=== PATIENT | female | born 1990 | race Two or more races ===

== ENCOUNTER 2023-09-22 13:02 | Emergency (ER) | payer OTHER, SELFPAY ==
[2023-09-22 13:05] VITALS: BP 116/67; PULSE 79; RESP 20; TEMP 37.1; O2SAT 100; BMI 53.5
--- NOTE | 2023-09-22 13:51 | US_ITS ---
The [address] [address] Patient Name: ISAAC JOHNSTON MRN: [id number] date: 1990 Sex: F Assigned Patient Location: ER Current Patient Location: ER Accession/Order Number: [id number] Exam Date: 09/22/2023 14:15 Report Date: 09/22/2023 15:22 At the request of: ROSALINA HODGE Procedure: US OB transvaginal EXAMINATION: US OB transvaginal HISTORY: 10 week preg , cramping, vaginal bleeding COMPARISON: No relevant comparison available. FINDINGS: GESTATIONAL SAC: Present and normal appearing. YOLK SAC: Present and normal appearing. POLE: Present and normal appearing. CARDIAC: Present. UTERUS: Normal size and appearance. OVARIES: Right: Not seen. Left: Normal. CERVIX: 3.5 cm in length and closed. CUL-DE-SAC: Normal. OTHER: None. AGE BY LMP: 11 weeks 1 day RODERICK BY LMP: 04/11/2024 AGE BY US CRL: 6 weeks 5 days RODERICK BY US CRL: 05/12/2024 US/US OB transvaginal IMPRESSION: 1. Single live intrauterine . 2. No acute findings. Right ovary is not seen, but there are no suspicious adnexal findings. Electronically authenticated by: NATALY GEORGE Date: 09/22/2023 15:22
--- NOTE | 2023-09-22 13:53 | ED.GENADUL1 ---
HPI - General Adult General Chief complaint: Urogenital-Female Stated complaint: ISSUES Time Seen by Provider: 09/22/23 13:42 Source: patient Mode of arrival: walk-in Limitations: no limitations History of Present Illness HPI narrative: Patient is a 32-year-old female who is presenting to the Emergency Room with chief complaint of vaginal bleeding that started this morning. Patient has not soaked a total of one pad yet. Patient is a . Patient's had [address] Greene has been patient's OB previously in [place]. Patient's new OB is going to be Dr. Smiley, she has an appointment on October 03 for them. She is tapering a vitamins. 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 Patient's had no type of injury. No trauma. She's had no recent intercourse or traumatic intercourse last day or 2. No falls, no other types of trauma could be causing any type of vaginal bleeding. She'll lightheaded or dizzy. No abdominal pain, nausea or vomiting. She has no urinary frequency or urgency or burning. No diarrhea or constipation. Patient called Dr. Smiley office, and since she has not been seen in the office, they directed her to come to the Emergency Room for evaluation. Patient came to the Emergency Room, she drove her. Patient believes that she is O positive blood. Patient has no active or continued bleeding at this time. . All systems are negative except as noted/marked. All systems reviewed and otherwise negative. . Nurses note and vital signs reviewed and patient is not hypoxic. General: The patient appears well and in no apparent distress. Patient is resting comfortably on cart. Patient is not toxic, lethargic, or listless Skin: Warm, dry, no pallor noted. There is no rash noted. No petechiae, purpura. Head: Normocephalic, atraumatic Eye: Normal conjunctiva, no drainage, EOMI. PERRL Ears, Nose, Mouth, and Throat: oral mucosa is moist. Nares patent. Mouth without vesicles Cardiovascular: Regular Rate and Rhythm, no murmur, gallop, rub Respiratory: Patient is in no distress, no accessory muscle use, lungs are clear to auscultation, no wheezing, rales or rhonchi Back: non-tender, no CVA tenderness bilaterally to percussion. No CT LS midline pain GI: soft, obese, No suprapubic tenderness to palpation, no flank pain bilateral, Mild paralumbar tenderness to palpation, no rash, no tenderness to palpation, no masses appreciated. No rebound, guarding, or rigidity noted. No flank pain bilateral, No distention Musculoskeletal: Patient has full range of motion of all of the extremities, no motor, sensory, or focal neurological deficits Neurological: A&O x3, normal speech Psychiatric: Cooperative Related Data Home Medications Medication Instructions Recorded Confirmed No Known Home Medications 09/22/23 09/22/23 Allergies Allergy/AdvReac Type Severity Reaction Status Date / Time No Known Drug Allergies Allergy Verified 09/22/23 13:09 [facility] Social History Smoking status: Former smoker Exam Constitutional Vital Signs, click to edit/add: Last Vital Signs Temp 98.7 F 09/22/23 13:05 Pulse 79 09/22/23 13:05 Resp 20 09/22/23 13:05 BP 116/67 09/22/23 13:05 Pulse Ox 100 09/22/23 13:05 O2 Del Method Room Air 09/22/23 13:05 Course Vital Signs Vital signs: Vital Signs Temperature 98.7 F 09/22/23 13:05 Pulse Rate 79 09/22/23 13:05 Respiratory Rate 20 09/22/23 13:05 Blood Pressure 116/67 09/22/23 13:05 Pulse Oximetry 100 09/22/23 13:05 Oxygen Delivery Method Room Air 09/22/23 13:05 Temperature 98.7 F 09/22/23 13:05 Pulse Rate 79 09/22/23 13:05 Respiratory Rate 20 09/22/23 13:05 Blood Pressure 116/67 09/22/23 13:05 Pulse Oximetry 100 09/22/23 13:05 Oxygen Delivery Method Room Air 09/22/23 13:05 Medical Decision Making MDM Narrative Medical decision making narrative: Patient's ultrasound showed no acute findings. Patient will continue taking vitamins. Patient was aware of pelvic rest. Information was provided on her discharge papers as well. 1529 patient told staff that she is leaving, she has kids at home and easily right now. I did give her a copy of the results of her ultrasound. I did formally discharged her. Patient is O positive. Patient is aware that Dr. Baljit will see her in the office the next 2 or 3 days. She will use Tylenol needed for pain. No questions at discharge. Lab Data Lab results reviewed: Yes I reviewed the patient's lab results Labs: Lab Results 09/22/23 Range/Units 14:02 WBC 11.3 H (4.0-11.0) 10^3/uL RBC 4.07 L (4.20-5.40) 10^6/uL Hgb 12.3 (12.0-16.0) g/dL Hct 37.4 (36.0-48.0) % MCV 91.9 (81.0-99.0) fL MCH 30.2 (26.7-34.0) pg MCHC 32.9 (29.9-35.2) g/dL RDW 12.0 (11.0-15.0) % Plt Count 254 (150-450) 10^3/uL MPV 8.8 L (9.5-13.5) fL Neut % (Auto) 75.1 H (43.0-75.0) % Lymph % (Auto) 17.2 L (20.5-60.0) % [place] % (Auto) 6.7 (1.7-12.0) % Eos % (Auto) 0.4 L (0.9-7.0) % Baso % (Auto) 0.2 (0.2-2.0) % Neut # (Auto) 8.5 H (1.4-6.5) 10^3/uL Lymph # (Auto) 1.9 (1.2-3.8) 10^3/uL [place] # (Auto) 0.8 (0.3-0.8) 10^3/uL Eos # (Auto) 0.0 (0.0-0.7) 10^3/uL Baso # (Auto) 0.0 (0.0-0.1) 10^3/uL Abs Immat Gran (auto) 0.04 H (0.00-0.03) 10^3/uL Imm/Tot Granulo (auto) 0.4 (0.0-0.5) % HCG, Quant 01621 mIU/mL Blood Type O Positive Discharge Plan Discharge Chief Complaint: Urogenital-Female Clinical Impression: , threatened Patient Disposition: Home, Self-Care Time of Disposition Decision: 15:30 Condition: Fair Prescriptions / Home Meds: No Action No Known Home Medications Instructions: Threatened Miscarriage (ED) Additional Instructions: Called Dr. Smiley office, he will follow up with here in the office in the next 2 or 3 days for reevaluation. Continue taking vitamins. Pelvic rest until you follow-up with Dr. Smiley, no intercourse, no significant strenuous activity, no tampons, and no sexual toys to be inserted into the vaginal canal. Pelvic rest until following up with Dr. Smiley. Use Tylenol as needed for cramping pain. Increase fluids. Stand Alone Forms: Portal Instructions Referrals: Shlomo Smiley DO [Physician] - 1 week TOR TORRES [Primary Care Provider] - 1 week
[2023-09-22 14:11] LABS: Basophils Percent Auto 0.2 % (0.2-2.0); Eosinophils Percent Auto 0.4 % (0.9-7.0); Hematocrit 37.4 % (36.0-48.0); Hemoglobin 12.3 g/dL (12.0-16.0); Immature Granulocytes Abs Auto 0.04 10^3/uL (0.00-0.03); Immature Granulocytes Pct Auto 0.4 % (0.0-0.5); Lymphocytes Absolute Auto 1.9 10^3/uL (1.2-3.8); Lymphocytes Percent Auto 17.2 % (20.5-60.0); Mean Corpuscular HGB Conc 32.9 g/dL (29.9-35.2); Mean Corpuscular Hemoglobin 30.2 pg (26.7-34.0); Mean Corpuscular Volume 91.9 fL (81.0-99.0); Mean Platelet Volume 8.8 fL (9.5-13.5); Monocytes Absolute Auto 0.8 10^3/uL (0.3-0.8); Monocytes Percent Auto 6.7 % (1.7-12.0); Neutrophils Absolute Auto 8.5 10^3/uL (1.4-6.5); Neutrophils Percent Auto 75.1 % (43.0-75.0); Platelet Count 254 10^3/uL (150-450); Red Blood Count 4.07 10^6/uL (4.20-5.40); White Blood Count 11.3 10^3/uL (4.0-11.0)
== END 2023-09-22 15:44 | disposition home or self-care (01) ==
PROVIDERS: Emergency Provider Emergency Medicine; PCP Internal Medicine
DX: O20.0 Threatened abortion (principal); Z3A.10 10 weeks gestation of pregnancy
CPT/HCPCS: 36415; 76817; 84702; 85025; 86900; 86901; 99284

== ENCOUNTER 2023-10-03 10:15 | Outpatient (OUT) | payer OTHER, SELFPAY ==
--- NOTE | 2023-10-03 10:17 | US_ITS ---
[address] [address] Patient Name: ISAAC JOHNSTON MRN: [id number] date: 1990 Sex: F Assigned Patient Location: US Current Patient Location: Accession/Order Number: [id number] Exam Date: 10/03/2023 10:18 Report Date: 10/03/2023 20:29 At the request of: JESICA CROOKS Procedure: US OB transvaginal EXAMINATION: US OB transvaginal HISTORY: MISSED MENSES COMPARISON: No relevant comparison available. FINDINGS: GESTATIONAL SAC: Present and normal appearing. YOLK SAC: Present and normal appearing. POLE: Present and normal appearing. CARDIAC: Present. UTERUS: Normal size and appearance. OVARIES: Right: Not seen. Left: Corpus lutein cyst. CERVIX: 4.2 cm in length and closed. CUL-DE-SAC: Normal. OTHER: None. AGE BY LMP: 8 weeks 1 day RODERICK BY LMP: 05/13/2024 AGE BY US CRL: 7 weeks 6 days RODERICK BY US CRL: 05/15/2024 US/US OB transvaginal IMPRESSION: Electronically authenticated by: NATALY GEORGE Date: 10/03/2023 20:29
== END 2023-10-03 10:16 | disposition home or self-care (01) ==
LOC: US 10:15
PROVIDERS: PCP Internal Medicine; Visit Provider Obstetrics & Gynecology
DX: Z34.91 Encounter for supervision of normal pregnancy, unspecified, first trimester (principal); N92.6 Irregular menstruation, unspecified
CPT/HCPCS: 76817

== ENCOUNTER 2023-10-17 16:35 | Outpatient (OUT) | payer OTHER, SELFPAY ==
[2023-10-17 17:06] LABS: BOX Test Sent Out Y
[2023-10-17 17:07] LABS: Basophils Percent Auto 0.2 % (0.2-2.0); Eosinophils Absolute Auto 0.1 10^3/uL (0.0-0.7); Eosinophils Percent Auto 0.8 % (0.9-7.0); Hemoglobin 11.9 g/dL (12.0-16.0); Immature Granulocytes Abs Auto 0.02 10^3/uL (0.00-0.03); Immature Granulocytes Pct Auto 0.2 % (0.0-0.5); Lymphocytes Absolute Auto 2.4 10^3/uL (1.2-3.8); Lymphocytes Percent Auto 26.8 % (20.5-60.0); Mean Corpuscular HGB Conc 32.2 g/dL (29.9-35.2); Mean Corpuscular Hemoglobin 29.8 pg (26.7-34.0); Mean Corpuscular Volume 92.5 fL (81.0-99.0); Mean Platelet Volume 8.5 fL (9.5-13.5); Monocytes Absolute Auto 0.6 10^3/uL (0.3-0.8); Monocytes Percent Auto 6.1 % (1.7-12.0); Neutrophils Percent Auto 65.9 % (43.0-75.0); Platelet Count 290 10^3/uL (150-450); Red Cell Distribution Width 12.8 % (11.0-15.0); White Blood Count 9.1 10^3/uL (4.0-11.0)
[2023-10-17 17:28] LABS: Estimated Average Glucose 91 mg/dL; Glycohemoglobin A1C 4.8 % (4.5-6.2)
[2023-10-17 17:45] LABS: Thyroid Stimulating Hormone 1.933 uIU/mL (0.358-3.740)
[2023-10-19 10:07] LABS: HBsAg Screen Negative (Negative); HCV Ab Non Reactive (Non Reactive); HIV Ab/p24 Ag Screen Non Reactive (Non Reactive)
[2023-10-20 09:07] LABS: Rubella Antibodies, IgG 2.21 index (Immune >0.99)
[2023-10-21 13:08] LABS: Rapid Plasma Reagin, Quant Non Reactive titer (NonRea<1:1)
== END 2023-10-17 16:36 | disposition home or self-care (01) ==
PROVIDERS: PCP Internal Medicine; Visit Provider Obstetrics & Gynecology
DX: N92.6 Irregular menstruation, unspecified (principal); Z36.0 Encounter for antenatal screening for chromosomal anomalies
CPT/HCPCS: 36415; 83036; 84443; 85025; 86592; 86762; 86803; 86850; 86900; 86901; 87086; 87340; 87389

== ENCOUNTER 2023-12-01 22:00 | Outpatient (REF) | payer OTHER, SELFPAY ==
--- OUTSIDE RECORDS SUMMARY | 2023-12-01 22:03 | XMS_ITS | CCD ---
Author Name Unknown Address [address] [place] [address] Organization [facility] Care Team Providers Care Facilities Maintenance Technician Name Role Phone DR TOR TORRES Primary Care Unavail SILVIA Niño Attending Unavailable SILVIA MAGAÑA Consulting Unavailable SILVIA MAGAÑA Admitting Unavailable Brittany Hendricks Consulting Unavailable MELISSA, DR TOR Alexander Primary Care Unavail able SILVIA MAGAÑA Admitting Unavailable HUSSAIN DICK Consulting Unavailable SILVIA MAGAÑA Attending Unavailable MAX, DR GEREMIAS Sanchez Attending Unavailable DR GEREMIAS SANTANA Consulting Unavailable MELISSA, DR TOR Alexander Primary Care Unavail able DR GEREMIAS SANTANA Admitting Unavailable JESICA CROOKS Attending Unavailable Allergies Allergy Classification Reported Allergen(s) Allergy Type Date of Onset Reaction(s) Facility (1 source) Morphine Drug Allergy 05-18-2018 [facility] Repository Problems Active Problems Problem Classification Problem Date Documented Da te Episodic/Chronic Asthma (1 source) Unspecified asthma, uncomplicated; Translations: [UNSPECIFIED ASTHMA UNCOMPLICATED] Onset: 10-02-2021 Chronic Esophageal disorders (1 source) Gastro-esophageal reflux disease without esophagitis; Translations: [GERD WITHOUT ESOPHAGITIS] Onset: 12-12-2020 Chronic Other aftercare (1 source) Other assisted (current) drug therapy; Translations: [OTH 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 CURRENT DRUG THERAPY] Onset: 10-02-2021 Episodic Other connective tissue disease (3 sources) Pain in left forearm; Translations: [PAIN IN LEFT FOREARM] Onset: 09-28-2021 Episodic Screening and history of mental health and substance abuse codes (1 source) Personal history of nicotine dependence; Translations: [PERSONAL HISTORY OF NICOTINE DEPEND] Onset: 10-02-2021 Episodic Spondylosis; intervertebral disc disorders; other back problems (1 source) Radiculopathy, cervical region; Translations: [RADICULOPATHY CERVICAL REGION] Onset: 10-02-2021 Episodic Substance-related disorders (1 source) Nicotine dependence, cigarettes, uncomplicated; Translations: [NICOTINE DEPEND CIGARETTES UNCOMP] Onset: 12-19-2020 Chronic Unclassified (1 source) ELEV LVLS LIVER TRANSAMINASE LVLS; Translations: [ELEV LVLS LIVER TRANSAMINASE LVLS] Onset: 12-19-2020 Past or Other Problems Problem Classification Problem Date Documented Date Episodic/Chronic Abdominal pain (1 source) Unspecified abdominal pain; Translations: [UNSPECIFIED ABDOMINAL PAIN] Onset: 12-19-2020 Episodic Nonspecific chest pain (3 sources) Chest pain, unspecified; Translations: [CHEST PAIN UNSPECIFIED] Onset: 12-09-2020 Episodic Other liver diseases (3 sources) Unspecified jaundice; Translations: [UNSPECIFIED JAUNDICE] Onset: 12-15-2020 Episodic Pancreatic disorders (not diabetes) (1 source) Acute pancreatitis without necrosis or infection, unspecified; Translations: [ACUTE PANCREATITIS WO NECRS/INF UNS] Onset: 12-19-2020 Episodic Residual codes; unclassified (1 source) Acquired absence of other specified parts of digestive tract; Translations: [ACQ ABSENCE OTH PART DIGESTV TRACT] Onset: 12-19-2020 Episodic Residual codes; unclassified (1 source) Other specified postprocedural states; Translations: [OTH SPECIFIED POSTPROCEDURAL STATES] Onset: 12-19-2020 Episodic Results Test Name Value Interpretation Reference Range Facility [facility] 01-02-2021 CNOV Office Visit (JACKSON ) -------- ISAAC TOUSSAINT ([id number]) 1990 F Date Time Provider Department 01/02/21 10:30 AM BRO YUAN During your visit today, we recorded the following information about you: Temperature Pulse Blood pressure Weight 96.8 degrees 115/minute 130/68 140.6 kg Height 1.499 m Bhavani Han MA 01/02/2021 11:04 AM Signed What is the reason for your visit today? Post op Who is your referring physician? Dr. yuan Are you having poor oral intake? NO Have you had unintentional weight loss of 15 lbs/7 Kg in the last 3-6 months? NO Bowels: constipated or diarrhea Wound: clean AND dry Temperature: No Drains: No Annamaria Collins MD 01/02/2021 11:55 AM Signed General Surgery Postop Clinic Note Service Date: January 02, 2021 Interval History: Reports that she still feels easily fatigued but is otherwise doing well. Pain well controlled, tolerating a diet, and having regular bowel function (initially required Colace). Physical Exam: BP 130/68 Pulse 115 Temp (Src) 96.8 (Temporal) Ht 4' 11 (1.50m) Wt 310 lb (140.6kg) BMI 62.58 kg/(m2). General: no acute distress Respiratory: non-labored breathing Cardiovascular: warm and well perfused throughout Abdomen: soft, non-tender, non-distended, incisions starting to scab Assessment/Plan: Isaac Toussaint is a 30 year old female with symptomatic cholelithiasis requiring a laparoscopic cholecystectomy on 12/13 (path with chronic cholecystitis, liver biopsy with portal inflammation. Her postop course was complicated by persistent elevation of LFTs but all imaging was absent for choledocholithiasis and she improved with no further interventions. - Follow-up PRN Annamaria Collins MD General Surgery Resident Bro Yuan MD 01/02/2021 11:55 AM Signed Addendum: I have reviewed the history and physical examination obtained and documented by the resident/fellow/PA and I personally participated in the garcia components. I have discussed the case and management of the patient's care. The following comments revise or confirm relevant garcia components of the note. CC: Post op HPI: Recovering well from surgery. Underwent lap antonia 12/13/2019 for acute cholecystitis (pathology: Cholelithiasis and chronic cholecystitis). Was readmitted postoperatively for pancreatitis, likely from cholangiogram, resolved spontaneously. No abdominal pain currently. The symptoms she was having pre-operatively have resolved. Tolerating PO intake without difficulty. Inc c/d/i without hernias or signs of infection. Plan: - No lifting anything over 15 pounds for a total of 4 weeks from surgery. OK to return to work now with the lifting restrictions, will lift the restrictions 4 weeks after surgery. - Follow up PRN SIGNATURE: Jeffrey Yuan MD [facility] surgery Pager: [phone] Referring Provider: SELF [[id number]] Allergies As of Date: 01/02/2021 (No Known Allergies) Date Reviewed: 01/02/2021 Reviewed by: Bro Yuan - Fully Assessed Primary Visit Diagnosis:Calculus of gallbladder with acute cholecystitis without obstruction [K80.00] Other Visit Diagnoses:Obesity, Class III, BMI >= 40 [E66.01] Nicotine use disorder, F17.2 [F17.200] Prescriptions as of 01/02/2021 Sig: ALBUTEROL SULFATE HFA 90 MCG/* Inhale 2 Puffs as instructed * ATENOLOL 25 MG TABLET Take 12.5 mg by mouth once da* CETIRIZINE 10 MG TABLET Take 10 mg by mouth as needed. FAMOTIDINE 20 MG TABLET Take 20 mg by mouth twice zuleima* FLOVENT HFA 110 MCG/ACTUATION* 2 Puffs twice daily as needed. KETOROLAC 10 MG TABLET Take 10 mg by mouth every 6 h* MONTELUKAST 10 MG TABLET Take 10 mg by mouth at bedtim* PROMETHAZINE 25 MG TABLET TAKE 1 TABLET (25 MG TOTAL) B* Problem List As Of Date 01/02/2021 Noted Resolved Choledocholithiasis [K80.50] 12/12/2020 12/18/2020 More... Nicotine use disorder, F17.2 [F17.200] 12/13/2020 Obesity, Class III, BMI >= 40 [E66.01] 12/14/2020 More... DVT prophylaxis [Z29.9] 12/18/2020 12/18/2020 More... Visit Notes: >> Bhavani Manrique Jan 02, 2021 10:59 AM Status: Signed What is the reason for your visit today? Post op Who is your referring physician? Dr. yuan Are you having poor oral intake? NO Have you had unintentional weight loss of 15 lbs/7 Kg in the last 3-6 months? NO Bowels: constipated or diarrhea Wound: clean AND dry Temperature: No Drains: No Encounter Status:[facility]AN [facility]PODCCP[facility] -------- ISAAC TOUSSAINT ([id number]) 1990 F Date Time Provider Department 12/22/20 VAHE CR (STUDENT) PODCCP During your visit today, we recorded the following information about you: Vahe Cr Student 12/22/2020 10:01 AM Signed Record ID: [id number] [facility] [place]: [facility] [place] Attending: Bro Yuan Center: General Surgery INSTRUCTIONS SN to remind patient of appointment date, time, location All Clear All Clear SURVEY INFORMATION Medical/Nurse Ore Feeder: Landy Duran 1. Your discharge instructions are important in guiding you through the recovery process. Is there anything I could help you clarify on your discharge instructions? (Standard Question) No, All clear 2. Do you have a follow up appointment related to your hospital stay scheduled within the next 30 days? (Standard Question) Yes 3. Do you have any of the following new symptoms related to your wound?; Creamy white or foul smelling drainage Increasing redness or swelling, Increasing pain (Red Flag Question) No, no concerns at all 4. Are you tolerating your pain with your current medication? (Red Flag Question) Yes, I can tolerate my pain 5. Many patients have concerns about their medications once they are home. Do you have any questions about getting or taking your medications? (Standard Question) No 6. Do you have any new or different symptoms? (Standard Question) No Allergies As of Date: 12/22/2020 (No Known Allergies) Date Reviewed: 12/18/2020 Reviewed by: Lencho Chapman) ARGENIS Winter - Fully Assessed Reason for Visit: Follow Up Phone Call [[phone]] Prescriptions as of 12/22/2020 Sig: ONDANSETRON HCL 4 MG TABLET Take 1 tablet by mouth every * ALBUTEROL SULFATE HFA 90 MCG/* Inhale 2 Puffs as instructed * ATENOLOL 25 MG TABLET Take 12.5 mg by mouth once da* CETIRIZINE 10 MG TABLET Take 10 mg by mouth as needed. FAMOTIDINE 20 MG TABLET Take 20 mg by mouth twice zuleima* FLOVENT HFA 110 MCG/ACTUATION* 2 Puffs twice daily as needed. KETOROLAC 10 MG TABLET Take 10 mg by mouth every 6 h* MONTELUKAST 10 MG TABLET Take 10 mg by mouth at bedtim* PROMETHAZINE 25 MG TABLET TAKE 1 TABLET (25 MG TOTAL) B* Problem List As Of Date 12/22/2020 Noted Resolved Choledocholithiasis [K80.50] 12/12/2020 12/18/2020 More... Nicotine use disorder, F17.2 [F17.200] 12/13/2020 Obesity, Class III, BMI >= 40 [E66.01] 12/14/2020 More... DVT prophylaxis [Z29.9] 12/18/2020 12/18/2020 More... Encounter Status:Closed by VAHE WADE on 12/22/20 [facility] Core[facility] -------- ISAAC TOUSSAINT ([id number]) 1990 F Date Time Provider Department 12/21/20 BRO YUAN During your visit today, we recorded the following information about you: Macy Arshad [place] 12/21/2020 12:18 PM Signed Patient is calling regarding her biopsy results. Please call to discuss. Allergies As of Date: 12/21/2020 (No Known Allergies) Date Reviewed: 12/18/2020 Reviewed by: Lencho Chapman) ARGENIS Winter - Fully Assessed Reason for Visit: Returning Patient's Call [[phone]] Prescriptions as of 12/21/2020 Sig: ACETAMINOPHEN 325 MG TABLET Take 2 tablets by mouth every* ALBUTEROL SULFATE HFA 90 MCG/* Inhale 2 Puffs as instructed * ATENOLOL 25 MG TABLET Take 12.5 mg by mouth once da* CETIRIZINE 10 MG TABLET Take 10 mg by mouth as needed. FAMOTIDINE 20 MG TABLET Take 20 mg by mouth twice zuleima* FLOVENT HFA 110 MCG/ACTUATION* 2 Puffs twice daily as needed. KETOROLAC 10 MG TABLET Take 10 mg by mouth every 6 h* MONTELUKAST 10 MG TABLET Take 10 mg by mouth at bedtim* PROMETHAZINE 25 MG TABLET TAKE 1 TABLET (25 MG TOTAL) B* Problem List As Of Date 12/21/2020 Noted Resolved Choledocholithiasis [K80.50] 12/12/2020 12/18/2020 More... Nicotine use disorder, F17.2 [F17.200] 12/13/2020 Obesity, Class III, BMI >= 40 [E66.01] 12/14/2020 More... DVT prophylaxis [Z29.9] 12/18/2020 12/18/2020 More... Encounter Status:Closed by MACY SALEH on 01/22/21 [facility] OBSOLETEon 12-21-2020 OBSOLETE Refill (GENSMN) -------- ISAAC TOUSSAINT ([id number]) 1990 F Date Time Provider Department 12/21/20 ROXANA SCOTT During your visit today, we recorded the following information about you: Roxana Scott APRN.MANAGER ELECTRICAL 12/21/2020 2:00 PM Signed Patient called with concerns and requesting pathology results. Results reviewed and discussed with patient. She also is reporting some mild nausea and concerns for constipation. Has not had a BM since Friday. No abdominal distension, pain or vomiting. She has no pain, increasing activity daily. Zofran sent to patient preferred pharmacy. Patient encouraged to take stool softeners daily, may take MOM if constipation persists. Has a post op visit scheduled. Will call our office if symptoms persist. Roxana Scott APRN.MANAGER ELECTRICAL Allergies As of Date: 12/21/2020 (No Known Allergies) Date Reviewed: 12/18/2020 Reviewed by: Lencho (Rn) ARGENIS Winter - Fully Assessed Order(s):ondansetron (ZOFRAN) 4 mg tabletTake 1 tablet by mouth every 8 hours as needed (for nausea.) for up to 7 days.Disp: 21 tabletRfl: 0 Prescriptions as of 12/21/2020 Sig: ONDANSETRON HCL 4 MG TABLET Take 1 tablet by mouth every * ACETAMINOPHEN 325 MG TABLET Take 2 tablets by mouth every* ALBUTEROL SULFATE HFA 90 MCG/* Inhale 2 Puffs as instructed * ATENOLOL 25 MG TABLET Take 12.5 mg by mouth once da* CETIRIZINE 10 MG TABLET Take 10 mg by mouth as needed. FAMOTIDINE 20 MG TABLET Take 20 mg by mouth twice zuleima* FLOVENT HFA 110 MCG/ACTUATION* 2 Puffs twice daily as needed. KETOROLAC 10 MG TABLET Take 10 mg by mouth every 6 h* MONTELUKAST 10 MG TABLET Take 10 mg by mouth at bedtim* PROMETHAZINE 25 MG TABLET TAKE 1 TABLET (25 MG TOTAL) B* Problem List As Of Date 12/21/2020 Noted Resolved Choledocholithiasis [K80.50] 12/12/2020 12/18/2020 More... Nicotine use disorder, F17.2 [F17.200] 12/13/2020 Obesity, Class III, BMI >= 40 [E66.01] 12/14/2020 More... DVT prophylaxis [Z29.9] 12/18/2020 12/18/2020 More... Prescriptions ordered this encounter Disp Refills Start End ONDANSETRON HCL 4 MG TABLET 21 t* 0 12/21/2020 12/28/2020 Route: ORAL Sig: Take 1 tablet by mouth every 8 hours as needed (for nausea.) for up to 7 days. Encounter Status:Closed by TYLER DEJESUS.HARSHROXANA Andrey on 12/21/20 Normal [facility] AMMONIAon 12-15-2020 Ammonia (P) [Mass/Vol] ug/dL Critically low 10-30 [facility] Comment on above: Performed By: #### A MM #### [facility] [address] [place] [address] Marcin Alanna AMYLASEon 12-15-2020 Amylase [Catalytic activity/Vol] 217 U/L Critically high 31-110 [facility] Comment on above: Performed By: #### C JAVAD MOLINA AMY #### [facility] [address] [place] [address] Marcin Alanna CBC AUTO DIFFon 12-15-2020 BASO # 0.0 103/ul Normal 0.0-0.1 [facility] Comment on above: Performed By: #### C JAVAD MOLINA AMY #### [facility] [address] [place] [address] Marcin Alanna Basophils/100 WBC (Bld) 0.3 % Normal 0.2-2.0 [facility] Comment on above: Performed By: #### C JAVAD MOLINA AMY #### [facility] [address] [place] [address] Marcin Alanna EO # 0.0 103/ul Normal 0.0-0.7 [facility] Comment on above: Performed By: #### C JAVAD MOLINA AMY #### [facility] [address] [place] [address] Marcin Alanna Eosinophils/100 WBC (Bld) 0.3 % Critically low 0.9-7.0 [facility] Comment on above: Performed By: #### C JAVAD MOLINA AMY #### [facility] [address] [place] [address] Marcin Alanna Erythrocyte distribution width (RBC) [Ratio] 13.3 % Normal 11.0-15.0 [facility] Comment on above: Performed By: #### C JAVAD MOLINA AMY #### [facility] [address] [place] [address] Marcin Alanna Hematocrit (Bld) [Volume fraction] 42.9 % Normal 36.0-48.0 [facility] Comment on above: Performed By: #### C JAVAD MOLINA, RAYNE #### [facility] [address] [place] [address] Marcin Alanna Hemoglobin (Bld) [Mass/Vol] 13.8 g/dL Normal 12.0-16.0 [facility] Comment on above: Performed By: #### C JAVAD MOLINA, RAYNE #### [facility] [address] [place] [address] Marcin Alanna IG # 0.02 10e3/ul Normal 0.00-0.03 [facility] Comment on above: Performed By: #### C JAAVD MOLINA, RAYNE #### [facility] [address] [place] [address] Marcin Alanna IG % 0.3 % Normal 0.0-0.5 [facility] Comment on above: Performed By: #### C JAVAD MOLINA, RAYNE #### [facility] [address] [place] [address] Marcin Alanna LYMPH # 1.7 103/ul Normal 1.2-3.8 [facility] Comment on above: Performed By: #### C JAVAD MOLINA, RAYNE #### [facility] [address] [place] [address] Marcin Alanna Lymphocytes/100 WBC (Bld) 23.8 % Normal 20.5-60.0 [facility] Comment on above: Performed By: #### C JAVAD MOLINA, RAYNE #### [facility] [address] [place] [address] Marcin Alanna MANUAL DIFF REQ NO Normal [facility] Comment on above: Performed By: #### C JAVAD MOLINA, RAYNE #### [facility] [address] [place] [address] Marcin Alanna MCH (RBC) [Entitic mass] 29.8 pg Normal 26.7-34.0 [facility] Comment on above: Performed By: #### C EZRA MOLINAA, RAYNE #### [facility] [address] [place] [address] Marcinraffy Mondragon MCHC (RBC) [Mass/Vol] 32.2 g/dL Normal 29.9-35.2 [facility] Comment on above: Performed By: #### C TRACY LIPA, RAYNE #### [facility] [address] [place] [address] Marcin Alanna MCV (RBC) [Entitic vol] 92.7 fL Normal 81.0-99.0 [facility] Comment on above: Performed By: #### C TRACY LIPA, RAYNE #### [facility] [address] [place] [address] Marcin Alanna MONO # 0.6 103/ul Normal 0.3-0.8 [facility] Comment on above: Performed By: #### C TRACY LIPA, RAYNE #### [facility] [address] [place] [address] Marcin Alanna Monocytes/100 WBC (Bld) 8.5 % Normal 1.7-12.0 [facility] Comment on above: Performed By: #### C EZRA MOLINAA, RAYNE #### [facility] [address] [place] [address] Marcin Alanna NEUT # 4.8 103/ul Normal 1.4-6.5 [facility] Comment on above: Performed By: #### C TRACY LIPA, RAYNE #### [facility] [address] [place] [address] Marcin Alanna Neutrophils/100 WBC (Bld) 66.8 % Normal 43.0-75.0 [facility] Comment on above: Performed By: #### C TRACY LIPA, RAYNE #### [facility] [address] [place] [address] Marcin Alanna Platelet mean volume (Bld) [Entitic vol] 8.7 fL Critically low 9.5-13.5 [facility] Comment on above: Performed By: #### C TRACY LIPA, RAYNE #### [facility] [address] [place] [address] Marcin Alanna PLT 253 103/ul Normal 150-450 [facility] Comment on above: Performed By: #### C JVAAD MOLINA, RAYNE #### [facility] [address] [place] [address] Marcin Mondragon RBC 4.63 106/ul Normal 4.20-5.40 [facility] Comment on above: Performed By: #### C EZRA MOLINAA, RAYNE #### [facility] [address] [place] [address] Marcinraffy Mondragon WBC 7.1 103/ul Normal 4.0-11.0 [facility] Comment on above: Performed By: #### C JAVAD MOLINA, RAYNE #### [facility] [address] [place] [address] Marcin Mondragon LIPASEon 12-15-2020 Lipase [Catalytic activity/Vol] 1205.0 U/L Critically high 23.0-300.0 [facility] Comment on above: Result Comment: test repeated critical value verified Performed By: #### C JAVAD MOLINA, RAYNE #### [facility] [address] [place] [address] Marcin Mondragon PREG HCG QUALon 12-15-2020 , QUAL Negative Normal NEGATIVE [facility] Comment on above: Performed By: #### P REG #### [facility] [address] [place] [address] Marcin Mondragon PROF 14(COMP METB)on 021 Albumin [Mass/Vol] 3.3 g/dL Critically low 3.5-5.0 [facility] Comment on above: Performed By: #### C TRACY LIPA, RAYNE #### [facility] [address] [place] [address] Marcin Mondragon Albumin/Globulin [Mass ratio] 0.8 {ratio} Normal [facility] Comment on above: Performed By: #### C TRACY LIPA, RAYNE #### [facility] [address] [place] [address] Marcin Mondragon ALP [Catalytic activity/Vol] 167 U/L Critically high 38-126 [facility] Comment on above: Performed By: #### C TRACY LIPA, RAYNE #### [facility] [address] [place], [place] [address] Marcin Alanna ALT [Catalytic activity/Vol] 370 U/L Critically high 9-52 [facility] Comment on above: Performed By: #### C TRACY LIPA, RAYNE #### [facility] [address] [place] [address] Marcin Alanna Anion gap [Moles/Vol] 12.5 mmol/L Normal [facility] Comment on above: Performed By: #### C TRACY LIPA, RAYNE #### [facility] [address] [place] [address] Marcin Alanna AST [Catalytic activity/Vol] 165 U/L Critically high 14-36 [facility] Comment on above: Performed By: #### C TRACY LIPA, RAYNE #### [facility] [address] [place] [address] Marcin Alanna Bilirubin [Mass/Vol] 5.3 mg/dL Critically high 0.2-1.3 [facility] Comment on above: Performed By: #### C TRACY LIPA, RAYNE #### [facility] [address] [place] [address] Marcin Alanna Calcium [Mass/Vol] 9.2 mg/dL Normal 8.4-10.2 [facility] Comment on above: Performed By: #### C TRACY LIPA, RAYNE #### [facility] [address] [place] [address] Marcin Alanna Chloride [Moles/Vol] 102 mmol/L Normal 98-107 [facility] Comment on above: Performed By: #### C TRACY LIPA, RAYNE #### [facility] [address] [address] Marcin Alanna CO2 [Moles/Vol] 29.6 mmol/L Normal 22.0-30.0 [facility] [place] Comment on above: Performed By: #### C TRACY LIPA, RAYNE #### [facility] [address] [address] Marcin Alanna Creatinine [Mass/Vol] 0.88 mg/dL Normal 0.52-1.04 [facility] Comment on above: Performed By: #### C TRACY LIPA, RAYNE #### [facility] [address] [place], [place] [id number] Marcin Alanna EGFR-AF ALBANIAN >60 Normal >=60 [facility] [place] Comment on above: Performed By: #### C MP, LIPA, RAYNE #### [facility] [address] [address] Marcin Alanna EGFR-NON AF ALBANIAN >60 Normal >=60 [facility] Comment on above: Performed By: #### C TRACY, LIPA, RAYNE #### [facility] [address] [place] [address] Marcin Alanna Globulin (S) [Mass/Vol] 4.1 g/dL Normal [facility] Comment on above: Performed By: #### C TRACY LIPA, RAYNE #### [facility] [address] [place] [address] Marcin Alanna Glucose [Mass/Vol] 88 mg/dL Normal 74-106 [facility] Comment on above: Performed By: #### C TRACY LIPA, RAYNE #### [facility] [address] [place] [address] Marcin Alanna Potassium [Moles/Vol] 3.1 mmol/L Critically low 3.4-5.0 [facility] Comment on above: Performed By: #### C TRACY LIPA, RAYNE #### [facility] [address] [place] [address] Marcin Alanna Protein [Mass/Vol] 7.4 g/dL Normal 6.1-8.2 [facility] Comment on above: Performed By: #### C TRACY LIPA, RAYNE #### [facility] [address] [place] [address] Marcin Alanna Sodium [Moles/Vol] 141 mmol/L Normal 137-145 [facility] Comment on above: Performed By: #### C MP, LIPA, RAYNE #### [facility] [address] [place] [address] Marcin Alanna Urea nitrogen [Mass/Vol] 8.0 mg/dL Normal 7.0-17.0 [facility] [facility] Comment on above: Performed By: #### C JAVAD MOLINA, RAYNE #### [facility] [address] [place], [place] [address]raffy Mondragon Urea nitrogen/Creatini ne [Mass ratio] 9.1 mg/mg Normal [facility] Comment on above: Performed By: #### C JAVAD MOLINA, RAYNE #### [facility] [address] [place] [address] Marcin Alanna PROTIMEon 12-15-2020 INR Coag (PPP) [Relative time] 1.04 {INR} Normal [facility] Comment on above: Performed By: #### C JAVAD MOLINA RAYNE #### [facility] [address] [place] [address] Marcin Alanna INR GUIDELINES SEE BELOW Normal [facility] Comment on above: Result Comment: NAI RED INR: 2.0 - 3.0 CONDITIONS NOT LISTED BELOW 2.5 - 3.5 FOR PROSTHETIC HEART VALVE REPLACEMENT 2.5 - 3.5 RECURRENT THROMBOSIS Performed By: #### C TRACY, LIPA, RAYNE #### [facility] [address] [place] [address] Marcin Alanna PT Coag (PPP) [Time] 11.3 s Normal 9.0-11.6 [facility] Comment on above: Performed By: #### C MP LIPA, RAYNE #### [facility] [address] [place] [address] Marcinraffy Mondragon PTTon 12-15-2020 aPTT Coag (Bld) [Time] 27.8 s Normal 22.3-36.2 [facility] Comment on above: Performed By: #### C MP LIPA, RAYNE #### [facility] [address] [place] [address] Alanna AMYLASEon 12-09-2020 Amylase [Catalytic activity/Vol] 45 U/L Normal 31-110 [facility] Comment on above: Performed By: #### B MP RAYNE, LIVER, LIPA #### [facility] [address] [place] [address] Marcin Alanna CBC AUTO DIFFon 12-09-2020 BASO # 0.0 103/ul Normal 0.0-0.1 [facility] Comment on above: Performed By: #### C BC #### [facility] [address] [id number] Marcin Alanna Basophils/100 WBC (Bld) 0.2 % Normal 0.2-2.0 [facility] Comment on above: Performed By: #### C BC #### [facility] [address] [address] Marcin Alanna EO # 0.0 103/ul Normal 0.0-0.7 [facility] Comment on above: Performed By: #### C BC #### [facility] [address] [address] Marcin Alanna Eosinophils/100 WBC (Bld) 0.3 % Critically low 0.9-7.0 [facility] Comment on above: Performed By: #### C BC #### [facility] [address] [id number] Marcin Alanna Erythrocyte distribution width (RBC) [Ratio] 12.6 % Normal 11.0-15.0 [facility] Comment on above: Performed By: #### C BC #### [facility] [address] [place], [place] [id number] Marcin Alanna Hematocrit (Bld) [Volume fraction] 45.7 % Normal 36.0-48.0 [facility] Comment on above: Performed By: #### C BC #### [facility] [address] [id number] Marcin Alanna Hemoglobin (Bld) [Mass/Vol] 14.6 g/dL Normal 12.0-16.0 [facility] Comment on above: Performed By: #### C BC #### [facility] [address] [id number] Marcin Alanna IG # 0.04 10e3/ul Critically high 0.00-0.[address] [facility] Comment on above: Performed By: #### C BC #### [facility] [address] [place] [address] Marcin Alanna IG % 0.4 % Normal 0.0-0.5 [facility] Comment on above: Performed By: #### C BC #### [facility] [address] [place] [address] Marcin Alanna LYMPH # 1.4 103/ul Normal 1.2-3.8 [facility] Comment on above: Performed By: #### C BC #### [facility] [address] [place] [address] Marcin Alanna Lymphocytes/100 WBC (Bld) 12.8 % Critically low 20.5-60.0 [facility] Comment on above: Performed By: #### C BC #### [facility] [address] [place] [address] Marcin Mondragon MANUAL DIFF REQ NO Normal [facility] Comment on above: Performed By: #### C BC #### [facility] [address] [place] [address] Marcinraffy Pritcharden MCH (RBC) [Entitic mass] 29.4 pg Normal 26.7-34.0 [facility] Comment on above: Performed By: #### C BC #### [facility] [address] [place] [address] Marcinraffy Mondragon MCHC (RBC) [Mass/Vol] 31.9 g/dL Normal 29.9-35.2 [facility] Comment on above: Performed By: #### C BC #### [facility] [address] [place] [address] Marcinraffy Pritcharden MCV (RBC) [Entitic vol] 92.1 fL Normal 81.0-99.0 [facility] Comment on above: Performed By: #### C BC #### [facility] [address] [place], [place] [id number] Marcin Alanna MONO # 0.6 103/ul Normal 0.3-0.8 [facility] Comment on above: Performed By: #### C BC #### [facility] [address] [place], [place] [id number] Marcin Alanna Monocytes/100 WBC (Bld) 5.6 % Normal 1.7-12.0 [facility] Comment on above: Performed By: #### C BC #### [facility] [address] [place], [place] [address] Marcin Mondragon NEUT # 9.0 103/ul Critically high 1.4-6.5 [facility] Comment on above: Performed By: #### C BC #### [facility] [address] [place], [place] [id number] Marcin Mondragon Neutrophils/100 WBC (Bld) 80.7 % Critically high 43.0-75.0 [facility] Comment on above: Performed By: #### C BC #### [facility] [address] [place], [place] [address] Marcin Mondragon Platelet mean volume (Bld) [Entitic vol] 8.6 fL Critically low 9.5-13.5 [facility] Comment on above: Performed By: #### C BC #### [facility] [address] [place], [place] [address] Marcin Pritcharden PLT 255 103/ul Normal 150-450 [facility] Comment on above: Performed By: #### C BC #### [facility] [address] [place], [place] [address] Marcin Mondragon RBC 4.96 106/ul Normal 4.20-5.40 [facility] Comment on above: Performed By: #### C BC #### [facility] [address] [place], [place] [address] Marcin Pritcharden WBC 11.1 103/ul Critically high 4.0-11.0 [facility] Comment on above: Performed By: #### C BC #### [facility] [address] [place], [place] [address] Marcin Mondragon LIPASEon 12-09-2020 Lipase [Catalytic activity/Vol] 129.0 U/L Normal 23.0-300.0 [facility] Comment on above: Performed By: #### B MP, RAYNE, LIVER, LIPA #### [facility] [address] [place], [place] [id number] Marcin Mondragon LIVER PROFILEon 12-09-2020 Albumin [Mass/Vol] 3.5 g/dL Normal 3.5-5.0 [facility] Comment on above: Performed By: #### B MP, RAYNE, LIVER, LIPA #### [facility] [address] [address] Marcin Alanna Albumin/Globulin [Mass ratio] 0.9 {ratio} Normal [facility] Comment on above: Performed By: #### B MP, RAYNE, LIVER, LIPA #### [facility] [address] [place] [address] Marcin Alanna ALP [Catalytic activity/Vol] 80 U/L Normal 38-126 [facility] Comment on above: Performed By: #### B MP, RAYNE, LIVER, LIPA #### [facility] [address] [place] [address] Marcin Alanna ALT [Catalytic activity/Vol] 31 U/L Normal 9-52 [facility] Comment on above: Performed By: #### B MP, RAYNE, LIVER, LIPA #### [facility] [address] [place] [address] Marcin Alanna AST [Catalytic activity/Vol] 39 U/L Critically high 14-36 [facility] Comment on above: Performed By: #### B MP, RAYNE, LIVER, LIPA #### [facility] [address] [place] [address] Marcin Alanna BILI, CONJUGATED 0.2 mg/dL Normal 0.0-0.3 [facility] Comment on above: Performed By: #### B MP, RAYNE, LIVER, LIPA #### [facility] [address] [place] [address] Marcin Alanna Bilirubin [Mass/Vol] 0.5 mg/dL Normal 0.2-1.3 [facility] Comment on above: Performed By: #### B MP, RAYNE, LIVER, LIPA #### [facility] [address] [place] [address] Marcin Alanna Globulin (S) [Mass/Vol] 3.8 g/dL Normal [facility] Comment on above: Performed By: #### B MP, RAYNE, LIVER, LIPA #### [facility] [address] [place] [address] Marcin Alanna Protein [Mass/Vol] 7.3 g/dL Normal 6.1-8.2 [facility] Comment on above: Performed By: #### B MP, RAYNE, LIVER, LIPA #### [facility] [address] [place] [address] Marcin Alanna PROF CHEM 8 (BAS METB)on Anion gap [Moles/Vol] 10.6 mmol/L Normal [facility] Comment on above: Performed By: #### C MP, LIPA, RAYNE #### [facility] [address] [place] [address] Marcin Alanna Calcium [Mass/Vol] 8.9 mg/dL Normal 8.4-10.2 [facility] Comment on above: Performed By: #### C MP, LIPA, RAYNE #### [facility] [address] [place] [address] Marcin Alanna Chloride [Moles/Vol] 105 mmol/L Normal 98-107 [facility] Comment on above: Performed By: #### C MP, LIPA, RAYNE #### [facility] [address] [place] [address] Marcin Alanna CO2 [Moles/Vol] 27.4 mmol/L Normal 22.0-30.0 [facility] Comment on above: Performed By: #### C MP, LIPA, RAYNE #### [facility] [address] [place] [address] Marcin Alanna Creatinine [Mass/Vol] 0.91 mg/dL Normal 0.52-1.04 [facility] Comment on above: Performed By: #### C MP, LIPA, RAYNE #### [facility] [address] [place] [address] Marcin Alanna EGFR-AF ALBANIAN >60 Normal >=60 [facility] Comment on above: Performed By: #### C MP, LIPA, RAYNE #### [facility] [address] [place] [address] Marcin Alanna EGFR-NON AF ALBANIAN >60 Normal >=60 [facility] Comment on above: Performed By: #### C JAVAD MOLINA AMY #### [facility] [address] [address] Marcin Alanna Glucose [Mass/Vol] 109 mg/dL Critically high 74-106 [facility] Comment on above: Performed By: #### C JAVAD MOLINA AMY #### [facility] [address] [address] Marcin Alanna Potassium [Moles/Vol] 4.0 mmol/L Normal 3.4-5.0 [facility] Comment on above: Performed By: #### C JAVAD MOLINA, RAYNE #### [facility] [address] [address] Marcin Alanna Sodium [Moles/Vol] 139 mmol/L Normal 137-145 [facility] Comment on above: Performed By: #### C JAVAD MOLINA, RAYNE #### [facility] [address] [address] Marcin Alanna Urea nitrogen [Mass/Vol] 13.0 mg/dL Normal 7.0-17.0 [facility] Comment on above: Performed By: #### C JAVAD MOLINA, RAYNE #### [facility] [address] [place] [address] Marcin Alanna Urea nitrogen/Creatini ne [Mass ratio] 14.3 mg/mg Normal [facility] Comment on above: Performed By: #### C JAVAD MOLINA RAYNE #### [facility] [address] [address] Marcin Alanna XR CHEST 1 Von 12-09-2020 XR CHEST 1 V EXAM: XR CHEST 1 V REASON FOR EXAM: CHEST PAIN, UNSPECIFIED. TECHNIQUE: Single portable view the chest. COMPARISON: [facility], most recent 08/09/2008. FINDINGS: Study limited by patient body habitus. Lungs are clear. Heart size is stable. No pleural effusion or pneumothorax. Osseous structures are without acute abnormality IMPRESSION: No active disease in the chest. Electronically authenticated by: BRITTANY HENDRICKS Date: 2020-12-09 17:05 Normal [facility] Encounters Encounter Date Encounter Type Care Provider Facility Start: 10-27-2023 End: 10-27-2023 ambulatory JESICA METCALFO Not Available Start: 10-03-2023 End: 10-04-2023 ambulatory JESICA DAKSHA Not Available Start: 09-28-2021 End: 09-28-[address] GEREMIAS SANTANA Facility:[facility] Start: 12-15-2020 End: 12-16-[address] TOR TORRES Facility:[facility] Start: 12-09-2020 End: 12-09-[address] TOR TORRES Facility:[facility] Payers Date Payer Category Payer Unknown [id number] 2.16.84 [id number] 1990 Unknown [id number] [id number] [id number] 1990 Unknown [id number] 2.16.84 [id number] 1990 Unknown [id number] 1990 Unknown [id number] 1959 Unknown [id number] Progress note 01-02-2021 Note Date & Type Note Facility 01-02-2021 Note HNO ID: [id number] Author: Bro Yuan Service: ? Author Type: Physician Type: Progress Notes Filed: 01/02/2021 11:55 AM Note Text: Addendum: I have reviewed the history and physical examination obtained and documented by the resident/fellow/PA and I personally participated in the garcia components. I have discussed the case and management of the patient's care. The following comments revise or confirm relevant garcia components of the note. CC: Post op HPI: Recovering well from surgery. Underwent lap antonia 12/13/2019 for acute cholecystitis (pathology: Cholelithiasis and chronic cholecystitis). Was readmitted postoperatively for pancreatitis, likely from cholangiogram, resolved spontaneously. No abdominal pain currently. The symptoms she was having pre-operatively have resolved. Tolerating PO intake without difficulty. Inc c/d/i without hernias or signs of infection. Plan: - No lifting anything over 15 pounds for a total of 4 weeks from surgery. OK to return to work now with the lifting restrictions, will lift the restrictions 4 weeks after surgery. - Follow up PRN SIGNATURE: Jeffrey Yuan MD [facility] surgery Pager: [phone] [facility] Progress note 01-02-2021 Note Date & Type Note Facility 01-02-2021 Note HNO ID: [id number] Author: Annamaria Collins Service: ? Author Type: Resident Type: Progress Notes Filed: 01/02/2021 11:55 AM Note Text: General Surgery Postop Clinic Note Service Date: January 02, 2021 Interval History: Reports that she still feels easily fatigued but is otherwise doing well. Pain well controlled, tolerating a diet, and having regular bowel function (initially required Colace). Physical Exam: BP 130/68 Pulse 115 Temp (Src) 96.8 (Temporal) Ht 4' 11 (1.50m) Wt 310 lb (140.6kg) BMI 62.58 kg/(m2). General: no acute distress Respiratory: non-labored breathing Cardiovascular: warm and well perfused throughout Abdomen: soft, non-tender, non-distended, incisions starting to scab Assessment/Plan: Isaac Toussaint is a 30 year old female with symptomatic cholelithiasis requiring a laparoscopic cholecystectomy on 12/13 (path with chronic cholecystitis, liver biopsy with portal inflammation. Her postop course was complicated by persistent elevation of LFTs but all imaging was absent for choledocholithiasis and she improved with no further interventions. - Follow-up PRN Annamaria Collins MD General Surgery Resident [facility] Summary Purpose Family History No Family History Records FoundNo Family History Records FoundNo Family History Records Found Advance Directives No Advanced Directives Records FoundNo Advanced Directives Records FoundNo Advanced Directives Records Found Additional Source Comments INFORMATION SOURCE (unrecogn ized section and content) DATE CREATED AUTHOR [facility]/02/2021 [facility] DATE CREATED AUTHOR AUTHOR'S ORGANIZ ATION 12/20/2021 [facility] DATE CREATED AUTHOR AUTHOR'S ORGANIZ ATION 10/28/2023 [facility] FOR RECORDS PERTAINING TO PATIENTS WHO ARE OR HAVE BEEN ENROLLED IN A CHEMICAL DEPENDENCY/SUBSTANCEABUSE PROGRAM, SOME INFORMATION MAY BE OMITTED. This clinical summary was aggregated from multiple sources. Caution should be exercised in using it in the provision of clinical care. This summary normalizes information from multiple sources, and as a consequence, information in this document may materially change the coding, format and clinical context of patient data. In addition, data may be omitted in some cases. CLINICAL DECISIONS SHOULD BE BASED ON THE PRIMARY CLINICAL RECORDS. [facility] [employer] [facility]. provides no warranty or guarantee of the accuracy or completeness of information in this document.
[2023-12-05 05:07] LABS: Age Gdln ACOG Testing Note (.); HPV Aptima Negative (Negative); IGP, Aptima HPV, rfx 16/18,45 Note (.)
== END 2023-12-01 22:01 | disposition home or self-care (01) ==
LOC: LAB 22:00
PROVIDERS: PCP Internal Medicine; Visit Provider Physician Assistant
DX: Z01.419 Encounter for gynecological examination (general) (routine) without abnormal findings (principal)
CPT/HCPCS: 87624; G0145

== ENCOUNTER 2023-12-27 20:32 | Observation (INO) | payer OTHER, SELFPAY ==
--- OUTSIDE RECORDS SUMMARY | 2023-12-27 20:36 | XMS_ITS | CCD ---
Author Name Unknown Address [address] [place] [address] Organization [facility] Care Team Providers Care Interlacer Name Role Phone DR TOR TORRES Primary Care Unavail SILVIA Niño Attending Unavailable SILVIA MAGAÑA Consulting Unavailable SILVIA MAGAÑA Admitting Unavailable Brittany Hendricks Consulting Unavailable MELISSA, DR TOR Alexander Primary Care Unavail SILVIA Niño Admitting Unavailable HUSSAIN DICK Consulting Unavailable SILVIA MAGAÑA Attending Unavailable MAX, DR GEREMIAS Sanchez Attending Unavailable DR GEREMIAS SANTANA Consulting Unavailable MELISSA, DR TOR Alexander Primary Care Unavail able DR GEREMIAS SANTANA Admitting Unavailable RAYNE JUNG Attending Unavailable JESICA CROOKS Attending Unavailable Allergies Allergy Classification Reported Allergen(s) Allergy Type Date of Onset Reaction(s) Facility (1 source) Morphine Drug Allergy 05-18-2018 [facility] Repository Problems Active Problems Problem Classification Problem Date Documented Da te Episodic/Chronic Asthma (1 source) Unspecified asthma, uncomplicated; Translations: [UNSPECIFIED ASTHMA UNCOMPLICATED] Onset: 10-02-2021 Chronic Esophageal disorders (1 source) Gastro-esophageal reflux disease without esophagitis; Translations: [GERD WITHOUT ESOPHAGITIS] Onset: 12-12-2020 Chronic Other aftercare (1 source) Other shelter (current) drug therapy; Translations: [OTH [facility] CURRENT DRUG THERAPY] Onset: 10-02-2021 Episodic Other [...] Test Name Value Interpretation Reference Range Facility [facility] 01-02-2021 CNOV Office Visit (JACKSON ) -------- ISAAC TOUSSAINT ([id number]) 1990 F Date Time Provider Department 01/02/21 [...] SIGNATURE: Jeffrey Yuan MD HPB surgery Pager: [phone] Referring Provider: SELF [[id number]] Allergies As of [...] Status:Closed by BRO YUAN MD on 01/02/21 [facility] Corey 12-22-2020 CNPN Telephone (PODCCP) -------- ISAAC TOUSSAINT ([id number]) 1990 F Date Time Provider Department 12/22/20 VAHE CR (STUDENT) PODCCP During your visit today, we recorded the following information about you: Jose Elias [place] 12/22/2020 10:01 AM Signed Record ID: [id number] [facility] Aladdin: Digestive Disease Aladdin Attending: Bro Yuan Center: General Surgery INSTRUCTIONS SN to remind patient of appointment date, time, location All Clear All Clear SURVEY INFORMATION Medical/Nurse Mule Spinner: Landy Duran 1. Your discharge instructions are [...] Reason for Visit: Follow Up Phone Call [[id number]] Prescriptions as of 12/22/2020 Sig: ONDANSETRON HCL [...] Encounter Status:Closed by VAHE WADE on 12/22/20 [facility] Corey 12-21-2020 [facility] Telephone (JACKSON) -------- ISAAC TOUSSAINT ([id number]) 1990 F Date Time Provider Department 12/21/20 BRO YUAN During your visit today, we recorded the following information about you: Macy Arshad [facility] 12/21/2020 12:18 PM Signed Patient is calling regarding her biopsy results. Please call to discuss. Allergies As of Date: 12/21/2020 (No Known Allergies) Date Reviewed: 12/18/2020 Reviewed by: Lencho (Rn) ARGENIS Winter - Fully Assessed Reason for [...] Encounter Status:Closed by MACY SALEH on 01/22/21 [facility] OBSOLETEon 12-21-2020 OBSOLETE Refill (GENSMN) -------- ISAAC TOUSSAINT ([id number]) 1990 F Date Time Provider Department 12/21/20 ROXANA SCOTT During your visit today, we recorded the following information about you: Roxana Scott APRN.[employer] 12/21/2020 2:00 PM Signed Patient called with [...] our office if symptoms persist. Roxana Scott APRN.[employer] Allergies As of Date: 12/21/2020 (No Known [...] to 7 days. Encounter Status:Closed by TYLER DEJESUS.ROXANA HOUSE on 12/21/20 Normal [facility] AMMONIAon 12-15-2020 Ammonia (P) [Mass/Vol] ug/dL Critically low 10-30 [facility] Comment on above: Performed By: #### A MM #### [facility] [address] [place] [address] Marcin Alanna AMYLASEon 12-15-2020 Amylase [Catalytic activity/Vol] 217 U/L Critically high 31-110 [facility] Comment on above: Performed By: #### C JAVAD MOLINA AMY #### [facility] [address] [place] [address] Marcin Alanna CBC AUTO DIFFon 12-15-2020 BASO # 0.0 103/ul Normal 0.0-0.1 [facility] Comment on above: Performed By: #### C JAVAD MOLINA AMY #### [facility] [address] [place] [address] Marcin Alanna Basophils/100 WBC (Bld) 0.3 % Normal 0.2-2.0 [facility] Comment on above: Performed By: #### C JAVAD MOLINA AMY #### [facility] [address] [place] [address] Marcin Alanna EO # 0.0 103/ul Normal 0.0-0.7 [facility] Comment on above: Performed By: #### C JAVAD MOLINA AMY #### [facility] [address] [place] [address] Marcin Alanna Eosinophils/100 WBC (Bld) 0.3 % Critically low 0.9-7.0 [facility] Comment on above: Performed By: #### C JAVAD MOLINA AMY #### [facility] [address] [place] [address] Marcin Alanna Erythrocyte distribution width (RBC) [Ratio] 13.3 % Normal 11.0-15.0 [facility] Comment on above: Performed By: #### C JAVAD MOLINA AMY #### [facility] [address] [place] [address] Marcin Alanna Hematocrit (Bld) [Volume fraction] 42.9 % Normal 36.0-48.0 [facility] Comment on above: Performed By: #### C JAVAD MOLINA, RAYNE #### [facility] [address] [place] [address] Marcin Alanna Hemoglobin (Bld) [Mass/Vol] 13.8 g/dL Normal 12.0-16.0 [facility] Comment on above: Performed By: #### C JAVAD MOLINA, RAYNE #### [facility] [address] [place] [address] Marcin Alanna IG # 0.02 10e3/ul Normal 0.00-0.03 [facility] Comment on above: Performed By: #### C JAVAD MOLINA, RAYNE #### [facility] [address] [place] [address] Marcin Alanna IG % 0.3 % Normal 0.0-0.5 [facility] Comment on above: Performed By: #### C JAVAD MOLINA, RAYNE #### [facility] [address] [place] [address] Marcin Alanna LYMPH # 1.7 103/ul Normal 1.2-3.8 [facility] Comment on above: Performed By: #### C JAVAD MOLINA, RAYNE #### [facility] [address] [place] [address] Marcin Alanna Lymphocytes/100 WBC (Bld) 23.8 % Normal 20.5-60.0 [facility] Comment on above: Performed By: #### C JAVAD MOLINA, RAYNE #### [facility] [address] [place] [address] Marcin Alanna MANUAL DIFF REQ NO Normal [facility] Comment on above: Performed By: #### C TRACY LIPA, RAYNE #### [facility] [address] [place] [address] Marcin Alanna MCH (RBC) [Entitic mass] 29.8 pg Normal 26.7-34.0 [facility] Comment on above: Performed By: #### C JAVAD MOLINA AMY #### [facility] [address] [place] [address] Marcinraffy Mondragon MCHC (RBC) [Mass/Vol] 32.2 g/dL Normal 29.9-35.2 [facility] Comment on above: Performed By: #### C JAVAD MOLINA, RAYNE #### [facility] [address] [place] [address] Marcin Alanna MCV (RBC) [Entitic vol] 92.7 fL Normal 81.0-99.0 [facility] Comment on above: Performed By: #### C JAVAD MOLINA, RAYNE #### [facility] [address] [place] [address] Marcin Alanna MONO # 0.6 103/ul Normal 0.3-0.8 [facility] Comment on above: Performed By: #### C JAVAD MOLINA AMY #### [facility] [address] [place] [address] Marcin Alanna Monocytes/100 WBC (Bld) 8.5 % Normal 1.7-12.0 [facility] Comment on above: Performed By: #### C JAVAD MOLINA AMY #### [facility] [address] [place] [address] Marcinraffy Pritcharden NEUT # 4.8 103/ul Normal 1.4-6.5 [facility] Comment on above: Performed By: #### C JAVAD MOLINA, RAYNE #### [facility] [address] [place] [address] Marcin Alanna Neutrophils/100 WBC (Bld) 66.8 % Normal 43.0-75.0 [facility] Comment on above: Performed By: #### C JAVAD MOLINA, RAYNE #### [facility] [address] [place] [address] Marcin Alanna Platelet mean volume (Bld) [Entitic vol] 8.7 fL Critically low 9.5-13.5 [facility] Comment on above: Performed By: #### C JAVAD MOLINA RAYNE #### [facility] [address] [place], [place] [id number] Marcinraffy Mondragon PLT 253 103/ul Normal 150-450 [facility] Comment on above: Performed By: #### C JAVAD MOLINA, RAYNE #### [facility] [address] [address] Marcinraffy Mondragon RBC 4.63 106/ul Normal 4.20-5.40 [facility] Comment on above: Performed By: #### C EZRA MOLINAA, RAYNE #### [facility] [address] [address] Marcinraffy Mondragon WBC 7.1 103/ul Normal 4.0-11.0 [facility] Comment on above: Performed By: #### C JAVAD MOLINA, RAYNE #### [facility] [address] [place] [address] Marcin Mondragon LIPASEon 12-15-2020 Lipase [Catalytic activity/Vol] 1205.0 U/L Critically high 23.0-300.0 [facility] Comment on above: Result Comment: test repeated critical value verified Performed By: #### C JAVAD MOLINA, RAYNE #### [facility] [address] [place] [address] Marcin Mondragon PREG HCG QUALon 12-15-2020 , QUAL Negative Normal NEGATIVE [facility] Comment on above: Performed By: #### P REG #### [facility] [address] [place] [address] Marcin Mondragon PROF 14(COMP METB)on 021 Albumin [Mass/Vol] 3.3 g/dL Critically low 3.5-5.0 [facility] Comment on above: Performed By: #### C TRACY LIPA, RAYNE #### [facility] [address] [place] [address] Marcin Mondragon Albumin/Globulin [Mass ratio] 0.8 {ratio} Normal [facility] Comment on above: Performed By: #### C TRACY LIPA, RAYNE #### [facility] [address] [place] [address] Marcin Mondragon ALP [Catalytic activity/Vol] 167 U/L Critically high 38-126 [facility] Comment on above: Performed By: #### C TRACY LIPA, RAYNE #### [facility] [address] [id number] Marcin Alanna ALT [Catalytic activity/Vol] 370 U/L Critically high 9-52 [facility] Comment on above: Performed By: #### C MP LIPA, RAYNE #### [facility] [address] [address] Marcin Alanna Anion gap [Moles/Vol] 12.5 mmol/L Normal [facility] Comment on above: Performed By: #### C MP LIPA, RAYNE #### [facility] [address] [place] [address] Marcin Alanna AST [Catalytic activity/Vol] 165 U/L Critically high 14-36 [facility] Comment on above: Performed By: #### C TRACY LIPA, RAYNE #### [facility] [address] [place] [address] Marcin Alanna Bilirubin [Mass/Vol] 5.3 mg/dL Critically high 0.2-1.3 [facility] Comment on above: Performed By: #### C TRACY LIPA, RAYNE #### [facility] [address] [place] [address] Marcin Alanna Calcium [Mass/Vol] 9.2 mg/dL Normal 8.4-10.2 [facility] Comment on above: Performed By: #### C TRACY LIPA, RAYNE #### [facility] [address] [place] [address] Marcin Alanna Chloride [Moles/Vol] 102 mmol/L Normal 98-107 [facility] Comment on above: Performed By: #### C MP LIPA, RAYNE #### [facility] [address] [place] [address] Marcin Alanna CO2 [Moles/Vol] 29.6 mmol/L Normal 22.0-30.0 [facility] Comment on above: Performed By: #### C MP LIPA, RAYNE #### [facility] [address] [place] [address] Marcin Alanna Creatinine [Mass/Vol] 0.88 mg/dL Normal 0.52-1.04 [facility] Comment on above: Performed By: #### C JAVAD MOLINA, RAYNE #### [facility] [address] [place], [place] [id number] Marcin Alanna EGFR-AF STATELESS >60 Normal >=[address] [facility] Comment on above: Performed By: #### C TRACY LIPA, RAYNE #### [facility] [address] [place] [address] Marcin Alanna EGFR-NON AF STATELESS >60 Normal >=60 [facility] Comment on above: Performed By: #### C TRACY LIPA, RAYNE #### [facility] [address] [place] [address] Marcin Alanna Globulin (S) [Mass/Vol] 4.1 g/dL Normal [facility] Comment on above: Performed By: #### C TRACY LIPA, RAYNE #### [facility] [address] [place] [address] Marcin Alanna Glucose [Mass/Vol] 88 mg/dL Normal 74-106 [facility] Comment on above: Performed By: #### C TRACY LIPA, RAYNE #### [facility] [address] [place] [address] Marcin Alanna Potassium [Moles/Vol] 3.1 mmol/L Critically low 3.4-5.0 [facility] Comment on above: Performed By: #### C TRACY LIPA, RAYNE #### [facility] [address] [place] [address] Marcin Alanna Protein [Mass/Vol] 7.4 g/dL Normal 6.1-8.2 [facility] Comment on above: Performed By: #### C EZRA MOLINAA, RAYNE #### [facility] [address] [place] [address] Marcin Alanna Sodium [Moles/Vol] 141 mmol/L Normal 137-145 [facility] Comment on above: Performed By: #### C TRACY LIPA, RAYNE #### [facility] [address] [place] [address] Marcin Alanna Urea nitrogen [Mass/Vol] 8.0 mg/dL Normal 7.0-17.0 [facility] Comment on above: Performed By: #### C JAVAD MOLINA AMY #### [facility] [address] [place] [address] Marcin Mondragon Urea nitrogen/Creatini ne [Mass ratio] 9.1 mg/mg Normal [facility] Comment on above: Performed By: #### C JAVAD MOLINA AMY #### [facility] [address] [place] [address] Marcin Alanna PROTIMEon 12-15-2020 INR Coag (PPP) [Relative time] 1.04 {INR} Normal [facility] Comment on above: Performed By: #### C JAVAD MOLINA AMY #### [facility] [address] [place] [address] Marcin Alanna INR GUIDELINES SEE BELOW Normal [facility] Comment on above: Result Comment: NAI RED INR: 2.0 - 3.0 CONDITIONS NOT LISTED BELOW 2.5 - 3.5 FOR PROSTHETIC HEART VALVE REPLACEMENT 2.5 - 3.5 RECURRENT THROMBOSIS Performed By: #### C JAVAD MOLINA, RAYNE #### [facility] [address] [place] [address] Marcinraffy Pritcharden PT Coag (PPP) [Time] 11.3 s Normal 9.0-11.6 [facility] Comment on above: Performed By: #### C JAVAD MOLINA, RAYNE #### [facility] [address] [place] [address] Marcin Mondragon PTTon 12-15-2020 aPTT Coag (Bld) [Time] 27.8 s Normal 22.3-36.2 [facility] Comment on above: Performed By: #### C JAVAD MOLINA RAYNE #### [facility] [address] [place] [address] Marcin Mondragon AMYLASEon 12-09-2020 Amylase [Catalytic activity/Vol] 45 U/L Normal 31-110 [facility] Comment on above: Performed By: #### B RAYNE MOLINA, LIVER, LIPA #### [facility] [address] [place], [place] [address] Marcin Alanna CBC AUTO DIFFon 12-09-2020 BASO # 0.0 103/ul Normal 0.0-0.1 [facility] Comment on above: Performed By: #### C BC #### [facility] [address] [place], [place] [address] Marcin Alanna Basophils/100 WBC (Bld) 0.2 % Normal 0.2-2.0 [facility] Comment on above: Performed By: #### C BC #### [facility] [address] [place], [place] [address] Marcin Alanna EO # 0.0 103/ul Normal 0.0-0.7 [facility] Comment on above: Performed By: #### C BC #### [facility] [address] [place], [place] [id number] Marcin Alanna Eosinophils/100 WBC (Bld) 0.3 % Critically low 0.9-7.0 [facility] Comment on above: Performed By: #### C BC #### [facility] [address] [place], [place] [id number] Marcin Alanna Erythrocyte distribution width (RBC) [Ratio] 12.6 % Normal 11.0-15.0 [facility] Comment on above: Performed By: #### C BC #### [facility] [address] [place], [place] [id number] Marcin Alanna Hematocrit (Bld) [Volume fraction] 45.7 % Normal 36.0-48.0 [facility] Comment on above: Performed By: #### C BC #### [facility] [address] [place], [place] [id number] Marcin Alanna Hemoglobin (Bld) [Mass/Vol] 14.6 g/dL Normal 12.0-16.0 [facility] Comment on above: Performed By: #### C BC #### [facility] [address] [place], [place] [address] Marcin Alanna IG # 0.04 10e3/ul Critically high 0.00-0.03 [facility] Comment on above: Performed By: #### C BC #### [facility] [address] [place], [place] [address] Marcin Alanna IG % 0.4 % Normal 0.0-0.5 [facility] Comment on above: Performed By: #### C BC #### [facility] [address] [place], [place] [address] Marcin Alanna LYMPH # 1.4 103/ul Normal 1.2-3.8 [facility] Comment on above: Performed By: #### C BC #### [facility] [address] [place], [place] [id number] Marcin Alanna Lymphocytes/100 WBC (Bld) 12.8 % Critically low 20.5-60.0 [facility] Comment on above: Performed By: #### C BC #### [facility] [address] [place], [place] [id number] Marcinraffy Mondragon MANUAL DIFF REQ NO Normal [facility] Comment on above: Performed By: #### C BC #### [facility] [address] [place], [place] [id number] Marcin Alanna MCH (RBC) [Entitic mass] 29.4 pg Normal 26.7-34.0 [facility] Comment on above: Performed By: #### C BC #### [facility] [address] [place], [place] [id number] Marcinraffy Mondragon MCHC (RBC) [Mass/Vol] 31.9 g/dL Normal 29.9-35.2 [facility] Comment on above: Performed By: #### C BC #### [facility] [address] [place] [address] Marcin Alanna MCV (RBC) [Entitic vol] 92.1 fL Normal 81.0-99.0 [facility] Comment on above: Performed By: #### C BC #### [facility] [address] [place], [place] [id number] Marcin Alanna MONO # 0.6 103/ul Normal 0.3-0.8 [facility] Comment on above: Performed By: #### C BC #### [facility] [address] [place], [place] [id number] Marcin Alanna Monocytes/100 WBC (Bld) 5.6 % Normal 1.7-12.0 [facility] Comment on above: Performed By: #### C BC #### [facility] [address] [place], [place] [id number] Marcin Mondragon NEUT # 9.0 103/ul Critically high 1.4-6.5 [facility] Comment on above: Performed By: #### C BC #### [facility] [address] [place], [place] [address] Marcin Mondragon Neutrophils/100 WBC (Bld) 80.7 % Critically high 43.0-75.0 [facility] Comment on above: Performed By: #### C BC #### [facility] [address] [place], [place] [id number] Marcin Mondragon Platelet mean volume (Bld) [Entitic vol] 8.6 fL Critically low 9.5-13.5 [facility] Comment on above: Performed By: #### C BC #### [facility] [address] [place], [place] [address] Marcin Pritcharden PLT 255 103/ul Normal 150-450 [facility] Comment on above: Performed By: #### C BC #### [facility] [address] [place], [place] [id number] Marcin Mondragon RBC 4.96 106/ul Normal 4.20-5.40 [facility] Comment on above: Performed By: #### C BC #### [facility] [facility] [address] [place], [place] [id number] Marcin Mondragon WBC 11.1 103/ul Critically high 4.0-11.[address] [facility] Comment on above: Performed By: #### C BC #### [facility] [address] [place], [place] [id number] Marcin Mondragon LIPASEon 12-09-2020 Lipase [Catalytic activity/Vol] 129.0 U/L Normal 23.0-300.0 [facility] Comment on above: Performed By: #### B MP, RAYNE, LIVER, LIPA #### [facility] [address] [place], [place] [id number] Marcin Mondragon LIVER PROFILEon 12-09-2020 Albumin [Mass/Vol] 3.5 g/dL Normal 3.5-5.0 [facility] Comment on above: Performed By: #### B MP, RAYNE, LIVER, LIPA #### [facility] [address] [address] Marcin Alanna Albumin/Globulin [Mass ratio] 0.9 {ratio} Normal [facility] Comment on above: Performed By: #### B MP, RAYNE, LIVER, LIPA #### [facility] [address] [address] Marcin Alanna ALP [Catalytic activity/Vol] 80 U/L Normal 38-126 [facility] Comment on above: Performed By: #### B MP, RAYNE, LIVER, LIPA #### [facility] [address] [place] [address] Marcin Alanna ALT [Catalytic activity/Vol] 31 U/L Normal 9-52 [facility] Comment on above: Performed By: #### B MP, RAYNE, LIVER, LIPA #### [facility] [address] [place] [address] Marcin Alanna AST [Catalytic activity/Vol] 39 U/L Critically high 14-36 [facility] Comment on above: Performed By: #### B MP, RAYNE, LIVER, LIPA #### [facility] [address] [place] [address] Marcin Alanna BILI, CONJUGATED 0.2 mg/dL Normal 0.0-0.[address] [facility] Comment on above: Performed By: #### B MP, RAYNE, LIVER, LIPA #### [facility] [address] [place] [address] Marcin Alanna Bilirubin [Mass/Vol] 0.5 mg/dL Normal 0.2-1.3 [facility] Comment on above: Performed By: #### B MP, RAYNE, LIVER, LIPA #### [facility] [address] [place] [address] Marcin Alanna Globulin (S) [Mass/Vol] 3.8 g/dL Normal [facility] Comment on above: Performed By: #### B MP, RAYNE, LIVER, LIPA #### [facility] [address] [place] [address] Marcin Alanna Protein [Mass/Vol] 7.3 g/dL Normal 6.1-8.2 [facility] Comment on above: Performed By: #### B MP, RAYNE, LIVER, LIPA #### [facility] [address] [place] [address] Marcin Alanna PROF CHEM 8 (BAS METB)on Anion gap [Moles/Vol] 10.6 mmol/L Normal [facility] Comment on above: Performed By: #### C MP, LIPA, RAYNE #### [facility] [address] [place] [address] Marcin Alanna Calcium [Mass/Vol] 8.9 mg/dL Normal 8.4-10.2 [facility] Comment on above: Performed By: #### C MP, LIPA, RAYNE #### [facility] [address] [place] [address] Marcin Alanna Chloride [Moles/Vol] 105 mmol/L Normal 98-107 [facility] Comment on above: Performed By: #### C MP, LIPA, RAYNE #### [facility] [address] [place] [address] Marcin Alanna CO2 [Moles/Vol] 27.4 mmol/L Normal 22.0-30.[address] [facility] Comment on above: Performed By: #### C MP, LIPA, RAYNE #### [facility] [address] [place] [address] Marcin Alanna Creatinine [Mass/Vol] 0.91 mg/dL Normal 0.52-1.04 [facility] Comment on above: Performed By: #### C MP, LIPA, RAYNE #### [facility] [address] [place] [address] Marcin Alanna EGFR-AF STATELESS >60 Normal >=[address] [facility] Comment on above: Performed By: #### C MP, LIPA, RYANE #### [facility] [address] [place] [address] Marcin Alanna EGFR-NON AF STATELESS >60 Normal >=60 [facility] Comment on above: Performed By: #### C JAVAD MOLINA AMY #### [facility] [address] [address] Marcin Alanna Glucose [Mass/Vol] 109 mg/dL Critically high 74-106 [facility] Comment on above: Performed By: #### C JAVAD MOLINA AMY #### [facility] [address] [address] Marcin Alanna Potassium [Moles/Vol] 4.0 mmol/L Normal 3.4-5.0 [facility] Comment on above: Performed By: #### C JAVAD MOLINA AMY #### [facility] [address] [place] [address] Marcin Alanna Sodium [Moles/Vol] 139 mmol/L Normal 137-145 [facility] Comment on above: Performed By: #### C JAVAD MOLINA AMY #### [facility] [address] [place] [address] Marcin Alanna Urea nitrogen [Mass/Vol] 13.0 mg/dL Normal 7.0-17.0 [facility] Comment on above: Performed By: #### C JAVAD MOLINA AMY #### [facility] [address] [place] [address] Marcin Alanna Urea nitrogen/Creatini ne [Mass ratio] 14.3 mg/mg Normal [facility] Comment on above: Performed By: #### C JAVAD MOLINA AMY #### [facility] [address] [place] [address] Marcin Alanna XR CHEST 1 Von 12-09-2020 [...] by: BRITTANY HENDRICKS Date: 2020-12-09 17:05 Normal [facility] Encounters Encounter Date Encounter Type Care Provider Facility Start: 12-01-2023 End: 12-01-2023 ambulatory RAYNE JUNG Not Available Start: 10-27-2023 End: 10-27-2023 ambulatory JESICA CROOKS Not Available Start: 10-03-2023 End: 10-04-2023 ambulatory RAYNE JUNG Not Available Start: 09-28-2021 End: 09-28-[address] GEREMIAS SANTANA Facility:[facility] Start: 12-15-2020 End: 12-16-[address] TOR TORRES Facility:[facility] Start: 12-09-2020 End: 12-09-[address] TOR TORRES Facility:[facility] Payers Date Payer Category Payer Unknown [id number] [id number] [id number] 1990 Unknown [id number] [id number] [id number] 1990 Unknown [id number] [id number] [id number] 1990 Unknown [id number] 2.16.84 [id number] 1990 Unknown [id number] 1990 Unknown [id number] 1959 Unknown [id number] Progress note 01-02-2021 Note Date & Type Note Facility 01-02-2021 Note HNO ID: [id number] Author: Bro Yuan Service: ? Author Type: [...] SIGNATURE: Jeffrey Yuan MD [facility] surgery Pager: [phone] [facility] Progress note 01-02-2021 Note Date & Type Note Facility 01-02-2021 Note HNO ID: [id number] Author: Annamaria Collins Service: ? Author Type: [...] PRN Annamaria Collins MD General Surgery Resident [facility] Summary Purpose Family History No Family History Records FoundNo Family History Records FoundNo Family History Records Found Advance Directives No Advanced Directives Records FoundNo Advanced Directives Records FoundNo Advanced Directives Records Found Additional Source Comments INFORMATION SOURCE (unrecogn ized section and content) DATE CREATED AUTHOR 10/02/2021 [facility] DATE CREATED AUTHOR AUTHOR'S ORGANIZ ATION 12/20/2021 [facility] DATE CREATED AUTHOR AUTHOR'S ORGANIZ ATION 12/02/2023 [facility] FOR RECORDS PERTAINING TO PATIENTS WHO ARE [...] BE BASED ON THE PRIMARY CLINICAL RECORDS. [employer] provides no warranty or guarantee of the accuracy or completeness of information in this document.
[2023-12-27 21:05] LABS: Bilirubin Urine NEGATIVE (NEGATIVE); Blood Urine LARGE (NEGATIVE); Clarity Urine CLEAR (CLEAR); Color Urine YELLOW (YELLOW); Glucose Urine UA NEGATIVE (NEGATIVE); Ketones Urine NEGATIVE (NEGATIVE); Leukocyte Esterase Urine NEGATIVE (NEGATIVE); Nitrite Urine NEGATIVE (NEGATIVE); Protein Urine NEGATIVE (NEG/TRACE); Specific Gravity Urine 1.025 (1.005-1.025); Urine Microscopic Indicated YES; pH Urine 6.5 (5.0-9.0)
[2023-12-27 21:18] VITALS: TEMP 35.8
[2023-12-27 21:18] LABS: WBC Urine 0-2 #/HPF (NONE SEEN)
[2023-12-27 21:19] VITALS: BP 94/44; PULSE 85
[2023-12-27 21:19] LABS: Bacteria Urine NONE SEEN #/HPF (NONE SEEN); Cast Seen? NONE SEEN #/LPF (NONE SEEN); Crystals Seen? None Seen #/HPF (None Seen); Mucus Urine NONE SEEN (NONE SEEN); Squamous Epithelial Cell Urine RARE #/LPF (NONE/RARE)
[2023-12-27 21:20] VITALS: BP 131/69; PULSE 79
[2023-12-27] MEDS: NITROFURANTOIN MONOHYD/MAC-CRST 100 MG CAPSULE PO (21:58)
== END 2023-12-27 22:05 | disposition home or self-care (01) ==
LOC: FBC 20:34
PROVIDERS: Admitting Provider Obstetrics & Gynecology; PCP Internal Medicine; Visit Provider Obstetrics & Gynecology
DX: O26.892 Other specified pregnancy related conditions, second trimester (principal); R10.30 Lower abdominal pain, unspecified; Z3A.21 21 weeks gestation of pregnancy; Z87.440 Personal history of urinary (tract) infections
CPT/HCPCS: 59025; 81001; G0378; G0379

== ENCOUNTER 2023-12-29 09:08 | Outpatient (OUT) | payer OTHER, SELFPAY ==
--- NOTE | 2023-12-29 09:11 | US_ITS ---
[address] [address] Patient Name: ISAAC JOHNSTON MRN: [id number] date: 1990 Sex: F Assigned Patient Location: [facility] Current Patient Location: [facility] Accession/Order Number: [id number] Exam Date: 12/29/2023 09:11 Report Date: 12/29/2023 11:01 At the request of: JESICA CROOKS Procedure: US OB anatomy EXAMINATION: US OB anatomy, US OB cervical length HISTORY: ANATOMY COMPARISON: No relevant comparison available. TECHNIQUE: Transabdominal sonographic examination was performed for obstetrical and evaluation. FINDINGS: Suboptimal exam secondary to maternal body habitus Number: 1 Heart Rate: 150.0 bpm H.B. /min Amniotic Fluid Volume: Subjectively normal position: Variable Placental Location: ANTERIOR, placental edge is 3.6 cm from the internal os Cervix Length: 3.8 cm , closed Normal anatomy: Lateral ventricles, cerebellum, posterior fossa, orbits, four-chamber heart, diaphragm, stomach, kidneys, abdominal cord insertion, bladder, umbilical arteries, spine, extremities Nonvisualized: Nose, lips, RVOT, LVOT, three-vessel cord BIOMETRY: BPD: 4.7 cm 20 weeks 2 days , 39% HC: 18.2 cm 20 weeks 4 days, 43% AC: 15.4 cm 20 weeks 4 days, 43% FL: 3.4 cm 20 weeks 5 days , 44% EFW:363.4 grams; 13 ounces, 46% FL/AC: 22.1 FL/BPD: 71.5 HC/AC: 1.2 GESTATIONAL AGE: Age by EDC: 20 weeks 4 days Age by current US: 20 weeks 4 days RODERICK by current US: 05/13/2024 RODERICK by EDC: 05/13/2024 US/US OB anatomy IMPRESSION: Low lying placenta, the placental edge is 3.6 cm from the internal os Nonvisualization detailed above Closed cervix measuring 3.8 cm in length *Reference: [employer] Practice Guideline for the performance of Obstetric Ultrasound Examinations, August 24, 2007. Electronically authenticated by: HAMLET GUTIERREZ Date: 12/29/2023 11:01
--- NOTE | 2023-12-29 09:11 | US_ITS ---
[address] [address] Patient Name: ISAAC JOHNSTON MRN: [id number] date: 1990 Sex: F Assigned Patient Location: [facility] Current Patient Location: [facility] Accession/Order Number: [id number] Exam Date: 12/29/2023 09:11 Report Date: 12/29/2023 11:01 At the request of: JESICA CROOKS Procedure: US OB cervical length EXAMINATION: US OB anatomy, US OB cervical length HISTORY: ANATOMY COMPARISON: No relevant comparison available. TECHNIQUE: Transabdominal sonographic examination was performed for obstetrical and evaluation. FINDINGS: Suboptimal exam secondary to maternal body habitus Number: 1 Heart Rate: 150.0 bpm H.B. /min Amniotic Fluid Volume: Subjectively normal position: Variable Placental Location: ANTERIOR, placental edge is 3.6 cm from the internal os Cervix Length: 3.8 cm , closed Normal anatomy: Lateral ventricles, cerebellum, posterior fossa, orbits, four-chamber heart, diaphragm, stomach, kidneys, abdominal cord insertion, bladder, umbilical arteries, spine, extremities Nonvisualized: Nose, lips, RVOT, LVOT, three-vessel cord BIOMETRY: BPD: 4.7 cm 20 weeks 2 days , 39% HC: 18.2 cm 20 weeks 4 days, 43% AC: 15.4 cm 20 weeks 4 days, 43% FL: 3.4 cm 20 weeks 5 days , 44% EFW:363.4 grams; 13 ounces, 46% FL/AC: 22.1 FL/BPD: 71.5 HC/AC: 1.2 GESTATIONAL AGE: Age by EDC: 20 weeks 4 days Age by current US: 20 weeks 4 days RODERICK by current US: 05/13/2024 RODERICK by EDC: 05/13/2024 US/US OB cervical length IMPRESSION: Low lying placenta, the placental edge is 3.6 cm from the internal os Nonvisualization detailed above Closed cervix measuring 3.8 cm in length *Reference: [employer] Practice Guideline for the performance of Obstetric Ultrasound Examinations, August 24, 2007. Electronically authenticated by: HAMLET GUTIERREZ Date: 12/29/2023 11:01
--- OUTSIDE RECORDS SUMMARY | 2023-12-29 09:11 | XMS_ITS | CCD ---
Author Name Unknown Address [address] [place] [address] Organization [facility] Care Team Providers Care Pharmacy Technician Per Diem Name Role Phone DR TOR TORRES Primary [...] (1 source) Morphine Drug Allergy 05-18-2018 [facility] Repository Problems Active Problems Problem Classification Problem Date Documented Da te Episodic/Chronic Asthma (1 source) Unspecified asthma, uncomplicated; Translations: [UNSPECIFIED ASTHMA UNCOMPLICATED] Onset: 10-02-2021 Chronic Esophageal disorders (1 source) Gastro-esophageal reflux disease without esophagitis; Translations: [GERD WITHOUT ESOPHAGITIS] Onset: 12-12-2020 Chronic Other aftercare (1 source) Other retirement (current) drug therapy; Translations: [OTH LONG-TERM CURRENT DRUG THERAPY] Onset: 10-02-2021 Episodic Other [...] Test Name Value Interpretation Reference Range Facility [facility] 01-02-2021 CNOV Office Visit (JACKSON ) -------- ISAAC TOUSSAINT ([id number]) 1990 F Date Time Provider Department 01/02/21 [...] SIGNATURE: Jeffrey Yuan MD HPB surgery Pager: [phone] Referring Provider: SELF [[id number]] Allergies As of [...] BRO YUAN MD on 01/02/21 [facility] Corey 12-22-2020 CNPN Telephone (PODCCP) -------- ISAAC TOUSSAINT ([id number]) 1990 F Date Time Provider Department 12/22/20 VAHE CR (STUDENT) PODCCP During your visit today, we recorded the following information about you: Jose Elias Moulton 12/22/2020 10:01 AM Signed Record ID: [id number] Patient Name: [facility]: [facility] [place]: [facility] [place] Attending: Bro Yuan Center: General Surgery INSTRUCTIONS SN to remind patient of appointment date, time, location All Clear All Clear SURVEY INFORMATION Medical/Nurse Social Media Campaign Manager: Landy Duran 1. Your discharge instructions are [...] Reason for Visit: Follow Up Phone Call [6022] Prescriptions as of 12/22/2020 Sig: ONDANSETRON HCL [...] Encounter Status:Closed by VAHE WADE on 12/22/20 [facility]y 12-21-2020 [facility] Telephone (JACKSON) -------- ISAAC TOUSSAINT ([id number]) 1990 F Date Time Provider Department 12/21/20 BRO YUAN During your visit today, we recorded the following information about you: Macy Arshad [facility] [place]/21/2020 12:18 PM Signed Patient is calling [...] Encounter Status:Closed by MACY SALEH on 01/22/21 [facility] OBSOLETEon 12-21-2020 OBSOLETE Refill (GENSMN) -------- ISAAC TOUSSAINT ([id number]) 1990 F Date Time Provider Department 12/21/20 ROXANA SCOTT During your visit today, we recorded the following information about you: Roxana Scott APRN.MATERIALS INSPECTOR 12/21/2020 2:00 PM Signed Patient called with [...] our office if symptoms persist. Roxana Scott APRN.MATERIALS INSPECTOR Allergies As of Date: 12/21/2020 (No Known [...] by TYLER DEJESUS.ROXANA HOUSE on 12/21/20 Normal [facility] AMMONIAon 12-15-2020 Ammonia (P) [Mass/Vol] ug/dL Critically low 10-30 [facility] Comment on above: Performed By: #### A MM #### [facility] [address] [place] [address] Marcin Alanna AMYLASEon 12-15-2020 Amylase [Catalytic activity/Vol] 217 U/L Critically high 31-110 [facility] Comment on above: Performed By: #### C JAVAD MOLINA AMY #### [facility] [address] [place] [address] Marcin Alanna CBC AUTO DIFFon 12-15-2020 BASO # 0.0 103/ul Normal 0.0-0.1 [facility] Comment on above: Performed By: #### C JAVAD MOLINA AMY #### [facility] [address] [place] [address] Marcin Alanna Basophils/100 WBC (Bld) 0.3 % Normal 0.2-2.0 [facility] Comment on above: Performed By: #### C JAVAD MOLINA AMY #### [facility] [address] [place] [address] Marcin Alanna EO # 0.0 103/ul Normal 0.0-0.7 [facility] Comment on above: Performed By: #### C JAVAD MOLINA AMY #### [facility] [address] [place] [address] Marcin Alanna Eosinophils/100 WBC (Bld) 0.3 % Critically low 0.9-7.0 [facility] Comment on above: Performed By: #### C JAVAD MOLINA AMY #### [facility] [address] [place] [address] Marcin Alanna Erythrocyte distribution width (RBC) [Ratio] 13.3 % Normal 11.0-15.0 [facility] Comment on above: Performed By: #### C JAVAD MOLINA AMY #### [facility] [address] [place] [address] Marcin Alanna Hematocrit (Bld) [Volume fraction] 42.9 % Normal 36.0-48.0 [facility] Comment on above: Performed By: #### C JAVAD MOLINA, RAYNE #### [facility] [address] [place] [address] Marcin Alanna Hemoglobin (Bld) [Mass/Vol] 13.8 g/dL Normal 12.0-16.0 [facility] Comment on above: Performed By: #### C JAVAD MOLINA, RAYNE #### [facility] [address] [place] [address] Marcin Alanna IG # 0.02 10e3/ul Normal 0.00-0.03 [facility] Comment on above: Performed By: #### C JAVAD MOLINA, RAYNE #### [facility] [address] [place] [address] Marcin Alanna IG % 0.3 % Normal 0.0-0.5 [facility] Comment on above: Performed By: #### C JAVAD MOLINA, RAYNE #### [facility] [address] [place] [address] Marcin Alanna LYMPH # 1.7 103/ul Normal 1.2-3.8 [facility] Comment on above: Performed By: #### C JAVAD MOLINA, RAYNE #### [facility] [address] [place] [address] Marcin Alanna Lymphocytes/100 WBC (Bld) 23.8 % Normal 20.5-60.0 [facility] Comment on above: Performed By: #### C JAVAD MOLINA, RAYNE #### [facility] [address] [place] [address] Marcin Alanna MANUAL DIFF REQ NO Normal [facility] Comment on above: Performed By: #### C TRACY LIPA, RAYNE #### [facility] [address] [place] [address] Marcin Alanna MCH (RBC) [Entitic mass] 29.8 pg Normal 26.7-34.0 [facility] Comment on above: Performed By: #### C JAVAD MOLINA AMY #### [facility] [address] [place] [address] Marcinraffy Mondragon MCHC (RBC) [Mass/Vol] 32.2 g/dL Normal 29.9-35.2 [facility] Comment on above: Performed By: #### C JAVAD MOLINA, RAYNE #### [facility] [address] [place] [address] Marcin Alanna MCV (RBC) [Entitic vol] 92.7 fL Normal 81.0-99.0 [facility] Comment on above: Performed By: #### C JAVAD MOLINA, RAYNE #### [facility] [address] [place] [address] Marcin Alanna MONO # 0.6 103/ul Normal 0.3-0.8 [facility] Comment on above: Performed By: #### C JAVAD MOLINA AMY #### [facility] [address] [place] [address] Marcin Alanna Monocytes/100 WBC (Bld) 8.5 % Normal 1.7-12.0 [facility] Comment on above: Performed By: #### C JAVAD MOLINA AMY #### [facility] [address] [place] [address] Marcinraffy Pritcharden NEUT # 4.8 103/ul Normal 1.4-6.5 [facility] Comment on above: Performed By: #### C JAVAD MOLINA, RAYNE #### [facility] [address] [place] [address] Marcin Alanna Neutrophils/100 WBC (Bld) 66.8 % Normal 43.0-75.0 [facility] Comment on above: Performed By: #### C JAVAD MOLINA, RAYNE #### [facility] [address] [place] [address] Marcin Alanna Platelet mean volume (Bld) [Entitic vol] 8.7 fL Critically low 9.5-13.5 [facility] Comment on above: Performed By: #### C JAAVD MOLINA RAYNE #### [facility] [address] [place], [place] [address] Marcinraffy Mondragon PLT 253 103/ul Normal 150-450 [facility] Comment on above: Performed By: #### C JAVAD MOLINA, RAYNE #### [facility] [address] [address] Marcinraffy Mondragon RBC 4.63 106/ul Normal 4.20-5.40 [facility] Comment on above: Performed By: #### C EZRA MOLINAA, RAYNE #### [facility] [address] [address] Marcinraffy Mondragon WBC 7.1 103/ul Normal 4.0-11.0 [facility] Comment on above: Performed By: #### C JAVAD MOLINA, RAYNE #### [facility] [address] [place] [address] Marcin Mondragon LIPASEon 12-15-2020 Lipase [Catalytic activity/Vol] 1205.0 U/L Critically high 23.0-300.0 [facility] Comment on above: Result Comment: test repeated critical value verified Performed By: #### C JAVAD MOLINA, RAYNE #### [facility] [address] [place] [address] Marcin Mondragon PREG HCG QUALon 12-15-2020 , QUAL Negative Normal NEGATIVE [facility] Comment on above: Performed By: #### P REG #### [facility] [address] [place] [address] Marcin Mondragon PROF 14(COMP METB)on 021 Albumin [Mass/Vol] 3.3 g/dL Critically low 3.5-5.0 [facility] Comment on above: Performed By: #### C TRACY LIPA, RAYNE #### [facility] [address] [place] [address] Marcin Mondragon Albumin/Globulin [Mass ratio] 0.8 {ratio} Normal [facility] Comment on above: Performed By: #### C TRACY LIPA, RAYNE #### [facility] [address] [place] [address] Marcin Mondragon ALP [Catalytic activity/Vol] 167 U/L Critically high 38-126 [facility] Comment on above: Performed By: #### C TRACY LIPA, RAYNE #### [facility] [address] [id number] Marcin Alanna ALT [Catalytic activity/Vol] 370 U/L Critically high 9-52 [facility] Comment on above: Performed By: #### C MP LIPA, RAYNE #### [facility] [address] [address] Marcin Alanna Anion gap [Moles/Vol] 12.5 mmol/L Normal [facility] Comment on above: Performed By: #### C MP LIPA, RAYNE #### [facility] [address] [place] [address] Marcin Alanna AST [Catalytic activity/Vol] 165 U/L Critically high 14-36 [facility] Comment on above: Performed By: #### C TRACY LIPA, RAYNE #### [facility] [address] [place] [address] Marcin Alanna Bilirubin [Mass/Vol] 5.3 mg/dL Critically high 0.2-1.3 [facility] Comment on above: Performed By: #### C TRACY LIPA, RAYNE #### [facility] [address] [place] [address] Marcin Alanna Calcium [Mass/Vol] 9.2 mg/dL Normal 8.4-10.2 [facility] Comment on above: Performed By: #### C TRACY LIPA, RAYNE #### [facility] [address] [place] [address] Marcin Alanna Chloride [Moles/Vol] 102 mmol/L Normal 98-107 [facility] Comment on above: Performed By: #### C MP LIPA, RAYNE #### [facility] [address] [place] [address] Marcin Alanna CO2 [Moles/Vol] 29.6 mmol/L Normal 22.0-30.0 [facility] Comment on above: Performed By: #### C MP LIPA, RAYNE #### [facility] [address] [place] [address] Marcin Alanna Creatinine [Mass/Vol] 0.88 mg/dL Normal 0.52-1.04 [facility] Comment on above: Performed By: #### C JAVAD MOLINA, RAYNE #### [facility] [address] [place], [place] [address] Marcin Alanna EGFR-AF PARAGUAYAN >60 Normal >=60 [facility] Comment on above: Performed By: #### C TRACY LIPA, RAYNE #### [facility] [address] [place] [address] Marcin Alanna EGFR-NON AF PARAGUAYAN >60 Normal >=60 [facility] Comment on above: Performed By: #### C TRACY LIPA, RAYNE #### [facility] [address] [place] [address] Marcin Alanna Globulin (S) [Mass/Vol] 4.1 g/dL Normal [facility] Comment on above: Performed By: #### C TRACY LIPA, RAYNE #### [facility] [address] [place] [address] Marcin Alanna Glucose [Mass/Vol] 88 mg/dL Normal 74-106 [facility] Comment on above: Performed By: #### C TRACY LIPA, RAYNE #### [facility] [address] [place] [address] Marcin Alanna Potassium [Moles/Vol] 3.1 mmol/L Critically low 3.4-5.0 [facility] Comment on above: Performed By: #### C TRACY LIPA, RAYNE #### [facility] [address] [place] [address] Marcin Alanna Protein [Mass/Vol] 7.4 g/dL Normal 6.1-8.2 [facility] Comment on above: Performed By: #### C EZRA MOLINAA, RAYNE #### [facility] [address] [place] [address] Marcin Alanna Sodium [Moles/Vol] 141 mmol/L Normal 137-145 [facility] Comment on above: Performed By: #### C TRACY LIPA, RAYNE #### [facility] [address] [place] [address] Marcin Alanna Urea nitrogen [Mass/Vol] 8.0 mg/dL Normal 7.0-17.0 [facility] Comment on above: Performed By: #### C JAVAD MOLINA AMY #### [facility] [address] [place] [address] Marcin Mondragon Urea nitrogen/Creatini ne [Mass ratio] 9.1 mg/mg Normal [facility] Comment on above: Performed By: #### C JAVAD MOLINA AMY #### [facility] [address] [place] [address] Marcin Alanna PROTIMEon 12-15-2020 INR Coag (PPP) [Relative time] 1.04 {INR} Normal [facility] Comment on above: Performed By: #### C JAVAD MOLINA AMY #### [facility] [address] [place] [address] Marcin Alanna INR GUIDELINES SEE BELOW Normal [facility] Comment on above: Result Comment: NAI RED INR: 2.0 - 3.0 CONDITIONS NOT LISTED BELOW 2.5 - 3.5 FOR PROSTHETIC HEART VALVE REPLACEMENT 2.5 - 3.5 RECURRENT THROMBOSIS Performed By: #### C JAVAD MOLINA, RAYNE #### [facility] [address] [place] [address] Marcinraffy Pritcharden PT Coag (PPP) [Time] 11.3 s Normal 9.0-11.6 [facility] Comment on above: Performed By: #### C JAVAD MOLINA, RAYNE #### [facility] [address] [place] [address] Marcin Mondragon PTTon 12-15-2020 aPTT Coag (Bld) [Time] 27.8 s Normal 22.3-36.2 [facility] Comment on above: Performed By: #### C JAVAD MOLINA RAYNE #### [facility] [address] [place] [address] Marcin Mondragon AMYLASEon 12-09-2020 Amylase [Catalytic activity/Vol] 45 U/L Normal 31-110 [facility] Comment on above: Performed By: #### B RAYNE MOLINA, LIVER, LIPA #### [facility] [address], [place] [address] Marcin Alanna CBC AUTO DIFFon 12-09-2020 BASO # 0.0 103/ul Normal 0.0-0.1 [facility] Comment on above: Performed By: #### C BC #### [facility] [address] [place], [place] [address] Marcin Alanna Basophils/100 WBC (Bld) 0.2 % Normal 0.2-2.0 [facility] Comment on above: Performed By: #### C BC #### [facility] [address], [place] [address] Marcin Alanna EO # 0.0 103/ul Normal 0.0-0.7 [facility] Comment on above: Performed By: #### C BC #### [facility] [address] [place], [place] [address] Marcin Alanna Eosinophils/100 WBC (Bld) 0.3 % Critically low 0.9-7.0 [facility] Comment on above: Performed By: #### C BC #### [facility] [address] [place], [place] [address] Marcin Alanna Erythrocyte distribution width (RBC) [Ratio] 12.6 % Normal 11.0-15.0 [facility] Comment on above: Performed By: #### C BC #### [facility] [address] [place], [place] [address] Marcin Alanna Hematocrit (Bld) [Volume fraction] 45.7 % Normal 36.0-48.0 [facility] Comment on above: Performed By: #### C BC #### [facility] [address] [place], [place] [address] Marcin Alanna Hemoglobin (Bld) [Mass/Vol] 14.6 g/dL Normal 12.0-16.0 [facility] Comment on above: Performed By: #### C BC #### [facility] [address] [place], [place] [address] Maricn Alanna IG # 0.04 10e3/ul Critically high 0.00-0.03 [facility] Comment on above: Performed By: #### C BC #### [facility] [address] [place], [place] [address] Marcin Alanna IG % 0.4 % Normal 0.0-0.5 [facility] Comment on above: Performed By: #### C BC #### [facility] [address] [place], [place] [address] Marcin Alanna LYMPH # 1.4 103/ul Normal 1.2-3.8 [facility] Comment on above: Performed By: #### C BC #### [facility] [address] [place], [place] [address] Marcin Alanna Lymphocytes/100 WBC (Bld) 12.8 % Critically low 20.5-60.0 [facility] Comment on above: Performed By: #### C BC #### [facility] [address] [place], [place] [address] Marcinraffy Mondragon MANUAL DIFF REQ NO Normal [facility] Comment on above: Performed By: #### C BC #### [facility] [address] [place], [place] [address] Marcin Alanna MCH (RBC) [Entitic mass] 29.4 pg Normal 26.7-34.0 [facility] Comment on above: Performed By: #### C BC #### [facility] [address] [place], [place] [address] Marcinraffy Mondragon MCHC (RBC) [Mass/Vol] 31.9 g/dL Normal 29.9-35.2 [facility] Comment on above: Performed By: #### C BC #### [facility] [address] [place] [address] Marcin Alanna MCV (RBC) [Entitic vol] 92.1 fL Normal 81.0-99.0 [facility] Comment on above: Performed By: #### C BC #### [facility] [address] [place], [place] [address] Marcin Alanna MONO # 0.6 103/ul Normal 0.3-0.8 [facility] Comment on above: Performed By: #### C BC #### [facility] [address] [place], [place] [address] Marcin Alanna Monocytes/100 WBC (Bld) 5.6 % Normal 1.7-12.0 [facility] Comment on above: Performed By: #### C BC #### [facility] [address] [place], [place] [address] Marcin Mondragon NEUT # 9.0 103/ul Critically high 1.4-6.5 [facility] Comment on above: Performed By: #### C BC #### [facility] [address] [place], [place] [address] Marcin Mondragon Neutrophils/100 WBC (Bld) 80.7 % Critically high 43.0-75.0 [facility] Comment on above: Performed By: #### C BC #### [facility] [address] [place], [place] [address] Marcin Mondragon Platelet mean volume (Bld) [Entitic vol] 8.6 fL Critically low 9.5-13.5 [facility] Comment on above: Performed By: #### C BC #### [facility] [address] [place], [place] [address] Marcin Pritcharden PLT 255 103/ul Normal 150-450 [facility] Comment on above: Performed By: #### C BC #### [facility] [address] [place], [place] [address] Marcin Mondragon RBC 4.96 106/ul Normal 4.20-5.40 [facility] Comment on above: Performed By: #### C BC #### [facility] [address] [place], [place] [address] Marcin Mondragon WBC 11.1 103/ul Critically high 4.0-11.0 [facility] Comment on above: Performed By: #### C BC #### [facility] [address] [place], [place] [address] Marcin Mondragon LIPASEon 12-09-2020 Lipase [Catalytic activity/Vol] 129.0 U/L Normal 23.0-300.0 [facility] Comment on above: Performed By: #### B MP, RAYNE, LIVER, LIPA #### [facility] [address] [place], [place] [address] Marcin Mondragon LIVER PROFILEon 12-09-2020 Albumin [Mass/Vol] 3.5 g/dL Normal 3.5-5.0 [facility] Comment on above: Performed By: #### B MP, RAYNE, LIVER, LIPA #### [facility] [address] [address] Marcin Alanna Albumin/Globulin [Mass ratio] 0.9 {ratio} Normal [facility] Comment on above: Performed By: #### B MP, RAYNE, LIVER, LIPA #### [facility] [address] [address] Marcin Alanna ALP [Catalytic activity/Vol] 80 U/L Normal 38-126 [facility] [facility] Comment on above: Performed By: #### B MP, RAYNE, LIVER, LIPA #### [facility] [address] [place] [address] Marcin Alanna ALT [Catalytic activity/Vol] 31 U/L Normal 9-52 [facility] Comment on above: Performed By: #### B MP, RAYNE, LIVER, LIPA #### [facility] [address] [place] [address] Marcin Alanna AST [Catalytic activity/Vol] 39 U/L Critically high 14-36 [facility] Comment on above: Performed By: #### B MP, RAYNE, LIVER, LIPA #### [facility] [address] [place] [address] Marcin Alanna BILI, CONJUGATED 0.2 mg/dL Normal 0.0-0.3 [facility] Comment on above: Performed By: #### B MP, RAYNE, LIVER, LIPA #### [facility] [address] [place] [address] Marcin Alanna Bilirubin [Mass/Vol] 0.5 mg/dL Normal 0.2-1.3 [facility] Comment on above: Performed By: #### B MP, RAYNE, LIVER, LIPA #### [facility] [address] [place] [address] Marcin Alanna Globulin (S) [Mass/Vol] 3.8 g/dL Normal [facility] Comment on above: Performed By: #### B MP, RAYNE, LIVER, LIPA #### [facility] [address] [place] [address] Marcin Alanna Protein [Mass/Vol] 7.3 g/dL Normal 6.1-8.2 [facility] Comment on above: Performed By: #### B MP, RAYNE, LIVER, LIPA #### [facility] [address] [place] [address] Marcin Alanna PROF CHEM 8 (BAS METB)on Anion gap [Moles/Vol] 10.6 mmol/L Normal [facility] Comment on above: Performed By: #### C MP, LIPA, RAYNE #### [facility] [address] [place] [address] Marcin Alanna Calcium [Mass/Vol] 8.9 mg/dL Normal 8.4-10.2 [facility] Comment on above: Performed By: #### C MP, LIPA, RAYNE #### [facility] [address] [place] [address] Marcin Alanna Chloride [Moles/Vol] 105 mmol/L Normal 98-107 [facility] Comment on above: Performed By: #### C MP, LIPA, RAYNE #### [facility] [address] [place] [address] Marcin Alanna CO2 [Moles/Vol] 27.4 mmol/L Normal 22.0-30.0 [facility] Comment on above: Performed By: #### C MP, LIPA, RAYNE #### [facility] [address] [place] [address] Marcin Alanna Creatinine [Mass/Vol] 0.91 mg/dL Normal 0.52-1.04 [facility] Comment on above: Performed By: #### C MP, LIPA, RAYNE #### [facility] [address] [place] [address] Marcin Alanna EGFR-AF PARAGUAYAN >60 Normal >=60 [facility] Comment on above: Performed By: #### C MP, LIPA, RAYNE #### [facility] [address] [place] [address] Marcin Alanna EGFR-NON AF PARAGUAYAN >60 Normal >=60 [facility] Comment on above: Performed By: #### C JAVAD MOLINA AMY #### [facility] [address] [address] Marcin Alanna Glucose [Mass/Vol] 109 mg/dL Critically high 74-106 [facility] Comment on above: Performed By: #### C JAVAD MOLINA AMY #### [facility] [address] [address] Marcin Alanna Potassium [Moles/Vol] 4.0 mmol/L Normal 3.4-5.0 [facility] Comment on above: Performed By: #### C JAVAD MOLINA AMY #### [facility] [address] [place] [address] Marcin Alanna Sodium [Moles/Vol] 139 mmol/L Normal 137-145 [facility] Comment on above: Performed By: #### C JAVAD MOLINA AMY #### [facility] [address] [place] [address] Marcin Alanna Urea nitrogen [Mass/Vol] 13.0 mg/dL Normal 7.0-17.0 [facility] Comment on above: Performed By: #### C JAVAD MOLINA AMY #### [facility] [address] [place] [address] Marcin Alanna Urea nitrogen/Creatini ne [Mass ratio] 14.3 mg/mg Normal [facility] Comment on above: Performed By: #### C JAVAD MOLINA AMY #### [facility] [address] [place] [address] Marcin Alanna XR CHEST 1 Von 12-09-2020 [...] by: BRITTANY HENDRICKS Date: 2020-12-09 17:05 Normal [facility] Encounters Encounter Date Encounter Type Care Provider [...] Facility:[facility] Payers Date Payer Category Payer Unknown [id number] 2.16.84 [id number] 1990 Unknown [id number] 2.16.84 [id number] 1990 Unknown [id number] 2.16.84 [id number] 1990 Unknown [id number] 2.16.84 [id number] 1990 Unknown [id number] 1990 Unknown [id number] 1959 Unknown [id number] Progress note 01-02-2021 Note Date & Type Note Facility 01-02-2021 Note HNO ID: [id number] Author: Bro Yuan Service: ? Author Type: [...] SIGNATURE: Jeffrey Yuan MD [facility] surgery Pager: [phone] [facility] Progress note 01-02-2021 Note Date & Type Note Facility 01-02-2021 Note HNO ID: [id number] Author: Annamaria Collins Service: ? Author Type: [...] PRN Annamaria Collins MD General Surgery Resident [facility] Summary Purpose Family History No Family History Records FoundNo Family History Records FoundNo Family History Records Found Advance Directives No Advanced Directives Records FoundNo Advanced Directives Records FoundNo Advanced Directives Records Found Additional Source Comments INFORMATION SOURCE (unrecogn ized section and content) DATE CREATED AUTHOR 10/02/2021 [facility] DATE CREATED AUTHOR AUTHOR'S ORGANIZ ATION 12/20/2021 [facility] DATE CREATED AUTHOR AUTHOR'S ORGANIZ ATION 12/02/2023 [facility] RECORDS PERTAINING TO PATIENTS [...] BE BASED ON THE PRIMARY CLINICAL RECORDS. [employer] provides no warranty or guarantee of the accuracy or completeness of information in this document.
== END 2023-12-29 09:09 | disposition home or self-care (01) ==
LOC: NOMS 09:08
PROVIDERS: PCP Internal Medicine; Visit Provider Obstetrics & Gynecology
DX: Z36.89 Encounter for other specified antenatal screening (principal); Z3A.20 20 weeks gestation of pregnancy; O44.42 Low lying placenta NOS or without hemorrhage, second trimester
CPT/HCPCS: 76805; 76817

== ENCOUNTER 2024-01-09 11:31 | Outpatient (OUT) | payer OTHER, SELFPAY ==
--- NOTE | 2024-01-09 11:34 | US_ITS ---
[address] [address] Patient Name: ISAAC JOHNSTON MRN: [id number] date: 1990 Sex: F Assigned Patient Location: US Current Patient Location: US Accession/Order Number: [id number] Exam Date: 01/09/2024 11:35 Report Date: 01/09/2024 12:32 At the request of: JESICA CROOKS Procedure: US OB incomplete anatomy EXAM: US OB incomplete anatomy HISTORY: Follow Up Ultrasound Of Anatomy Z36.2 COMPARISON: Ultrasound OB anatomy to 524 TECHNIQUE: Transabdominal ultrasound FINDINGS: Heart rate: 153 bpm Presentation: Breech Amniotic fluid: Subjectively normal Anatomy: Four-chamber heart, RVOT, LVOT, hard palate, three-vessel cord adequately visualized; no appreciable abnormality. GA: 22 weeks 1 day RODERICK: 05/13/2024 US/US OB incomplete anatomy IMPRESSION: 1. Single live intrauterine . 2. No appreciable abnormality of the four-chamber heart, cardiac outflow tracts, hard palate, and three-vessel cord. Electronically authenticated by: NATALY GEORGE Date: 01/09/2024 12:32
--- OUTSIDE RECORDS SUMMARY | 2024-01-09 11:34 | XMS_ITS | CCD ---
Author Name Unknown Address [address] [place] [address] Organization [facility] Care Team Providers Care Regulatory Affairs Consultant Name Role Phone DR TOR TORRES Primary Care Unavail able SILVIA MAGAÑA Attending Unavailable SILVIA MAGAÑA Consulting Unavailable SILVIA MAGAÑA Admitting Unavailable Brtitany Hendricks Consulting Unavailable DR TOR TORRES Primary Care Unavail able SILVIA MAGAÑA Admitting Unavailable HUSSAIN DICK Consulting Unavailable SILVIA MAGAÑA Attending Unavailable MAX, DR GEREMIAS Sanchez Attending Unavailable DR GEREMIAS SANTANA Consulting Unavailable MELISSA, DR TOR Alexander Primary Care Unavail able DR GEREMIAS SANTANA Admitting Unavailable RAYNE JUNG Attending Unavailable JESICA SMILEY Attending Unavailable JESICA SMILEY Attending Unavailable Tor Torres MD Primary Care Provider Allergies Allergy Classification Reported Allergen(s) Allergy Type Date of Onset Reaction(s) Facility (1 source) Morphine Drug Allergy 05-18-2018 [facility] Repository Medications Current Medications Medication Drug Class(es) Dates Sig (Normalized) Sig (Original) Multiple Vitamin (multivitamin) tablet (2 sources) take 1 tablet by mouth in the morning Multiple Vitamin (multivitamin) tablet Take 1 tablet by mouth in the morning. 0 Active omeprazole 20 mg disintegrating oral tablet (2 sources) Proton Pump Inhibitor Omeprazole 20 MG Tablet Delayed Release Dispersible polysaccharide iron complex 391 mg oral capsule (2 sources) Start: 10-27-2023 End: 10-26-2024 take 1 capsule by mouth in the morning iron polysaccharides (ProFe) 391.3 (180 Fe) MG capsule Indications: Anemia, unspecified type Take 1 capsule (391.3 mg) by mouth in the morning. 30 capsule 11 10/27/2023 10/26/2024 Active Problems Active Problems Problem Classification Problem Date Documented Da te Episodic/Chronic Asthma (1 source) Unspecified asthma, uncomplicated; Translations: [UNSPECIFIED ASTHMA UNCOMPLICATED] Onset: 10-02-2021 Chronic Esophageal disorders (1 source) Gastro-esophageal reflux disease without esophagitis; Translations: [GERD WITHOUT ESOPHAGITIS] Onset: 12-12-2020 Chronic Other aftercare (1 source) Other snf (current) drug therapy; Translations: [OTH CARE HOME CURRENT DRUG THERAPY] Onset: 10-02-2021 Episodic Other connective tissue disease (3 sources) Pain in left forearm; Translations: [PAIN IN LEFT FOREARM] Onset: 09-28-2021 Episodic Other and delivery including normal (2 sources) Second trimester ; Translations: [Encounter for supervision of normal , unspecified, second trimester] 12-24-2023 Episodic Screening and history of mental health [...] [ELEV LVLS LIVER TRANSAMINASE LVLS] Onset: 12-19-2020 Unclassified (2 sources) OB Reminders Onset: 10-07-2023 10-07-2023 Past or Other Problems Problem Classification Problem [...] Test Name Value Interpretation Reference Range Facility CNOVon 01-02-2021 CNOV Office Visit ([facility] ) -------- ISAAC TOUSSAINT ([id number]) 1990 F Date Time Provider Department 01/02/21 10:30 AM BRO YUAN During your visit today, we recorded the following information about you: Temperature Pulse Blood pressure Weight 96.8 degrees 115/minute 130/68 140.6 kg Height 1.499 m Bhavaniserafin Han MA 01/02/2021 11:04 AM Signed What [...] Follow up PRN SIGNATURE: Jeffrey Yuan MD B surgery Pager: [phone] Referring Provider: SELF [[id number]] Allergies As of [...] Status:Closed by BRO YUAN MD on 01/02/21 [facility] 12-22-2020 [facility] Telephone (PODCCP) -------- ISAAC TOUSSAINT ([id number]) 1990 F Date Time Provider Department 12/22/20 VAHE CR (STUDENT) PODCCP During your visit today, we recorded the following information about you: Vahe Cr Student 12/22/2020 10:01 AM Signed Record ID: [id number] Patient [facility]: [facility]: [facility]: [facility] Attending: Bro Yuan Center: General Surgery INSTRUCTIONS SN to remind patient of appointment date, time, location All Clear All Clear SURVEY INFORMATION Medical/Nurse Clinical Rehabilitation Specialist: Landy Duran 1. Your discharge instructions are [...] Reason for Visit: Follow Up Phone Call [[id number]] Prescriptions as of 12/22/2020 Sig: ONDANSETRON HCL [...] Encounter Status:Closed by VAHE WADE on 12/22/20 [facility] 12-21-2020 [facility] Telephone (GENSMN) -------- ISAAC TOUSSAINT ([id number]) 1990 F Date Time Provider Department 12/21/20 BRO YUAN During your visit today, we recorded the following information about you: Macy Arshad [facility] 12/21/2020 12:18 PM Signed Patient is calling [...] Encounter Status:Closed by MACY SALEH on 01/22/21 [facility] OBSOLETEon 12-21-2020 OBSOLETE Refill (GENSMN) -------- ISAAC TOUSSAINT ([id number]) 1990 F Date Time Provider Department 12/21/20 ROXANA SCOTT During your visit today, we recorded the following information about you: Roxana Scott APRN.FROTHING MACHINE OPERATOR 12/21/2020 2:00 PM Signed Patient called with [...] our office if symptoms persist. Roxana Scott APRN.FROTHING MACHINE OPERATOR Allergies As of Date: 12/21/2020 (No Known Allergies) Date Reviewed: 12/18/2020 Reviewed by: Lencho Chapamn) ARGENIS Winter - Fully Assessed Order(s):ondansetron (ZOFRAN) [...] DEJESUS.ROXANA HOUSE on 12/21/20 Normal [facility] AMMONIAon 12-15-2020 Ammonia (P) [Mass/Vol] ug/dL Critically low 10-30 [facility] Comment on above: Performed By: #### A MM #### [facility] [address] [id number] Marcin Mondragon AMYLASEon 12-15-2020 Amylase [Catalytic activity/Vol] 217 U/L Critically high 31-110 [facility] Comment on above: Performed By: #### C MP, LIPA, RAYNE #### [facility] [address] [place], [place] [address] Marcin oMndragon CBC AUTO DIFFon 12-15-2020 BASO # 0.0 103/ul Normal 0.0-0.1 [facility] Comment on above: Performed By: #### C JAVAD MOLINA AMY #### [facility] [address] [place] [address] Marcin Alanna Basophils/100 WBC (Bld) 0.3 % Normal 0.2-2.0 [facility] Comment on above: Performed By: #### C JAVAD MOLINA AMY #### [facility] [address] [place] [address] Marcin Alanna EO # 0.0 103/ul Normal 0.0-0.7 [facility] Comment on above: Performed By: #### C JAVAD MOLINA AMY #### [facility] [address] [place] [address] Marcin Alanna Eosinophils/100 WBC (Bld) 0.3 % Critically low 0.9-7.0 [facility] Comment on above: Performed By: #### C JAVAD MOLINA AMY #### [facility] [address] [place] [address] Marcinraffy Pritcharden Erythrocyte distribution width (RBC) [Ratio] 13.3 % Normal 11.0-15.0 [facility] Comment on above: Performed By: #### C JAVAD MOLINA AMY #### [facility] [address] [place] [address] Marcin Alanna Hematocrit (Bld) [Volume fraction] 42.9 % Normal 36.0-48.0 [facility] Comment on above: Performed By: #### C JAVAD MOLINA AMY #### [facility] [address] [place] [address] Marcin Alanna Hemoglobin (Bld) [Mass/Vol] 13.8 g/dL Normal 12.0-16.0 [facility] Comment on above: Performed By: #### C JAVAD MOLINA AMY #### [facility] [address] [place] [address] Marcin Alanna IG # 0.02 10e3/ul Normal 0.00-0.03 [facility] Comment on above: Performed By: #### C JAVAD MOLINA AMY #### [facility] [address] [place] [address] Marcin Alanna IG % 0.3 % Normal 0.0-0.5 [facility] Comment on above: Performed By: #### C JAVAD MOLINA AMY #### [facility] [address] [place] [address] Marcin Alanna LYMPH # 1.7 103/ul Normal 1.2-3.8 [facility] Comment on above: Performed By: #### C JAVAD MOLINA AMY #### [facility] [address] [place] [address] Marcin Alanna Lymphocytes/100 WBC (Bld) 23.8 % Normal 20.5-60.0 [facility] Comment on above: Performed By: #### C JAVAD MOLINA AMY #### [facility] [address] [place] [address] Marcin Alanna MANUAL DIFF REQ NO Normal [facility] Comment on above: Performed By: #### C JAVAD MOLINA AMY #### [facility] [address] [place] [address] Marcin Alanna MCH (RBC) [Entitic mass] 29.8 pg Normal 26.7-34.0 [facility] Comment on above: Performed By: #### C JAVAD MOLINA AMY #### [facility] [address] [place] [address] Marcin Alanna MCHC (RBC) [Mass/Vol] 32.2 g/dL Normal 29.9-35.2 [facility] Comment on above: Performed By: #### C JAVAD MOLINA AMY #### [facility] [address] [place] [address] Marcin Alanna MCV (RBC) [Entitic vol] 92.7 fL Normal 81.0-99.0 [facility] Comment on above: Performed By: #### C JAVAD MOLINA AMY #### [facility] [address] [place] [address] Marcin Alanna MONO # 0.6 103/ul Normal 0.3-0.8 [facility] Comment on above: Performed By: #### C JAVAD MOLINA AMY #### [facility] [address] [place], [place] [address] Marcin Alanna Monocytes/100 WBC (Bld) 8.5 % Normal 1.7-12.0 [facility] Comment on above: Performed By: #### C EZRA MOLINAA, RAYNE #### [facility] [address] [address] Marcin Alanna NEUT # 4.8 103/ul Normal 1.4-6.5 [facility] Comment on above: Performed By: #### C EZRA MOLINAA, RAYNE #### [facility] [address] [place], [place] [id number] Marcin Alanna Neutrophils/100 WBC (Bld) 66.8 % Normal 43.0-75.0 [facility] Comment on above: Performed By: #### C JAVAD MOLINA, RAYNE #### [facility] [address] [place] [address] Marcin Alanna Platelet mean volume (Bld) [Entitic vol] 8.7 fL Critically low 9.5-13.5 [facility] Comment on above: Performed By: #### C EZRA MOLINAA, RAYNE #### [facility] [address] [place], [place] [id number] Marcin Alanna PLT 253 103/ul Normal 150-450 [facility] Comment on above: Performed By: #### C TRACY LIPA, RAYNE #### [facility] [address] [place], [place] [id number] Marcin Alanna RBC 4.63 106/ul Normal 4.20-5.40 [facility] Comment on above: Performed By: #### C TRACY LIPA, RAYNE #### [facility] [address] [place] [address] Marcin Alanna WBC 7.1 103/ul Normal 4.0-11.0 [facility] Comment on above: Performed By: #### C TRACY LIPA, RAYNE #### [facility] [address] [place] [address] Marcin Alanna LIPASEon 12-15-2020 Lipase [Catalytic activity/Vol] 1205.0 U/L Critically high 23.0-300.0 [facility] Comment on above: Result Comment: test repeated critical value verified Performed By: #### C JAVAD MOLINA AMY #### [facility] [address] [place], [place] [id number] Marcinraffy Mondragon PREG HCG QUALon 12-15-2020 , QUAL Negative Normal NEGATIVE [facility] Comment on above: Performed By: #### P REG #### [facility] [address] [place] [address] Marcin Mondragon PROF 14(COMP METB)on 021 Albumin [Mass/Vol] 3.3 g/dL Critically low 3.5-5.0 [facility] Comment on above: Performed By: #### C JAVAD MOLINA AMY #### [facility] [address] [place] [address] Marcinraffy Mondragon Albumin/Globulin [Mass ratio] 0.8 {ratio} Normal [facility] Comment on above: Performed By: #### C JAVAD MOLINA AMY #### [facility] [address] [place] [address] Marcin Alanna ALP [Catalytic activity/Vol] 167 U/L Critically high 38-126 [facility] Comment on above: Performed By: #### C JAVAD MOLINA AMY #### [facility] [address] [place] [address] Marcin Alanna ALT [Catalytic activity/Vol] 370 U/L Critically high 9-52 [facility] Comment on above: Performed By: #### C JAVAD MOLINA AMY #### [facility] [address] [place] [address] Marcin Alanna Anion gap [Moles/Vol] 12.5 mmol/L Normal [facility] Comment on above: Performed By: #### C JAVAD MOLINA AMY #### [facility] [address] [place] [address] Marcin Alanna AST [Catalytic activity/Vol] 165 U/L Critically high 14-36 [facility] Comment on above: Performed By: #### C JAVAD MOLINA AMY #### [facility] [address] [address] Marcin Alanna Bilirubin [Mass/Vol] 5.3 mg/dL Critically high 0.2-1.3 [facility] Comment on above: Performed By: #### C JAVAD MOLINA, RAYNE #### [facility] [address] [place] [address] Marcin Alanna Calcium [Mass/Vol] 9.2 mg/dL Normal 8.4-10.2 [facility] Comment on above: Performed By: #### C JAVAD MOLINA, RAYNE #### [facility] [address] [place] [address] Marcin Alanna Chloride [Moles/Vol] 102 mmol/L Normal 98-107 [facility] Comment on above: Performed By: #### C JAVAD MOLINA, RAYNE #### [facility] [address] [place] [address] Marcin Alanna CO2 [Moles/Vol] 29.6 mmol/L Normal 22.0-30.0 [facility] Comment on above: Performed By: #### C JAVAD MOLINA, RAYNE #### [facility] [address] [place] [address] Marcin Alanna Creatinine [Mass/Vol] 0.88 mg/dL Normal 0.52-1.04 [facility] Comment on above: Performed By: #### C JAVDA MOLINA, RAYNE #### [facility] [address] [place] [address] Marcin Alanna EGFR-AF HONDURAN >60 Normal >=60 [facility] Comment on above: Performed By: #### C JAAVD MOLINA, RAYNE #### [facility] [address] [place] [address] Marcin Alanna EGFR-NON AF HONDURAN >60 Normal >=60 [facility] Comment on above: Performed By: #### C JAVAD MOLINA, RAYNE #### [facility] [address] [place] [address] Marcin Alanna Globulin (S) [Mass/Vol] 4.1 g/dL Normal [facility] Comment on above: Performed By: #### C JAVAD MOLINA, RAYNE #### [facility] [address] [address] Marcin Alanna Glucose [Mass/Vol] 88 mg/dL Normal 74-106 [facility] Comment on above: Performed By: #### C JAVAD MOLINA, RAYNE #### [facility] [address] [address] Marcin Alanna Potassium [Moles/Vol] 3.1 mmol/L Critically low 3.4-5.0 [facility] Comment on above: Performed By: #### C JAVAD MOLINA, RAYNE #### [facility] [address] [address] Marcin Alanna Protein [Mass/Vol] 7.4 g/dL Normal 6.1-8.2 [facility] Comment on above: Performed By: #### C JAVAD MOLINA, RAYNE #### [facility] [address] [address] Marcin Alanna Sodium [Moles/Vol] 141 mmol/L Normal 137-145 [facility] Comment on above: Performed By: #### C JAVAD MOLINA, RAYNE #### [facility] [address] [address] Marcin Alanna Urea nitrogen [Mass/Vol] 8.0 mg/dL Normal 7.0-17.0 [facility] Comment on above: Performed By: #### C JAVAD MOLINA, RAYNE #### [facility] [address] [address] Marcin Alanna Urea nitrogen/Creatini ne [Mass ratio] 9.1 mg/mg Normal [facility] Comment on above: Performed By: #### C JAVAD MOLINA, RAYNE #### [facility] [address] [address] Marcin Alanna PROTIMEon 12-15-2020 INR Coag (PPP) [Relative time] 1.04 {INR} Normal [facility] Comment on above: Performed By: #### C JAVAD MOLINA, RAYNE #### [facility] [address] [address] Marcin Alanna INR GUIDELINES SEE BELOW Normal [facility] Comment on above: Result Comment: NAI RED INR: 2.0 - 3.0 CONDITIONS NOT LISTED BELOW 2.5 - 3.5 FOR PROSTHETIC HEART VALVE REPLACEMENT 2.5 - 3.5 RECURRENT THROMBOSIS Performed By: #### C JAVAD MOLINA, RAYNE #### [facility] [address] [place] [address] Marcin Alanna PT Coag (PPP) [Time] 11.3 s Normal 9.0-11.6 [facility] Comment on above: Performed By: #### C MP, LIPA, RAYNE #### [facility] [address] [place] [address] Marcin Alanna PTTon 12-15-2020 aPTT Coag (Bld) [Time] 27.8 s Normal 22.3-36.2 [facility] Comment on above: Performed By: #### C MP LIPA, RAYNE #### [facility] [address] [place] [address] Marcin Alanna AMYLASEon 12-09-2020 Amylase [Catalytic activity/Vol] 45 U/L Normal 31-110 [facility] Comment on above: Performed By: #### B MP, RAYNE, LIVER, LIPA #### [facility] [address] [place], [place] [id number] Marcin Alanna CBC AUTO DIFFon 12-09-2020 BASO # 0.0 103/ul Normal 0.0-0.1 [facility] Comment on above: Performed By: #### C BC #### [facility] [address] [place] [address] Marcin Alanna Basophils/100 WBC (Bld) 0.2 % Normal 0.2-2.0 [facility] Comment on above: Performed By: #### C BC #### [facility] [address] [place], [place] [address] Marcin Alanna EO # 0.0 103/ul Normal 0.0-0.7 [facility] Comment on above: Performed By: #### C BC #### [facility] [address] [place], [place] [address] Marcin Alanna Eosinophils/100 WBC (Bld) 0.3 % Critically low 0.9-7.0 [facility] Comment on above: Performed By: #### C BC #### [facility] [address] [place] [address] Marcin Mondragon Erythrocyte distribution width (RBC) [Ratio] 12.6 % Normal 11.0-15.0 [facility] Comment on above: Performed By: #### C BC #### [facility] [address] [place] [address] Marcin Alanna Hematocrit (Bld) [Volume fraction] 45.7 % Normal 36.0-48.0 [facility] Comment on above: Performed By: #### C BC #### [facility] [address] [place] [address] Marcin Alanna Hemoglobin (Bld) [Mass/Vol] 14.6 g/dL Normal 12.0-16.0 [facility] Comment on above: Performed By: #### C BC #### [facility] [address] [place] [address] Marcinraffy Mondragon IG # 0.04 10e3/ul Critically high 0.00-0.03 [facility] Comment on above: Performed By: #### C BC #### [facility] [address] [place] [address] Marcin Mondragon IG % 0.4 % Normal 0.0-0.5 [facility] Comment on above: Performed By: #### C BC #### [facility] [address] [place] [address] Marcin Alanna LYMPH # 1.4 103/ul Normal 1.2-3.8 [facility] Comment on above: Performed By: #### C BC #### [facility] [address] [place] [address] Marcin Mondragon Lymphocytes/100 WBC (Bld) 12.8 % Critically low 20.5-60.0 [facility] Comment on above: Performed By: #### C BC #### [facility] [address] [place] [address] Marcin Mondragon MANUAL DIFF REQ NO Normal [facility] Comment on above: Performed By: #### C BC #### [facility] [address] [place], [place] [address] Marcin Mondragon MCH (RBC) [Entitic mass] 29.4 pg Normal 26.7-34.0 [facility] Comment on above: Performed By: #### C BC #### [facility] [address] [place], [place] [address] Marcin Mondragon MCHC (RBC) [Mass/Vol] 31.9 g/dL Normal 29.9-35.2 [facility] Comment on above: Performed By: #### C BC #### [facility] [address] [id number] Marcinraffy Mondragon MCV (RBC) [Entitic vol] 92.1 fL Normal 81.0-99.0 [facility] Comment on above: Performed By: #### C BC #### [facility] [address] [place] [address] Marcin Mondragon MONO # 0.6 103/ul Normal 0.3-0.8 [facility] Comment on above: Performed By: #### C BC #### [facility] [address] [place], [place] [address] Marcin Mondragon Monocytes/100 WBC (Bld) 5.6 % Normal 1.7-12.0 [facility] Comment on above: Performed By: #### C BC #### [facility] [address] [place], [place] [address] Marcin Mondragon NEUT # 9.0 103/ul Critically high 1.4-6.[address] [facility] Comment on above: Performed By: #### C BC #### [facility] [address] [place], [place] [address] Marcin Alanna Neutrophils/100 WBC (Bld) 80.7 % Critically high 43.0-75.0 [facility] Comment on above: Performed By: #### C BC #### [facility] [address] [place], [place] [address] Marcin Alanna Platelet mean volume (Bld) [Entitic vol] 8.6 fL Critically low 9.5-13.5 [facility] Comment on above: Performed By: #### C BC #### [facility] [address] [place], [place] [address] Marcin Alanna PLT 255 103/ul Normal 150-450 [facility] Comment on above: Performed By: #### C BC #### [facility] [address] [id number] Marcin Alanna RBC 4.96 106/ul Normal 4.20-5.40 [facility] Comment on above: Performed By: #### C BC #### [facility] [address] [id number] Marcin Alanna WBC 11.1 103/ul Critically high 4.0-11.0 [facility] Comment on above: Performed By: #### C BC #### [facility] [address] [place], [place] [id number] Marcin Alanna LIPASEon 12-09-2020 Lipase [Catalytic activity/Vol] 129.0 U/L Normal 23.0-300.0 [facility] Comment on above: Performed By: #### B MP, RAYNE, LIVER, LIPA #### [facility] [address] [id number] Marcin Alanna LIVER PROFILEon 12-09-2020 Albumin [Mass/Vol] 3.5 g/dL Normal 3.5-5.0 [facility] Comment on above: Performed By: #### B MP, RAYNE, LIVER, LIPA #### [facility] [address] [place], [place] [id number] Marcin Alanna Albumin/Globulin [Mass ratio] 0.9 {ratio} Normal [facility] Comment on above: Performed By: #### B MP, RAYNE, LIVER, LIPA #### [facility] [address] [id number] Marcin Alanna ALP [Catalytic activity/Vol] 80 U/L Normal 38-126 [facility] Comment on above: Performed By: #### B MP, RAYNE, LIVER, LIPA #### [facility] [address] [id number] Marcin Alanna ALT [Catalytic activity/Vol] 31 U/L Normal 9-52 [facility] Comment on above: Performed By: #### B MP, RAYNE, LIVER, LIPA #### [facility] [address] [address] Marcin Alanna AST [Catalytic activity/Vol] 39 U/L Critically high 14-36 [facility] Comment on above: Performed By: #### B MP, RAYNE, LIVER, LIPA #### [facility] [address] [place] [address] Marcin Alanna BILI, CONJUGATED 0.2 mg/dL Normal 0.0-0.3 [facility] Comment on above: Performed By: #### B MP, RAYNE, LIVER, LIPA #### [facility] [address] [place] [address] Marcin Alanna Bilirubin [Mass/Vol] 0.5 mg/dL Normal 0.2-1.3 [facility] Comment on above: Performed By: #### B MP, RAYNE, LIVER, LIPA #### [facility] [address] [place] [address] Marcin Alanna Globulin (S) [Mass/Vol] 3.8 g/dL Normal [facility] Comment on above: Performed By: #### B MP, RAYNE, LIVER, LIPA #### [facility] [address] [place] [address] Marcin Alanna Protein [Mass/Vol] 7.3 g/dL Normal 6.1-8.2 [facility] Comment on above: Performed By: #### B MP, RAYNE, LIVER, LIPA #### [facility] [address] [place] [address] Marcin Alanna PROF CHEM 8 (BAS METB)on Anion gap [Moles/Vol] 10.6 mmol/L Normal [facility] Comment on above: Performed By: #### C MP, LIPA, RAYNE #### [facility] [address] [place] [address] Marcin Alanna Calcium [Mass/Vol] 8.9 mg/dL Normal 8.4-10.2 [facility] Comment on above: Performed By: #### C MP, LIPA, RAYNE #### [facility] [address] [address] Marcin Alanna Chloride [Moles/Vol] 105 mmol/L Normal 98-107 [facility] Comment on above: Performed By: #### C JAVAD MOLINA, RAYNE #### [facility] [address] [address] Marcin Alanna CO2 [Moles/Vol] 27.4 mmol/L Normal 22.0-30.0 [facility] Comment on above: Performed By: #### C JAVAD MOLINA, RAYNE #### [facility] [address] [address] Marcin Alanna Creatinine [Mass/Vol] 0.91 mg/dL Normal 0.52-1.04 [facility] Comment on above: Performed By: #### C JAVAD MOLINA, RAYNE #### [facility] [address] [place] [address] Marcin Alanna EGFR-AF HONDURAN >60 Normal >=60 [facility] Comment on above: Performed By: #### C JAVAD MOLINA, RAYNE #### [facility] [address] [place] [address] Marcin Alanna EGFR-NON AF HONDURAN >60 Normal >=60 [facility] Comment on above: Performed By: #### C JAVAD MOLINA, RAYNE #### [facility] [address] [place] [address] Marcin Alanna Glucose [Mass/Vol] 109 mg/dL Critically high 74-106 [facility] Comment on above: Performed By: #### C JAVAD MOLINA, RAYNE #### [facility] [address] [place] [address] Marcin Alanna Potassium [Moles/Vol] 4.0 mmol/L Normal 3.4-5.0 [facility] Comment on above: Performed By: #### C JAVAD MOLINA, RAYNE #### [facility] [address] [place] [address] Marcin Alanna Sodium [Moles/Vol] 139 mmol/L Normal 137-145 [facility] Comment on above: Performed By: #### C MPJAVAD AMY #### [facility] [address] [place], [place] [address] Marcinraffy Pritcharden Urea nitrogen [Mass/Vol] 13.0 mg/dL Normal 7.0-17.0 [facility] Comment on above: Performed By: #### C JAVAD MOLINA AMY #### [facility] [address] [place], [place] [address] Marcin Alanna Urea nitrogen/Creatini ne [Mass ratio] 14.3 mg/mg Normal [facility] Comment on above: Performed By: #### C JAVAD MOLINA AMY #### [facility] [address] [place], [place] [address] Marcin Alanna XR CHEST 1 Von 12-09-2020 [...] by: BRITTANY HENDRICKS Date: 2020-12-09 17:05 Normal [facility] Vital Signs Date Time Vital Sign Value Performing Clinician Gina andrewy 12-29-2023 10:32-0500 Body weight 121.17 kg Jesica Baljit DO Work Phone: [facility] 12-29-2023 10:32-0500 Diastolic blood pressure 70 mm[Hg] Jesica Baljit DO Work Phone: [facility] 12-29-2023 10:32-0500 Systolic blood pressure 110 mm[Hg] Jesica Baljit DO Work Phone: [facility] Encounters Encounter Date Encounter Type Care Provider Facility Start: 12-29-2023 End: 12-29-2023 ambulatory JESICA METCALFO Not Available Start: 12-29-2023 End: 12-29-2023 Office outpatient visit 15 minutes Jesica Baljit DO Work Phone: [facility] Comment on above: Second trimester pre gnancy Start: 12-01-2023 End: 12-01-2023 ambulatory RAYNE JUNG Not Available Start: 10-27-2023 End: 10-27-2023 ambulatory JESICA SMILEY Not Available Start: 10-03-2023 End: 10-04-2023 ambulatory RAYNE JUNG Not Available Start: 09-28-2021 End: 09-28-[address] GEREMIAS SANTANA Facility:[facility] Start: 12-15-2020 End: 12-16-[address] TOR TORRES Facility:[facility] Start: 12-09-2020 End: 12-09-[address] TOR TORRES Facility:[facility] Payers Date Payer Category Payer Medicaid [facility] MEDICAID [place] [id number] 2020-Present [address] [place] [address] [id number] 1990 Unknown [id number] 1990 Unknown [id number] 1990 Unknown [id number] 1990 Unknown [id number] 1990 Unknown [id number] 1990 Unknown [id number] 1990 Unknown [id number] 1959 Unknown [id number] Social History Date Type Detail Facility Start: 09-24-2023 Tobacco smoking status CTIS Never sm oked tobacco [facility] Start: 12-29-2023 Alcohol intake Current drinke r of alcohol (finding) [facility] Start: 09-24-2023 History of Social function [facility] Start: 09-24-2023 Alcohol Use Disorder Identification Test - Consumption [AUDIT-C] [facility] How often to you hav e a drink containing alcohol? Monthly or less [facility] How many standard dr inks containing alcohol do you have on a typical day? 3 or 4 [facility] How often do you hav e 6 or more drinks on 1 occasion? Less than monthly [facility] Start: 08-21-2023 [facility] Start: 1990 Sex Assigned At Female [facility] Start: 09-26-2023 Gender identity Identifies as female gender (finding) [facility] Start: 09-26-2023 Sexual orientation Heterosexual (fin ding) [facility] Goals Date Patient Goal Desired Activity /State Personal health goal History of Present illness Narrative 12-29-2023 Jesica Smiley DO - 12/29/2023 10:00 AM EST Note Date & Type Note Facility 12-29-2023 History of Presen t illness Narrative Reason for Appointment: Patient ID: Isaac Toussaint is a 32 y.o. female who presents for Routine Visit Patient presents today for Return OB appointment. Current Medications: has a current medication list which includes the following prescription(s): profe, multivitamin, and omeprazole. Medical History: Active Ambulatory Problems Diagnosis Date Noted No Active Ambulatory Problems Resolved Ambulatory Problems Diagnosis Date Noted No Resolved Ambulatory Problems Past Medical History: Diagnosis Date Asthma, mild intermittent (CMS/HCC) PCOS (polycystic ovarian syndrome) Family History Problem Relation Name Age of Onset Heart failure Mother Diabetes Maternal Grandmother Social History Tobacco Use Smoking status: Never Smokeless tobacco: Not on file Substance Use Topics Alcohol use: Yes Drug use: Not on file Past Surgical History: Procedure Laterality Date SECTION, LOW TRANSVERSE x3 CHOLECYSTECTOMY 11/2020 CT ANGIOGRAM HEART CORONARY 12/17/2018 CT ANGIOGRAM 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 HENT: Negative. Eyes: Negative. Respiratory: Negative. Cardiovascular: Negative. Gastrointestinal: Negative. Genitourinary: Negative. Musculoskeletal: Negative. Skin: Negative. Neurological: Negative. All other systems reviewed and are negative. Hematological: Negative. Endocrine: Negative. Allergic/Immunologic: Negative. Objective Physical Exam Constitutional: Appearance: Normal appearance. She is well-developed. Cardiovascular: Rate and Rhythm: Normal rate and regular rhythm. Pulmonary: Effort: Pulmonary effort is normal. Breath sounds: Normal breath sounds. Abdominal: General: Bowel sounds are normal. There is no distension. Palpations: Abdomen is soft. Tenderness: There is no abdominal tenderness. There is no guarding or rebound. Musculoskeletal: General: No swelling. Normal range of motion. Right lower leg: No edema. Left lower leg: No edema. Neurological: Mental Status: She is alert and oriented to person, place, and time. Skin: General: Skin is warm and dry. Psychiatric: Mood and Affect: Mood normal. Behavior: Behavior normal. Vitals and nursing note reviewed. Exam conducted with a shell mold bonder present. Vitals: There is no height or weight on file to calculate BMI. BP: 110/70 Patient's last menstrual period was 08/07/2023. Assessment/Plan Encounter Diagnosis Name Primary? Second trimester Patient presents today for a routine obstetrics appointment. Patient is currently 20w4d . Patient states she is doing well but has complaints of being tired due to current . Patient has verbalizes frequent movement. labor precautions was discussed/given and patient was instructed to perform kick counts three times a day. Follow Up: Patient is to return to office in 1 week for routine OB appointment. Documented by Jesica Smiley DO on behalf of: Jesica Smiley DO documented in this encounter [facility] Progress note 01-02-2021 Note Date & Type Note Facility 01-02-2021 Note HNO ID: [id number] Author: Bro Yuan Service: ? Author Type: [...] SIGNATURE: Jeffrey Yuan MD HPB surgery Pager: [phone] [facility] Progress note 01-02-2021 Note Date & Type Note Facility 01-02-2021 Note HNO ID: [id number] Author: Annamaria Collins Service: ? Author Type: [...] Collins MD General Surgery Resident [facility] Evaluation note Note Date & Type Note Facility Evaluation note Diagnosis Second trimester state, incidental documented in this encounter [facility] Summary Purpose Family History No Family History Records FoundNo Family History Records FoundNo Family History Records Found Advance Directives No Advanced Directives Records FoundNo Advanced Directives Records FoundNo Advanced Directives Records Found Additional Source Comments INFORMATION SOURCE (unrecogn ized section and content) DATE CREATED AUTHOR 10/02/2021 [facility] DATE CREATED AUTHOR AUTHOR'S ORGANIZ ATION 12/20/2021 [facility] DATE CREATED AUTHOR AUTHOR'S ORGANIZ ATION 12/29/2023 [facility] EPIC Reason for Visit (unrecogniz ed section and content) Reason Comments Routine Visit Care Teams (unrecognized sec tion and content) Regulatory Affairs Consultant Relationship Specialty Start Date End Date Tor Torres MD [address] [place] [address] PCP - General Internal Medicine 09/25/23 FOR RECORDS PERTAINING TO PATIENTS WHO ARE [...] BE BASED ON THE PRIMARY CLINICAL RECORDS. [employer] provides no warranty or guarantee of the accuracy or completeness of information in this document.
== END 2024-01-09 11:32 | disposition home or self-care (01) ==
LOC: US 11:31
PROVIDERS: PCP Internal Medicine; Visit Provider Obstetrics & Gynecology
DX: Z36.2 Encounter for other antenatal screening follow-up (principal); Z3A.22 22 weeks gestation of pregnancy
CPT/HCPCS: 76815

== ENCOUNTER 2024-02-14 07:55 | Outpatient (OUT) | payer OTHER, SELFPAY ==
--- NOTE | 2024-02-14 07:56 | US_ITS ---
[address] [address] Patient Name: ISAAC JOHNSTON MRN: [id number] date: 1990 Sex: F Assigned Patient Location: US Current Patient Location: Accession/Order Number: [id number] Exam Date: 02/14/2024 08:02 Report Date: 02/16/2024 07:28 At the request of: JESICA CROOKS Procedure: US OB growth EXAMINATION: US OB growth HISTORY: size inconsistent with dates COMPARISON: No relevant comparison available. FINDINGS: Heart Rate: 149.2 bpm Amniotic Fluid Volume: 12.3 cm Number: 1.0 Position: CEPHALIC Maximum Vertical Pocket: 3.8 cm cm 3.2 cm cm 2.3 cm cm 3.0 cm cm BIOMETRY: BPD: 6.5 cm cm; 26 weeks 1 days; 10% HC: 25.2 cmcm; 27 weeks 3 days , 25% AC: 22.7 cm cm; 27 weeks 1 days, 35% FL: 4.7 cm cm; 25 weeks 6 days; 5.9 % % EFW: 960.9 grams, 2 lbs. 2 oz., 16% FL/AC: 20.9 FL/BPD: 73.2 HC/AC: 1.1 GESTATIONAL AGE: Age by EDC: 27 weeks 2 days RODERICK by EDC: 05/13/2024 Age by US: 26 weeks 5 days RODERICK by US: 05/17/2024 US/US OB growth IMPRESSION: Normal interval growth Electronically authenticated by: HAMLET GUTIERREZ Date: 02/16/2024 07:28
--- OUTSIDE RECORDS SUMMARY | 2024-02-14 07:57 | XMS_ITS | CCD ---
Author Organization [facility] Care Team Providers Care Groundskeeper Name Role Phone DR TOR TORRES Primary Care Unavail able SILVIA MAGAÑA Attending Unavailable SILVIA MAGAÑA Consulting Unavailable SILVIA MAGAÑA Admitting Unavailable Brittany Hendricks Consulting Unavailable MELISSA, DR TOR Alexander Primary Care Unavail able SILVIA MAGAÑA Admitting Unavailable HUSSAIN DICK Consulting Unavailable SILVIA MAGAÑA Attending Unavailable DR GEREMIAS SANTANA Attending Unavailable DR GEREMIAS SANTANA Consulting Unavailable MELISSA, DR TOR Alexander Primary Care Unavail able DR GEREMIAS SANTANA Admitting Unavailable Tor Torres MD Primary Care Provider RAYNE JUNG Attending Unavailable JESICA SMILEY Attending Unavailable JESICA SMILEY Attending Unavailable RAYNE JUNG Attending Unavailable Allergies Allergy Classification Reported Allergen(s) Allergy Type Date of Onset Reaction(s) Facility (1 source) Morphine Drug Allergy 05-18-2018 [facility] Medications Current Medications Medication Drug Class(es) [...] 12-12-2020 Chronic Other aftercare (1 source) Other fdc (current) drug therapy; Translations: [OTH PRISON CURRENT DRUG THERAPY] Onset: 10-02-2021 Episodic Other [...] Range Facility CNOVon 01-02-2021 CNOV Office Visit (JACKSON ) -------- ISAAC TOUSSAINT ([id number]) 1990 F Date Time Provider Department 01/02/21 10:30 AM BRO YUAN During your visit today, we recorded the following information about you: Temperature Pulse Blood pressure Weight 96.8 degrees 115/minute 130/68 140.6 kg Height 1.499 m Bhavani Guille ZARATE 01/02/2021 11:04 AM Signed What is the [...] Follow up PRN SIGNATURE: Jeffrey Yuan MD [facility] surgery Pager: [phone] Referring Provider: SELF [[id number]] Allergies As of [...] 12/18/2020 12/18/2020 More... Visit Notes: >> Bhavani Guille Manrique Jan 02, 2021 10:59 AM Status: [...] Status:Closed by BRO YUAN MD on 01/02/21 [facility] 12-22-2020 [facility] Telephone (PODCCP) -------- ISAAC TOUSSAINT ([id number]) 1990 F Date Time Provider Department 12/22/20 VA[facility] CR (STUDENT) PODCCP During your visit today, we recorded the following information about you: Vahe Cr Student 12/22/2020 10:01 AM Signed Record ID: [id number] Patient [facility]: [facility] Gentry: Digestive Disease Gentry Attending: Bro Yuan Center: General Surgery INSTRUCTIONS SN to remind patient of appointment date, time, location All Clear All Clear SURVEY INFORMATION Medical/Nurse Supervisor Vegetable Farming: Landy Duran 1. Your discharge instructions are [...] Reason for Visit: Follow Up Phone Call [[id number]] Prescriptions as of 12/22/2020 Sig: ONDANSETRON HCL [...] Encounter Status:[facility] [facility]) -------- ISAAC TOUSSAINT ([id number]) 1990 F Date Time Provider Department 12/21/20 BRO YUAN During your visit today, we recorded the following information about you: Macy Arshad [facility] 12/21/2020 12:18 PM Signed Patient is calling [...] Encounter Status:Closed by MACY SALEH on 01/22/21 [facility] OBSOLETEon 12-21-2020 OBSOLETE Refill (GENSMN) -------- ISAAC TOUSSAINT ([id number]) 1990 F Date Time Provider Department 12/21/20 ROXANA SCOTT During your visit today, we recorded the following information about you: Roxana Scott APRN.NUT STEAMER 12/21/2020 2:00 PM Signed Patient called with [...] Will call our office if symptoms persist. oRxana Scott APRN.NUT STEAMER Allergies As of Date: 12/21/2020 (No Known Allergies) Date Reviewed: 12/18/2020 Reviewed by: Lencho (Argenis) ARGENIS iWnter - Fully Assessed Order(s):ondansetron (ZOFRAN) 4 mg [...] by TYLER DEJESUS.ROXANA HOUSE on 12/21/20 Normal [facility] AMMONIAon 12-15-2020 Ammonia (P) [Mass/Vol] ug/dL Critically low 10-30 [facility] Comment on above: Performed By: #### A MM #### [facility] [address] [address] Marcin Mondragon AMYLASEon 12-15-2020 Amylase [Catalytic activity/Vol] 217 U/L Critically high 31-110 [facility] Comment on above: Performed By: #### C JAVAD MOLINA AMY #### [facility] [address] [address] Marcin Mondragon CBC AUTO DIFFon 12-15-2020 BASO # 0.0 103/ul Normal 0.0-0.1 [facility] Comment on above: Performed By: #### C JAVAD MOLINA AMY #### [facility] [address] [place] [address] Marcin Alanna Basophils/100 WBC (Bld) 0.3 % Normal 0.2-2.0 [facility] Comment on above: Performed By: #### C JAVAD MOLINA, RAYNE #### [facility] [address] [place] [address] Marcin Alanna EO # 0.0 103/ul Normal 0.0-0.7 [facility] Comment on above: Performed By: #### C JAVAD MOLINA, RAYNE #### [facility] [address] [place] [address] Marcin Alanna Eosinophils/100 WBC (Bld) 0.3 % Critically low 0.9-7.0 [facility] Comment on above: Performed By: #### C JAVAD MOLINA, RAYNE #### [facility] [address] [place] [address] Marcin Alanna Erythrocyte distribution width (RBC) [Ratio] 13.3 % Normal 11.0-15.0 [facility] Comment on above: Performed By: #### C JAVAD MOLINA, RAYNE #### [facility] [address] [place] [address] Marcin Alanna Hematocrit (Bld) [Volume fraction] 42.9 % Normal 36.0-48.0 [facility] Comment on above: Performed By: #### C JAVAD MOLINA, RAYNE #### [facility] [address] [place] [address] Marcin Alanna Hemoglobin (Bld) [Mass/Vol] 13.8 g/dL Normal 12.0-16.0 [facility] Comment on above: Performed By: #### C JAVAD MOLINA, RAYNE #### [facility] [address] [place] [address] Marcin Alanna IG # 0.02 10e3/ul Normal 0.00-0.03 [facility] Comment on above: Performed By: #### C JAVAD MOLINA, RAYNE #### [facility] [address] [place] [address] Marcin Alanna IG % 0.3 % Normal 0.0-0.5 [facility] Comment on above: Performed By: #### C JAVAD MOLINA, RAYNE #### [facility] [address] [place] [address] Marcin Alanna LYMPH # 1.7 103/ul Normal 1.2-3.8 [facility] Comment on above: Performed By: #### C JAVAD MOLINA, RAYNE #### [facility] [address] [place] [address] Marcin Alanna Lymphocytes/100 WBC (Bld) 23.8 % Normal 20.5-60.0 [facility] Comment on above: Performed By: #### C JAVAD MOLINA, RAYNE #### [facility] [address] [place] [address] Marcin Alanna MANUAL DIFF REQ NO Normal [facility] Comment on above: Performed By: #### C JAVAD MOLINA, RAYNE #### [facility] [address] [place] [address] Marcin Alanna MCH (RBC) [Entitic mass] 29.8 pg Normal 26.7-34.0 [facility] Comment on above: Performed By: #### C JAVAD MOLINA, RAYNE #### [facility] [address] [place] [address] Marcin Alanna MCHC (RBC) [Mass/Vol] 32.2 g/dL Normal 29.9-35.2 [facility] Comment on above: Performed By: #### C JAVAD MOLINA, RAYNE #### [facility] [address] [place] [address] Marcin Alanna MCV (RBC) [Entitic vol] 92.7 fL Normal 81.0-99.0 [facility] Comment on above: Performed By: #### C JAVAD MOLINA, RAYNE #### [facility] [address] [place] [address] Marcin Alanna MONO # 0.6 103/ul Normal 0.3-0.8 [facility] Comment on above: Performed By: #### C JAVAD MOLINA, RAYNE #### [facility] [address] [place] [address] Marcin Alanna Monocytes/100 WBC (Bld) 8.5 % Normal 1.7-12.0 [facility] Comment on above: Performed By: #### C JAVAD MOLINA AMY #### [facility] [address] [place] [address] Marcin Alanna NEUT # 4.8 103/ul Normal 1.4-6.5 [facility] Comment on above: Performed By: #### C JAVAD MOLINA AMY #### [facility] [address] [place] [address] Marcin Alanna Neutrophils/100 WBC (Bld) 66.8 % Normal 43.0-75.0 [facility] Comment on above: Performed By: #### C JAVAD MOLINA AMY #### [facility] [address] [place] [address] Marcin Alanna Platelet mean volume (Bld) [Entitic vol] 8.7 fL Critically low 9.5-13.5 [facility] Comment on above: Performed By: #### C JAVAD MOLINA AMY #### [facility] [address] [place] [address] Marcin Alanna PLT 253 103/ul Normal 150-450 [facility] Comment on above: Performed By: #### C JAVAD MOLINA AMY #### [facility] [address] [place] [address] Marcin Alanna RBC 4.63 106/ul Normal 4.20-5.40 [facility] Comment on above: Performed By: #### C JAVAD MOLINA AMY #### [facility] [address] [place] [address] Marcin Alanna WBC 7.1 103/ul Normal 4.0-11.0 [facility] Comment on above: Performed By: #### C JAVAD MOLINA, RAYNE #### [facility] [address] [place] [address] Marcinraffy Pritcharden LIPASEon 12-15-2020 Lipase [Catalytic activity/Vol] 1205.0 U/L Critically high 23.0-300.0 [facility] Comment on above: Result Comment: test repeated critical value verified Performed By: #### C JAVAD MOLINA, RAYNE #### [facility] [address] [id number] Marcin Alanna PREG HCG QUALon 12-15-2020 , QUAL Negative Normal NEGATIVE [facility] Comment on above: Performed By: #### P REG #### [facility] [address] [address] Marcinraffy Pritcharden PROF 14(COMP METB)on 021 Albumin [Mass/Vol] 3.3 g/dL Critically low 3.5-5.0 [facility] Comment on above: Performed By: #### C JAVAD MOLINA, RAYNE #### [facility] [address] [place] [address] Marcin Alanna Albumin/Globulin [Mass ratio] 0.8 {ratio} Normal [facility] Comment on above: Performed By: #### C JAVAD MOLINA, RAYNE #### [facility] [address] [address] Marcin Alanna ALP [Catalytic activity/Vol] 167 U/L Critically high 38-126 [facility] Comment on above: Performed By: #### C JAVAD MOLINA, RAYNE #### [facility] [address] [place] [address] Marcin Alanna ALT [Catalytic activity/Vol] 370 U/L Critically high 9-52 [facility] Comment on above: Performed By: #### C JAVAD MOLINA, RAYNE #### [facility] [address] [address] Marcin Alanna Anion gap [Moles/Vol] 12.5 mmol/L Normal [facility] Comment on above: Performed By: #### C JAVAD MOLINA, RAYNE #### [facility] [address] [place] [address] Marcin Alanna AST [Catalytic activity/Vol] 165 U/L Critically high 14-36 [facility] Comment on above: Performed By: #### C EZRA MOLINAA, RAYNE #### [facility] [address] [place] [address] Marcin Alanna Bilirubin [Mass/Vol] 5.3 mg/dL Critically high 0.2-1.3 [facility] Comment on above: Performed By: #### C JAVAD MOLINA AMY #### [facility] [address] [place] [address] Marcin Alanna Calcium [Mass/Vol] 9.2 mg/dL Normal 8.4-10.2 [facility] Comment on above: Performed By: #### C JAVAD MOLINA AMY #### [facility] [address] [place] [address] Marcin Alanna Chloride [Moles/Vol] 102 mmol/L Normal 98-107 [facility] Comment on above: Performed By: #### C JAVAD MOLINA AMY #### [facility] [address] [place] [address] Marcin Alanna CO2 [Moles/Vol] 29.6 mmol/L Normal 22.0-30.0 [facility] Comment on above: Performed By: #### C JAVAD MOLINA AMY #### [facility] [address] [place] [address] Marcin Alanna Creatinine [Mass/Vol] 0.88 mg/dL Normal 0.52-1.04 [facility] Comment on above: Performed By: #### C JAVAD MOLINA AMY #### [facility] [address] [place] [address] Marcin Alanna EGFR-AF CYMRAES >60 Normal >=60 [facility] Comment on above: Performed By: #### C JAVAD MOLINA AMY #### [facility] [address] [place] [address] Marcin Alanna EGFR-NON AF CYMRAES >60 Normal >=60 [facility] Comment on above: Performed By: #### C JAVAD MOLINA AMY #### [facility] [address] [place] [address] Marcin Alanna Globulin (S) [Mass/Vol] 4.1 g/dL Normal [facility] Comment on above: Performed By: #### C JAVAD MOLINA AMY #### [facility] [address] [place] [address] Marcin Alanna Glucose [Mass/Vol] 88 mg/dL Normal 74-106 [facility] Comment on above: Performed By: #### C JAVAD MOLINA AMY #### [facility] [address] [place] [address] Marcin Alanna Potassium [Moles/Vol] 3.1 mmol/L Critically low 3.4-5.0 [facility] Comment on above: Performed By: #### C JAVAD MOLINA, RAYNE #### [facility] [address] [place] [address] Marcin Alanna Protein [Mass/Vol] 7.4 g/dL Normal 6.1-8.2 [facility] Comment on above: Performed By: #### C JAVAD MOLINA AMY #### [facility] [address] [place] [address] Marcin Alanna Sodium [Moles/Vol] 141 mmol/L Normal 137-145 [facility] Comment on above: Performed By: #### C JAVAD MOLINA AMY #### [facility] [address] [place] [address] Marcin Alanna Urea nitrogen [Mass/Vol] 8.0 mg/dL Normal 7.0-17.0 [facility] Comment on above: Performed By: #### C JAVAD MOLINA AMY #### [facility] [address] [place] [address] Marcin Alanna Urea nitrogen/Creatini ne [Mass ratio] 9.1 mg/mg Normal [facility] Comment on above: Performed By: #### C JAVAD MOLINA AMY #### [facility] [address] [place] [address] Marcin Alanna PROTIMEon 12-15-2020 INR Coag (PPP) [Relative time] 1.04 {INR} Normal [facility] Comment on above: Performed By: #### C JAVAD MOLINA AMY #### [facility] [address] [place] [address] Marcin Alanna INR GUIDELINES SEE BELOW Normal [facility] Comment on above: Result Comment: NAI RED INR: 2.0 - 3.0 CONDITIONS NOT LISTED BELOW 2.5 - 3.5 FOR PROSTHETIC HEART VALVE REPLACEMENT 2.5 - 3.5 RECURRENT THROMBOSIS Performed By: #### C TRACY, JAVAD, RAYNE #### [facility] [address] [place] [address] Marcin Alanna PT Coag (PPP) [Time] 11.3 s Normal 9.0-11.6 [facility] Comment on above: Performed By: #### C MP, LIPA, RAYNE #### [facility] [address] [place] [address] Marcin Alanna PTTon 12-15-2020 aPTT Coag (Bld) [Time] 27.8 s Normal 22.3-36.2 [facility] Comment on above: Performed By: #### C TRACY LIPA, RAYNE #### [facility] [address] [place] [address] Marcin Alanna AMYLASEon 12-09-2020 Amylase [Catalytic activity/Vol] 45 U/L Normal 31-110 [facility] Comment on above: Performed By: #### B MP, RAYNE, LIVER, LIPA #### [facility] [address] [place] [address] Marcin Alanna CBC AUTO DIFFon 12-09-2020 BASO # 0.0 103/ul Normal 0.0-0.1 [facility] Comment on above: Performed By: #### C BC #### [facility] [address] [place] [address] Marcin Alanna Basophils/100 WBC (Bld) 0.2 % Normal 0.2-2.0 [facility] Comment on above: Performed By: #### C BC #### [facility] [address] [place] [address] Marcin Alanna EO # 0.0 103/ul Normal 0.0-0.7 [facility] Comment on above: Performed By: #### C BC #### [facility] [address] [place] [address] Marcin Alanna Eosinophils/100 WBC (Bld) 0.3 % Critically low 0.9-7.0 [facility] Comment on above: Performed By: #### C BC #### [facility] [address] [place] [address] Marcin Alanna Erythrocyte distribution width (RBC) [Ratio] 12.6 % Normal 11.0-15.0 [facility] Comment on above: Performed By: #### C BC #### [facility] [address] [place] [address] Marcin Alanna Hematocrit (Bld) [Volume fraction] 45.7 % Normal 36.0-48.0 [facility] Comment on above: Performed By: #### C BC #### [facility] [address] [place] [address] Marcin Alanna Hemoglobin (Bld) [Mass/Vol] 14.6 g/dL Normal 12.0-16.0 [facility] Comment on above: Performed By: #### C BC #### [facility] [address] [place] [address] Marcin Alanna IG # 0.04 10e3/ul Critically high 0.00-0.03 [facility] Comment on above: Performed By: #### C BC #### [facility] [address] [place] [address] Marcin Alanna IG % 0.4 % Normal 0.0-0.5 [facility] Comment on above: Performed By: #### C BC #### [facility] [address] [place] [address] Marcin Alanna LYMPH # 1.4 103/ul Normal 1.2-3.8 [facility] Comment on above: Performed By: #### C BC #### [facility] [address] [place], [place] [id number] Marcin Alanna Lymphocytes/100 WBC (Bld) 12.8 % Critically low 20.5-60.0 [facility] Comment on above: Performed By: #### C BC #### [facility] [address] [place] [address] Marcin Alanna MANUAL DIFF REQ NO Normal [facility] Comment on above: Performed By: #### C BC #### [facility] [address] [place] [address] Marcin Mondragon MCH (RBC) [Entitic mass] 29.4 pg Normal 26.7-34.0 [facility] Comment on above: Performed By: #### C BC #### [facility] [address] [id number] Marcin Mondragon MCHC (RBC) [Mass/Vol] 31.9 g/dL Normal 29.9-35.2 [facility] Comment on above: Performed By: #### C BC #### [facility] [address] [id number] Marcin Mondragon MCV (RBC) [Entitic vol] 92.1 fL Normal 81.0-99.0 [facility] Comment on above: Performed By: #### C BC #### [facility] [address] [place] [address] Marcin Mondragon MONO # 0.6 103/ul Normal 0.3-0.8 [facility] Comment on above: Performed By: #### C BC #### [facility] [address] [place] [address] Marcin Mondragon Monocytes/100 WBC (Bld) 5.6 % Normal 1.7-12.0 [facility] Comment on above: Performed By: #### C BC #### [facility] [address] [place] [address] Marcin Mondragon NEUT # 9.0 103/ul Critically high 1.4-6.5 [facility] Comment on above: Performed By: #### C BC #### [facility] [address] [place], [place] [id number] Marcin Mondragon Neutrophils/100 WBC (Bld) 80.7 % Critically high 43.0-75.0 [facility] Comment on above: Performed By: #### C BC #### [facility] [address] [id number] Marcin Mondragon Platelet mean volume (Bld) [Entitic vol] 8.6 fL Critically low 9.5-13.5 [facility] Comment on above: Performed By: #### C BC #### [facility] [address] [address] Marcin Alanna PLT 255 103/ul Normal 150-450 [facility] Comment on above: Performed By: #### C BC #### [facility] [address] [place], [place] [id number] Marcin Alanna RBC 4.96 106/ul Normal 4.20-5.40 [facility] Comment on above: Performed By: #### C BC #### [facility] [address] [place], [place] [id number] Marcin Alanna WBC 11.1 103/ul Critically high 4.0-11.0 [facility] Comment on above: Performed By: #### C BC #### [facility] [address] [place], [place] [id number] Marcinraffy Pritcharden LIPASEon 12-09-2020 Lipase [Catalytic activity/Vol] 129.0 U/L Normal 23.0-300.0 [facility] Comment on above: Performed By: #### B MP, RAYNE, LIVER, LIPA #### [facility] [address] [place] [address] Marcinraffy Pritcharden LIVER PROFILEon 12-09-2020 Albumin [Mass/Vol] 3.5 g/dL Normal 3.5-5.0 [facility] Comment on above: Performed By: #### B MP, RAYNE, LIVER, LIPA #### [facility] [address] [place], [place] [id number] Marcin Alanna Albumin/Globulin [Mass ratio] 0.9 {ratio} Normal [facility] Comment on above: Performed By: #### B MP, RAYNE, LIVER, LIPA #### [facility] [address] [place] [address] Marcin Alanna ALP [Catalytic activity/Vol] 80 U/L Normal 38-126 [facility] Comment on above: Performed By: #### B MP, RAYNE, LIVER, LIPA #### [facility] [address] [place] [address] Marcin Alanna ALT [Catalytic activity/Vol] 31 U/L Normal 9-52 [facility] Comment on above: Performed By: #### B MP, RAYNE, LIVER, LIPA #### [facility] [address] [address] Marcin Alanna AST [Catalytic activity/Vol] 39 U/L Critically high 14-36 [facility] Comment on above: Performed By: #### B MP, RAYNE, LIVER, LIPA #### [facility] [address] [address] Maricn Alanna BILI, CONJUGATED 0.2 mg/dL Normal 0.0-0.3 [facility] Comment on above: Performed By: #### B MP, RAYNE, LIVER, LIPA #### [facility] [address] [place] [address] Marcin Alanna Bilirubin [Mass/Vol] 0.5 mg/dL Normal 0.2-1.3 [facility] Comment on above: Performed By: #### B MP, RAYNE, LIVER, LIPA #### [facility] [address] [place] [address] Marcin Alanna Globulin (S) [Mass/Vol] 3.8 g/dL Normal [facility] Comment on above: Performed By: #### B MP, RAYNE, LIVER, LIPA #### [facility] [address] [place] [address] Marcin Alanna Protein [Mass/Vol] 7.3 g/dL Normal 6.1-8.2 [facility] Comment on above: Performed By: #### B MP, RAYNE, LIVER, LIPA #### [facility] [address] [place] [address] Marcin Alanna PROF CHEM 8 (BAS METB)on Anion gap [Moles/Vol] 10.6 mmol/L Normal [facility] Comment on above: Performed By: #### C MP, LIPA, RAYNE #### [facility] [address] [place] [address] Marcin Alanna Calcium [Mass/Vol] 8.9 mg/dL Normal 8.4-10.2 [facility] Comment on above: Performed By: #### C MP, LIPA, RAYNE #### [facility] [address] [place] [address] Marcin Alanna Chloride [Moles/Vol] 105 mmol/L Normal 98-107 [facility] Comment on above: Performed By: #### C JAVAD MOLINA AMY #### [facility] [address] [place] [address] Marcin Alanna CO2 [Moles/Vol] 27.4 mmol/L Normal 22.0-30.0 [facility] Comment on above: Performed By: #### C JAVAD MOLINA AMY #### [facility] [address] [place] [address] Marcin Alanna Creatinine [Mass/Vol] 0.91 mg/dL Normal 0.52-1.04 [facility] Comment on above: Performed By: #### C JAVAD MOLINA AMY #### [facility] [address] [place] [address] Marcin Alanna EGFR-AF CYMRAES >60 Normal >=60 [facility] Comment on above: Performed By: #### C JAVAD MOLINA AMY #### [facility] [address] [place] [address] Marcin Alanna EGFR-NON AF CYMRAES >60 Normal >=60 [facility] Comment on above: Performed By: #### C JAVAD MOLINA AMY #### [facility] [address] [place] [address] Marcin Alanna Glucose [Mass/Vol] 109 mg/dL Critically high 74-106 [facility] Comment on above: Performed By: #### C JAVAD MOLINA AMY #### [facility] [address] [place] [address] Marcin Alanna Potassium [Moles/Vol] 4.0 mmol/L Normal 3.4-5.0 [facility] Comment on above: Performed By: #### C JAVAD MOLINA AMY #### [facility] [address] [place] [address] Marcin Alanna Sodium [Moles/Vol] 139 mmol/L Normal 137-145 [facility] Comment on above: Performed By: #### C JAVAD MOLINA AMY #### [facility] [address] [place] [address] Marcin Mondragon Urea nitrogen [Mass/Vol] 13.0 mg/dL Normal 7.0-17.0 [facility] Comment on above: Performed By: #### C JAVAD MOLINA AMY #### [facility] [address] [address] Marcin Mondragon Urea nitrogen/Creatini ne [Mass ratio] 14.3 mg/mg Normal [facility] Comment on above: Performed By: #### C JAVAD MOLINA AMY #### [facility] [address] [address] Marcin Mondragon XR CHEST 1 Von 12-09-2020 XR CHEST [...] by: BRITTANY HENDRICKS Date: 2020-12-09 17:05 Normal [facility] Vital Signs Date Time Vital Sign Value Performing Clinician Faci lity 12-29-2023 10:32-0500 Body weight 121.17 kg Jesica Baljit DO Work Phone: [facility] 12-29-2023 10:32-0500 Diastolic blood pressure 70 mm[Hg] Jesica Baljit DO Work Phone: [facility] Healthcare 12-29-2023 10:32-0500 Systolic blood pressure 110 mm[Hg] Jesica Baljit DO Work Phone: [facility] Healthcare Encounters Encounter Date Encounter Type Care Provider Facility Start: 01-26-2024 End: 01-26-2024 ambulatory RAYNE JUNG Not Available Start: 12-29-2023 End: 12-29-2023 ambulatory JESICA SMILEY Not Available Start: 12-29-2023 End: 12-29-2023 Office outpatient visit 15 minutes Jesica Baljit DO Work Phone: [facility] BCP OB Comment on above: Second trimester [...] Facility:[facility]1 Payers Date Payer Category Payer Medicaid [employer] [place] [employer] [id number] 2020-Present [address] [place] [address] [id number] 1990 Unknown [id number] 1990 Unknown [id number] 1990 Unknown [id number] 1990 Unknown [id number] [id number] 1990 Unknown [id number] 1990 Unknown [id number] [id number] 1990 Unknown [id number] [id number] 1990 Unknown [id number] 1959 Unknown [id number] Social History Date Type Detail Facility Start: 09-24-2023 Tobacco smoking status NHIS Never sm oked tobacco [facility] Start: [...] nursing note reviewed. Exam conducted with a sample tailor present. Vitals: There is no height or [...] Jesica Smiley DO documented in this encounter [facility] Progress note 01-02-2021 Note Date & Type Note Facility 01-02-2021 Note HNO ID: [id number] Author: Bro Yuan Service: ? Author Type: [...] SIGNATURE: Jeffrey Yuan MD B surgery Pager: [phone] [facility] Progress note 01-02-2021 Note Date & Type Note Facility 01-02-2021 Note HNO ID: [id number] Author: Annamaria Collins Service: ? Author Type: [...] PRN Annamaria Collins MD General Surgery Resident [facility] Evaluation note Note Date & Type Note [...] DATE CREATED AUTHOR AUTHOR'S ORGANIZ ATION 12/20/2021 [facility] DATE CREATED AUTHOR AUTHOR'S ORGANIZ ATION 01/27/2024 [facility] EPIC Reason for Visit (unrecogniz ed section and content) Reason Comments Routine Visit Care Teams (unrecognized sec tion and content) Groundskeeper Relationship Specialty Start Date End Date Tor Torres MD [address] [place] [id number] PCP - General Internal Medicine 09/25/23 FOR [...] BE BASED ON THE PRIMARY CLINICAL RECORDS. [facility] [employer] [facility]. provides no warranty or guarantee of the accuracy or completeness of information in this document.
== END 2024-02-14 07:56 | disposition home or self-care (01) ==
LOC: US 07:55
PROVIDERS: PCP Internal Medicine; Visit Provider Obstetrics & Gynecology
DX: O26.849 Uterine size-date discrepancy, unspecified trimester (principal); Z3A.26 26 weeks gestation of pregnancy
CPT/HCPCS: 76816

== ENCOUNTER 2024-03-05 11:34 | Outpatient (OUT) | payer OTHER, SELFPAY ==
--- NOTE | 2024-03-05 11:36 | US_ITS ---
[address] [address] Patient Name: ISAAC JOHNSTON MRN: [id number] date: 1990 Sex: F Assigned Patient Location: US Current Patient Location: US Accession/Order Number: [id number] Exam Date: 03/05/2024 11:40 Report Date: 03/05/2024 12:54 At the request of: JESICA CROOKS Procedure: US OB growth EXAMINATION: US OB growth HISTORY: History Of Gastric Bypass Z98.84 COMPARISON: Ultrasound OB growth 02/14/2024 FINDINGS: Heart Rate: 128.6 bpm Number: 1.0 Position: CEPHALIC Amniotic Fluid Volume: 13.6 cm Maximum Vertical Pocket: 5.1 cm BIOMETRY: BPD: 7.3 cm cm; 29 weeks 2 days; 14% HC: 28.5 cmcm; 31 weeks 2 days ; 46% AC: 26.2 cm cm; 30 weeks 2 days; 50% FL: 5.6 cm cm; 29 weeks 2 days; 15% EFW: 1491.1 grams; 32% FL/AC: 21.3 FL/BPD: 76.3 HC/AC: 1.1 GESTATIONAL AGE: Age by EDC: 30 weeks 1 days RODERICK by EDC: 05/13/2024 Age by US: 30 weeks 0 days RODERICK by US: 05/14/2024 US/US OB growth IMPRESSION: 1. Single live intrauterine with growth detailed above. Electronically authenticated by: NATALY GEORGE Date: 03/05/2024 12:54
--- OUTSIDE RECORDS SUMMARY | 2024-03-05 11:43 | XMS_ITS | CCD ---
Author Organization [facility] Care Team Providers Care Community Health Educator Name Role Phone DR TOR TORRES Primary [...] Unavailable Tor Torres MD Primary Care Provider [phone] RAYNE JUNG Attending Unavailable JESICA SMILEY Attending Unavailable JESICA SMILEY Attending Unavailable RAYNE JUNG Attending Unavailable JESICA SMILEY Attending Unavailable Allergies Allergy Classification Reported Allergen(s) Allergy Type Date of Onset Reaction(s) Facility (1 source) Morphine Drug Allergy 05-18-2018 [facility] Repository Medications Current Medications Medication Drug Class(es) [...] 12-12-2020 Chronic Other aftercare (1 source) Other detention (current) drug therapy; 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 Visit Notes: >> Bhavani Han TESSA Manrique Jan 02, 2021 10:59 AM Status: [...] Status:Closed by BRO YUAN MD on 01/02/21 [facility] 12-22-2020 [facility] Telephone (PODCCP) -------- ISAAC TOUSSAINT ([id number]) 1990 F Date Time Provider Department 12/22/20 [facility] (STUDENT) PODCCP During your visit today, we recorded the following information about you: Vahe Cr Student 12/22/2020 10:01 AM Signed Record ID: [id number] Patient Name: Isaac [facility]aint [facility]: [facility]: Digestive Disease [facility] Attending: Bro Yuan Center: General Surgery INSTRUCTIONS SN to remind patient of appointment date, time, location All Clear All Clear SURVEY INFORMATION Medical/Nurse Experience Designer: Landy Duran 1. Your discharge instructions are [...] Reason for Visit: Follow Up Phone Call [[id number]] Prescriptions as of 12/22/2020 Sig: ONDANSETRON HCL [...] Encounter Status:Closed by VAHE WADE on 12/22/20 [facility] Corey 12-21-2020 CNPN Telephone (GENSMN) -------- ISAAC TOUSSAINT ([id number]) 1990 F Date Time Provider Department 12/21/20 BRO YUAN During your visit today, we recorded the following information about you: Macy Arshad [facility] 12/21/2020 12:18 PM Signed Patient is calling regarding her biopsy results. Please call to discuss. Allergies As of Date: 12/21/2020 (No Known Allergies) Date Reviewed: 12/18/2020 Reviewed by: Lencho (Argenis) ARGENIS Winter - Fully Assessed Reason for [...] Encounter Status:Closed by MACY SALEH on 01/22/21 [facility] OBSOLETEon 12-21-2020 OBSOLETE Refill (GENSMN) -------- ISAAC TOUSSAINT ([id number]) 1990 F Date Time Provider Department 12/21/20 ROXANA SCOTT During your visit today, we recorded the following information about you: Roxana Scott APRN.CATEGORY DEVELOPMENT ANALYST 12/21/2020 2:00 PM Signed Patient called with [...] our office if symptoms persist. Roxana Scott APRN.CATEGORY DEVELOPMENT ANALYST Allergies As of Date: 12/21/2020 (No Known Allergies) Date Reviewed: 12/18/2020 Reviewed by: Lencho (Argenis) ARGENIS Winter - Fully Assessed Order(s):ondansetron (ZOFRAN) [...] by TYLER DEJESUS.ROXANA HOUSE on 12/21/20 Normal [facility] AMMONIAon 12-15-2020 Ammonia (P) [Mass/Vol] ug/dL Critically low 10-30 [facility] Comment on above: Performed By: #### A MM #### [facility] [address] [address] Marcin Alanna AMYLASEon 12-15-2020 Amylase [Catalytic activity/Vol] 217 U/L Critically high 31-110 [facility] Comment on above: Performed By: #### C JAVAD MOLINA AMY #### [facility] [address] [address] Marcin Mondragon CBC AUTO DIFFon 12-15-2020 BASO # 0.0 103/ul Normal 0.0-0.1 [facility] Comment on above: Performed By: #### C JAVAD MOLINA AMY #### [facility] [address] [place] [address] Marcin Alanna Basophils/100 WBC (Bld) 0.3 % Normal 0.2-2.0 [facility] Comment on above: Performed By: #### C JAVAD MOLINA, RAYNE #### [facility] [address] [place] [address] Marcin Alanna EO # 0.0 103/ul Normal 0.0-0.7 [facility] Comment on above: Performed By: #### C JAVAD MOLINA, RAYNE #### [facility] [address] [place] [address] Marcin Alanna Eosinophils/100 WBC (Bld) 0.3 % Critically low 0.9-7.0 [facility] Comment on above: Performed By: #### C EZRA MOLINAA, RAYNE #### [facility] [address] [place] [address] Marcin Alnana Erythrocyte distribution width (RBC) [Ratio] 13.3 % Normal 11.0-15.0 [facility] Comment on above: Performed By: #### C JAVAD MOLINA, RAYNE #### [facility] [address] [place] [address] Marcin Alanna Hematocrit (Bld) [Volume fraction] 42.9 % Normal 36.0-48.0 [facility] Comment on above: Performed By: #### C JAVAD MOLINA, RAYNE #### [facility] [address] [place] [address] Marcin Alanna Hemoglobin (Bld) [Mass/Vol] 13.8 g/dL Normal 12.0-16.0 [facility] Comment on above: Performed By: #### C JAVAD MOLINA, RAYNE #### [facility] [address] [place] [address] Marcin Alanna IG # 0.02 10e3/ul Normal 0.00-0.03 [facility] Comment on above: Performed By: #### C EZRA MOLINAA, RAYNE #### [facility] [address] [place] [address] Marcin Alanna IG % 0.3 % Normal 0.0-0.5 [facility] Comment on above: Performed By: #### C JAVAD MOLINA AMY #### [facility] [address] [place] [address] Marcin Alanna LYMPH # 1.7 103/ul Normal 1.2-3.8 [facility] Comment on above: Performed By: #### C JAVAD MOLINA AMY #### [facility] [address] [place] [address] Marcin Alanna Lymphocytes/100 WBC (Bld) 23.8 % Normal 20.5-60.0 [facility] Comment on above: Performed By: #### C JAVAD MOLINA AMY #### [facility] [address] [place] [address] Marcinraffy Mondragon MANUAL DIFF REQ NO Normal [facility] Comment on above: Performed By: #### C JAVAD MOLINA AMY #### [facility] [address] [place] [address] Marcinraffy Pritcharden MCH (RBC) [Entitic mass] 29.8 pg Normal 26.7-34.0 [facility] Comment on above: Performed By: #### C JAVAD MOLINA AMY #### [facility] [address] [place] [address] Marcinraffy Mondragon MCHC (RBC) [Mass/Vol] 32.2 g/dL Normal 29.9-35.2 [facility] Comment on above: Performed By: #### C JAVAD MOLINA AMY #### [facility] [address] [place] [address] Marcinraffy Mondragon MCV (RBC) [Entitic vol] 92.7 fL Normal 81.0-99.0 [facility] Comment on above: Performed By: #### C JAVAD MOLINA AMY #### [facility] [address] [place] [address] Marcin Alanna MONO # 0.6 103/ul Normal 0.3-0.8 [facility] Comment on above: Performed By: #### C JAVAD MOLINA AMY #### [facility] [address] [place] [address] Marcin Alanna Monocytes/100 WBC (Bld) 8.5 % Normal 1.7-12.0 [facility] Comment on above: Performed By: #### C JAVAD MOLINA AMY #### [facility] [address] [place] [address] Marcin Alanna NEUT # 4.8 103/ul Normal 1.4-6.5 [facility] Comment on above: Performed By: #### C JAVAD MOLINA AMY #### [facility] [address] [place], [place] [id number] Marcin Alanna Neutrophils/100 WBC (Bld) 66.8 % Normal 43.0-75.0 [facility] Comment on above: Performed By: #### C JAVAD MOLINA AMY #### [facility] [address] [place] [address] Marcin Alanna Platelet mean volume (Bld) [Entitic vol] 8.7 fL Critically low 9.5-13.5 [facility] Comment on above: Performed By: #### C JAVAD MOLINA, RAYNE #### [facility] [address] [place] [address] Marcin Alanna PLT 253 103/ul Normal 150-450 [facility] Comment on above: Performed By: #### C JAVAD MOLINA, RAYNE #### [facility] [address] [place] [address] Marcin Alanna RBC 4.63 106/ul Normal 4.20-5.40 [facility] Comment on above: Performed By: #### C JAVAD MOLINA, RAYNE #### [facility] [address] [place] [address] Marcin Alanna WBC 7.1 103/ul Normal 4.0-11.0 [facility] Comment on above: Performed By: #### C JAVAD MOLINA, RAYNE #### [facility] [address] [place] [address] Marcin Alanna LIPASEon 12-15-2020 Lipase [Catalytic activity/Vol] 1205.0 U/L Critically high 23.0-300.0 [facility] Comment on above: Result Comment: test repeated critical value verified Performed By: #### C JAVAD MOLINA AMY #### [facility] [address] [place] [address] Marcinraffy Mondragon PREG HCG QUALon 12-15-2020 , QUAL Negative Normal NEGATIVE [facility] Comment on above: Performed By: #### P REG #### [facility] [address] [address] Marcinraffy Mondragon PROF 14(COMP METB)on 021 Albumin [Mass/Vol] 3.3 g/dL Critically low 3.5-5.0 [facility] Comment on above: Performed By: #### C JAVAD MOLINA AMY #### [facility] [address] [place] [address] Marcin Alanna Albumin/Globulin [Mass ratio] 0.8 {ratio} Normal [facility] Comment on above: Performed By: #### C JAVAD MOLINA AMY #### [facility] [address] [address] Marcin Alanna ALP [Catalytic activity/Vol] 167 U/L Critically high 38-126 [facility] Comment on above: Performed By: #### C JAVAD MOLINA AMY #### [facility] [address] [place] [address] Marcin Alanna ALT [Catalytic activity/Vol] 370 U/L Critically high 9-52 [facility] Comment on above: Performed By: #### C JAVAD MOLINA AMY #### [facility] [address] [address] Marcin Alanna Anion gap [Moles/Vol] 12.5 mmol/L Normal [facility] Comment on above: Performed By: #### C JAVAD MOLINA AMY #### [facility] [address] [place] [address] Marcin Alanna AST [Catalytic activity/Vol] 165 U/L Critically high 14-36 [facility] Comment on above: Performed By: #### C JAVAD MOLINA AMY #### [facility] [address] [place], [place] [address] Marcin Alanna Bilirubin [Mass/Vol] 5.3 mg/dL Critically high 0.2-1.3 [facility] Comment on above: Performed By: #### C JAVAD MOLINA AMY #### [facility] [address] [place] [address] Marcin Alanna Calcium [Mass/Vol] 9.2 mg/dL Normal 8.4-10.2 [facility] Comment on above: Performed By: #### C JAVAD MOLINA AMY #### [facility] [address] [place] [address] Marcin Alanna Chloride [Moles/Vol] 102 mmol/L Normal 98-107 [facility] Comment on above: Performed By: #### C JAVAD MOLINA AMY #### [facility] [address] [place] [address] Marcin Alanna CO2 [Moles/Vol] 29.6 mmol/L Normal 22.0-30.0 [facility] Comment on above: Performed By: #### C JAVAD MOLINA RAYNE #### [facility] [address] [place] [address] Marcin Alanna Creatinine [Mass/Vol] 0.88 mg/dL Normal 0.52-1.04 [facility] Comment on above: Performed By: #### C JAVAD MOLINA AMY #### [facility] [address] [place] [address] Marcin Alanna EGFR-AF ANGOLAN >60 Normal >=60 [facility] Comment on above: Performed By: #### C JAVAD MOLINA AMY #### [facility] [address] [place] [address] Marcin Alanna EGFR-NON AF ANGOLAN >60 Normal >=60 [facility] Comment on above: Performed By: #### C JAVAD MOLINA RAYNE #### [facility] [address] [place] [address] Marcin Alanna Globulin (S) [Mass/Vol] 4.1 g/dL Normal [facility] Comment on above: Performed By: #### C JAVAD MOLINA AMY #### [facility] [address] [address] Marcin Alanna Glucose [Mass/Vol] 88 mg/dL Normal 74-106 [facility] Comment on above: Performed By: #### C JAVAD MOLINA AMY #### [facility] [address] [address] Marcin Alanna Potassium [Moles/Vol] 3.1 mmol/L Critically low 3.4-5.0 [facility] Comment on above: Performed By: #### C JAVAD MOLINA, RAYNE #### [facility] [address] [place] [address] Marcin Alanna Protein [Mass/Vol] 7.4 g/dL Normal 6.1-8.2 [facility] Comment on above: Performed By: #### C JAVAD MOLINA AMY #### [facility] [address] [place] [address] Marcin Alanna Sodium [Moles/Vol] 141 mmol/L Normal 137-145 [facility] Comment on above: Performed By: #### C JAVAD MOLINA AMY #### [facility] [address] [place] [address] Marcin Alanna Urea nitrogen [Mass/Vol] 8.0 mg/dL Normal 7.0-17.0 [facility] Comment on above: Performed By: #### C JAVAD MOLINA AMY #### [facility] [address] [place] [address] Marcin Alanna Urea nitrogen/Creatini ne [Mass ratio] 9.1 mg/mg Normal [facility] Comment on above: Performed By: #### C JAVAD MOLINA, RAYNE #### [facility] [address] [place] [address] Marcin Alanna PROTIMEon 12-15-2020 INR Coag (PPP) [Relative time] 1.04 {INR} Normal [facility] Comment on above: Performed By: #### C JAVAD MOLINA AMY #### [facility] [address] [place] [address] Marcin Alanna INR GUIDELINES SEE BELOW Normal [facility] Comment on above: Result Comment: NAI RED INR: 2.0 - 3.0 CONDITIONS NOT LISTED BELOW 2.5 - 3.5 FOR PROSTHETIC HEART VALVE REPLACEMENT 2.5 - 3.5 RECURRENT THROMBOSIS Performed By: #### C JAVAD MOLINA, RAYNE #### [facility] [address] [place] [address] Marcin Alanna PT Coag (PPP) [Time] 11.3 s Normal 9.0-11.6 [facility] Comment on above: Performed By: #### C MP, LIPA, RAYNE #### [facility] [address] [place] [address] Marcin Alanna PTTon 12-15-2020 aPTT Coag (Bld) [Time] 27.8 s Normal 22.3-36.2 [facility] Comment on above: Performed By: #### C JAVAD MOLINA, RAYNE #### [facility] [address] [place] [address] Marcin Alanna AMYLASEon 12-09-2020 Amylase [Catalytic activity/Vol] 45 U/L Normal 31-110 [facility] Comment on above: Performed By: #### B MP, RAYNE, LIVER, LIPA #### [facility] [address] [place], [place] [address] Marcin Alanna CBC AUTO DIFFon 12-09-2020 BASO # 0.0 103/ul Normal 0.0-0.1 [facility] Comment on above: Performed By: #### C BC #### [facility] [address] [place] [address] Marcin Alanna Basophils/100 WBC (Bld) 0.2 % Normal 0.2-2.0 [facility] Comment on above: Performed By: #### C BC #### [facility] [address] [place], [place] [address] Marcin Alanna EO # 0.0 103/ul Normal 0.0-0.7 [facility] Comment on above: Performed By: #### C BC #### [facility] [address] [place] [address] Marcin Alanna Eosinophils/100 WBC (Bld) 0.3 % Critically low 0.9-7.0 [facility] Comment on above: Performed By: #### C BC #### [facility] [address] [id number] Marcin Alanna Erythrocyte distribution width (RBC) [Ratio] 12.6 % Normal 11.0-15.0 [facility] Comment on above: Performed By: #### C BC #### [facility] [address] [id number] Marcin Alanna Hematocrit (Bld) [Volume fraction] 45.7 % Normal 36.0-48.0 [facility] Comment on above: Performed By: #### C BC #### [facility] [address] [id number] Marcin Alanna Hemoglobin (Bld) [Mass/Vol] 14.6 g/dL Normal 12.0-16.0 [facility] Comment on above: Performed By: #### C BC #### [facility] [address] [place] [address] Marcin Alanna IG # 0.04 10e3/ul Critically high 0.00-0.03 [facility] Comment on above: Performed By: #### C BC #### [facility] [address] [place], [place] [address] Marcin Alanna IG % 0.4 % Normal 0.0-0.5 [facility] Comment on above: Performed By: #### C BC #### [facility] [address] [place], [place] [address] Marcin Alanna LYMPH # 1.4 103/ul Normal 1.2-3.8 [facility] Comment on above: Performed By: #### C BC #### [facility] [address] [place], [place] [address] Marcin Alanna Lymphocytes/100 WBC (Bld) 12.8 % Critically low 20.5-60.0 [facility] Comment on above: Performed By: #### C BC #### [facility] [address] [place], [place] [address] Marcin Alanna MANUAL DIFF REQ NO Normal [facility] Comment on above: Performed By: #### C BC #### [facility] [address] [place], [place] [address] Marcin Mondragon MCH (RBC) [Entitic mass] 29.4 pg Normal 26.7-34.0 [facility] Comment on above: Performed By: #### C BC #### [facility] [address] [id number] Marcin Mondragon MCHC (RBC) [Mass/Vol] 31.9 g/dL Normal 29.9-35.2 [facility] Comment on above: Performed By: #### C BC #### [facility] [address] [id number] Marcin Mondragon MCV (RBC) [Entitic vol] 92.1 fL Normal 81.0-99.0 [facility] Comment on above: Performed By: #### C BC #### [facility] [address] [place] [address] Marcin Mondragon MONO # 0.6 103/ul Normal 0.3-0.8 [facility] Comment on above: Performed By: #### C BC #### [facility] [address] [id number] Marcin Mondragon Monocytes/100 WBC (Bld) 5.6 % Normal 1.7-12.0 [facility] Comment on above: Performed By: #### C BC #### [facility] [address] [id number] Marcin Mondragon NEUT # 9.0 103/ul Critically high 1.4-6.5 [facility] Comment on above: Performed By: #### C BC #### [facility] [address] [place], [place] [address] Marcin Mondragon Neutrophils/100 WBC (Bld) 80.7 % Critically high 43.0-75.0 [facility] Comment on above: Performed By: #### C BC #### [facility] [address] [id number] Marcinraffy Mondragon Platelet mean volume (Bld) [Entitic vol] 8.6 fL Critically low 9.5-13.5 [facility] Comment on above: Performed By: #### C BC #### [facility] [address] [place], [place] [address] Marcin Alanna PLT 255 103/ul Normal 150-450 [facility] Comment on above: Performed By: #### C BC #### [facility] [address] [place], [place] [address] Marcin Alanna RBC 4.96 106/ul Normal 4.20-5.40 [facility] Comment on above: Performed By: #### C BC #### [facility] [address] [place], [place] [address] Marcin Alanna WBC 11.1 103/ul Critically high 4.0-11.0 [facility] Comment on above: Performed By: #### C BC #### [facility] [address] [place], [place] [address] Marcin Alanna LIPASEon 12-09-2020 Lipase [Catalytic activity/Vol] 129.0 U/L Normal 23.0-300.0 [facility] Comment on above: Performed By: #### B MP, RAYNE, LIVER, LIPA #### [facility] [address] [place], [place] [address] Marcin Alanna LIVER PROFILEon 12-09-2020 Albumin [Mass/Vol] 3.5 g/dL Normal 3.5-5.0 [facility] Comment on above: Performed By: #### B MP, RAYNE, LIVER, LIPA #### [facility] [address] [place], [place] [address] Marcin Alanna Albumin/Globulin [Mass ratio] 0.9 {ratio} Normal [facility] Comment on above: Performed By: #### B MP, RAYNE, LIVER, LIPA #### [facility] [address] [place] [address] Marcin Alanna ALP [Catalytic activity/Vol] 80 U/L Normal 38-126 [facility] Comment on above: Performed By: #### B MP, RAYNE, LIVER, LIPA #### [facility] [address] [place] [address] Marcin Alanna ALT [Catalytic activity/Vol] 31 U/L Normal 9-52 [facility] Comment on above: Performed By: #### B MP, RAYNE, LIVER, LIPA #### [facility] [address] [place] [address] Marcin Alanna AST [Catalytic activity/Vol] 39 U/L Critically high 14-36 [facility] Comment on above: Performed By: #### B MP, RAYNE, LIVER, LIPA #### [facility] [address] [place] [address] Marcin Alanna BILI, CONJUGATED 0.2 mg/dL Normal 0.0-0.3 [facility] Comment on above: Performed By: #### B MP, RAYNE, LIVER, LIPA #### [facility] [address] [place] [address] Marcin Alanna Bilirubin [Mass/Vol] 0.5 mg/dL Normal 0.2-1.3 [facility] Comment on above: Performed By: #### B MP, RAYNE, LIVER, LIPA #### [facility] [address] [place] [address] Marcin Alanna Globulin (S) [Mass/Vol] 3.8 g/dL Normal [facility] Comment on above: Performed By: #### B MP, RAYNE, LIVER, LIPA #### [facility] [address] [place] [address] Marcin Alanna Protein [Mass/Vol] 7.3 g/dL Normal 6.1-8.2 [facility] Comment on above: Performed By: #### B MP, RAYNE, LIVER, LIPA #### [facility] [facility] [address] [place] [address] Marcin Alanna PROF CHEM 8 (BAS METB)on Anion gap [Moles/Vol] 10.6 mmol/L Normal [facility] Comment on above: Performed By: #### C MP, LIPA, RAYNE #### [facility] [address] [place] [address] Marcin Alanna Calcium [Mass/Vol] 8.9 mg/dL Normal 8.4-10.2 [facility] Comment on above: Performed By: #### C MP, LIPA, RAYNE #### [facility] [address] [place], [place] [id number] Marcin Alanna Chloride [Moles/Vol] 105 mmol/L Normal 98-107 [facility] Comment on above: Performed By: #### C JAVAD MOLINA AMY #### [facility] [address] [address] Marcin Alanna CO2 [Moles/Vol] 27.4 mmol/L Normal 22.0-30.0 [facility] Comment on above: Performed By: #### C JAVAD MOLINA AMY #### [facility] [address] [place] [address] Marcin Alanna Creatinine [Mass/Vol] 0.91 mg/dL Normal 0.52-1.04 [facility] Comment on above: Performed By: #### C JAVAD MOLINA RAYNE #### [facility] [address] [place] [address] Marcin Alanna EGFR-AF ANGOLAN >60 Normal >=60 [facility] Comment on above: Performed By: #### C JAVAD MOLINA AMY #### [facility] [address] [place] [address] Marcin Alanna EGFR-NON AF ANGOLAN >60 Normal >=60 [facility] Comment on above: Performed By: #### C JAVAD MOLINA AMY #### [facility] [address] [place] [address] Marcin Alanna Glucose [Mass/Vol] 109 mg/dL Critically high 74-106 [facility] Comment on above: Performed By: #### C JAVAD MOLINA, RAYNE #### [facility] [address] [place] [address] Marcin Alanna Potassium [Moles/Vol] 4.0 mmol/L Normal 3.4-5.0 [facility] Comment on above: Performed By: #### C JAVAD MOLINA AMY #### [facility] [address] [place] [address] Marcin Alanna Sodium [Moles/Vol] 139 mmol/L Normal 137-145 [facility] Comment on above: Performed By: #### C JAVAD MOLINA AMY #### [facility] [address] [place], [place] [address] Marcin Mondragon Urea nitrogen [Mass/Vol] 13.0 mg/dL Normal 7.0-17.0 [facility] Comment on above: Performed By: #### C JAVAD MOLINA AMY #### [facility] [address] [place], [place] [address] Marcin Mondragon Urea nitrogen/Creatini ne [Mass ratio] 14.3 mg/mg Normal [facility] Comment on above: Performed By: #### C JAVAD MOLINA AMY #### [facility] [address], [place] [address] Marcin Mondragon XR CHEST 1 Von 12-09-2020 [...] HENDRICKS Date: 2020-12-09 17:05 Normal [facility] Vital Signs Date Time Vital Sign Value Performing Clinician Faci lity 12-29-2023 10:32-0500 Body weight 121.17 kg Jesica Baljit DO Work Phone: [facility] 12-29-2023 10:32-0500 Diastolic blood pressure 70 mm[Hg] Jesica Baljit DO Work Phone: [facility] 12-29-2023 10:32-0500 Systolic blood pressure 110 mm[Hg] Jesica Baljit DO Work Phone: [facility] Healthcare Encounters Encounter Date Encounter Type Care Provider Facility Start: 02-19-2024 End: 02-19-2024 ambulatory JESICA SMILEY Not Available Start: 01-26-2024 End: 01-26-2024 ambulatory RAYNE JUNG Not Available Start: 12-29-2023 End: 12-29-2023 ambulatory JESICA BALJIT Not Available Start: 12-29-2023 End: 12-29-2023 Office outpatient visit 15 minutes Jesica Baljit DO Work Phone: [facility] Comment on above: Second trimester pre gnancy Start: 12-01-2023 End: 12-01-2023 ambulatory RAYNE JUNG Not Available Start: 10-27-2023 End: 10-27-2023 ambulatory JESICA SMILEY Not Available Start: 10-03-2023 End: 10-04-2023 ambulatory RAYNE NAVARROEY Not Available Start: 09-28-2021 End: 09-28-[address] GEREMIAS SANTANA Facility:[facility] Start: 12-15-2020 End: 12-16-[address] TOR TORRES Facility:[facility] Start: 12-09-2020 End: 12-09-[address] TOR TORRES Facility:[facility] Payers Date Payer Category Payer Medicaid [employer] [place] [employer] [id number] 2020-Present [address] [place] [id number] 1990 Unknown [id number] 1990 Unknown [id number] 1990 Unknown [id number] 1990 Unknown [id number] [id number] 1990 Unknown [id number] [id number] 1990 Unknown [id number] [id number] 1990 Unknown [id number] [id number] 1990 Unknown [id number] [id number] 1990 Unknown [id number] 1959 Unknown [id number] Social History Date Type Detail Facility Start: [...] nursing note reviewed. Exam conducted with a strategy intern present. Vitals: There is no height or [...] Jesica Smiley DO documented in this encounter [facility] Healthcare Progress note 01-02-2021 Note Date & Type Note Facility 01-02-2021 Note HNO ID: [id number] Author: Bro Yuan Service: ? Author Type: [...] SIGNATURE: Jeffrey Yuan MD B surgery Pager: [phone] [facility] Progress note 01-02-2021 Note Date & Type Note Facility 01-02-2021 Note HNO ID: [id number] Author: Annamaria Collins Service: ? Author Type: [...] improved with no further interventions. - Follow-up TEX Collins MD General Surgery Resident [facility] Evaluation note Note Date & Type Note [...] and content) DATE CREATED AUTHOR 10/02/2021 [facility] DATE CREATED AUTHOR AUTHOR'S ORGANIZ ATION 12/20/2021 [facility] DATE CREATED AUTHOR AUTHOR'S ORGANIZ ATION 02/20/2024 [facility] EPIC Reason for Visit (unrecogniz ed section and content) Reason Comments Routine Visit Care Teams (unrecognized sec tion and content) Community Health Educator Relationship Specialty Start Date End Date Tor Torres MD [address] [place] [id number] PCP - General Internal Medicine 09/25/23 FOR [...] BE BASED ON THE PRIMARY CLINICAL RECORDS. [facility]. provides no warranty or guarantee of the accuracy or completeness of information in this document.
== END 2024-03-05 11:35 | disposition home or self-care (01) ==
LOC: US 11:34
PROVIDERS: PCP Internal Medicine; Visit Provider Obstetrics & Gynecology
DX: Z34.93 Encounter for supervision of normal pregnancy, unspecified, third trimester (principal); Z98.84 Bariatric surgery status; Z3A.30 30 weeks gestation of pregnancy
CPT/HCPCS: 76816

== ENCOUNTER 2024-03-31 09:02 | Observation (INO) | payer OTHER, SELFPAY ==
--- OUTSIDE RECORDS SUMMARY | 2024-03-31 09:33 | XMS_ITS | CCD ---
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 THERAPY] Onset: 10-02-2021 Episodic Other [...] Range Facility CNOVon 01-02-2021 CNOV Office Visit (GENN ) -------- ISAAC TOUSSAINT ([id number]) 1990 F Date Time Provider Department 01/02/21 [...] Follow up PRN SIGNATURE: Jeffrey Yuan MD [facility] surgery Pager: [phone] Referring Provider: SELF [[id number]] Allergies As of [...] Status:Closed by BRO YUAN MD on 01/02/21 [facility] 12-22-2020 [facility] Telephone (PODCCP) -------- ISAAC TOUSSAINT ([id number]) 1990 F Date Time Provider Department 12/22/20 VAHE CR (STUDENT) PODCCP During your visit today, we recorded the following information about you: Vahe Cr Student 12/22/2020 10:01 AM Signed Record ID: [id number] Patient Name: [facility]: [facility]: [facility] Attending: Bro Yuan Center: General Surgery INSTRUCTIONS SN to remind patient of appointment date, time, location All Clear All Clear SURVEY INFORMATION Medical/Nurse Bioinformatics Analyst: Landy Duran 1. Your discharge instructions are [...] Reason for Visit: Follow Up Phone Call [[id number]] Prescriptions as of 12/22/2020 Sig: ONDANSETRON HCL [...] Encounter Status:Closed by VAHE WADE on 12/22/20 [facility] 12-21-2020 CNPN Telephone (Siving Egil KvalebergSMN) -------- ISAAC TOUSSAINT ([id number]) 1990 F Date Time Provider Department 12/21/20 BRO YUAN During your visit today, we recorded the following information about you: Macy Arshad [facility] 12/21/2020 12:18 PM Signed Patient is calling [...] Encounter Status:Closed by MACY SALEH on 01/22/21 Normal [facility] OBSOLETEon 12-21-2020 OBSOLETE Refill (GENSMN) -------- ISAAC TOUSSAINT ([id number]) 1990 F Date Time Provider Department 12/21/20 ROXANA SCOTT During your visit today, we recorded the following information about you: Roxana Scott APRN.SHEEP STICKER 12/21/2020 2:00 PM Signed Patient called with [...] our office if symptoms persist. Roxana Scott APRN.SHEEP STICKER Allergies As of Date: 12/21/2020 (No Known [...] by TYLER DEJESUS.ROXANA HOUSE on 12/21/20 Normal [facility] AMMONIAon 12-15-2020 Ammonia (P) [Mass/Vol] ug/dL Critically low 10-30 [facility] Comment on above: Performed By: #### A MM #### [facility] [address] [id number] Marcin Mondragon AMYLASEon 12-15-2020 Amylase [Catalytic activity/Vol] 217 U/L Critically high 31-110 [facility] Comment on above: Performed By: #### C MP, JAVAD, RAYNE #### [facility] [address] [place], [place] [address] Marcin Mondragon CBC AUTO DIFFon 12-15-2020 BASO # 0.0 103/ul Normal 0.0-0.1 [facility] Comment on above: Performed By: #### C JAVAD MOLINA AMY #### [facility] [address] [place] [address] Marcin Alanna Basophils/100 WBC (Bld) 0.3 % Normal 0.2-2.0 [facility] Comment on above: Performed By: #### C JAVAD MOLINA, RAYNE #### [facility] [address] [place] [address] Marcin Alanna EO # 0.0 103/ul Normal 0.0-0.7 [facility] Comment on above: Performed By: #### C JAVAD MOLINA, RAYNE #### [facility] [address] [place] [address] Marcin Alanna Eosinophils/100 WBC (Bld) 0.3 % Critically low 0.9-7.0 [facility] Comment on above: Performed By: #### C JAVAD MOLINA, RAYNE #### [facility] [address] [place] [address] Marcin Alanna Erythrocyte distribution width (RBC) [Ratio] 13.3 % Normal 11.0-15.0 [facility] Comment on above: Performed By: #### C JAVAD MOLINA AMY #### [facility] [address] [place] [address] Marcin Alanna Hematocrit (Bld) [Volume fraction] 42.9 % Normal 36.0-48.0 [facility] Comment on above: Performed By: #### C JAVAD MOLINA RAYNE #### [facility] [address] [place] [address] Marcin Alanna Hemoglobin (Bld) [Mass/Vol] 13.8 g/dL Normal 12.0-16.0 [facility] Comment on above: Performed By: #### C JAVAD MOLINA AMY #### [facility] [address] [place] [address] Mracin Alanna IG # 0.02 10e3/ul Normal 0.00-0.03 [facility] Comment on above: Performed By: #### C JAVAD MOLINA AMY #### [facility] [address] [place] [address] Marcin Alanna IG % 0.3 % Normal 0.0-0.5 [facility] Comment on above: Performed By: #### C JAVAD MOLINA AMY #### [facility] [address] [place] [address] Marcin Alanna LYMPH # 1.7 103/ul Normal 1.2-3.8 [facility] Comment on above: Performed By: #### C JAVAD MOLINA AMY #### [facility] [address] [place] [address] Marcin Alanna Lymphocytes/100 WBC (Bld) 23.8 % Normal 20.5-60.0 [facility] Comment on above: Performed By: #### C JAVAD MOLINA AMY #### [facility] [address] [place] [address] Marcin Alanna MANUAL DIFF REQ NO Normal [facility] Comment on above: Performed By: #### C JAVAD MOLINA AMY #### [facility] [address] [place] [address] Marcin Alanna MCH (RBC) [Entitic mass] 29.8 pg Normal 26.7-34.0 [facility] Comment on above: Performed By: #### C JAVAD MOLINA AMY #### [facility] [address] [place] [address] Marcin Alanna MCHC (RBC) [Mass/Vol] 32.2 g/dL Normal 29.9-35.2 [facility] Comment on above: Performed By: #### C JAVAD MOLIAN AMY #### [facility] [address] [place] [address] Marcin Alanna MCV (RBC) [Entitic vol] 92.7 fL Normal 81.0-99.0 [facility] Comment on above: Performed By: #### C JAVAD MOLINA AMY #### [facility] [address] [place] [address] Marcin Alanna MONO # 0.6 103/ul Normal 0.3-0.8 [facility] Comment on above: Performed By: #### C JAVAD MOLINA AMY #### [facility] [address] [place], [place] [id number] Marcin Alanna Monocytes/100 WBC (Bld) 8.5 % Normal 1.7-12.0 [facility] Comment on above: Performed By: #### C JAVAD MOLINA, RAYNE #### [facility] [address] [place] [address] Marcin Alanna NEUT # 4.8 103/ul Normal 1.4-6.5 [facility] Comment on above: Performed By: #### C JAVAD MOLINA, RAYNE #### [facility] [address] [place], [place] [id number] Marcin Alanna Neutrophils/100 WBC (Bld) 66.8 % Normal 43.0-75.0 [facility] Comment on above: Performed By: #### C JAVAD MOLINA, RAYNE #### [facility] [address] [place] [address] Marcin Alanna Platelet mean volume (Bld) [Entitic vol] 8.7 fL Critically low 9.5-13.5 [facility] Comment on above: Performed By: #### C JAVAD MOLINA, RAYNE #### [facility] [address] [place], [place] [id number] Marcin Alanna PLT 253 103/ul Normal 150-450 [facility] Comment on above: Performed By: #### C JAVAD MOLINA, RAYNE #### [facility] [address] [place] [address] Marcin Alanna RBC 4.63 106/ul Normal 4.20-5.40 [facility] Comment on above: Performed By: #### C JAVAD MOLINA, RAYNE #### [facility] [address] [place] [address] Marcin Alanna WBC 7.1 103/ul Normal 4.0-11.0 [facility] Comment on above: Performed By: #### C TRACY LIPA, RAYNE #### [facility] [address] [place] [address] Marcin Alanna LIPASEon 12-15-2020 Lipase [Catalytic activity/Vol] 1205.0 U/L Critically high 23.0-300.0 [facility] Comment on above: Result Comment: test repeated critical value verified Performed By: #### C JAVAD MOLINA AMY #### [facility] [address] [place] [address] Marcinraffy Mondragon PREG HCG QUALon 12-15-2020 , QUAL Negative Normal NEGATIVE [facility] Comment on above: Performed By: #### P REG #### [facility] [address] [place] [address] Marcin Mondragon PROF 14(COMP METB)on 021 Albumin [Mass/Vol] 3.3 g/dL Critically low 3.5-5.0 [facility] Comment on above: Performed By: #### C JAVAD MOLINA AMY #### [facility] [address] [place] [address] Marcinraffy Mondragon Albumin/Globulin [Mass ratio] 0.8 {ratio} Normal [facility] Comment on above: Performed By: #### C JAVAD MOLINA AMY #### [facility] [address] [place] [address] Marcin Alanna ALP [Catalytic activity/Vol] 167 U/L Critically high 38-126 [facility] Comment on above: Performed By: #### C JAVAD MOLINA AMY #### [facility] [address] [place] [address] Marcin Alanna ALT [Catalytic activity/Vol] 370 U/L Critically high 9-52 [facility] Comment on above: Performed By: #### C JAVAD MOLINA AMY #### [facility] [address] [place] [address] Marcin Alanna Anion gap [Moles/Vol] 12.5 mmol/L Normal [facility] Comment on above: Performed By: #### C JAVAD MOLINA AMY #### [facility] [address] [place] [address] Marcin Alanna AST [Catalytic activity/Vol] 165 U/L Critically high 14-36 [facility] Comment on above: Performed By: #### C JAVAD MOLINA AMY #### [facility] [address] [place] [address] Marcin Alanna Bilirubin [Mass/Vol] 5.3 mg/dL Critically high 0.2-1.3 [facility] Comment on above: Performed By: #### C JAVAD MOLINA RAYNE #### [facility] [address] [address] Marcin Alanna Calcium [Mass/Vol] 9.2 mg/dL Normal 8.4-10.2 [facility] Comment on above: Performed By: #### C JAVAD MOLINA, RAYNE #### [facility] [address] [address] Marcin Alanna Chloride [Moles/Vol] 102 mmol/L Normal 98-107 [facility] Comment on above: Performed By: #### C JAVAD MOLINA, RAYNE #### [facility] [address] [address] Marcin Alanna CO2 [Moles/Vol] 29.6 mmol/L Normal 22.0-30.0 [facility] Comment on above: Performed By: #### C JAVAD MOLINA, RAYNE #### [facility] [address] [address] Marcin Alanna Creatinine [Mass/Vol] 0.88 mg/dL Normal 0.52-1.04 [facility] Comment on above: Performed By: #### C JAVAD MOLINA, RAYNE #### [facility] [address] [place] [address] Marcin Alanna EGFR-AF [place] >60 Normal >=60 [facility] Comment on above: Performed By: #### C JAVAD MOLINA, RAYNE #### [facility] [address] [address] Marcin Alanna EGFR-NON AF [place]IZ[place] >60 Normal >=60 [facility] Comment on above: Performed By: #### C JAVAD MOLINA, RAYNE #### [facility] [address] [place] [address] Marcin Alanna Globulin (S) [Mass/Vol] 4.1 g/dL Normal [facility] Comment on above: Performed By: #### C JAVAD MOLINA, RAYNE #### [facility] [address] [address] Marcin Alanna Glucose [Mass/Vol] 88 mg/dL Normal 74-106 [facility] Comment on above: Performed By: #### C JAVAD MOLINA AMY #### [facility] [address] [address] Marcin Alanna Potassium [Moles/Vol] 3.1 mmol/L Critically low 3.4-5.0 [facility] Comment on above: Performed By: #### C JAVAD MOLINA, RAYNE #### [facility] [address] [address] Marcin Alanna Protein [Mass/Vol] 7.4 g/dL Normal 6.1-8.2 [facility] Comment on above: Performed By: #### C JAVAD MOLINA, RAYNE #### [facility] [address] [place] [address] Marcin Alanna Sodium [Moles/Vol] 141 mmol/L Normal 137-145 [facility] Comment on above: Performed By: #### C JAVAD MOLINA, RAYNE #### [facility] [address] [address] Marcin Alanna Urea nitrogen [Mass/Vol] 8.0 mg/dL Normal 7.0-17.0 [facility] Comment on above: Performed By: #### C JAVAD MOLINA, RAYNE #### [facility] [address] [address] Marcin Alanna Urea nitrogen/Creatini ne [Mass ratio] 9.1 mg/mg Normal [facility] Comment on above: Performed By: #### C JAVAD MOLINA, RAYNE #### [facility] [address] [place] [address] Marcin Alanna PROTIMEon 12-15-2020 INR Coag (PPP) [Relative time] 1.04 {INR} Normal [facility] Comment on above: Performed By: #### C JAVAD MOLINA, RAYNE #### [facility] [address] [address] Marcin Alanna INR GUIDELINES SEE BELOW Normal [facility] Comment on above: Result Comment: NAI RED INR: 2.0 - 3.0 CONDITIONS NOT LISTED BELOW 2.5 - 3.5 FOR PROSTHETIC HEART VALVE REPLACEMENT 2.5 - 3.5 RECURRENT THROMBOSIS Performed By: #### C JAVAD MOLINA, RAYNE #### [facility] [address] [place] [address] Marcin Alanna PT Coag (PPP) [Time] 11.3 s Normal 9.0-11.6 [facility] Comment on above: Performed By: #### C MP, LIPA, RAYNE #### [facility] [address] [place] [address] Marcin Alanna PTTon 12-15-2020 aPTT Coag (Bld) [Time] 27.8 s Normal 22.3-36.2 [facility] Comment on above: Performed By: #### C EZRA MOLINAA, RAYNE #### [facility] [address] [place] [address] Marcin Alanna AMYLASEon 12-09-2020 Amylase [Catalytic activity/Vol] 45 U/L Normal 31-110 [facility] Comment on above: Performed By: #### B MP, RAYNE, LIVER, LIPA #### [facility] [address] [place], [place] [address] Marcin Alanna CBC AUTO DIFFon 12-09-2020 BASO # 0.0 103/ul Normal 0.0-0.1 [facility] Comment on above: Performed By: #### C BC #### [facility] [address] [place] [address] Marcin Alanna Basophils/100 WBC (Bld) 0.2 % Normal 0.2-2.0 [facility] Comment on above: Performed By: #### C BC #### [facility] [address] [place], [place] [address] Marcin Alanna EO # 0.0 103/ul Normal 0.0-0.7 [facility] Comment on above: Performed By: #### C BC #### [facility] [address] [place], [place] [address] Marcin Alanna Eosinophils/100 WBC (Bld) 0.3 % Critically low 0.9-7.0 [facility] Comment on above: Performed By: #### C BC #### [facility] [address] [place] [address] Marcinraffy Mondragon Erythrocyte distribution width (RBC) [Ratio] 12.6 % Normal 11.0-15.0 [facility] Comment on above: Performed By: #### C BC #### [facility] [address] [place] [address] Marcin Alanna Hematocrit (Bld) [Volume fraction] 45.7 % Normal 36.0-48.0 [facility] Comment on above: Performed By: #### C BC #### [facility] [address] [place] [address] Marcin Alanna Hemoglobin (Bld) [Mass/Vol] 14.6 g/dL Normal 12.0-16.0 [facility] Comment on above: Performed By: #### C BC #### [facility] [address] [place] [address] Marcinraffy Mondragon IG # 0.04 10e3/ul Critically high 0.00-0.03 [facility] Comment on above: Performed By: #### C BC #### [facility] [address] [place] [address] Marcin Alanna IG % 0.4 % Normal 0.0-0.5 [facility] Comment on above: Performed By: #### C BC #### [facility] [address] [place] [address] Marcin Alanna LYMPH # 1.4 103/ul Normal 1.2-3.8 [facility] Comment on above: Performed By: #### C BC #### [facility] [address] [place] [address] Marcin Mondragon Lymphocytes/100 WBC (Bld) 12.8 % Critically low 20.5-60.0 [facility] Comment on above: Performed By: #### C BC #### [facility] [address] [place] [address] Marcinraffy Mondragon MANUAL DIFF REQ NO Normal [facility] Comment on above: Performed By: #### C BC #### [facility] [address], [place] [address] Marcin Mondragon MCH (RBC) [Entitic mass] 29.4 pg Normal 26.7-34.0 [facility] Comment on above: Performed By: #### C BC #### [facility] [address] [id number] Marcin Mondragon MCHC (RBC) [Mass/Vol] 31.9 g/dL Normal 29.9-35.2 [facility] Comment on above: Performed By: #### C BC #### [facility] [address] [id number] Marcinraffy Mondragon MCV (RBC) [Entitic vol] 92.1 fL Normal 81.0-99.0 [facility] Comment on above: Performed By: #### C BC #### [facility] [address] [place] [address] Marcin Mondragon MONO # 0.6 103/ul Normal 0.3-0.8 [facility] Comment on above: Performed By: #### C BC #### [facility] [address] [id number] Marcin Mondragon Monocytes/100 WBC (Bld) 5.6 % Normal 1.7-12.0 [facility] Comment on above: Performed By: #### C BC #### [facility] [address] [id number] Marcin Mondragon NEUT # 9.0 103/ul Critically high 1.4-6.5 [facility] Comment on above: Performed By: #### C BC #### [facility] [address] [place], [place] [address] Marcinraffy Mondragon Neutrophils/100 WBC (Bld) 80.7 % Critically high 43.0-75.0 [facility] Comment on above: Performed By: #### C BC #### [facility] [address] [place], [place] [address] Marcin Alanna Platelet mean volume (Bld) [Entitic vol] 8.6 fL Critically low 9.5-13.5 [facility] Comment on above: Performed By: #### C BC #### [facility] [address], [place] [address] Marcin Alanna PLT 255 103/ul Normal 150-450 [facility] Comment on above: Performed By: #### C BC #### [facility] [address] [id number] Marcin Alanna RBC 4.96 106/ul Normal 4.20-5.40 [facility] Comment on above: Performed By: #### C BC #### [facility] [address] [id number] Marcin Alanna WBC 11.1 103/ul Critically high 4.0-11.0 [facility] Comment on above: Performed By: #### C BC #### [facility] [address] [place], [place] [address] Marcin Alanna LIPASEon 12-09-2020 Lipase [Catalytic activity/Vol] 129.0 U/L Normal 23.0-300.0 [facility] Comment on above: Performed By: #### B MP, RAYNE, LIVER, LIPA #### [facility] [address] [place], [place] [address] Marcin Alanna LIVER PROFILEon 12-09-2020 Albumin [Mass/Vol] 3.5 g/dL Normal 3.5-5.0 [facility] Comment on above: Performed By: #### B MP, RAYNE, LIVER, LIPA #### [facility] [address] [place], [place] [address] Marcin Alanna Albumin/Globulin [Mass ratio] 0.9 {ratio} Normal [facility] Comment on above: Performed By: #### B MP, RAYNE, LIVER, LIPA #### [facility] [address] [place], [place] [address] Marcin Alanna ALP [Catalytic activity/Vol] 80 U/L Normal 38-126 [facility] Comment on above: Performed By: #### B MP, RAYNE, LIVER, LIPA #### [facility] [address] [place], [place] [address] Marcin Alanna ALT [Catalytic activity/Vol] 31 U/L Normal 9-52 [facility] Comment on above: Performed By: #### B MP, RAYNE, LIVER, LIPA #### [facility] [address] [place] [address] Marcin Alanna AST [Catalytic activity/Vol] 39 U/L Critically high 14-36 [facility] Comment on above: Performed By: #### B MP, RAYNE, LIVER, LIPA #### [facility] [address] [place] [address] Marcin Alanna BILI, CONJUGATED 0.2 mg/dL Normal 0.0-0.3 [facility] Comment on above: Performed By: #### B MP, RAYNE, LIVER, LIPA #### [facility] [address] [place] [address] Marcin Alanna Bilirubin [Mass/Vol] 0.5 mg/dL Normal 0.2-1.3 [facility] Comment on above: Performed By: #### B MP, RANYE, LIVER, LIPA #### [facility] [address] [place] [address] Marcin Alanna Globulin (S) [Mass/Vol] 3.8 g/dL Normal [facility] Comment on above: Performed By: #### B MP, RAYNE, LIVER, LIPA #### [facility] [address] [place] [address] Marcin Alanna Protein [Mass/Vol] 7.3 g/dL Normal 6.1-8.2 [facility] Comment on above: Performed By: #### B MP, RAYNE, LIVER, LIPA #### [facility] [address] [place] [address] Marcin Alanna PROF CHEM 8 (BAS METB)on Anion gap [Moles/Vol] 10.6 mmol/L Normal [facility] Comment on above: Performed By: #### C MP, LIPA, RAYNE #### [facility] [address] [place] [address] Marcin Alanna Calcium [Mass/Vol] 8.9 mg/dL Normal 8.4-10.2 [facility] Comment on above: Performed By: #### C MP, LIPA, RAYNE #### [facility] [address] [address] Marcin Alanna Chloride [Moles/Vol] 105 mmol/L Normal 98-107 [facility] Comment on above: Performed By: #### C JAVAD MOLINA AMY #### [facility] [address] [address] Marcin Alanna CO2 [Moles/Vol] 27.4 mmol/L Normal 22.0-30.0 [facility] Comment on above: Performed By: #### C JAVAD MOLINA, RAYNE #### [facility] [address] [address] Marcin Alanna Creatinine [Mass/Vol] 0.91 mg/dL Normal 0.52-1.04 [facility] Comment on above: Performed By: #### C JAVAD MOLINA, RAYNE #### [facility] [address] [place] [address] Marcin Alanna EGFR-AF [place] >60 Normal >=60 [facility] Comment on above: Performed By: #### C JAVAD MOLINA, RAYNE #### [facility] [address] [place] [address] Marcin Alanna EGFR-NON AF [place] >60 Normal >=60 [facility] Comment on above: Performed By: #### C JAVAD MOLINA, RAYNE #### [facility] [address] [place] [address] Marcin Alanna Glucose [Mass/Vol] 109 mg/dL Critically high 74-106 [facility] Comment on above: Performed By: #### C JAVAD MOLINA, RAYNE #### [facility] [address] [place] [address] Marcin Alanna Potassium [Moles/Vol] 4.0 mmol/L Normal 3.4-5.0 [facility] Comment on above: Performed By: #### C JAVAD MOLINA, RAYNE #### [facility] [address] [place] [address] Marcin Alanna Sodium [Moles/Vol] 139 mmol/L Normal 137-145 [facility] Comment on above: Performed By: #### C JAVAD MOLINA, RAYNE #### [facility] [address], [place] [address] Marcin Mondragon Urea nitrogen [Mass/Vol] 13.0 mg/dL Normal 7.0-17.0 [facility] Comment on above: Performed By: #### C JAVAD MOLINA AMY #### [facility] [address], [place] [address] Marcin Mondragon Urea nitrogen/Creatini ne [Mass ratio] 14.3 mg/mg Normal [facility] Comment on above: Performed By: #### C JAVAD MOLINA AMY #### [facility] [address], [place] [address] Marcin Alanna XR CHEST 1 Von 12-09-2020 [...] by: BRITTANY HENDRICKS Date: 2020-12-09 17:05 Normal [facility] Vital Signs Date Time Vital Sign Value Performing Clinician Faci lity 12-29-2023 10:32-0500 Body weight 121.17 kg Jesica Baljit DO Work Phone: [facility] 12-29-2023 10:32-0500 Diastolic blood pressure 70 mm[Hg] Jesica Baljit DO Work Phone: [facility] 12-29-2023 10:32-0500 Systolic blood pressure 110 mm[Hg] Jesica Baljit DO Work Phone: [facility] Encounters Encounter Date Encounter Type Care Provider Facility Start: 03-22-2024 End: 03-22-2024 ambulatory JESICA BALJIT Not Available Start: 02-19-2024 End: 02-19-2024 ambulatory JESICA BALJIT Not Available Start: 01-26-2024 End: 01-26-2024 ambulatory RAYNE JUNG Not Available Start: 12-29-2023 End: 12-29-2023 ambulatory JESICA BALJIT Not Available Start: 12-29-2023 End: 12-29-2023 Office outpatient visit 15 minutes Jesica Smiley DO Work Phone: [facility] Comment on above: Second trimester pre gnancy Start: 12-01-2023 End: 12-01-2023 ambulatory RAYNE JUNG Not Available Start: 10-27-2023 End: 10-27-2023 ambulatory JESICA SMILEY Not Available Start: 10-03-2023 End: 10-04-2023 ambulatory ARYNE JUNG Not Available Start: 09-28-2021 End: 09-28-[address] GEREMIAS SANTANA Facility:[facility] Start: 12-15-2020 End: 12-16-[address] TOR TORRES Facility:[facility] Start: 12-09-2020 End: 12-09-[address] TOR TORRES Facility:[facility] Payers Date Payer Category Payer Medicaid [employer] [place] [employer] [id number] 2020-Present [address] [place] [address] [id number] 1990 Unknown [id number] 1990 Unknown [id number] 1990 Unknown [id number] [id number] 1990 Unknown [id number] 2.16.840.1.391185.3.579.2.1259 1990 Unknown [id number] 2.16.840.1.678073.3.579.2.1259 1990 Unknown [id number] 2.16.840.1.462233.3.579.2.1259 1990 Unknown [id number] 2.16.840.1.925910.3.579.2.1259 1990 Unknown [id number] 2.16.840.1.618878.3.579.2.1259 1990 Unknown [id number] 2.16.840.1.803392.3.579.2.1259 1990 Unknown [id number] [id number] 1959 Unknown [id number] Social History Date Type Detail Facility Start: [...] nursing note reviewed. 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 Vitals: There is no height or [...] Jesica Smiley DO documented in this encounter [facility] Progress note 01-02-2021 Note Date & Type Note Facility 01-02-2021 Note HNO ID: [id number] Author: Bro Yuan Service: ? Author Type: [...] SIGNATURE: Jeffrey Yuan MD B surgery Pager: [phone] [facility] Progress note 01-02-2021 Note Date & Type Note Facility 01-02-2021 Note HNO ID: [id number] Author: Annamaria Collins Service: ? Author Type: [...] Follow-up TEX Collins MD General Surgery Resident [facility] Evaluation note Note Date & [...] and content) DATE CREATED AUTHOR 10/02/2021 [facility] DATE CREATED AUTHOR AUTHOR'S ORGANIZ ATION 12/20/2021 [facility] DATE CREATED AUTHOR AUTHOR'S ORGANIZ ATION 03/23/2024 [facility] EPIC Reason for Visit (unrecogniz ed section and content) Reason Comments Routine Visit Care Teams (unrecognized sec tion and content) Language And Literature Division Chair Relationship Specialty Start Date End Date Tor Torres MD [address] [place] [address] PCP - General Internal Medicine 09/25/23 FOR [...] BE BASED ON THE PRIMARY CLINICAL RECORDS. [facility]. provides no warranty or guarantee of the accuracy or completeness of information in this document.
--- OUTSIDE RECORDS SUMMARY | 2024-03-31 09:36 | XMS_ITS | CCD ---
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] Onset: 10-02-2021 Episodic Other [...] Office Visit (GENN ) -------- ISAAC TOUSSAINT ([id number]) 1990 F Date Time Provider Department 01/02/21 [...] Follow up PRN SIGNATURE: Jeffrey Yuan MD [facility] surgery Pager: [phone] Referring Provider: SELF [[id number]] Allergies As of [...] Status:Closed by BRO YUAN MD on 01/02/21 [facility] 12-22-2020 [facility] Telephone (PODCCP) -------- ISAAC TOUSSAINT ([id number]) 1990 F Date Time Provider Department 12/22/20 VAHE CR (STUDENT) PODCCP During your visit today, we recorded the following information about you: Vahe Cr Student 12/22/2020 10:01 AM Signed Record ID: [id number] Patient Name: [facility]: [facility] [place]: [facility] [place] Attending: Bro Yuan Center: General Surgery INSTRUCTIONS SN to remind patient of appointment date, time, location All Clear All Clear SURVEY INFORMATION Medical/Nurse Msws: Landy Duran 1. Your discharge instructions are [...] Reason for Visit: Follow Up Phone Call [[id number]] Prescriptions as of 12/22/2020 Sig: ONDANSETRON HCL [...] by VAHE WADE on 12/22/20 [facility] 12-21-2020 CNPN Telephone (dakickSMN) -------- ISAAC TOUSSAINT ([id number]) 1990 F Date Time Provider Department 12/21/20 BRO YUAN During your visit today, we recorded the following information about you: Macy Arshad [facility] 12/21/2020 12:18 PM Signed Patient is calling [...] Status:Closed by MACY SALEH on 01/22/21 Normal [facility] OBSOLETEon 12-21-2020 OBSOLETE Refill (GENSMN) -------- ISAAC TOUSSAINT ([id number]) 1990 F Date Time Provider Department 12/21/20 ROXANA SCOTT During your visit today, we recorded the following information about you: Roxana Scott APRN.LIP READING TEACHER 12/21/2020 2:00 PM Signed Patient called with [...] our office if symptoms persist. Roxana Scott APRN.LIP READING TEACHER Allergies As of Date: 12/21/2020 (No Known [...] by TYLER DEJESUS.ROXANA HOUSE on 12/21/20 Normal [facility] AMMONIAon 12-15-2020 Ammonia (P) [Mass/Vol] ug/dL Critically low 10-30 [facility] Comment on above: Performed By: #### A MM #### [facility] [address] [id number] Marcin Mondragon AMYLASEon 12-15-2020 Amylase [Catalytic activity/Vol] 217 U/L Critically high 31-110 [facility] Comment on above: Performed By: #### C MP, JAVAD, RAYNE #### [facility] [address], [place] [address] Marcin Mondragon CBC AUTO DIFFon 12-15-2020 BASO # 0.0 103/ul Normal 0.0-0.1 [facility] Comment on above: Performed By: #### C JAVAD MOLINA AMY #### [facility] [address] [place] [address] Marcin Alanna Basophils/100 WBC (Bld) 0.3 % Normal 0.2-2.0 [facility] Comment on above: Performed By: #### C JAVAD MOLINA, RAYNE #### [facility] [address] [place] [address] Marcin Alanna EO # 0.0 103/ul Normal 0.0-0.7 [facility] Comment on above: Performed By: #### C JAVAD MOLINA, RAYNE #### [facility] [address] [place] [address] Marcin Alanna Eosinophils/100 WBC (Bld) 0.3 % Critically low 0.9-7.0 [facility] Comment on above: Performed By: #### C JAVAD MOLINA, RAYNE #### [facility] [address] [place] [address] Marcin Alanna Erythrocyte distribution width (RBC) [Ratio] 13.3 % Normal 11.0-15.0 [facility] Comment on above: Performed By: #### C JAVAD MOLINA AMY #### [facility] [address] [place] [address] Marcin Alanna Hematocrit (Bld) [Volume fraction] 42.9 % Normal 36.0-48.0 [facility] Comment on above: Performed By: #### C JAVAD MOLINA RAYNE #### [facility] [address] [place] [address] Marcin Alanna Hemoglobin (Bld) [Mass/Vol] 13.8 g/dL Normal 12.0-16.0 [facility] Comment on above: Performed By: #### C JAVAD MOLINA AMY #### [facility] [address] [place] [address] Marcin Alanna IG # 0.02 10e3/ul Normal 0.00-0.03 [facility] Comment on above: Performed By: #### C JAVAD MOLINA AMY #### [facility] [address] [place] [address] Marcin Alanna IG % 0.3 % Normal 0.0-0.5 [facility] Comment on above: Performed By: #### C JAVAD MOLINA AMY #### [facility] [address] [place] [address] Marcin Alanna LYMPH # 1.7 103/ul Normal 1.2-3.8 [facility] Comment on above: Performed By: #### C JAVAD MOLINA AMY #### [facility] [address] [place] [address] Marcin Alanna Lymphocytes/100 WBC (Bld) 23.8 % Normal 20.5-60.0 [facility] Comment on above: Performed By: #### C JAVAD MOLINA AMY #### [facility] [address] [place] [address] Marcin Alanna MANUAL DIFF REQ NO Normal [facility] Comment on above: Performed By: #### C JAVAD MOLINA AMY #### [facility] [address] [place] [address] Marcin Alanna MCH (RBC) [Entitic mass] 29.8 pg Normal 26.7-34.0 [facility] Comment on above: Performed By: #### C JAVAD MOLINA AMY #### [facility] [address] [place] [address] Marcin Alanna MCHC (RBC) [Mass/Vol] 32.2 g/dL Normal 29.9-35.2 [facility] Comment on above: Performed By: #### C JAVAD MOLINA AMY #### [facility] [address] [place] [address] Marcin Alanna MCV (RBC) [Entitic vol] 92.7 fL Normal 81.0-99.0 [facility] Comment on above: Performed By: #### C JAVAD MOLINA AMY #### [facility] [address] [place] [address] Marcin Alanna MONO # 0.6 103/ul Normal 0.3-0.8 [facility] Comment on above: Performed By: #### C JAVAD MOLINA AMY #### [facility] [address] [place], [place] [phone] Marcin Alanna Monocytes/100 WBC (Bld) 8.5 % Normal 1.7-12.0 [facility] Comment on above: Performed By: #### C JAVAD MOLINA, RAYNE #### [facility] [address] [place] [address] Marcin Alanna NEUT # 4.8 103/ul Normal 1.4-6.5 [facility] Comment on above: Performed By: #### C JAVAD MOLINA, RAYNE #### [facility] [address] [place], [place] [phone] Marcin Alanna Neutrophils/100 WBC (Bld) 66.8 % Normal 43.0-75.0 [facility] Comment on above: Performed By: #### C JAVAD MOLINA, RAYNE #### [facility] [address] [place] [address] Marcin Alanna Platelet mean volume (Bld) [Entitic vol] 8.7 fL Critically low 9.5-13.5 [facility] Comment on above: Performed By: #### C JAVAD MOLINA, RAYNE #### [facility] [address] [place], [place] [phone] Marcin Alanna PLT 253 103/ul Normal 150-450 [facility] Comment on above: Performed By: #### C JAVAD MOLINA, RAYNE #### [facility] [address] [address] Marcin Alanna RBC 4.63 106/ul Normal 4.20-5.40 [facility] Comment on above: Performed By: #### C JAVAD MOLINA, RAYNE #### [facility] [address] [place] [address] Marcin Alanna WBC 7.1 103/ul Normal 4.0-11.0 [facility] Comment on above: Performed By: #### C TRACY LIPA, RAYNE #### [facility] [address] [place] [address] Marcin Alanna LIPASEon 12-15-2020 Lipase [Catalytic activity/Vol] 1205.0 U/L Critically high 23.0-300.0 [facility] Comment on above: Result Comment: test repeated critical value verified Performed By: #### C JAVAD MOLINA AMY #### [facility] [address] [place] [address] Marcinraffy Mondragon PREG HCG QUALon 12-15-2020 , QUAL Negative Normal NEGATIVE [facility] Comment on above: Performed By: #### P REG #### [facility] [address] [place] [address] Marcin Mondragon PROF 14(COMP METB)on 021 Albumin [Mass/Vol] 3.3 g/dL Critically low 3.5-5.0 [facility] Comment on above: Performed By: #### C JAVAD MOLINA AMY #### [facility] [address] [place] [address] Marcinraffy Mondragon Albumin/Globulin [Mass ratio] 0.8 {ratio} Normal [facility] Comment on above: Performed By: #### C JAVAD MOLINA AMY #### [facility] [address] [place] [address] Marcin Alanna ALP [Catalytic activity/Vol] 167 U/L Critically high 38-126 [facility] Comment on above: Performed By: #### C JAVAD MOLINA AMY #### [facility] [address] [place] [address] Marcin Alanna ALT [Catalytic activity/Vol] 370 U/L Critically high 9-52 [facility] Comment on above: Performed By: #### C JAVAD MOLINA AMY #### [facility] [address] [place] [address] Marcin Alanna Anion gap [Moles/Vol] 12.5 mmol/L Normal [facility] Comment on above: Performed By: #### C JAVAD MOLINA AMY #### [facility] [address] [place] [address] Marcin Alanna AST [Catalytic activity/Vol] 165 U/L Critically high 14-36 [facility] Comment on above: Performed By: #### C JAVAD MOLINA AMY #### [facility] [address] [place] [address] Marcin Alanna Bilirubin [Mass/Vol] 5.3 mg/dL Critically high 0.2-1.3 [facility] Comment on above: Performed By: #### C JAVAD MOLINA RAYNE #### [facility] [address] [address] Marcin Alanna Calcium [Mass/Vol] 9.2 mg/dL Normal 8.4-10.2 [facility] Comment on above: Performed By: #### C JAVAD MOLINA, RAYNE #### [facility] [address] [address] Marcin Alanna Chloride [Moles/Vol] 102 mmol/L Normal 98-107 [facility] Comment on above: Performed By: #### C JAAVD MOLINA, RAYNE #### [facility] [address] [address] Marcin Alanna CO2 [Moles/Vol] 29.6 mmol/L Normal 22.0-30.0 [facility] Comment on above: Performed By: #### C JAVAD MOLINA, RAYNE #### [facility] [address] [address] Marcin Alanna Creatinine [Mass/Vol] 0.88 mg/dL Normal 0.52-1.04 [facility] Comment on above: Performed By: #### C JAVAD MOLINA, RAYNE #### [facility] [address] [place] [address] Marcin Alanna EGFR-AF CANADIAN >60 Normal >=60 [facility] Comment on above: Performed By: #### C JAVAD MOLINA, RAYNE #### [facility] [address] [address] Marcin Alanna EGFR-NON AF CANADIAN >60 Normal >=60 [facility] Comment on above: Performed By: #### C JAVAD MOLINA, RYANE #### [facility] [address] [place] [address] Marcin Alanna Globulin (S) [Mass/Vol] 4.1 g/dL Normal [facility] Comment on above: Performed By: #### C JAVAD MOLIAN, RAYNE #### [facility] [address] [address] Marcin Alanna Glucose [Mass/Vol] 88 mg/dL Normal 74-106 [facility] Comment on above: Performed By: #### C JAVAD MOLINA AMY #### [facility] [address] [address] Marcin Alanna Potassium [Moles/Vol] 3.1 mmol/L Critically low 3.4-5.0 [facility] Comment on above: Performed By: #### C JAVAD MOLINA, RAYNE #### [facility] [address] [address] Marcin Alanna Protein [Mass/Vol] 7.4 g/dL Normal 6.1-8.2 [facility] Comment on above: Performed By: #### C JAVAD MOLINA, RAYNE #### [facility] [address] [place] [address] Marcin Alanna Sodium [Moles/Vol] 141 mmol/L Normal 137-145 [facility] Comment on above: Performed By: #### C JAVAD MOLINA, RAYNE #### [facility] [address] [address] Marcin Alanna Urea nitrogen [Mass/Vol] 8.0 mg/dL Normal 7.0-17.0 [facility] Comment on above: Performed By: #### C JAVAD MOLINA, RAYNE #### [facility] [address] [address] Marcin Alanna Urea nitrogen/Creatini ne [Mass ratio] 9.1 mg/mg Normal [facility] Comment on above: Performed By: #### C JAVAD MOLINA, RAYNE #### [facility] [address] [place] [address] Marcin Alanna PROTIMEon 12-15-2020 INR Coag (PPP) [Relative time] 1.04 {INR} Normal [facility] Comment on above: Performed By: #### C JAVAD MOLINA, RAYNE #### [facility] [address] [address] Marcin Alanna INR GUIDELINES SEE BELOW Normal [facility] Comment on above: Result Comment: NAI RED INR: 2.0 - 3.0 CONDITIONS NOT LISTED BELOW 2.5 - 3.5 FOR PROSTHETIC HEART VALVE REPLACEMENT 2.5 - 3.5 RECURRENT THROMBOSIS Performed By: #### C JAVAD MOLINA, RAYNE #### [facility] [address] [place] [address] Marcin Alanna PT Coag (PPP) [Time] 11.3 s Normal 9.0-11.6 [facility] Comment on above: Performed By: #### C MP, LIPA, RAYNE #### [facility] [address] [place] [address] Marcin Alanna PTTon 12-15-2020 aPTT Coag (Bld) [Time] 27.8 s Normal 22.3-36.2 [facility] Comment on above: Performed By: #### C EZRA MOLINAA, RAYNE #### [facility] [address] [place] [address] Marcin Alanna AMYLASEon 12-09-2020 Amylase [Catalytic activity/Vol] 45 U/L Normal 31-110 [facility] Comment on above: Performed By: #### B MP, RAYNE, LIVER, LIPA #### [facility] [address] [place], [place] [phone] Marcin Alanna CBC AUTO DIFFon 12-09-2020 BASO # 0.0 103/ul Normal 0.0-0.1 [facility] Comment on above: Performed By: #### C BC #### [facility] [address] [place] [address] Marcin Alanna Basophils/100 WBC (Bld) 0.2 % Normal 0.2-2.0 [facility] Comment on above: Performed By: #### C BC #### [facility] [address] [place], [place] [phone] Marcin Alanna EO # 0.0 103/ul Normal 0.0-0.7 [facility] Comment on above: Performed By: #### C BC #### [facility] [address] [place], [place] [phone] Marcin Alanna Eosinophils/100 WBC (Bld) 0.3 % Critically low 0.9-7.0 [facility] Comment on above: Performed By: #### C BC #### [facility] [address] [place] [address] Marcinraffy Mondragon Erythrocyte distribution width (RBC) [Ratio] 12.6 % Normal 11.0-15.0 [facility] Comment on above: Performed By: #### C BC #### [facility] [address] [place] [address] Marcin Alanna Hematocrit (Bld) [Volume fraction] 45.7 % Normal 36.0-48.0 [facility] Comment on above: Performed By: #### C BC #### [facility] [address] [place] [address] Marcin Alanna Hemoglobin (Bld) [Mass/Vol] 14.6 g/dL Normal 12.0-16.0 [facility] Comment on above: Performed By: #### C BC #### [facility] [address] [place] [address] Marcinraffy Mondragon IG # 0.04 10e3/ul Critically high 0.00-0.03 [facility] Comment on above: Performed By: #### C BC #### [facility] [address] [place] [address] Marcin Alanna IG % 0.4 % Normal 0.0-0.5 [facility] Comment on above: Performed By: #### C BC #### [facility] [address] [place] [address] Marcin Alanna LYMPH # 1.4 103/ul Normal 1.2-3.8 [facility] Comment on above: Performed By: #### C BC #### [facility] [address] [place] [address] Marcin Mondragon Lymphocytes/100 WBC (Bld) 12.8 % Critically low 20.5-60.0 [facility] Comment on above: Performed By: #### C BC #### [facility] [address] [place] [address] Marcinraffy Mondragon MANUAL DIFF REQ NO Normal [facility] Comment on above: Performed By: #### C BC #### [facility] [address], [place] [address] Marcin Mondragon MCH (RBC) [Entitic mass] 29.4 pg Normal 26.7-34.0 [facility] Comment on above: Performed By: #### C BC #### [facility] [address] [phone] Marcin Mondragon MCHC (RBC) [Mass/Vol] 31.9 g/dL Normal 29.9-35.2 [facility] Comment on above: Performed By: #### C BC #### [facility] [address] [phone] Marcinraffy Mondragon MCV (RBC) [Entitic vol] 92.1 fL Normal 81.0-99.0 [facility] Comment on above: Performed By: #### C BC #### [facility] [address] [place] [address] Marcin Mondragon MONO # 0.6 103/ul Normal 0.3-0.8 [facility] Comment on above: Performed By: #### C BC #### [facility] [address] [phone] Marcin Mondragon Monocytes/100 WBC (Bld) 5.6 % Normal 1.7-12.0 [facility] Comment on above: Performed By: #### C BC #### [facility] [address] [phone] Marcin Mondragon NEUT # 9.0 103/ul Critically high 1.4-6.5 [facility] Comment on above: Performed By: #### C BC #### [facility] [address] [place], [place] [phone] Marcinraffy Mondragon Neutrophils/100 WBC (Bld) 80.7 % Critically high 43.0-75.0 [facility] Comment on above: Performed By: #### C BC #### [facility] [address] [place], [place] [phone] Marcin Alanna Platelet mean volume (Bld) [Entitic vol] 8.6 fL Critically low 9.5-13.5 [facility] Comment on above: Performed By: #### C BC #### [facility] [address], [place] [address] Marcin Alanna PLT 255 103/ul Normal 150-450 [facility] Comment on above: Performed By: #### C BC #### [facility] [address] [phone] Marcin Alanna RBC 4.96 106/ul Normal 4.20-5.40 [facility] Comment on above: Performed By: #### C BC #### [facility] [address] [phone] Marcin Alanna WBC 11.1 103/ul Critically high 4.0-11.0 [facility] Comment on above: Performed By: #### C BC #### [facility] [address] [place], [place] [phone] Marcin Alanna LIPASEon 12-09-2020 Lipase [Catalytic activity/Vol] 129.0 U/L Normal 23.0-300.0 [facility] Comment on above: Performed By: #### B MP, RAYNE, LIVER, LIPA #### [facility] [address] [place], [place] [phone] Marcin Alanna LIVER PROFILEon 12-09-2020 Albumin [Mass/Vol] 3.5 g/dL Normal 3.5-5.0 [facility] Comment on above: Performed By: #### B MP, RAYNE, LIVER, LIPA #### [facility] [address] [place], [place] [phone] Marcin Alanna Albumin/Globulin [Mass ratio] 0.9 {ratio} Normal [facility] Comment on above: Performed By: #### B MP, RAYNE, LIVER, LIPA #### [facility] [address] [place], [place] [phone] Marcin Alanna ALP [Catalytic activity/Vol] 80 U/L Normal 38-126 [facility] Comment on above: Performed By: #### B MP, RAYNE, LIVER, LIPA #### [facility] [address] [place], [place] [phone] Marcin Alanna ALT [Catalytic activity/Vol] 31 U/L Normal 9-52 [facility] Comment on above: Performed By: #### B MP, RAYNE, LIVER, LIPA #### [facility] [address] [place] [address] Marcin Alanna AST [Catalytic activity/Vol] 39 U/L Critically high 14-36 [facility] Comment on above: Performed By: #### B MP, RAYNE, LIVER, LIPA #### [facility] [address] [place] [address] Marcin Alanna BILI, CONJUGATED 0.2 mg/dL Normal 0.0-0.3 [facility] Comment on above: Performed By: #### B MP, RAYNE, LIVER, LIPA #### [facility] [address] [place] [address] Marcin Alanna Bilirubin [Mass/Vol] 0.5 mg/dL Normal 0.2-1.3 [facility] Comment on above: Performed By: #### B MP, RAYNE, LIVER, LIPA #### [facility] [address] [place] [address] Marcin Alanna Globulin (S) [Mass/Vol] 3.8 g/dL Normal [facility] Comment on above: Performed By: #### B MP, RAYNE, LIVER, LIPA #### [facility] [address] [place] [address] Marcin Alanna Protein [Mass/Vol] 7.3 g/dL Normal 6.1-8.2 [facility] Comment on above: Performed By: #### B MP, RAYNE, LIVER, LIPA #### [facility] [address] [place] [address] Marcin Alanna PROF CHEM 8 (BAS METB)on Anion gap [Moles/Vol] 10.6 mmol/L Normal [facility] Comment on above: Performed By: #### C MP, LIPA, RAYNE #### [facility] [address] [place] [address] Marcin Alanna Calcium [Mass/Vol] 8.9 mg/dL Normal 8.4-10.2 [facility] Comment on above: Performed By: #### C MP, LIPA, RAYNE #### [facility] [address] [address] Marcin Alanna Chloride [Moles/Vol] 105 mmol/L Normal 98-107 [facility] Comment on above: Performed By: #### C JAVAD MOLINA AMY #### [facility] [address] [address] Marcin Alanna CO2 [Moles/Vol] 27.4 mmol/L Normal 22.0-30.0 [facility] Comment on above: Performed By: #### C JAVAD MOLINA, RAYNE #### [facility] [address] [address] Marcin Alanna Creatinine [Mass/Vol] 0.91 mg/dL Normal 0.52-1.04 [facility] Comment on above: Performed By: #### C JAVAD MOLINA, RAYNE #### [facility] [address] [place] [address] Marcin Alanna EGFR-AF CANADIAN >60 Normal >=60 [facility] Comment on above: Performed By: #### C JAVAD MOLINA, RAYNE #### [facility] [address] [place] [address] Marcin Alanna EGFR-NON AF CANADIAN >60 Normal >=60 [facility] Comment on above: Performed By: #### C JAVAD MOLINA, RAYNE #### [facility] [address] [place] [address] Marcin Alanna Glucose [Mass/Vol] 109 mg/dL Critically high 74-106 [facility] Comment on above: Performed By: #### C JAVAD MOLINA, RAYNE #### [facility] [address] [place] [address] Marcin Alanna Potassium [Moles/Vol] 4.0 mmol/L Normal 3.4-5.0 [facility] Comment on above: Performed By: #### C JAVAD MOLINA, RAYNE #### [facility] [address] [place] [address] Marcin Alanna Sodium [Moles/Vol] 139 mmol/L Normal 137-145 [facility] Comment on above: Performed By: #### C JAVAD MOLINA, RAYNE #### [facility] [address] [place], [place] [address] Marcin Mondragon Urea nitrogen [Mass/Vol] 13.0 mg/dL Normal 7.0-17.0 [facility] Comment on above: Performed By: #### C JAVAD MOLINA AMY #### [facility] [address] [place], [place] [address] Marcin Mondragon Urea nitrogen/Creatini ne [Mass ratio] 14.3 mg/mg Normal [facility] Comment on above: Performed By: #### C JAVAD MOLINA AMY #### [facility] [address] [place], [place] [address] Marcin Alanna XR CHEST 1 Von 12-09-2020 [...] by: BRITTANY HENDRICKS Date: 2020-12-09 17:05 Normal [facility] Vital Signs Date Time Vital Sign Value Performing Clinician Faci lity 12-29-2023 10:32-0500 Body weight 121.17 kg Jesica Baljit DO Work Phone: [facility] 12-29-2023 10:32-0500 Diastolic blood pressure 70 mm[Hg] Jesica Baljit DO Work Phone: [facility] 12-29-2023 10:32-0500 Systolic blood pressure 110 mm[Hg] Jesica Baljit DO Work Phone: [facility] Encounters Encounter Date Encounter Type [...] [employer] [place] [id number] 2020-Present [address] [place] [address] [id number] 1990 Unknown [id number] 1990 Unknown [id number]93 1990 Unknown [id number] 2.16.840.1.327491.3.579.2.593 1990 Unknown [id number] 2.16.840.1.601958.3.579.2.1259 1990 Unknown [id number] 2.16.840.1.348571.3.579.2.1259 1990 Unknown [id number] 2.16.840.1.453694.3.579.2.1259 1990 Unknown [id number] 2.16.840.1.085167.3.579.2.1259 1990 Unknown [id number] 2.16.840.1.664098.3.579.2.1259 1990 Unknown [id number] 2.16.840.1.237101.3.579.2.1259 1990 Unknown [id number] 2.16.840.1.774421.3.579.2.1259 1959 Unknown [id number] Social History Date Type Detail Facility Start: [...] nursing note reviewed. Exam conducted with a primary care provider present. Vitals: There is no height or [...] Jesica Smiley DO documented in this encounter [facility] Progress note 01-02-2021 Note Date & Type Note Facility 01-02-2021 Note HNO ID: [id number] Author: Bro Yuan Service: ? Author Type: [...] SIGNATURE: Jeffrey Yuan MD B surgery Pager: [phone] [facility] Progress note 01-02-2021 Note Date & Type Note Facility 01-02-2021 Note HNO ID: [id number] Author: Annamaria Collins Service: ? 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 [employer] [facility]. provides no warranty or guarantee of the accuracy or completeness of information in this document.
--- NOTE | 2024-03-31 09:40 | PC.NURSE ---
0940 sve cervix closed, anterior 50%. small white mucous on glove.
[2024-03-31 09:58] LABS: Bilirubin Urine NEGATIVE (NEGATIVE); Blood Urine NEGATIVE (NEGATIVE); Clarity Urine CLEAR (CLEAR); Color Urine YELLOW (YELLOW); Glucose Urine UA NEGATIVE (NEGATIVE); Ketones Urine NEGATIVE (NEGATIVE); Leukocyte Esterase Urine NEGATIVE (NEGATIVE); Nitrite Urine NEGATIVE (NEGATIVE); Protein Urine NEGATIVE (NEG/TRACE); Specific Gravity Urine >=1.030 (1.005-1.025); pH Urine 6.5 (5.0-9.0)
[2024-03-31 10:00] LABS: Urine Microscopic Indicated NO
--- NOTE | 2024-03-31 10:12 | US_ITS ---
[address] [address] Patient Name: ISAAC JOHNSTON MRN: [id number] date: 1990 Sex: F Assigned Patient Location: [facility] Current Patient Location: [facility] Accession/Order Number: [id number] Exam Date: 03/31/2024 10:15 Report Date: 03/31/2024 10:42 At the request of: JESICA CROOKS Procedure: US OB BPP w non-stress EXAMINATION: US OB BPP w non-stress HISTORY: cramping previous c/s x 3 COMPARISON: No relevant comparison available. TECHNIQUE: Ultrasound biophysical profile was performed in the radiology department. FINDINGS: BREATHING MOVEMENTS: 2.0 GROSS BODY MOVEMENTS: 2.0 TONE: 2.0 QUALITATIVE AMNIOTIC FLUID VOLUME: 2.0 PRESENTATION: CEPHALIC HEART RATE: 150.0 bpm H.B./min AMNIOTIC FLUID VOLUME: 12.0 cm cm GESTATIONAL AGE: 33 weeks 6 days CONCLUSION: Total biophysical profile score: 8.0 Electronically authenticated by: HAMLET GUTIERREZ Date: 03/31/2024 10:42
== END 2024-03-31 10:45 | disposition home or self-care (01) ==
PROVIDERS: Admitting Provider Obstetrics & Gynecology; PCP Internal Medicine; Visit Provider Obstetrics & Gynecology
DX: O26.893 Other specified pregnancy related conditions, third trimester (principal); R10.9 Unspecified abdominal pain; Z3A.33 33 weeks gestation of pregnancy
CPT/HCPCS: 59025; 76818; 81003; G0378; G0379

== ENCOUNTER 2024-04-13 07:15 | Outpatient (OUT) | payer OTHER, SELFPAY ==
--- OUTSIDE RECORDS SUMMARY | 2024-04-13 07:44 | XMS_ITS | CCD ---
Author Organization [facility] Care Team Providers Care Education Site Manager Name Role Phone DR TOR TORRES Primary [...] Unavailable Tor Torres MD Primary Care Provider [phone] RAYNE JUNG Attending Unavailable JESICA SMILEY Attending Unavailable JESICA SMILEY Attending Unavailable RAYNE JUNG Attending Unavailable JESICA SMILEY Attending Unavailable JESICA SMILEY Attending Unavailable Allergies Allergy Classification Reported Allergen(s) Allergy Type Date of Onset Reaction(s) Facility (1 source) Morphine Drug Allergy 05-18-2018 [facility] Repository Medications Current Medications Medication Drug Class(es) [...] 12-12-2020 Chronic Other aftercare (1 source) Other manager terminal (current) drug therapy; Translations: [OTH [facility] CURRENT DRUG THERAPY] Onset: 10-02-2021 Episodic Other [...] Range Facility CNOVon 01-02-2021 CNOV Office Visit (GENSMN ) -------- ISAAC TOUSSAINT ([id number]) 1990 F Date Time Provider Department 01/02/21 [...] Follow up PRN SIGNATURE: Jeffrey Yuan MD [facility] surgery Pager: [phone] Referring Provider: SELF [[id number]] Allergies As of [...] Status:Closed by BRO YUAN MD on 01/02/21 [facility] ISAAC TOUSSAINT ([id number]) 1990 F Date Time Provider Department 12/22/20 VAHE CR (STUDENT) PODCCP During your visit today, we recorded the following information about you: Vahe Cr Student 12/22/2020 10:01 AM Signed Record ID: [id number] Patient Name: [facility]: [facility] Wood: Digestive Disease Wood Attending: Bro Yuan Center: General Surgery INSTRUCTIONS SN to remind patient of appointment date, time, location All Clear All Clear SURVEY INFORMATION Medical/Nurse Coil Placer: Landy Duran 1. Your discharge instructions are [...] Reason for Visit: Follow Up Phone Call [[id number]] Prescriptions as of 12/22/2020 Sig: ONDANSETRON HCL [...] Encounter Status:Closed by VAHE WADE on 12/22/20 [facility] 12-21-2020 CNPN Telephone (Cro YachtingSMN) -------- ISAAC TOUSSAINT ([id number]) 1990 F Date Time Provider Department 12/21/20 BRO YUAN During your visit today, we recorded the following information about you: [place]acy Arshad [facility]21/[place] 12:18 PM Signed Patient is calling [...] Encounter Status:Closed by MACY SALEH on 01/22/21 [facility] OBSOLETEon 12-21-2020 OBSOLETE Refill (GENSMN) -------- ISAAC TOUSSAINT ([id number]) 1990 F Date Time Provider Department 12/21/20 ROXANA SCOTT During your visit today, we recorded the following information about you: Roxana Scott APRN.DOUGHNUT GLAZIER 12/21/2020 2:00 PM Signed Patient called with [...] our office if symptoms persist. Roxana Scott APRN.DOUGHNUT GLAZIER Allergies As of Date: 12/21/2020 (No Known [...] by TYLER DEJESUS.ROXANA HOUSE on 12/21/20 Normal [facility] AMMONIAon 12-15-2020 Ammonia (P) [Mass/Vol] ug/dL Critically low 10-30 [facility] Comment on above: Performed By: #### A MM #### [facility] [address], [place] [address] Marcin Alanna AMYLASEon 12-15-2020 Amylase [Catalytic activity/Vol] 217 U/L Critically high 31-110 [facility] Comment on above: Performed By: #### C MP, LIPAndrey, RAYNE #### [facility] [address], [place] [address] Marcin Alanna CBC AUTO DIFFon 12-15-2020 BASO # 0.0 103/ul Normal 0.0-0.1 [facility] Comment on above: Performed By: #### C JAVAD MOLINA AMY #### [facility] [address] [place] [address] Marcin Alanna Basophils/100 WBC (Bld) 0.3 % Normal 0.2-2.0 [facility] Comment on above: Performed By: #### C JAVAD MOLINA AMY #### [facility] [address] [place] [address] Marcin Alanna EO # 0.0 103/ul Normal 0.0-0.7 [facility] Comment on above: Performed By: #### C JAVAD MOLINA AMY #### [facility] [address] [place] [address] Marcin Alanna Eosinophils/100 WBC (Bld) 0.3 % Critically low 0.9-7.0 [facility] Comment on above: Performed By: #### C JAVAD MOLINA AMY #### [facility] [address] [place] [address] Marcin Alanna Erythrocyte distribution width (RBC) [Ratio] 13.3 % Normal 11.0-15.0 [facility] Comment on above: Performed By: #### C JAVAD MOLINA AMY #### [facility] [address] [place] [address] Marcin Alanna Hematocrit (Bld) [Volume fraction] 42.9 % Normal 36.0-48.0 [facility] Comment on above: Performed By: #### C JAVAD MOLINA AMY #### [facility] [address] [place] [address] Marcin Alanna Hemoglobin (Bld) [Mass/Vol] 13.8 g/dL Normal 12.0-16.0 [facility] Comment on above: Performed By: #### C JAVAD MOLINA AMY #### [facility] [address] [place] [address] Marcin Alanna IG # 0.02 10e3/ul Normal 0.00-0.03 [facility] Comment on above: Performed By: #### C JAVAD MOLINA AMY #### [facility] [address] [place] [address] Marcin Alanna IG % 0.3 % Normal 0.0-0.5 [facility] Comment on above: Performed By: #### C JAVAD MOLINA AMY #### [facility] [address] [place] [address] Marcin Alanna LYMPH # 1.7 103/ul Normal 1.2-3.8 [facility] Comment on above: Performed By: #### C JAVAD MOLINA AMY #### [facility] [address] [place] [address] Marcin Alanna Lymphocytes/100 WBC (Bld) 23.8 % Normal 20.5-60.0 [facility] Comment on above: Performed By: #### C JAVAD MOLINA AMY #### [facility] [address] [place] [address] Marcin Alanna MANUAL DIFF REQ NO Normal [facility] Comment on above: Performed By: #### C JAVAD MOLINA AMY #### [facility] [address] [place] [address] Marcin Alanna MCH (RBC) [Entitic mass] 29.8 pg Normal 26.7-34.0 [facility] Comment on above: Performed By: #### C JAVAD MOLINA AMY #### [facility] [address] [place] [address] Marcin Alanna MCHC (RBC) [Mass/Vol] 32.2 g/dL Normal 29.9-35.2 [facility] Comment on above: Performed By: #### C JAVAD MOLINA AMY #### [facility] [address] [place] [address] Marcin Alanna MCV (RBC) [Entitic vol] 92.7 fL Normal 81.0-99.0 [facility] Comment on above: Performed By: #### C JAVAD MOLINA AMY #### [facility] [address] [place] [address] Marcin Alanna MONO # 0.6 103/ul Normal 0.3-0.8 [facility] Comment on above: Performed By: #### C JAVAD MOLINA AMY #### [facility] [address], [place] [address] Marcin Alanna Monocytes/100 WBC (Bld) 8.5 % Normal 1.7-12.0 [facility] Comment on above: Performed By: #### C MP, LIPA, RAYNE #### [facility] [address] [place], [place] [id number] Marcin Alanna NEUT # 4.8 103/ul Normal 1.4-6.5 [facility] Comment on above: Performed By: #### C MP, LIPA, RAYNE #### [facility] [address] [place], [place] [address] Marcin Alanna Neutrophils/100 WBC (Bld) 66.8 % Normal 43.0-75.0 [facility] Comment on above: Performed By: #### C TRACY, LIPA, RAYNE #### [facility] [address] [place] [address] Marcin Alanna Platelet mean volume (Bld) [Entitic vol] 8.7 fL Critically low 9.5-13.5 [facility] Comment on above: Performed By: #### C MP, LIPA, RAYNE #### [facility] [address] [place], [place] [address] Marcin Alanna PLT 253 103/ul Normal 150-450 [facility] Comment on above: Performed By: #### C MP, LIPA, RAYNE #### [facility] [address] [place] [address] Marcin Alanna RBC 4.63 106/ul Normal 4.20-5.40 [facility] Comment on above: Performed By: #### C MP, LIPA, RAYNE #### [facility] [address] [place] [address] Marcin Alanna WBC 7.1 103/ul Normal 4.0-11.0 [facility] Comment on above: Performed By: #### C MP, LIPA, RAYNE #### [facility] [address] [place] [address] Marcin Alanna LIPASEon 12-15-2020 Lipase [Catalytic activity/Vol] 1205.0 U/L Critically high 23.0-300.0 [facility] Comment on above: Result Comment: test repeated critical value verified Performed By: #### C JAVAD MOLINA AMY #### [facility] [address] [place], [place] [address] Marcin Alanna PREG HCG QUALon 12-15-2020 , QUAL Negative Normal NEGATIVE [facility] Comment on above: Performed By: #### P REG #### [facility] [address] [place] [address] Marcin Alanna PROF 14(COMP METB)on 021 Albumin [Mass/Vol] 3.3 g/dL Critically low 3.5-5.0 [facility] Comment on above: Performed By: #### C JAVAD MOLINA AMY #### [facility] [address] [place] [address] Marcin Alanna Albumin/Globulin [Mass ratio] 0.8 {ratio} Normal [facility] Comment on above: Performed By: #### C JAVAD MOLINA AMY #### [facility] [address] [place] [address] Marcin Alanna ALP [Catalytic activity/Vol] 167 U/L Critically high 38-126 [facility] Comment on above: Performed By: #### C JAVAD MOLINA AMY #### [facility] [address] [place] [address] Marcin Alanna ALT [Catalytic activity/Vol] 370 U/L Critically high 9-52 [facility] Comment on above: Performed By: #### C JAVAD MOLINA AMY #### [facility] [address] [place] [address] Marcin Alanna Anion gap [Moles/Vol] 12.5 mmol/L Normal [facility] Comment on above: Performed By: #### C JAVAD MOLINA AMY #### [facility] [address] [place] [address] Marcin Alanna AST [Catalytic activity/Vol] 165 U/L Critically high 14-36 [facility] Comment on above: Performed By: #### C JAVAD MOLINA RAYNE #### [facility] [address] [place] [address] Marcin Alanna Bilirubin [Mass/Vol] 5.3 mg/dL Critically high 0.2-1.3 [facility] Comment on above: Performed By: #### C JAVAD MOLINA, RAYNE #### [facility] [address] [place] [address] Marcin Alanna Calcium [Mass/Vol] 9.2 mg/dL Normal 8.4-10.2 [facility] Comment on above: Performed By: #### C EZRA MOLINAA, RAYNE #### [facility] [address] [place] [address] Marcin Alanna Chloride [Moles/Vol] 102 mmol/L Normal 98-107 [facility] Comment on above: Performed By: #### C EZRA MOLINAA, RAYNE #### [facility] [address] [place] [address] Marcin Alanna CO2 [Moles/Vol] 29.6 mmol/L Normal 22.0-30.0 [facility] Comment on above: Performed By: #### C EZRA MOLINAA, RAYNE #### [facility] [address] [place] [address] Marcin Alanna Creatinine [Mass/Vol] 0.88 mg/dL Normal 0.52-1.04 [facility] Comment on above: Performed By: #### C EZRA MOLINAA, RAYNE #### [facility] [address] [place] [address] Marcin Alanna EGFR-AF KENYAN >60 Normal >=60 [facility] Comment on above: Performed By: #### C TRACY LIPA, RAYNE #### [facility] [address] [place] [address] Marcin Alanna EGFR-NON AF KENYAN >60 Normal >=60 [facility] Comment on above: Performed By: #### C TRACY LIPA, RAYNE #### [facility] [address] [place] [address] Marcin Alanna Globulin (S) [Mass/Vol] 4.1 g/dL Normal [facility] Comment on above: Performed By: #### C MP, LIPA, RAYNE #### [facility] [address] [place] [id number] Marcin Alanna Glucose [Mass/Vol] 88 mg/dL Normal 74-106 [facility] Comment on above: Performed By: #### C JAVAD MOLINA, RAYNE #### [facility] [address] [place] [address] Marcin Alanna Potassium [Moles/Vol] 3.1 mmol/L Critically low 3.4-5.0 [facility] Comment on above: Performed By: #### C JAVAD MOLINA, RAYNE #### [facility] [address] [place] [address] Marcin Alanna Protein [Mass/Vol] 7.4 g/dL Normal 6.1-8.2 [facility] Comment on above: Performed By: #### C JAVAD MOLINA, RAYNE #### [facility] [address] [place] [address] Marcin Alanna Sodium [Moles/Vol] 141 mmol/L Normal 137-145 [facility] Comment on above: Performed By: #### C JAVAD MOLINA, RAYNE #### [facility] [address] [place] [address] Marcin Alanna Urea nitrogen [Mass/Vol] 8.0 mg/dL Normal 7.0-17.0 [facility] Comment on above: Performed By: #### C JAVAD MOLINA, RAYNE #### [facility] [address] [place] [address] Marcin Alanna Urea nitrogen/Creatini ne [Mass ratio] 9.1 mg/mg Normal [facility] Comment on above: Performed By: #### C JAVAD MOLINA, RAYNE #### [facility] [address] [place] [id number] Marcin Alanna PROTIMEon 12-15-2020 INR Coag (PPP) [Relative time] 1.04 {INR} Normal [facility] Comment on above: Performed By: #### C TRACY LIPA, RAYNE #### [facility] [address] [place] [address] Marcin Alanna INR GUIDELINES SEE BELOW Normal [facility] Comment on above: Result Comment: NAI RED INR: 2.0 - 3.0 CONDITIONS NOT LISTED BELOW 2.5 - 3.5 FOR PROSTHETIC HEART VALVE REPLACEMENT 2.5 - 3.5 RECURRENT THROMBOSIS Performed By: #### C MP, LIPA, RAYNE #### [facility] [address] [place] [address] Marcin Alanna PT Coag (PPP) [Time] 11.3 s Normal 9.0-11.6 [facility] Comment on above: Performed By: #### C MP, LIPA, RAYNE #### [facility] [address] [place] [address] Marcin Alanna PTTon 12-15-2020 aPTT Coag (Bld) [Time] 27.8 s Normal 22.3-36.2 [facility] Comment on above: Performed By: #### C MP, LIPA, RAYNE #### [facility] [address] [place] [address] Marcin Alanna AMYLASEon 12-09-2020 Amylase [Catalytic activity/Vol] 45 U/L Normal 31-110 [facility] Comment on above: Performed By: #### B MP, RAYNE, LIVER, LIPA #### [facility] [address] [place], [place] [address] Marcin Alanna CBC AUTO DIFFon 12-09-2020 BASO # 0.0 103/ul Normal 0.0-0.1 [facility] Comment on above: Performed By: #### C BC #### [facility] [address] [place], [place] [address] Marcin Alanna Basophils/100 WBC (Bld) 0.2 % Normal 0.2-2.0 [facility] Comment on above: Performed By: #### C BC #### [facility] [address] [place], [place] [address] Marcin Alanna EO # 0.0 103/ul Normal 0.0-0.7 [facility] Comment on above: Performed By: #### C BC #### [facility] [address] [place], [place] [address] Marcin Alanna Eosinophils/100 WBC (Bld) 0.3 % Critically low 0.9-7.0 [facility] Comment on above: Performed By: #### C BC #### [facility] [address] [place] [address] Marcin Mondragon Erythrocyte distribution width (RBC) [Ratio] 12.6 % Normal 11.0-15.0 [facility] Comment on above: Performed By: #### C BC #### [facility] [address] [place] [address] Marcinraffy Mondragon Hematocrit (Bld) [Volume fraction] 45.7 % Normal 36.0-48.0 [facility] Comment on above: Performed By: #### C BC #### [facility] [address] [place] [address] Marcinraffy Mondragon Hemoglobin (Bld) [Mass/Vol] 14.6 g/dL Normal 12.0-16.0 [facility] Comment on above: Performed By: #### C BC #### [facility] [address] [place] [address] Marcinraffy Mondragon IG # 0.04 10e3/ul Critically high 0.00-0.03 [facility] Comment on above: Performed By: #### C BC #### [facility] [address] [place] [address] Marcinraffy Mondragon IG % 0.4 % Normal 0.0-0.5 [facility] Comment on above: Performed By: #### C BC #### [facility] [address] [place] [address] Marcin Alanna LYMPH # 1.4 103/ul Normal 1.2-3.8 [facility] Comment on above: Performed By: #### C BC #### [facility] [address] [place] [address] Marcin Mondragon Lymphocytes/100 WBC (Bld) 12.8 % Critically low 20.5-60.0 [facility] Comment on above: Performed By: #### C BC #### [facility] [address] [place] [address] Marcin Mondragon MANUAL DIFF REQ NO Normal [facility] Comment on above: Performed By: #### C BC #### [facility] [address], [place] [address] Marcinraffy Mondragon MCH (RBC) [Entitic mass] 29.4 pg Normal 26.7-34.0 [facility] Comment on above: Performed By: #### C BC #### [facility] [address], [place] [address] Marcinraffy Mondragon MCHC (RBC) [Mass/Vol] 31.9 g/dL Normal 29.9-35.2 [facility] Comment on above: Performed By: #### C BC #### [facility] [address] [place] [id number] Marcinraffy Mondragon MCV (RBC) [Entitic vol] 92.1 fL Normal 81.0-99.0 [facility] Comment on above: Performed By: #### C BC #### [facility] [address] [id number] Marcinraffy Pritcharden MONO # 0.6 103/ul Normal 0.3-0.8 [facility] Comment on above: Performed By: #### C BC #### [facility] [address] [id number] Marcin Alanna Monocytes/100 WBC (Bld) 5.6 % Normal 1.7-12.0 [facility] Comment on above: Performed By: #### C BC #### [facility] [address] [id number] Marcinraffy Pritcharden NEUT # 9.0 103/ul Critically high 1.4-6.5 [facility] Comment on above: Performed By: #### C BC #### [facility] [address], [place] [address] Marcin Alanna Neutrophils/100 WBC (Bld) 80.7 % Critically high 43.0-75.0 [facility] Comment on above: Performed By: #### C BC #### [facility] [address], [place] [address] Marcin Alanna Platelet mean volume (Bld) [Entitic vol] 8.6 fL Critically low 9.5-13.5 [facility] Comment on above: Performed By: #### C BC #### [facility] [address], [place] [address] Marcin Alanna PLT 255 103/ul Normal 150-450 [facility] Comment on above: Performed By: #### C BC #### [facility] [address], [place] [address] Marcin Alanna RBC 4.96 106/ul Normal 4.20-5.40 [facility] Comment on above: Performed By: #### C BC #### [facility] [address], [place] [address] Marcin Alanna WBC 11.1 103/ul Critically high 4.0-11.0 [facility] Comment on above: Performed By: #### C BC #### [facility] [address] [place], [place] [address] Marcin Alanna LIPASEon 12-09-2020 Lipase [Catalytic activity/Vol] 129.0 U/L Normal 23.0-300.0 [facility] Comment on above: Performed By: #### B MP, RAYNE, LIVER, LIPA #### [facility] [address] [place] [address] Marcin Alanna LIVER PROFILEon 12-09-2020 Albumin [Mass/Vol] 3.5 g/dL Normal 3.5-5.0 [facility] Comment on above: Performed By: #### B MP, RAYNE, LIVER, LIPA #### [facility] [address] [place], [place] [address] Marcin Alanna Albumin/Globulin [Mass ratio] 0.9 {ratio} Normal [facility] Comment on above: Performed By: #### B MP, RAYNE, LIVER, LIPA #### [facility] [address], [place] [address] Marcin Alanna ALP [Catalytic activity/Vol] 80 U/L Normal 38-126 [facility] Comment on above: Performed By: #### B MP, RAYNE, LIVER, LIPA #### [facility] [address] [id number] Marcin Alanna ALT [Catalytic activity/Vol] 31 U/L Normal 9-52 [facility] Comment on above: Performed By: #### B MP, RAYNE, LIVER, LIPA #### [facility] [address] [place] [address] Marcin Alanna AST [Catalytic activity/Vol] 39 U/L Critically high 14-36 [facility] Comment on above: Performed By: #### B MP, RAYNE, LIVER, LIPA #### [facility] [address] [place] [address] Marcin Alanna BILI, CONJUGATED 0.2 mg/dL Normal 0.0-0.3 [facility] Comment on above: Performed By: #### B MP, RAYNE, LIVER, LIPA #### [facility] [address] [place] [address] Marcin Alanna Bilirubin [Mass/Vol] 0.5 mg/dL Normal 0.2-1.3 [facility] Comment on above: Performed By: #### B MP, RAYNE, LIVER, LIPA #### [facility] [address] [place] [address] Marcin Alanna Globulin (S) [Mass/Vol] 3.8 g/dL Normal [facility] Comment on above: Performed By: #### B MP, RAYNE, LIVER, LIPA #### [facility] [address] [place] [address] Marcin Alanna Protein [Mass/Vol] 7.3 g/dL Normal 6.1-8.2 [facility] Comment on above: Performed By: #### B MP, RAYNE, LIVER, LIPA #### [facility] [address] [place] [address] Marcin Alanna PROF CHEM 8 (BAS METB)on Anion gap [Moles/Vol] 10.6 mmol/L Normal [facility] Comment on above: Performed By: #### C MP, LIPA, RAYNE #### [facility] [address] [place] [address] Marcin Alanna Calcium [Mass/Vol] 8.9 mg/dL Normal 8.4-10.2 [facility] Comment on above: Performed By: #### C MP, LIPA, RAYNE #### [facility] [address] [address] Marcin Alanna Chloride [Moles/Vol] 105 mmol/L Normal 98-107 [facility] Comment on above: Performed By: #### C JAVAD MOLINA, RAYNE #### [facility] [address] [place] [address] Marcin Alanna CO2 [Moles/Vol] 27.4 mmol/L Normal 22.0-30.0 [facility] Comment on above: Performed By: #### C JAVAD MOLINA, RAYNE #### [facility] [address] [place] [address] Marcin Alanna Creatinine [Mass/Vol] 0.91 mg/dL Normal 0.52-1.04 [facility] Comment on above: Performed By: #### C JAVAD MOLINA, RAYNE #### [facility] [address] [place] [address] Marcin Alanna EGFR-AF KENYAN >60 Normal >=60 [facility] Comment on above: Performed By: #### C JAVAD MOLINA, RAYNE #### [facility] [address] [place] [address] Marcin Alanna EGFR-NON AF KENYAN >60 Normal >=60 [facility] Comment on above: Performed By: #### C JAVAD MOLINA, RAYNE #### [facility] [address] [place] [address] Marcin Alanna Glucose [Mass/Vol] 109 mg/dL Critically high 74-106 [facility] Comment on above: Performed By: #### C JAVAD MOLINA, RAYNE #### [facility] [address] [place] [address] Marcin Alanna Potassium [Moles/Vol] 4.0 mmol/L Normal 3.4-5.0 [facility] Comment on above: Performed By: #### C JAVAD MOLINA, RAYNE #### [facility] [address] [place] [address] Marcin Alanna Sodium [Moles/Vol] 139 mmol/L Normal 137-145 [facility] Comment on above: Performed By: #### C JAVAD MOLINA AMY #### [facility] [address], [place] [address] Marcin Mondragon Urea nitrogen [Mass/Vol] 13.0 mg/dL Normal 7.0-17.0 [facility] Comment on above: Performed By: #### C JAVAD MOLINA AMY #### [facility] [address], [place] [address] Marcin Pritcharden Urea nitrogen/Creatini ne [Mass ratio] 14.3 mg/mg Normal [facility] Comment on above: Performed By: #### C JAVAD MOLINA AMY #### [facility] [address], [place] [address] Marcin Pritcharden XR CHEST 1 Von 12-09-2020 XR CHEST [...] by: BRITTANY HENDRICKS Date: 2020-12-09 17:05 Normal [facility] Vital Signs Date Time Vital Sign Value Performing Clinician Faci lity 12-29-2023 10:32-0500 Body weight 121.17 kg Jesica Baljit DO Work Phone: [facility] 12-29-2023 10:32-0500 Diastolic blood pressure 70 mm[Hg] Jesica Baljit DO Work Phone: [facility] 12-29-2023 10:32-0500 Systolic blood pressure 110 mm[Hg] Jesica Baljit DO Work Phone: [facility] Healthcare Encounters Encounter Date Encounter Type Care Provider Facility Start: 03-22-2024 End: 03-22-2024 ambulatory JESICA BALJIT Not Available Start: 02-19-2024 End: 02-19-2024 ambulatory JESICA BALJIT Not Available Start: 01-26-2024 End: 01-26-2024 ambulatory RAYNE JUNG Not Available Start: 12-29-2023 End: 12-29-2023 ambulatory JESICA BALJIT Not Available Start: 12-29-2023 End: 12-29-2023 Office outpatient visit 15 minutes Jesica Lunao DO Work Phone: [facility] OB Comment [...] [employer] [place] [id number] 2020-Present [address] [place] [address] [id number] 1990 Unknown [id number] 2.840.1.274763.3.579.2.593 1990 Unknown [id number] 2.840.1.063182.3.579.2.593 1990 Unknown [id number] 2.16840.1.538549.3.579.2.593 1990 Unknown [id number] 2.16840.1.848486.3.579.2.1259 1990 Unknown [id number] 2.16840.1.313030.3.579.2.1259 1990 Unknown [id number] 2.16840.1.191320.3.579.2.1259 1990 Unknown [id number] 2.16840.1.241185.3.579.2.1259 1990 Unknown [id number] 2.16.840.1.755930.3.579.2.1259 1990 Unknown [id number] 2.16.840.1.726613.3.579.2.1259 1990 Unknown [id number] 2.16.840.1.843072.3.579.2.1259 1959 Unknown [id number] Social History Date Type Detail Facility Start: [...] nursing note reviewed. Exam conducted with a plastic surgery assistant present. Vitals: There is no height or [...] Smiley DO documented in this encounter [facility] Progress note 01-02-2021 Note Date & Type Note Facility 01-02-2021 Note HNO ID: [id number] Author: Bro Yuan Service: ? Author Type: [...] Follow up PRN SIGNATURE: Jeffrey Yuan MD [facility] surgery Pager: [phone] [facility] Progress note 01-02-2021 Note Date & Type Note Facility 01-02-2021 Note HNO ID: [id number] Author: Annamaria Collins Service: ? Author Type: [...] improved with no further interventions. - Follow-up CHUCKYN Annamaria Collins MD General Surgery Resident [facility] Evaluation note Note Date & Type Note [...] and content) DATE CREATED AUTHOR 10/02/2021 [facility] pital DATE CREATED AUTHOR AUTHOR'S ORGANIZ ATION 12/20/2021 [facility] DATE CREATED AUTHOR AUTHOR'S ORGANIZ ATION 03/23/2024 [facility] EPIC Reason for Visit (unrecogniz ed section and content) Reason Comments Routine Visit Care Teams (unrecognized sec tion and content) Education Site Manager Relationship Specialty Start Date End Date Tor Torres MD [address] [place] [address] PCP - General Internal Medicine 09/25/23 FOR [...] BE BASED ON THE PRIMARY CLINICAL RECORDS. [employer] provides no warranty or guarantee of the accuracy or completeness of information in this document.
--- NOTE | 2024-04-13 16:04 | US_ITS ---
[address] [address] Patient Name: ISAAC JOHNSTON MRN: [id number] date: 1990 Sex: F Assigned Patient Location: US Current Patient Location: Accession/Order Number: [id number] Exam Date: 04/13/2024 16:09 Report Date: 04/14/2024 07:28 At the request of: JESICA CROOKS Procedure: US OB BPP w non-stress EXAMINATION: US OB BPP w non-stress HISTORY: SGA P05.10 COMPARISON: No relevant comparison available. TECHNIQUE: Ultrasound biophysical profile was performed in the radiology department. non-reactive stress testing was performed by nursing staff in the birthing center. FINDINGS: BREATHING MOVEMENTS: 0.0 GROSS BODY MOVEMENTS: 2.0 TONE: 2.0 QUALITATIVE AMNIOTIC FLUID VOLUME: 2.0 PRESENTATION: CEPHALIC HEART RATE: 147.5 bpm H.B./min AMNIOTIC FLUID VOLUME: 14.3 cm cm GESTATIONAL AGE: 35 weeks 5 days CONCLUSION: Total biophysical profile score: 6.0 Electronically authenticated by: HAMLET GUTIERREZ Date: 04/14/2024 07:28
[2024-04-13 16:54] VITALS: BP 132/98
[2024-04-13 17:05] VITALS: BP 99/43; PULSE 81
[2024-04-13 17:16] VITALS: BP 100/47; PULSE 88
== END 2024-04-13 17:25 | disposition home or self-care (01) ==
LOC: US 07:41 → FBC 16:01
PROVIDERS: PCP Internal Medicine; Visit Provider Obstetrics & Gynecology
DX: O26.843 Uterine size-date discrepancy, third trimester (principal); Z36.86 Encounter for antenatal screening for cervical length; Z3A.35 35 weeks gestation of pregnancy
CPT/HCPCS: 76818

== ENCOUNTER 2024-04-16 07:17 | Outpatient (OUT) | payer OTHER, SELFPAY ==
--- OUTSIDE RECORDS SUMMARY | 2024-04-16 07:20 | XMS_ITS | CCD ---
Author Organization [facility] Care Team Providers Care Vp Product Name Role Phone DR TOR TORRES Primary Care Unavail able SILVIA MAGAÑA Attending Unavailable SILVIA MAGAÑA Consulting Unavailable SILVIA MAGAÑA Admitting Unavailable Brittany Hendricks Consulting Unavailable MELISSA, DR TOR Alexander Primary Care Unavail able SILVIA MAGAÑA Admitting Unavailable HUSSAIN DICK Consulting Unavailable SILVIA MAGAÑA Attending Unavailable MAX, DR GEREMIAS Sanchez Attending Unavailable MAX, DR GEREMIAS Sanchez Consulting Unavailable MELISSA, DR TOR Alexander Primary Care Unavail able DR GEREMIAS SANTANA Admitting Unavailable Tor Torres MD Primary Care Provider RAYNE JUNG Attending Unavailable JESICA SMILEY Attending Unavailable RAYNE JUNG Attending Unavailable JESICA SMILEY Attending Unavailable JESICA SMILEY Attending Unavailable RAYNE JUNG Attending Unavailable JESICA SMILEY Attending Unavailable Allergies Allergy Classification Reported Allergen(s) Allergy Type Date of Onset Reaction(s) Facility (1 source) Morphine Drug Allergy 05-18-2018 [facility] Repository Medications Current Medications Medication Drug Class(es) [...] 12-12-2020 Chronic Other aftercare (1 source) Other custodial (current) drug therapy; 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 Visit Notes: >> Bhavain Manrique Jan 02, 2021 10:59 AM Status: [...] Status:Closed by BRO YUAN MD on 01/02/21 [facility] ISAAC TOUSSAINT ([id number]) 1990 F Date Time Provider Department 12/22/20 [facility] CR (STUDENT) PODCCP During your visit today, we recorded the following information about you: Vahe Cr Student 12/22/2020 10:01 AM Signed Record ID: [id number] Patient Name: [facility]: [facility] [place] [facility]: [facility] Attending: Bro Yuan [place]: General Surgery INSTRUCTIONS SN to remind patient of appointment date, time, location All Clear All Clear SURVEY INFORMATION Medical/Nurse Corporate Communications Manager: Landy Duran 1. Your discharge instructions [...] Reason for Visit: Follow Up Phone Call [1698] Prescriptions as of 12/22/2020 Sig: ONDANSETRON HCL [...] Encounter Status:[facility] [facility]) -------- ISAAC TOUSSAINT ([id number]) 1990 F Date Time Provider Department 12/21/20 BRO YUAN During your visit today, we recorded the following information about you: [facility] 12/21/2020 12:18 PM Signed Patient is calling [...] Encounter Status:Closed by MACY SALEH on 01/22/21 [facility] OBSOLETEon 12-21-2020 OBSOLETE Refill (GENSMN) -------- ISAAC TOUSSAINT ([id number]) 1990 F Date Time Provider Department 12/21/20 ROXANA SCOTT During your visit today, we recorded the following information about you: Roxana Scott APRN.PARIMUTUEL TICKET SELLER 12/21/2020 2:00 PM Signed Patient called with [...] our office if symptoms persist. Roxana Scott APRN.PARIMUTUEL TICKET SELLER Allergies As of Date: 12/21/2020 (No Known Allergies) Date Reviewed: 12/18/2020 Reviewed by: Lencho Chapman) ARGENIS Winter - Fully Assessed Order(s):ondansetron (ZOFRAN) [...] (P) [Mass/Vol] ug/dL Critically low 10-30 [facility] Comment on above: Performed By: #### A MM #### [facility] [address] [address] Marcin Alanna AMYLASEon 12-15-2020 Amylase [Catalytic activity/Vol] 217 U/L Critically high 31-110 [facility] Comment on above: Performed By: #### C MP, LIPA, RAYNE #### [facility] [address] [address] Marcin Alanna CBC AUTO DIFFon 12-15-2020 BASO # 0.0 103/ul Normal 0.0-0.1 [facility] Comment on above: Performed By: #### C JAVAD MOLINA AMY #### [facility] [address] [place] [address] Marcin Alanna Basophils/100 WBC (Bld) 0.3 % Normal 0.2-2.0 [facility] Comment on above: Performed By: #### C JAVAD MOLINA AMY #### [facility] [address] [place] [address] Marcin Alanna EO # 0.0 103/ul Normal 0.0-0.7 [facility] Comment on above: Performed By: #### C JAVAD MOLINA AMY #### [facility] [address] [place] [address] Marcin Alanna Eosinophils/100 WBC (Bld) 0.3 % Critically low 0.9-7.0 [facility] Comment on above: Performed By: #### C JAVAD MOLINA AMY #### [facility] [address] [place] [address] Marcinraffy Mondragon Erythrocyte distribution width (RBC) [Ratio] 13.3 % Normal 11.0-15.0 [facility] Comment on above: Performed By: #### C JAVAD MOLINA AMY #### [facility] [address] [place] [address] Marcinraffy Pritcharden Hematocrit (Bld) [Volume fraction] 42.9 % Normal 36.0-48.0 [facility] Comment on above: Performed By: #### C JAVAD MOLINA AMY #### [facility] [address] [place] [address] Marcin Alanna Hemoglobin (Bld) [Mass/Vol] 13.8 g/dL Normal 12.0-16.0 [facility] Comment on above: Performed By: #### C JAVAD MOLINA AMY #### [facility] [address] [place] [address] Marcin Alanna IG # 0.02 10e3/ul Normal 0.00-0.03 [facility] Comment on above: Performed By: #### C JAVAD MOLINA AMY #### [facility] [address] [address] Marcin Alanna IG % 0.3 % Normal 0.0-0.5 [facility] Comment on above: Performed By: #### C JAVAD MOLINA AMY #### [facility] [address] [place] [address] Marcin Alanna LYMPH # 1.7 103/ul Normal 1.2-3.8 [facility] Comment on above: Performed By: #### C JAVAD MOLINA, RAYNE #### [facility] [address] [place] [address] Marcin Alanna Lymphocytes/100 WBC (Bld) 23.8 % Normal 20.5-60.0 [facility] Comment on above: Performed By: #### C JAVAD MOLINA AMY #### [facility] [address] [place] [address] Marcin Alanna MANUAL DIFF REQ NO Normal [facility] Comment on above: Performed By: #### C JAVAD MOLINA, RAYNE #### [facility] [address] [place] [address] Marcin Alanna MCH (RBC) [Entitic mass] 29.8 pg Normal 26.7-34.0 [facility] Comment on above: Performed By: #### C JAVAD MOLINA AMY #### [facility] [address] [place] [address] Marcin Alanna MCHC (RBC) [Mass/Vol] 32.2 g/dL Normal 29.9-35.2 [facility] Comment on above: Performed By: #### C JAVAD MOLINA RAYNE #### [facility] [address] [place] [address] Marcin Alanna MCV (RBC) [Entitic vol] 92.7 fL Normal 81.0-99.0 [facility] Comment on above: Performed By: #### C JAVAD MOLINA, RAYNE #### [facility] [address] [place] [address] Marcin Alanna MONO # 0.6 103/ul Normal 0.3-0.8 [facility] Comment on above: Performed By: #### C JAVAD MOLINA, RAYNE #### [facility] [address] [place], [place] [address] Marcin Alanna Monocytes/100 WBC (Bld) 8.5 % Normal 1.7-12.0 [facility] Comment on above: Performed By: #### C MP, LIPA, RAYNE #### [facility] [address] [place] [address] Marcin Alanna NEUT # 4.8 103/ul Normal 1.4-6.5 [facility] Comment on above: Performed By: #### C MP, LIPA, RAYNE #### [facility] [address] [place] [address] Marcin Alanna Neutrophils/100 WBC (Bld) 66.8 % Normal 43.0-75.0 [facility] Comment on above: Performed By: #### C MP, LIPA, RAYNE #### [facility] [address] [place] [address] Marcin Alanna Platelet mean volume (Bld) [Entitic vol] 8.7 fL Critically low 9.5-13.5 [facility] Comment on above: Performed By: #### C MP LIPA, RAYNE #### [facility] [address] [place] [address] Marcin Alanna PLT 253 103/ul Normal 150-450 [facility] Comment on above: Performed By: #### C MP, LIPA, RAYNE #### [facility] [address] [place] [address] Marcin Alanna RBC 4.63 106/ul Normal 4.20-5.40 [facility] Comment on above: Performed By: #### C MP, LIPA, RAYNE #### [facility] [address] [place] [address] Marcin Alanna WBC 7.1 103/ul Normal 4.0-11.0 [facility] Comment on above: Performed By: #### C MP, LIPA, RAYNE #### [facility] [address] [place] [address] Marcinraffy Pritcharden LIPASEon 12-15-2020 Lipase [Catalytic activity/Vol] 1205.0 U/L Critically high 23.0-300.0 [facility] Comment on above: Result Comment: test repeated critical value verified Performed By: #### C JAVAD MOLINA AMY #### [facility] [address] [place], [place] [address] Marcin Alanna PREG HCG QUALon 12-15-2020 , QUAL Negative Normal NEGATIVE [facility] Comment on above: Performed By: #### P REG #### [facility] [address] [address] Marcin Alanna PROF 14(COMP METB)on 021 Albumin [Mass/Vol] 3.3 g/dL Critically low 3.5-5.0 [facility] Comment on above: Performed By: #### C JAVAD MOLINA AMY #### [facility] [address] [place] [address] Marcin Alanna Albumin/Globulin [Mass ratio] 0.8 {ratio} Normal [facility] Comment on above: Performed By: #### C JAVAD MOLINA AMY #### [facility] [address] [place] [address] Marcin Alanna ALP [Catalytic activity/Vol] 167 U/L Critically high 38-126 [facility] Comment on above: Performed By: #### C JAVAD MOLINA AMY #### [facility] [address] [place] [address] Marcin Alanna ALT [Catalytic activity/Vol] 370 U/L Critically high 9-52 [facility] Comment on above: Performed By: #### C JAVAD MOLINA RAYNE #### [facility] [address] [place] [address] Marcin Alanna Anion gap [Moles/Vol] 12.5 mmol/L Normal [facility] Comment on above: Performed By: #### C JAVAD MOLINA, RAYNE #### [facility] [address] [place] [address] Marcin Alanna AST [Catalytic activity/Vol] 165 U/L Critically high 14-36 [facility] Comment on above: Performed By: #### C JAVAD MOLINA, RAYNE #### [facility] [address] [address] Marcin Alanna Bilirubin [Mass/Vol] 5.3 mg/dL Critically high 0.2-1.3 [facility] Comment on above: Performed By: #### C JAVAD MOLINA, RAYNE #### [facility] [address] [place] [address] Marcin Alanna Calcium [Mass/Vol] 9.2 mg/dL Normal 8.4-10.2 [facility] Comment on above: Performed By: #### C EZRA MOLINAA, RAYNE #### [facility] [address] [place] [address] Marcin Alanna Chloride [Moles/Vol] 102 mmol/L Normal 98-107 [facility] Comment on above: Performed By: #### C EZRA MOLINAA, RAYNE #### [facility] [address] [place] [address] Marcin Alanna CO2 [Moles/Vol] 29.6 mmol/L Normal 22.0-30.0 [facility] Comment on above: Performed By: #### C EZRA MOLINAA, RAYNE #### [facility] [address] [place] [address] Marcin Alanna Creatinine [Mass/Vol] 0.88 mg/dL Normal 0.52-1.04 [facility] Comment on above: Performed By: #### C EZRA MOLINAA, RAYNE #### [facility] [address] [place] [address] Marcin Alanna EGFR-AF [place] >60 Normal >=60 [facility] Comment on above: Performed By: #### C TRACY LIPA, RAYNE #### [facility] [address] [place] [address] Marcin Alanna EGFR-NON AF [place] >60 Normal >=60 [facility] Comment on above: Performed By: #### C TRACY LIPA, RAYNE #### [facility] [address] [place] [address] Marcin Alanna Globulin (S) [Mass/Vol] 4.1 g/dL Normal [facility] Comment on above: Performed By: #### C MP, LIPA, RAYNE #### [facility] [address] [address] Marcin Alanna Glucose [Mass/Vol] 88 mg/dL Normal 74-106 [facility] Comment on above: Performed By: #### C TRACY LIPA, RAYNE #### [facility] [address] [address] Marcin Alanna Potassium [Moles/Vol] 3.1 mmol/L Critically low 3.4-5.0 [facility] Comment on above: Performed By: #### C TRACY LIPA, RAYNE #### [facility] [address] [address] Marcin Alanna Protein [Mass/Vol] 7.4 g/dL Normal 6.1-8.2 [facility] Comment on above: Performed By: #### C TRACY LIPA, RAYNE #### [facility] [address] [place] [address] Marcin Alanna Sodium [Moles/Vol] 141 mmol/L Normal 137-145 [facility] Comment on above: Performed By: #### C EZRA MOLINAA, RAYNE #### [facility] [address] [address] Marcin Alanna Urea nitrogen [Mass/Vol] 8.0 mg/dL Normal 7.0-17.0 [facility] Comment on above: Performed By: #### C TRACY LIPA, RAYNE #### [facility] [address] [address] Marcin Alanna Urea nitrogen/Creatini ne [Mass ratio] 9.1 mg/mg Normal [facility] Comment on above: Performed By: #### C TRACY LIPA, RAYNE #### [facility] [address] [address] Marcin Alanna PROTIMEon 12-15-2020 INR Coag (PPP) [Relative time] 1.04 {INR} Normal [facility] Comment on above: Performed By: #### C TRACY LIPA, RAYNE #### [facility] [address] [place] [address] Marcin Alanna INR GUIDELINES SEE BELOW Normal [facility] Comment on above: Result Comment: NAI RED INR: 2.0 - 3.0 CONDITIONS NOT LISTED BELOW 2.5 - 3.5 FOR PROSTHETIC HEART VALVE REPLACEMENT 2.5 - 3.5 RECURRENT THROMBOSIS Performed By: #### C MP, LIPA, RAYNE #### [facility] [address] [place] [address] Marcin Alanna PT Coag (PPP) [Time] 11.3 s Normal 9.0-11.6 [facility] Comment on above: Performed By: #### C MP, LIPA, RAYNE #### [facility] [address] [place] [address] Marcin Alanna PTTon 12-15-2020 aPTT Coag (Bld) [Time] 27.8 s Normal 22.3-36.2 [facility] Comment on above: Performed By: #### C MP, LIPA, RAYNE #### [facility] [address] [place] [address] Marcin Alanna AMYLASEon 12-09-2020 Amylase [Catalytic activity/Vol] 45 U/L Normal 31-110 [facility] Comment on above: Performed By: #### B MP, RAYNE, LIVER, LIPA #### [facility] [address] [place], [place] [address] Marcin Alanna CBC AUTO DIFFon 12-09-2020 BASO # 0.0 103/ul Normal 0.0-0.1 [facility] Comment on above: Performed By: #### C BC #### [facility] [address] [place] [address] Marcin Alanna Basophils/100 WBC (Bld) 0.2 % Normal 0.2-2.0 [facility] Comment on above: Performed By: #### C BC #### [facility] [address] [place] [address] Marcin Alanna EO # 0.0 103/ul Normal 0.0-0.7 [facility] Comment on above: Performed By: #### C BC #### [facility] [address] [place] [address] Marcin Alanna Eosinophils/100 WBC (Bld) 0.3 % Critically low 0.9-7.0 [facility] Comment on above: Performed By: #### C BC #### [facility] [address] [place] [address] Marcin Mondragon Erythrocyte distribution width (RBC) [Ratio] 12.6 % Normal 11.0-15.0 [facility] Comment on above: Performed By: #### C BC #### [facility] [address] [place] [address] Marcin Mondragon Hematocrit (Bld) [Volume fraction] 45.7 % Normal 36.0-48.0 [facility] Comment on above: Performed By: #### C BC #### [facility] [address] [place] [address] Marcin Mondragon Hemoglobin (Bld) [Mass/Vol] 14.6 g/dL Normal 12.0-16.0 [facility] Comment on above: Performed By: #### C BC #### [facility] [address] [place] [address] Marcinraffy Mondragon IG # 0.04 10e3/ul Critically high 0.00-0.03 [facility] Comment on above: Performed By: #### C BC #### [facility] [address] [place] [address] Marcin Mondragon IG % 0.4 % Normal 0.0-0.5 [facility] Comment on above: Performed By: #### C BC #### [facility] [address] [place] [address] Marcin Mondragon LYMPH # 1.4 103/ul Normal 1.2-3.8 [facility] Comment on above: Performed By: #### C BC #### [facility] [address] [place] [address] Marcin Mondragon Lymphocytes/100 WBC (Bld) 12.8 % Critically low 20.5-60.0 [facility] Comment on above: Performed By: #### C BC #### [facility] [address] [place] [address] Marcin Mondragon MANUAL DIFF REQ NO Normal [facility] Comment on above: Performed By: #### C BC #### [facility] [address] [place], [place] [address] Marcin Mondragon MCH (RBC) [Entitic mass] 29.4 pg Normal 26.7-34.0 [facility] Comment on above: Performed By: #### C BC #### [facility] [address] [place], [place] [address] Marcin Mondragon MCHC (RBC) [Mass/Vol] 31.9 g/dL Normal 29.9-35.2 [facility] Comment on above: Performed By: #### C BC #### [facility] [address] [place], [place] [address] Marcinraffy Mondragon MCV (RBC) [Entitic vol] 92.1 fL Normal 81.0-99.0 [facility] Comment on above: Performed By: #### C BC #### [facility] [address] [id number] Marcin Mondragon MONO # 0.6 103/ul Normal 0.3-0.8 [facility] Comment on above: Performed By: #### C BC #### [facility] [address] [place], [place] [address] Marcin Mondragon Monocytes/100 WBC (Bld) 5.6 % Normal 1.7-12.0 [facility] Comment on above: Performed By: #### C BC #### [facility] [address] [id number] Marcin Mondragon NEUT # 9.0 103/ul Critically high 1.4-6.5 [facility] Comment on above: Performed By: #### C BC #### [facility] [address] [place], [place] [address] Marcin Mondragon Neutrophils/100 WBC (Bld) 80.7 % Critically high 43.0-75.0 [facility] Comment on above: Performed By: #### C BC #### [facility] [address] [place], [place] [address] Marcinraffy Mondragon Platelet mean volume (Bld) [Entitic vol] 8.6 fL Critically low 9.5-13.5 [facility] Comment on above: Performed By: #### C BC #### [facility] [address] [place], [place] [address] Marcin Alanna PLT 255 103/ul Normal 150-450 [facility] Comment on above: Performed By: #### C BC #### [facility] [address] [place], [place] [address] Marcin Alanna RBC 4.96 106/ul Normal 4.20-5.40 [facility] Comment on above: Performed By: #### C BC #### [facility] [address] [place], [place] [address] Marcin Alanna WBC 11.1 103/ul Critically high 4.0-11.0 [facility] Comment on above: Performed By: #### C BC #### [facility] [address] [place], [place] [address] Marcin Alanna LIPASEon 12-09-2020 Lipase [Catalytic activity/Vol] 129.0 U/L Normal 23.0-300.0 [facility] Comment on above: Performed By: #### B MP, RAYNE, LIVER, LIPA #### [facility] [address] [place], [place] [address] Marcin Alanna LIVER PROFILEon 12-09-2020 Albumin [Mass/Vol] 3.5 g/dL Normal 3.5-5.0 [facility] Comment on above: Performed By: #### B MP, RAYNE, LIVER, LIPA #### [facility] [address] [place], [place] [address] Marcin Alanna Albumin/Globulin [Mass ratio] 0.9 {ratio} Normal [facility] Comment on above: Performed By: #### B MP, RAYNE, LIVER, LIPA #### [facility] [address] [id number] Marcin Alanna ALP [Catalytic activity/Vol] 80 U/L Normal 38-126 [facility] Comment on above: Performed By: #### B MP, RAYNE, LIVER, LIPA #### [facility] [address] [id number] Marcin Alanna ALT [Catalytic activity/Vol] 31 U/L Normal 9-52 [facility] Comment on above: Performed By: #### B MP, RAYNE, LIVER, LIPA #### [facility] [address] [address] Marcin Alanna AST [Catalytic activity/Vol] 39 U/L Critically high 14-36 [facility] Comment on above: Performed By: #### B MP, RAYNE, LIVER, LIPA #### [facility] [address] [place] [address] Marcin Alanna BILI, CONJUGATED 0.2 mg/dL Normal 0.0-0.3 [facility] Comment on above: Performed By: #### B MP, RAYNE, LIVER, LIPA #### [facility] [address] [place] [address] Marcin Alanna Bilirubin [Mass/Vol] 0.5 mg/dL Normal 0.2-1.3 [facility] Comment on above: Performed By: #### B MP, RAYNE, LIVER, LIPA #### [facility] [address] [address] Marcin Alanna Globulin (S) [Mass/Vol] 3.8 g/dL Normal [facility] Comment on above: Performed By: #### B MP, RAYNE, LIVER, LIPA #### [facility] [address] [place] [address] Marcin Alanna Protein [Mass/Vol] 7.3 g/dL Normal 6.1-8.2 [facility] Comment on above: Performed By: #### B MP, RAYNE, LIVER, LIPA #### [facility] [address] [place] [address] Marcin Alanna PROF CHEM 8 (BAS METB)on Anion gap [Moles/Vol] 10.6 mmol/L Normal [facility] Comment on above: Performed By: #### C MP, LIPA, RAYNE #### [facility] [address] [place] [address] Marcin Alanna Calcium [Mass/Vol] 8.9 mg/dL Normal 8.4-10.2 [facility] Comment on above: Performed By: #### C MP, LIPA, RAYNE #### [facility] [address] [address] Marcin Alanna Chloride [Moles/Vol] 105 mmol/L Normal 98-107 [facility] Comment on above: Performed By: #### C JAVAD MOLINA, RAYNE #### [facility] [address] [address] Marcin Alanna CO2 [Moles/Vol] 27.4 mmol/L Normal 22.0-30.0 [facility] Comment on above: Performed By: #### C JAVAD MOLINA, RAYNE #### [facility] [address] [place] [address] Marcin Alanna Creatinine [Mass/Vol] 0.91 mg/dL Normal 0.52-1.04 [facility] Comment on above: Performed By: #### C JAVAD MOLINA, RAYNE #### [facility] [address] [place] [address] Marcin Alanna EGFR-AF [place] >60 Normal >=60 [facility] Comment on above: Performed By: #### C EZRA MOLINAA, RAYNE #### [facility] [address] [place] [address] Marcin Alanna EGFR-NON AF [place] >60 Normal >=60 [facility] Comment on above: Performed By: #### C JAVAD MOLINA, RAYNE #### [facility] [address] [place] [address] Marcin Alanna Glucose [Mass/Vol] 109 mg/dL Critically high 74-106 [facility] Comment on above: Performed By: #### C TRACY LIPA, RAYNE #### [facility] [address] [place] [address] Marcin Alanna Potassium [Moles/Vol] 4.0 mmol/L Normal 3.4-5.0 [facility] Comment on above: Performed By: #### C TRACY LIPA, RAYNE #### [facility] [address] [place] [address] Marcin Alanna Sodium [Moles/Vol] 139 mmol/L Normal 137-145 [facility] Comment on above: Performed By: #### C JAVAD MOLINA AMY #### [facility] [address] [place], [place] [address] Marcin Mondragon Urea nitrogen [Mass/Vol] 13.0 mg/dL Normal 7.0-17.0 [facility] Comment on above: Performed By: #### C JAVAD MOLINA AMY #### [facility] [address] [place], [place] [address] Marcin Mondragon Urea nitrogen/Creatini ne [Mass ratio] 14.3 mg/mg Normal [facility] Comment on above: Performed By: #### C JAVAD MOLINA AMY #### [facility] [address] [place], [place] [address] Marcin Mondragon XR CHEST 1 Von 12-09-2020 [...] by: BRITTANY HENDRICKS Date: 2020-12-09 17:05 Normal [facility] Vital Signs Date Time Vital Sign Value Performing Clinician Faci lity 12-29-2023 10:32-0500 Body weight 121.17 kg Jesica Baljit DO Work Phone: [facility] 12-29-2023 10:32-0500 Diastolic blood pressure 70 mm[Hg] Jesica Baljit DO Work Phone: [facility] 12-29-2023 10:32-0500 Systolic blood pressure 110 mm[Hg] Jesica Baljit DO Work Phone: [facility] Encounters Encounter Date Encounter Type Care Provider Facility Start: 04-12-2024 End: 04-12-2024 ambulatory RAYNE JUNG Not Available Start: 03-22-2024 End: 03-22-2024 ambulatory JESICA SMILEY Not Available Start: 02-19-2024 End: 02-19-2024 ambulatory JESICA BALJIT Not Available Start: 01-26-2024 End: 01-26-2024 ambulatory RAYNE JUNG Not Available Start: 12-29-2023 End: 12-29-2023 ambulatory JESICA METCALFO Not Available Start: 12-29-2023 End: 12-29-2023 Office outpatient visit 15 minutes Jesica Metcalfo DO Work Phone: [facility] Comment on above: Second trimester pre gnancy Start: 12-01-2023 End: 12-01-2023 ambulatory RAYNE JUNG Not Available Start: 10-27-2023 End: 10-27-2023 ambulatory JESICA METCALFO Not Available Start: 10-03-2023 End: 10-04-2023 ambulatory RAYNE JUNG Not Available Start: 09-28-2021 End: 09-28-[address] GEREMIAS SANTANA Facility:[facility] Start: 12-15-2020 End: 12-16-[address] TOR TORRES Facility:[facility] Start: 12-09-2020 End: 12-09-[address] TOR TORRES Facility:[facility] Payers Date Payer Category Payer Medicaid [facility] MEDICAID [place] [id number] 2020-Present [address] [place] [address] [id number] 1990 Unknown [id number] 1990 Unknown [id number] 1990 Unknown [id number] [id number] 1990 Unknown [id number] [id number] 1990 Unknown [id number] [id number] 1990 Unknown [id number] 2.16840.1.803226.3.579.2.9 1990 Unknown [id number] 2.16.840.1.577531.3.579.2.9 1990 Unknown [id number] 2.16.840.1.338532.3.579.2.9 1990 Unknown [id number] 2.16.840.1.249687.3.579.2.9 1990 Unknown [id number] 2.16.840.1.706168.3.579.2.9 1990 Unknown [id number] 2.16.840.1.454457.3.579.2.9 1959 Unknown [id number] Social History Date Type Detail Facility Start: [...] nursing note reviewed. Exam conducted with a tester/lift trucker present. Vitals: There is no height or [...] Type Note Facility 01-02-2021 Note HNO ID: [id number] Author: Bro Yuan Service: ? Author Type: [...] SIGNATURE: Jeffrey Yuan MD B surgery Pager: [phone] [facility] Progress note 01-02-2021 Note Date & Type Note Facility 01-02-2021 Note HNO ID: [id number] Author: Annamaria Collins Service: ? Author Type: [...] Follow-up TEX Collins MD General Surgery Resident [facility] [...] content) DATE CREATED AUTHOR 10/02/2021 [facility] DATE CREATED AUTHOR AUTHOR'S ORGANIZ ATION 12/20/2021 [facility] DATE CREATED AUTHOR AUTHOR'S ORGANIZ ATION 04/14/[address] [facility] EPIC Reason for Visit (unrecogniz ed section and content) Reason Comments Routine Visit Care Teams (unrecognized sec tion and content) Vp Product Relationship Specialty Start Date End Date Tor Torres MD [address] [place] [id number] PCP - General Internal Medicine 09/25/23 FOR [...] BE BASED ON THE PRIMARY CLINICAL RECORDS. [employer] [facility] provides no warranty or guarantee of the accuracy or completeness of information in this document.
--- NOTE | 2024-04-16 12:24 | US_ITS ---
[address] [address] Patient Name: ISAAC JOHNSTON MRN: [id number] date: 1990 Sex: F Assigned Patient Location: [facility] Current Patient Location: Accession/Order Number: [id number] Exam Date: 04/16/2024 12:30 Report Date: 04/16/2024 13:51 At the request of: JESICA CROOKS Procedure: US OB BPP w non-stress EXAMINATION: US OB BPP w non-stress HISTORY: SGA P05.10 COMPARISON: Ultrasound OB biophysical 04/13/2024 TECHNIQUE: Ultrasound biophysical profile was performed in the radiology department. BREATHING MOVEMENTS: 2.0 GROSS BODY MOVEMENTS: 2.0 TONE: 2.0 QUALITATIVE AMNIOTIC FLUID VOLUME: 2.0 PRESENTATION: CEPHALIC HEART RATE: 145.9 bpm bpm. AMNIOTIC FLUID VOLUME: 12.5 cm GESTATIONAL AGE: 36 weeks 1 days CONCLUSION: Total biophysical profile score 8.0. Electronically authenticated by: NATALY GEORGE Date: 04/16/2024 13:51
--- NOTE | 2024-04-16 12:24 | US_ITS ---
[address] [address] Patient Name: ISAAC JOHNSTON MRN: [id number] date: 1990 Sex: F Assigned Patient Location: [facility] Current Patient Location: Accession/Order Number: [id number] Exam Date: 04/16/2024 12:30 Report Date: 04/16/2024 13:55 At the request of: JESICA CROOKS Procedure: US OB growth EXAMINATION: US OB growth HISTORY: HISTORY OF GASTRIC BYPASS Z98.84 COMPARISON: Ultrasound OB growth 03/05/2024 FINDINGS: Heart Rate: 145.9 bpm Number: 1.0 Position: CEPHALIC Amniotic Fluid Volume: 12.5 cm Maximum Vertical Pocket: 4.0 cm BIOMETRY: BPD: 8.6 cm cm; 34 weeks 4 days; 17% HC: 32.3 cmcm; 36 weeks 4 days ; 30% AC: 32.7 cm cm; 36 weeks 4 days; 73% FL: 6.8 cm cm; 34 weeks 6 days; 15% EFW: 2799.0 grams; 45% FL/AC: 20.7 FL/BPD: 79.0 HC/AC: 1.0 GESTATIONAL AGE: Age by EDC: 36 weeks 1 days RODERICK by EDC: 05/13/2024 Age by US: 35 weeks 5 days RODERICK by US: 05/16/2024 US/US OB growth IMPRESSION: 1. Single live intrauterine with growth detailed above. Electronically authenticated by: NATALY GEORGE Date: 04/16/2024 13:55
[2024-04-16 13:09] VITALS: BP 123/60; PULSE 83
== END 2024-04-16 13:38 | disposition home or self-care (01) ==
LOC: US 07:17 → FBC 12:20
PROVIDERS: PCP Internal Medicine; Visit Provider Obstetrics & Gynecology
DX: O99.843 Bariatric surgery status complicating pregnancy, third trimester (principal); Z3A.35 35 weeks gestation of pregnancy
CPT/HCPCS: 76816; 76818

== ENCOUNTER 2024-04-20 07:05 | Outpatient (OUT) | payer OTHER, SELFPAY ==
--- OUTSIDE RECORDS SUMMARY | 2024-04-20 07:09 | XMS_ITS | CCD ---
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 THERAPY] Onset: 10-02-2021 Episodic Other [...] Office Visit (GENSMN ) -------- ISAAC TOUSSAINT ([id number]) 1990 F Date Time Provider Department 01/02/21 [...] MD [facility] surgery Pager: [phone] Referring Provider: SELF [[id number]] Allergies As of [...] Status:Closed by BRO YUAN MD on 01/02/21 [facility] 12-22-2020 [facility]OD[facility] -------- ISAAC TOUSSAINT ([id number]) 1990 F Date Time Provider Department 12/22/20 [facility] (STUDENT) PODCCP During your visit today, we recorded the following information about you: Vahe Cr Student 12/22/2020 10:01 AM Signed Record ID: [id number] Patient Name: [facility]: [facility]: Digestive Disease Maple Attending: Bro Yuan Bynum: General Surgery INSTRUCTIONS SN to remind patient of appointment date, time, location All Clear All Clear SURVEY INFORMATION Medical/Nurse Argon Tester: Landy Duran 1. Your discharge instructions are [...] Reason for Visit: Follow Up Phone Call [9221] Prescriptions as of 12/22/2020 Sig: ONDANSETRON HCL [...] Encounter Status:[facility] ([employer]) -------- ISAAC TOUSSAINT ([id number]) 1990 F Date Time Provider Department 12/21/20 [...] Encounter Status:Closed by MACY SALEH on 01/22/21 [facility] OBSOLETEon 12-21-2020 OBSOLETE Refill (GENSMN) -------- ISAAC TOUSSAINT ([id number]) 1990 F Date Time Provider Department 12/21/20 ROXANA SCOTT During your visit today, we recorded the following information about you: Roxana Scott APRN.TEST TECH 12/21/2020 2:00 PM Signed Patient called with [...] our office if symptoms persist. Roxana Scott APRN.TEST TECH Allergies As of Date: 12/21/2020 (No Known [...] by TYLER DEJESUS.ROXANA HOUSE on 12/21/[address] [facility] AMMONIAon 12-15-2020 Ammonia (P) [Mass/Vol] ug/dL Critically low 10-30 [facility] Comment on above: Performed By: #### A MM #### [facility] [address] [address] Marcin Alanna AMYLASEon 12-15-2020 Amylase [Catalytic activity/Vol] 217 U/L Critically high 31-110 [facility] Comment on above: Performed By: #### C MP, LIPA, RAYNE #### [facility] [address] [address] Marcin Alanna CBC AUTO DIFFon 12-15-2020 BASO # 0.0 103/ul Normal 0.0-0.1 [facility] Comment on above: Performed By: #### C JAVAD MOLINA AMY #### [facility] [address] [place] [address] Marcin Alanna Basophils/100 WBC (Bld) 0.3 % Normal 0.2-2.0 [place] Comment on above: Performed By: #### C JAVAD MOILNA AMY #### [facility] [address] [place] [address] Marcin Alanna EO # 0.0 103/ul Normal 0.0-0.7 [place] Comment on above: Performed By: #### C JAVAD MOLINA AMY #### [facility] [address] [place] [address] Marcin Alanna Eosinophils/100 WBC (Bld) 0.3 % Critically low 0.9-7.0 [facility] Comment on above: Performed By: #### C JAVAD MOLINA AMY #### [facility] [address] [place] [address] Marcinraffy Mondragon Erythrocyte distribution width (RBC) [Ratio] 13.3 % Normal 11.0-15.0 [facility] Comment on above: Performed By: #### C JAVAD MOLINA AMY #### [facility] [address] [place] [address] Marcinraffy Pritcharden Hematocrit (Bld) [Volume fraction] 42.9 % Normal 36.0-48.0 [place] Comment on above: Performed By: #### C JAVAD MOLINA AMY #### [facility] [address] [place] [address] Marcin Alanna Hemoglobin (Bld) [Mass/Vol] 13.8 g/dL Normal 12.0-16.0 [facility] Comment on above: Performed By: #### C JAVAD MOLINA AMY #### [facility] [address] [place] [address] Marcin Alanna IG # 0.02 10e3/ul Normal 0.00-0.03 [facility] Comment on above: Performed By: #### C JAVAD MOLINA AMY #### [facility] [address] [address] Marcin Alanna IG % 0.3 % Normal 0.0-0.5 [facility] Comment on above: Performed By: #### C JAVAD MOLINA AMY #### [facility] [address] [place] [address] Marcin Alanna LYMPH # 1.7 103/ul Normal 1.2-3.8 [facility] Comment on above: Performed By: #### C JAVAD MOLINA, RAYNE #### [facility] [address] [place] [address] Marcin Alanna Lymphocytes/100 WBC (Bld) 23.8 % Normal 20.5-60.0 [facility] Comment on above: Performed By: #### C JAVAD MOLINA AMY #### [facility] [address] [place] [address] Marcin Alanna MANUAL DIFF REQ NO Normal [facility] Comment on above: Performed By: #### C JAVAD MOLINA, RAYNE #### [facility] [address] [place] [address] Marcin Alanna MCH (RBC) [Entitic mass] 29.8 pg Normal 26.7-34.0 [facility] Comment on above: Performed By: #### C JAVAD MOLINA AMY #### [facility] [address] [place] [address] Marcin Alanna MCHC (RBC) [Mass/Vol] 32.2 g/dL Normal 29.9-35.2 [facility] Comment on above: Performed By: #### C JAVAD MOLINA RAYNE #### [facility] [address] [place] [address] Marcin Alanna MCV (RBC) [Entitic vol] 92.7 fL Normal 81.0-99.0 [facility] Comment on above: Performed By: #### C JAVAD MOLINA, RAYNE #### [facility] [address] [place] [address] Marcin Alanna MONO # 0.6 103/ul Normal 0.3-0.8 [facility] Comment on above: Performed By: #### C JAVAD MOLINA, RAYNE #### [facility] [address] [place], [place] [address] Marcin Alanna Monocytes/100 WBC (Bld) 8.5 % Normal 1.7-12.0 [place] Comment on above: Performed By: #### C MP, LIPA, RAYNE #### [facility] [address] [place] [address] Marcin Alanna NEUT # 4.8 103/ul Normal 1.4-6.5 [place] Comment on above: Performed By: #### C MP, LIPA, RAYNE #### [facility] [address] [place] [address] Marcin Alanna Neutrophils/100 WBC (Bld) 66.8 % Normal 43.0-75.0 [place] Comment on above: Performed By: #### C MP, LIPA, RAYNE #### [facility] [address] [place] [address] Marcin Alanna Platelet mean volume (Bld) [Entitic vol] 8.7 fL Critically low 9.5-13.5 [place] Comment on above: Performed By: #### C MP LIPA, RAYNE #### [facility] [address] [place] [address] Marcin Alanna PLT 253 103/ul Normal 150-450 [facility] Comment on above: Performed By: #### C MP, LIPA, RAYNE #### [facility] [address] [place] [address] Marcin Alanna RBC 4.63 106/ul Normal 4.20-5.40 [facility] Comment on above: Performed By: #### C MP, LIPA, RAYNE #### [facility] [address] [place] [address] Marcin Alanna WBC 7.1 103/ul Normal 4.0-11.0 [facility] Comment on above: Performed By: #### C MP, LIPA, RAYNE #### [facility] [address] [place] [address] Marcinraffy Pritcharden LIPASEon 12-15-2020 Lipase [Catalytic activity/Vol] 1205.0 U/L Critically high 23.0-300.0 [place] Comment on above: Result Comment: test repeated critical value verified Performed By: #### C JAVAD MOLINA AMY #### [facility] [address] [place], [place] [id number] Marcin Alanna PREG HCG QUALon 12-15-2020 , QUAL Negative Normal NEGATIVE [facility] Comment on above: Performed By: #### P REG #### [facility] [address] [address] Marcin Alanna PROF 14(COMP METB)on 021 Albumin [Mass/Vol] 3.3 g/dL Critically low 3.5-5.0 [place] Comment on above: Performed By: #### C JAVAD MOLINA AMY #### [facility] [address] [place] [address] Marcin Alanna Albumin/Globulin [Mass ratio] 0.8 {ratio} Normal [place] Comment on above: Performed By: #### C JAVAD MOLINA AMY #### [facility] [address] [place] [address] Marcin Alanna ALP [Catalytic activity/Vol] 167 U/L Critically high 38-126 [place] Comment on above: Performed By: #### C JAVAD MOLINA AMY #### [facility] [address] [place] [address] Marcin Alanna ALT [Catalytic activity/Vol] 370 U/L Critically high 9-52 [facility] Comment on above: Performed By: #### C JAVAD MOLINA RAYNE #### [facility] [address] [place] [address] Marcin Alanna Anion gap [Moles/Vol] 12.5 mmol/L Normal [facility] Comment on above: Performed By: #### C JAVAD MOLINA, RAYNE #### [facility] [address] [place] [address] Marcin Alanna AST [Catalytic activity/Vol] 165 U/L Critically high 14-36 [facility] Comment on above: Performed By: #### C JAVAD MOLINA, RAYNE #### [facility] [address] [address] Marcin Alanna Bilirubin [Mass/Vol] 5.3 mg/dL Critically high 0.2-1.3 [facility] Comment on above: Performed By: #### C JAVAD MOLINA, RAYNE #### [facility] [address] [place] [address] Marcin Alanna Calcium [Mass/Vol] 9.2 mg/dL Normal 8.4-10.2 [facility] Comment on above: Performed By: #### C EZRA MOLINAA, RAYNE #### [facility] [address] [place] [address] Marcin Alanna Chloride [Moles/Vol] 102 mmol/L Normal 98-107 [facility] Comment on above: Performed By: #### C EZRA MOLINAA, RAYNE #### [facility] [address] [place] [address] Marcin Alanna CO2 [Moles/Vol] 29.6 mmol/L Normal 22.0-30.0 [facility] Comment on above: Performed By: #### C EZRA MOLINAA, RAYNE #### [facility] [address] [place] [address] Marcin Alanna Creatinine [Mass/Vol] 0.88 mg/dL Normal 0.52-1.04 [facility] Comment on above: Performed By: #### C EZRA MOLINAA, RAYNE #### [facility] [address] [place] [address] Marcin Alanna EGFR-AF TUVALUAN >60 Normal >=60 [facility] Comment on above: Performed By: #### C TRACY LIPA, RAYNE #### [facility] [address] [place] [address] Marcin Alanna EGFR-NON AF TUVALUAN >60 Normal >=60 [facility] Comment on above: Performed By: #### C TRACY LIPA, RAYNE #### [facility] [address] [place] [address] Marcin Alanna Globulin (S) [Mass/Vol] 4.1 g/dL Normal [facility] Comment on above: Performed By: #### C MP, LIPA, RAYNE #### [facility] [address] [address] Marcin Alanna Glucose [Mass/Vol] 88 mg/dL Normal 74-106 [facility] Comment on above: Performed By: #### C TRACY LIPA, RAYNE #### [facility] [address] [address] Marcin Alanna Potassium [Moles/Vol] 3.1 mmol/L Critically low 3.4-5.0 [facility] Comment on above: Performed By: #### C TRACY LIPA, RAYNE #### [facility] [address] [address] Marcin Alanna Protein [Mass/Vol] 7.4 g/dL Normal 6.1-8.2 [place] Comment on above: Performed By: #### C TRACY LIPA, RAYNE #### [facility] [address] [place] [address] Marcin Alanna Sodium [Moles/Vol] 141 mmol/L Normal 137-145 [facility] Comment on above: Performed By: #### C EZRA MOLINAA, RAYNE #### [facility] [address] [address] Marcin Alanna Urea nitrogen [Mass/Vol] 8.0 mg/dL Normal 7.0-17.0 [place] Comment on above: Performed By: #### C TRACY LIPA, RAYNE #### [facility] [address] [address] Marcin Alanna Urea nitrogen/Creatini ne [Mass ratio] 9.1 mg/mg Normal [facility] Comment on above: Performed By: #### C TRACY LIPA, RAYNE #### [facility] [address] [address] Marcin Alanna PROTIMEon 12-15-2020 INR Coag (PPP) [Relative time] 1.04 {INR} Normal [facility] Comment on above: Performed By: #### C TRACY LIPA, RAYNE #### [facility] [address] [place] [address] Marcin Alanna INR GUIDELINES SEE BELOW Normal [facility] Comment on above: Result Comment: NAI RED INR: 2.0 - 3.0 CONDITIONS NOT LISTED BELOW 2.5 - 3.5 FOR PROSTHETIC HEART VALVE REPLACEMENT 2.5 - 3.5 RECURRENT THROMBOSIS Performed By: #### C MP, LIPA, RAYNE #### [facility] [address] [place] [address] Marcin Alanna PT Coag (PPP) [Time] 11.3 s Normal 9.0-11.6 [facility] Comment on above: Performed By: #### C MP, LIPA, RAYNE #### [facility] [address] [place] [address] Marcin Alanna PTTon 12-15-2020 aPTT Coag (Bld) [Time] 27.8 s Normal 22.3-36.2 [facility] Comment on above: Performed By: #### C MP, LIPA, RAYNE #### [facility] [address] [place] [address] Marcin Alanna AMYLASEon 12-09-2020 Amylase [Catalytic activity/Vol] 45 U/L Normal 31-110 [facility] Comment on above: Performed By: #### B MP, RAYNE, LIVER, LIPA #### [facility] [address] [place], [place] [id number] Marcin Alanna CBC AUTO DIFFon 12-09-2020 BASO # 0.0 103/ul Normal 0.0-0.1 [facility] Comment on above: Performed By: #### C BC #### [facility] [address] [place] [address] Marcin Alanna Basophils/100 WBC (Bld) 0.2 % Normal 0.2-2.0 [facility] Comment on above: Performed By: #### C BC #### [facility] [address] [place] [address] Marcin Alanna EO # 0.0 103/ul Normal 0.0-0.7 [facility] Comment on above: Performed By: #### C BC #### [facility] [address] [place] [address] Marcin Alanna Eosinophils/100 WBC (Bld) 0.3 % Critically low 0.9-7.0 [place] Comment on above: Performed By: #### C BC #### [facility] [address] [place] [address] Marcin Mondragon Erythrocyte distribution width (RBC) [Ratio] 12.6 % Normal 11.0-15.0 [place] Comment on above: Performed By: #### C BC #### [facility] [address] [place] [address] Marcin Mondragon Hematocrit (Bld) [Volume fraction] 45.7 % Normal 36.0-48.0 [place] Comment on above: Performed By: #### C BC #### [facility] [address] [place] [address] Marcin Mondragon Hemoglobin (Bld) [Mass/Vol] 14.6 g/dL Normal 12.0-16.0 [place] Comment on above: Performed By: #### C BC #### [facility] [address] [place] [address] Marcinraffy Mondragon IG # 0.04 10e3/ul Critically high 0.00-0.03 [facility] Comment on above: Performed By: #### C BC #### [facility] [address] [place] [address] Marcin Mondragon IG % 0.4 % Normal 0.0-0.5 [place] Comment on above: Performed By: #### C BC #### [facility] [address] [place] [address] Marcin Mondragon LYMPH # 1.4 103/ul Normal 1.2-3.8 [place] Comment on above: Performed By: #### C BC #### [facility] [address] [place] [address] Marcin Mondragon Lymphocytes/100 WBC (Bld) 12.8 % Critically low 20.5-60.0 [place] Comment on above: Performed By: #### C BC #### [facility] [address] [place] [address] Marcin Mondragon MANUAL DIFF REQ NO Normal [facility] Comment on above: Performed By: #### C BC #### [facility] [address] [place], [place] [address] Marcin Mondragon MCH (RBC) [Entitic mass] 29.4 pg Normal 26.7-34.0 [place] Comment on above: Performed By: #### C BC #### [facility] [address] [place], [place] [address] Marcin Mondragon MCHC (RBC) [Mass/Vol] 31.9 g/dL Normal 29.9-35.2 [facility] Comment on above: Performed By: #### C BC #### [facility] [address] [place], [place] [address] Marcinraffy Mondragon MCV (RBC) [Entitic vol] 92.1 fL Normal 81.0-99.0 [place] Comment on above: Performed By: #### C BC #### [facility] [address] [id number] Marcin Mondragon MONO # 0.6 103/ul Normal 0.3-0.8 [place] Comment on above: Performed By: #### C BC #### [facility] [address] [place], [place] [address] Marcin Mondragon Monocytes/100 WBC (Bld) 5.6 % Normal 1.7-12.0 [place] Comment on above: Performed By: #### C BC #### [facility] [address] [id number] Marcin Mondragon NEUT # 9.0 103/ul Critically high 1.4-6.[address] [facility] Comment on above: Performed By: #### C BC #### [facility] [address] [place], [place] [address] Marcin Mondragon Neutrophils/100 WBC (Bld) 80.7 % Critically high 43.0-75.0 [facility] Comment on above: Performed By: #### C BC #### [facility] [address] [place], [place] [address] Marcinraffy Mondragon Platelet mean volume (Bld) [Entitic vol] 8.6 fL Critically low 9.5-13.5 [facility] Comment on above: Performed By: #### C BC #### [facility] [address] [place], [place] [address] Marcin Alanna PLT 255 103/ul Normal 150-450 [facility] Comment on above: Performed By: #### C BC #### [facility] [address] [place], [place] [address] Marcin Alanna RBC 4.96 106/ul Normal 4.20-5.40 [facility] Comment on above: Performed By: #### C BC #### [facility] [address] [place], [place] [address] Marcin Alanna WBC 11.1 103/ul Critically high 4.0-11.0 [facility] [place] [facility] Comment on above: Performed By: #### C BC #### [facility] [address] [place], [place] [id number] Marcin Alanna LIPASEon 12-09-2020 Lipase [Catalytic activity/Vol] 129.0 U/L Normal 23.0-300.0 [facility] Comment on above: Performed By: #### B MP, RAYNE, LIVER, LIPA #### [facility] [address] [place], [place] [address] Marcin Alanna LIVER PROFILEon 12-09-2020 Albumin [Mass/Vol] 3.5 g/dL Normal 3.5-5.0 [facility] Comment on above: Performed By: #### B MP, RAYNE, LIVER, LIPA #### [facility] [address] [place], [place] [id number] Marcin Alanna Albumin/Globulin [Mass ratio] 0.9 {ratio} Normal [facility] Comment on above: Performed By: #### B MP, RAYNE, LIVER, LIPA #### [facility] [address] [id number] Marcin Alanna ALP [Catalytic activity/Vol] 80 U/L Normal 38-126 [facility] Comment on above: Performed By: #### B MP, RAYNE, LIVER, LIPA #### [facility] [address] [id number] Marcin Alanna ALT [Catalytic activity/Vol] 31 U/L Normal 9-52 [facility] Comment on above: Performed By: #### B MP, RAYNE, LIVER, LIPA #### [facility] [address] [address] Marcin Alanna AST [Catalytic activity/Vol] 39 U/L Critically high 14-36 [facility] Comment on above: Performed By: #### B MP, RAYNE, LIVER, LIPA #### [facility] [address] [place] [address] Marcin Alanna BILI, CONJUGATED 0.2 mg/dL Normal 0.0-0.3 [facility] [place] [facility] Comment on above: Performed By: #### B MP, RAYNE, LIVER, LIPA #### [facility] [address] [place] [address] Marcin Alanna Bilirubin [Mass/Vol] 0.5 mg/dL Normal 0.2-1.3 [facility] Comment on above: Performed By: #### B MP, RAYNE, LIVER, LIPA #### [facility] [address] [address] Marcin Alanna Globulin (S) [Mass/Vol] 3.8 g/dL Normal [facility] Comment on above: Performed By: #### B MP, RAYNE, LIVER, LIPA #### [facility] [address] [place] [address] Marcin Alanna Protein [Mass/Vol] 7.3 g/dL Normal 6.1-8.2 [facility] Comment on above: Performed By: #### B MP, RAYNE, LIVER, LIPA #### [facility] [address] [place] [address] Marcin Alanna PROF CHEM 8 (BAS METB)on Anion gap [Moles/Vol] 10.6 mmol/L Normal [facility] Comment on above: Performed By: #### C MP, LIPA, RAYNE #### [facility] [address] [place] [address] Marcin Alanna Calcium [Mass/Vol] 8.9 mg/dL Normal 8.4-10.2 [facility] Comment on above: Performed By: #### C MP, LIPA, RAYNE #### [facility] [address] [address] Marcin Alanna Chloride [Moles/Vol] 105 mmol/L Normal 98-107 [facility] Comment on above: Performed By: #### C JAVAD MOLINA, RAYNE #### [facility] [address] [address] Marcin Alanna CO2 [Moles/Vol] 27.4 mmol/L Normal 22.0-30.0 [facility] [place] [facility] Comment on above: Performed By: #### C JAVAD MOLINA, RAYNE #### [facility] [address] [place] [address] Marcin Alanna Creatinine [Mass/Vol] 0.91 mg/dL Normal 0.52-1.04 [facility] Comment on above: Performed By: #### C JAVAD MOLINA, RAYNE #### [facility] [address] [place] [address] Marcin Alanna EGFR-AF TUVALUAN >60 Normal >=60 [facility] [place] [facility] Comment on above: Performed By: #### C EZRA MOLINAA, RAYNE #### [facility] [address] [place] [address] Marcin Alanna EGFR-NON AF TUVALUAN >60 Normal >=60 [facility] Comment on above: Performed By: #### C JAVAD MOLINA, RAYNE #### [facility] [address] [place] [address] Marcin Alanna Glucose [Mass/Vol] 109 mg/dL Critically high 74-106 [facility] Comment on above: Performed By: #### C TRACY LIPA, RAYNE #### [facility] [address] [place] [address] Marcin Alanna Potassium [Moles/Vol] 4.0 mmol/L Normal 3.4-5.0 [facility] Comment on above: Performed By: #### C TRACY LIPA, RAYNE #### [facility] [address] [place] [address] Marcin Alanna Sodium [Moles/Vol] 139 mmol/L Normal 137-145 [facility] Comment on above: Performed By: #### C JAVAD MOLINA AMY #### [facility] [address] [place], [place] [address] Marcin Mondragon Urea nitrogen [Mass/Vol] 13.0 mg/dL Normal 7.0-17.0 [place] Comment on above: Performed By: #### C JAVAD MOLINA AMY #### [facility] [address], [place] [address] Marcin Mondragon Urea nitrogen/Creatini ne [Mass ratio] 14.3 mg/mg Normal [place] Comment on above: Performed By: #### C JAVAD MOLINA AMY #### [facility] [address], [place] [address] Marcin Mondragon XR CHEST 1 Von 12-09-2020 [...] by: BRITTANY HENDRICKS Date: 2020-12-09 17:05 Normal [place] Vital Signs Date Time Vital Sign Value Performing Clinician Faci lity 12-29-2023 10:32-0500 Body weight 121.17 kg Jesica Baljit DO Work Phone: [facility] 12-29-2023 10:32-0500 Diastolic blood pressure 70 mm[Hg] Jesica Baljit DO Work Phone: [facility] 12-29-2023 10:32-0500 Systolic blood pressure 110 mm[Hg] Jesica Baljit DO Work Phone: [facility] Encounters Encounter Date Encounter Type [...] Facility:H1 Payers Date Payer Category Payer Medicaid [facility] MEDICAID [place] MED[place] [id number] 2020-Present [address] [place] [address] [id number] 1990 Unknown [id number] 2.840.1.814972.3.579.2.593 1990 Unknown [id number] 2.16840.1.482106.3.579.2.593 1990 Unknown [id number] 2.16840.1.898557.3.579.2.593 1990 Unknown [id number] 2.16840.1.440393.3.579.2.1259 1990 Unknown [id number] 2.16.840.1.143053.3.579.2.1259 1990 Unknown [id number] 2.16840.1.487136.3.579.2.9 1990 Unknown [id number] 2.16.840.1.628501.3.579.2.9 1990 Unknown [id number] 2.16.840.1.878136.3.579.2.9 1990 Unknown [id number] 2.16.840.1.051232.3.579.2.9 1990 Unknown [id number] 2.16.840.1.196388.3.579.2.9 1990 Unknown [id number] 2.16.840.1.050792.3.579.2.9 1959 Unknown [id number] Social History Date Type Detail Facility Start: [...] nursing note reviewed. Exam conducted with a plant taxonomist present. Vitals: There is no height or [...] Jesica Smiley DO documented in this encounter [facility] Progress note 01-02-2021 Note Date & Type Note Facility 01-02-2021 Note HNO ID: [id number] Author: Bro Yuan Service: ? Author Type: [...] SIGNATURE: Jeffrey Yuan MD B surgery Pager: [phone] [facility] Progress note 01-02-2021 Note Date & Type Note Facility 01-02-2021 Note HNO ID: [id number] Author: Annamaria Collins Service: ? Author Type: [...] Follow-up TEX Collins MD General Surgery Resident [facility] Evaluation note Note Date & Type Note [...] DATE CREATED AUTHOR AUTHOR'S ORGANIZ ATION 12/20/2021 [facility] DATE CREATED AUTHOR AUTHOR'S ORGANIZ ATION 04/14/2024 [facility] EPIC Reason for Visit (unrecogniz ed section and content) Reason Comments Routine Visit Care Teams (unrecognized sec tion and content) Medical Collector Relationship Specialty Start Date End Date Tor Torres MD [address] [place] [address] PCP - General Internal Medicine 09/25/23 FOR [...] BE BASED ON THE PRIMARY CLINICAL RECORDS. [employer] [facility]. provides no warranty or guarantee of the accuracy or completeness of information in this document.
[2024-04-20 20:05] VITALS: BP 128/59; PULSE 99
--- NOTE | 2024-04-20 20:50 | US_ITS ---
[address] [address] Patient Name: ISAAC JOHNSTON MRN: [id number] date: 1990 Sex: F Assigned Patient Location: US Current Patient Location: US Accession/Order Number: [id number] Exam Date: 04/20/2024 20:55 Report Date: 04/21/2024 07:42 At the request of: JESICA CROOKS Procedure: US OB BPP w non-stress EXAMINATION: US OB BPP w non-stress HISTORY: SGA P05.10 COMPARISON: 04/16/2024 TECHNIQUE: Ultrasound biophysical profile was performed in the radiology department. FINDINGS: BREATHING MOVEMENTS: 2.0 GROSS BODY MOVEMENTS: 2.0 TONE: 2.0 QUALITATIVE AMNIOTIC FLUID VOLUME: 2.0 PRESENTATION: CEPHALIC HEART RATE: 135.0 bpm H.B./min AMNIOTIC FLUID VOLUME: 10.7 cm cm GESTATIONAL AGE: 36 weeks 5 days CONCLUSION: Total biophysical profile score: 8.0 Electronically authenticated by: HAMLET GUTIERREZ Date: 04/21/2024 07:42
== END 2024-04-20 21:21 | disposition home or self-care (01) ==
LOC: US 07:05 → FBC 20:01
PROVIDERS: PCP Internal Medicine; Visit Provider Obstetrics & Gynecology
DX: O26.843 Uterine size-date discrepancy, third trimester (principal); Z36.86 Encounter for antenatal screening for cervical length; Z3A.36 36 weeks gestation of pregnancy
CPT/HCPCS: 76818

== ENCOUNTER 2024-04-23 07:14 | Outpatient (OUT) | payer OTHER, SELFPAY ==
--- OUTSIDE RECORDS SUMMARY | 2024-04-23 07:16 | XMS_ITS ---
Patient Summarization (C-CDA 2.1 CCD) Created on: April 23, 2024 PRESTON MERLOSPaola COHEN ISAAC Guevara~PRESTON : 1990 Sex: Female Author Organization Sample organization Care Team Providers Care Well Puller Name Role Phone DR TOR TORRES Primary [...] Unavailable Tor Torres MD Primary Care Provider [phone] RAYNE JUNG Attending Unavailable BALJIT, JESICA Attending Unavailable RAYNE JUNG Attending Unavailable BALJIT, JESICA Attending Unavailable BALJIT, JESICA Attending Unavailable RAYNE JUNG Attending Unavailable BALJIT, JESICA Attending Unavailable Allergies Allergy Classification Reported Allergen(s) Allergy Type Date of Onset Reaction(s) Facility (1 source) Morphine Drug Allergy 05-18-2018 [facility] Encounters Encounter Date Encounter Type Care Provider Facility Start: 04-12-2024 End: 04-12-2024 ambulatory RAYNE JUNG Not Available Start: 03-22-2024 End: 03-22-2024 ambulatory JESICA BALJIT Not Available Start: 02-19-2024 End: 02-19-2024 ambulatory JESICA BALJIT Not Available Start: 01-26-2024 End: 01-26-2024 ambulatory RAYNE JUNG Not Available Start: 12-29-2023 End: 12-29-2023 ambulatory JESICA BALJIT Not Available Start: 12-29-2023 End: 12-29-2023 Office outpatient visit 15 minutes Jesica Johnsonzio DO Work Phone: [facility] Comment on above: Second trimester pre gnancy Start: 12-01-2023 End: 12-01-2023 ambulatory RAYNE NAVARROEY Not Available Start: 10-27-2023 End: 10-27-2023 ambulatory JESICA JOHNSONZIO Not Available Start: 10-03-2023 End: 10-04-2023 ambulatory RAYNE FABIANA Not Available Start: 09-28-2021 End: 09-28-[address] GEREMIAS SANTANA Facility:[facility] Start: 12-15-2020 End: 12-16-[address] TOR TORRES Facility:[facility] Start: 12-09-2020 End: 12-09-[address] TOR TORRES Facility:[facility] Goals Date Patient Goal Desired Activity /State Personal health goal Medications Current Medications Medication Drug Class(es) Dates [...] morning. 30 capsule 11 10/27/2023 10/26/2024 Active Payers Date Payer Category Payer Medicaid [employer] [place] [employer] [id number] 2020-Present [address] [place] [address] [id number] 1990 Unknown [id number] 1990 Unknown [id number] [id number] 1990 Unknown [id number] [id number] 1990 Unknown [id number] [id number] 1990 Unknown [id number] 2.16.840.1.929128.3.579.2.9 1990 Unknown [id number] 2.16.840.1.277711.3.579.2.9 1990 Unknown [id number] 2.16.840.1.836236.3.579.2.9 1990 Unknown [id number] 2.16.840.1.969541.3.579.2.9 1990 Unknown [id number] 2.16.840.1.780748.3.579.2.9 1990 Unknown [id number] 2.16.840.1.726116.3.579.2.9 1990 Unknown [id number] [id number] 1959 Unknown [id number] Problems Active Problems Problem Classification Problem Date Documented Da te Episodic/Chronic Asthma (1 source) Unspecified asthma, uncomplicated; Translations: [UNSPECIFIED ASTHMA UNCOMPLICATED] Onset: 10-02-2021 Chronic Esophageal disorders (1 source) Gastro-esophageal reflux disease without esophagitis; Translations: [GERD WITHOUT ESOPHAGITIS] Onset: 12-12-2020 Chronic Other aftercare (1 source) Other custodial (current) drug therapy; Translations: [OTH MCC CURRENT [...] Name Value Interpretation Reference Range Facility [facility] 01-02-2021 CNOV Office Visit ([facility] ) -------- ISAAC TOUSSAINT ([id number]) 1990 F Date Time Provider Department 01/02/21 10:30 AM BRO YUAN During your visit today, we recorded the following information about you: Temperature Pulse Blood pressure Weight 96.8 degrees 115/minute 130/68 140.6 kg Height 1.499 m Bhavani Han SD 01/02/2021 11:04 AM Signed What is the [...] SIGNATURE: Jeffrey Yuan MD B surgery Pager: [phone] Referring Provider: SELF [[id number]] Allergies As of [...] MD on 01/02/21 [facility] 12-22-2020 CNPN Telephone (PODCCP) -------- ISAAC TOUSSAINT ([id number]) 1990 F Date Time Provider Department 12/22/20 VAHE CR (STUDENT) PODCCP During your visit today, we recorded the following information about you: Vahe Cr Student 12/22/2020 10:01 AM Signed Record ID: [id number] Patient Name: [facility]: [facility] [place]: Digestive Disease [place] Attending: Bro Yuan Center: General Surgery INSTRUCTIONS SN to remind patient of appointment date, time, location All Clear All Clear SURVEY INFORMATION Medical/Nurse Usps Letter Carrier: Landy Duran 1. Your discharge instructions are [...] Allergies) Date Reviewed: 12/18/2020 Reviewed by: Lencho FrancisRn) ARGENIS Winter - Fully Assessed Reason for Visit: Follow Up Phone Call [[id number]] Prescriptions as of 12/22/2020 Sig: ONDANSETRON HCL [...] Encounter Status:Closed by VAHE WADE on 12/22/20 [facility] Corey 12-21-2020 KIERSTEN Telephone (JACKSON) -------- ISAAC TOUSSAINT ([id number]) 1990 F Date Time Provider Department 12/21/20 BRO YUAN During your visit today, we recorded the following information about you: Macy Abrams 12/21/2020 12:18 PM Signed Patient is calling [...] [Z29.9] 12/18/2020 12/18/2020 More... Encounter Status:Closed by FRANCISCO ABRAMS MACY on 01/22/21 [facility] OBSOLETEon 12-21-2020 OBSOLETE Refill (GENSMN) -------- ISAAC TOUSSAINT ([id number]) 1990 F Date Time Provider Department 12/21/20 ROXANA SCOTT During your visit today, we recorded the following information about you: Roxana Scott APRN.MECHANICAL LABORATORY TECHNICIAN 12/21/2020 2:00 PM Signed Patient called with [...] our office if symptoms persist. Roxana Scott APRN.MECHANICAL LABORATORY TECHNICIAN Allergies As of Date: 12/21/2020 (No Known [...] by TYLER DEJESUS.ROXANA HOUSE on 12/21/20 [facility] 12-15-2020 Ammonia (P) [Mass/Vol] ug/dL Critically low 10-30 [facility] Comment on above: Performed By: #### A MM #### [facility] [address] [place] [address] Marcin Alanna AMYLASEon 12-15-2020 Amylase [Catalytic activity/Vol] 217 U/L Critically high 31-110 [facility] Comment on above: Performed By: #### C JAVAD MOLINA AMY #### [facility] [address] [place] [address] Marcin Alanna CBC AUTO DIFFon 12-15-2020 BASO # 0.0 103/ul Normal 0.0-0.1 [facility] Comment on above: Performed By: #### C JAVAD MOLINA AMY #### [facility] [address] [place] [address] Marcin Alanna Basophils/100 WBC (Bld) 0.3 % Normal 0.2-2.0 [facility] Comment on above: Performed By: #### C JAVAD MOLINA AMY #### [facility] [address] [place] [address] Marcin Alanna EO # 0.0 103/ul Normal 0.0-0.7 [facility] Comment on above: Performed By: #### C JAVAD MOLINA AMY #### [facility] [address] [place] [address] Marcin Alanna Eosinophils/100 WBC (Bld) 0.3 % Critically low 0.9-7.0 [facility] Comment on above: Performed By: #### C JAVAD MOLINA AMY #### [facility] [address] [place] [address] Marcin Alanna Erythrocyte distribution width (RBC) [Ratio] 13.3 % Normal 11.0-15.0 [facility] Comment on above: Performed By: #### C JAVAD MOLINA AMY #### [facility] [address] [place] [address] Marcin Alanna Hematocrit (Bld) [Volume fraction] 42.9 % Normal 36.0-48.0 [facility] Comment on above: Performed By: #### C JAVAD MOLINA, RAYNE #### [facility] [address] [place] [address] Marcin Alanna Hemoglobin (Bld) [Mass/Vol] 13.8 g/dL Normal 12.0-16.0 [facility] Comment on above: Performed By: #### C JAVAD MOLINA, RAYNE #### [facility] [address] [place] [address] Marcin Alanna IG # 0.02 10e3/ul Normal 0.00-0.03 [facility] Comment on above: Performed By: #### C JAVAD MOLINA, RAYNE #### [facility] [address] [place] [address] Marcin Alanna IG % 0.3 % Normal 0.0-0.5 [facility] Comment on above: Performed By: #### C JAVAD MOLINA, RAYNE #### [facility] [address] [place] [address] Marcin Alanna LYMPH # 1.7 103/ul Normal 1.2-3.8 [facility] Comment on above: Performed By: #### C JAVAD MOLINA, RAYNE #### [facility] [address] [place] [address] Marcin Alanna Lymphocytes/100 WBC (Bld) 23.8 % Normal 20.5-60.0 [facility] Comment on above: Performed By: #### C JAVAD MOLINA, RAYNE #### [facility] [address] [place] [address] Marcin Alanna MANUAL DIFF REQ NO Normal [facility] Comment on above: Performed By: #### C MP, LIPA, RAYNE #### [facility] [address] [place] [address] Marcin Alanna MCH (RBC) [Entitic mass] 29.8 pg Normal 26.7-34.0 [facility] Comment on above: Performed By: #### C TRACY LIPA, RAYNE #### [facility] [address] [place] [address] Marcin Alanna MCHC (RBC) [Mass/Vol] 32.2 g/dL Normal 29.9-35.2 [facility] Comment on above: Performed By: #### C MP LIPA, RAYNE #### [facility] [address] [place] [address] Marcin Alanna MCV (RBC) [Entitic vol] 92.7 fL Normal 81.0-99.0 [facility] Comment on above: Performed By: #### C TRACY LIPA, RAYNE #### [facility] [address] [place] [address] Marcin Alanna MONO # 0.6 103/ul Normal 0.3-0.8 [facility] Comment on above: Performed By: #### C TRACY LIPA, RAYNE #### [facility] [address] [place] [address] Marcin Alanna Monocytes/100 WBC (Bld) 8.5 % Normal 1.7-12.0 [facility] Comment on above: Performed By: #### C MP LIPA, RAYNE #### [facility] [address] [place] [address] Marcin Alanna NEUT # 4.8 103/ul Normal 1.4-6.5 [facility] Comment on above: Performed By: #### C MP, LIPA, RAYNE #### [facility] [address] [place] [address] Marcin Alanna Neutrophils/100 WBC (Bld) 66.8 % Normal 43.0-75.0 [facility] Comment on above: Performed By: #### C MP, LIPA, RAYNE #### [facility] [address] [place] [address] Marcin Alanna Platelet mean volume (Bld) [Entitic vol] 8.7 fL Critically low 9.5-13.5 [facility] Comment on above: Performed By: #### C JAVAD MOLINA AMY #### [facility] [address] [place] [address] Marcin Mondragon PLT 253 103/ul Normal 150-450 [facility] Comment on above: Performed By: #### C JAVAD MOLINA, RAYNE #### [facility] [address] [place] [address] Marcin Mondragon RBC 4.63 106/ul Normal 4.20-5.40 [facility] Comment on above: Performed By: #### C JAVAD MOLINA AMY #### [facility] [address] [place] [address] Marcin Mondragon WBC 7.1 103/ul Normal 4.0-11.0 [facility] Comment on above: Performed By: #### C JAVAD MOLINA AMY #### [facility] [address] [place] [address] Marcin Mondragon LIPASEon 12-15-2020 Lipase [Catalytic activity/Vol] 1205.0 U/L Critically high 23.0-300.0 [facility] Comment on above: Result Comment: test repeated critical value verified Performed By: #### C JAVAD MOLINA AMY #### [facility] [address] [place] [address] Marcin Mondragon PREG HCG QUALon 12-15-2020 , QUAL Negative Normal NEGATIVE [facility] Comment on above: Performed By: #### P REG #### [facility] [address] [place] [address] Marcin Mondragon PROF 14(COMP METB)on 021 Albumin [Mass/Vol] 3.3 g/dL Critically low 3.5-5.0 [facility] Comment on above: Performed By: #### C JAVAD MOLINA, RAYNE #### [facility] [address] [place] [address] Marcin Mondragon Albumin/Globulin [Mass ratio] 0.8 {ratio} Normal [facility] Comment on above: Performed By: #### C TRACY LIPA, RAYNE #### [facility] [address] [place], [place] [address] Macrin Alanna ALP [Catalytic activity/Vol] 167 U/L Critically high 38-126 [facility] Comment on above: Performed By: #### C TRACY LIPA, RAYNE #### [facility] [address] [place] [address] Marcin Alanna ALT [Catalytic activity/Vol] 370 U/L Critically high 9-52 [facility] Comment on above: Performed By: #### C TRACY LIPA, RAYNE #### [facility] [address] [address] Marcin Alanna Anion gap [Moles/Vol] 12.5 mmol/L Normal [facility] Comment on above: Performed By: #### C TRACY LIPA, RAYNE #### [facility] [address] [address] Marcin Alanna AST [Catalytic activity/Vol] 165 U/L Critically high 14-36 [facility] Comment on above: Performed By: #### C TRACY LIPA, RAYNE #### [facility] [address] [address] Marcin Alanna Bilirubin [Mass/Vol] 5.3 mg/dL Critically high 0.2-1.3 [facility] Comment on above: Performed By: #### C TRACY LIPA, RAYNE #### [facility] [address] [address] Marcin Alanna Calcium [Mass/Vol] 9.2 mg/dL Normal 8.4-10.2 [facility] Comment on above: Performed By: #### C TRACY LIPA, RAYNE #### [facility] [address] [address] Marcin Alanna Chloride [Moles/Vol] 102 mmol/L Normal 98-107 [facility] Comment on above: Performed By: #### C TRACY LIPA, RAYNE #### [facility] [address] [address] Marcin Alanna CO2 [Moles/Vol] 29.6 mmol/L Normal 22.0-30.[address] [facility] Comment on above: Performed By: #### C MP, LIPA, RAYNE #### [facility] [address] [place] [address] Marcin Alanna Creatinine [Mass/Vol] 0.88 mg/dL Normal 0.52-1.04 [facility] Comment on above: Performed By: #### C MP, LIPA, RAYNE #### [facility] [address] [address] Marcin Alanna EGFR-AF SCOTTISH >60 Normal >=60 [facility] Comment on above: Performed By: #### C MP, LIPA, RAYNE #### [facility] [address] [place] [address] Marcin Alanna EGFR-NON AF SCOTTISH >60 Normal >=60 [facility] Comment on above: Performed By: #### C MP, LIPA, RAYNE #### [facility] [address] [place] [address] Marcin Alanna Globulin (S) [Mass/Vol] 4.1 g/dL Normal [facility] Comment on above: Performed By: #### C MP, LIPA, RAYNE #### [facility] [address] [place] [address] Marcin Alanna Glucose [Mass/Vol] 88 mg/dL Normal 74-106 [facility] Comment on above: Performed By: #### C MP, LIPA, RAYNE #### [facility] [address] [place] [address] Marcin Alanna Potassium [Moles/Vol] 3.1 mmol/L Critically low 3.4-5.0 [facility] Comment on above: Performed By: #### C MP, LIPA, RANYE #### [facility] [address] [place] [address] Marcin Alanna Protein [Mass/Vol] 7.4 g/dL Normal 6.1-8.2 [facility] Comment on above: Performed By: #### C MP, LIPA, RAYNE #### [facility] [address] [place] [address] Marcin Alanna Sodium [Moles/Vol] 141 mmol/L Normal 137-145 [facility] Comment on above: Performed By: #### C JAVAD MOLINA AMY #### [facility] [address] [place] [address] Marcin Alanna Urea nitrogen [Mass/Vol] 8.0 mg/dL Normal 7.0-17.0 [facility] Comment on above: Performed By: #### C JAVAD MOLINA AMY #### [facility] [address] [place] [address] Marcin Alanna Urea nitrogen/Creatini ne [Mass ratio] 9.1 mg/mg Normal [facility] Comment on above: Performed By: #### C JAVAD MOLINA AMY #### [facility] [address] [place] [address] Marcin Alanna PROTIMEon 12-15-2020 INR Coag (PPP) [Relative time] 1.04 {INR} Normal [facility] Comment on above: Performed By: #### C JAVAD MOLINA AMY #### [facility] [address] [place] [address] Marcin Alanna INR GUIDELINES SEE BELOW Normal [facility] Comment on above: Result Comment: NAI RED INR: 2.0 - 3.0 CONDITIONS NOT LISTED BELOW 2.5 - 3.5 FOR PROSTHETIC HEART VALVE REPLACEMENT 2.5 - 3.5 RECURRENT THROMBOSIS Performed By: #### C JAVAD MOLINA AMY #### [facility] [address] [place] [address] Marcin Alanna PT Coag (PPP) [Time] 11.3 s Normal 9.0-11.6 [facility] Comment on above: Performed By: #### C JAVAD MOLINA AMY #### [facility] [address] [place] [address] Marcin Alanna PTTon 12-15-2020 aPTT Coag (Bld) [Time] 27.8 s Normal 22.3-36.2 [facility] Comment on above: Performed By: #### C JAVAD MOLINA AMY #### [facility] [address] [place] [address] Marcin Alanna AMYLASEon 12-09-2020 Amylase [Catalytic activity/Vol] 45 U/L Normal 31-110 [facility] Comment on above: Performed By: #### B MP, RAYNE, LIVER, LIPA #### [facility] [address] [id number] Marcin Mondragon CBC AUTO DIFFon 12-09-2020 BASO # 0.0 103/ul Normal 0.0-0.1 [facility] Comment on above: Performed By: #### C BC #### [facility] [address] [place], [place] [address] Marcinraffy Mondragon Basophils/100 WBC (Bld) 0.2 % Normal 0.2-2.0 [facility] Comment on above: Performed By: #### C BC #### [facility] [address] [place], [place] [address] Marcinraffy Mondragon EO # 0.0 103/ul Normal 0.0-0.7 [facility] Comment on above: Performed By: #### C BC #### [facility] [address] [place], [place] [address] Marcin Mondragon Eosinophils/100 WBC (Bld) 0.3 % Critically low 0.9-7.0 [facility] Comment on above: Performed By: #### C BC #### [facility] [address] [place], [place] [address] Marcin Mondragon Erythrocyte distribution width (RBC) [Ratio] 12.6 % Normal 11.0-15.0 [facility] Comment on above: Performed By: #### C BC #### [facility] [address] [place], [place] [address] Marcinraffy Mondragon Hematocrit (Bld) [Volume fraction] 45.7 % Normal 36.0-48.0 [facility] Comment on above: Performed By: #### C BC #### [facility] [address] [place], [place] [address] Marcin Alanna Hemoglobin (Bld) [Mass/Vol] 14.6 g/dL Normal 12.0-16.0 [facility] Comment on above: Performed By: #### C BC #### [facility] [address] [address] Marcin Alanna IG # 0.04 10e3/ul Critically high 0.00-0.03 [facility] Comment on above: Performed By: #### C BC #### [facility] [address] [place] [address] Marcin Alanna IG % 0.4 % Normal 0.0-0.5 [facility] Comment on above: Performed By: #### C BC #### [facility] [address] [place] [address] Marcin Alanna LYMPH # 1.4 103/ul Normal 1.2-3.8 [facility] Comment on above: Performed By: #### C BC #### [facility] [address] [place] [address] Marcinraffy Mondragon Lymphocytes/100 WBC (Bld) 12.8 % Critically low 20.5-60.0 [facility] Comment on above: Performed By: #### C BC #### [facility] [address] [place] [address] Marcinraffy Mondragon MANUAL DIFF REQ NO Normal [facility] Comment on above: Performed By: #### C BC #### [facility] [address] [place] [address] Marcin Alanna MCH (RBC) [Entitic mass] 29.4 pg Normal 26.7-34.0 [facility] Comment on above: Performed By: #### C BC #### [facility] [address] [place] [address] Marcinraffy Mondragon MCHC (RBC) [Mass/Vol] 31.9 g/dL Normal 29.9-35.2 [facility] Comment on above: Performed By: #### C BC #### [facility] [address] [place] [address] Marcin Alanna MCV (RBC) [Entitic vol] 92.1 fL Normal 81.0-99.0 [facility] Comment on above: Performed By: #### C BC #### [facility] [address] [place] [address] Marcin Alanna MONO # 0.6 103/ul Normal 0.3-0.8 [facility] Comment on above: Performed By: #### C BC #### [facility] [address] [place], [place] [address] Marcin Pritcharden Monocytes/100 WBC (Bld) 5.6 % Normal 1.7-12.0 [facility] Comment on above: Performed By: #### C BC #### [facility] [address] [place], [place] [address] Marcinraffy Pritcharden NEUT # 9.0 103/ul Critically high 1.4-6.5 [facility] Comment on above: Performed By: #### C BC #### [facility] [address] [place], [place] [address] Marcin Alanna Neutrophils/100 WBC (Bld) 80.7 % Critically high 43.0-75.0 [facility] Comment on above: Performed By: #### C BC #### [facility] [address] [place], [place] [address] Marcin Mondragon Platelet mean volume (Bld) [Entitic vol] 8.6 fL Critically low 9.5-13.5 [facility] Comment on above: Performed By: #### C BC #### [facility] [address] [place], [place] [address] Marcin Alanna PLT 255 103/ul Normal 150-450 [facility] Comment on above: Performed By: #### C BC #### [facility] [address] [place], [place] [address] Marcin Alanna RBC 4.96 106/ul Normal 4.20-5.40 [facility] Comment on above: Performed By: #### C BC #### [facility] [address] [place], [place] [address] Marcin Alanna WBC 11.1 103/ul Critically high 4.0-11.0 [facility] Comment on above: Performed By: #### C BC #### [facility] [address] [place], [place] [id number] Marcin Mondragon LIPASEon 12-09-2020 Lipase [Catalytic activity/Vol] 129.0 U/L Normal 23.0-300.0 [facility] Comment on above: Performed By: #### B MP, RAYNE, LIVER, LIPA #### [facility] [address] [address] Marcin Alanna LIVER PROFILEon 12-09-2020 Albumin [Mass/Vol] 3.5 g/dL Normal 3.5-5.0 [facility] Comment on above: Performed By: #### B MP, RAYNE, LIVER, LIPA #### [facility] [address] [address] Marcin Alanna Albumin/Globulin [Mass ratio] 0.9 {ratio} Normal [facility] Comment on above: Performed By: #### B MP, RAYNE, LIVER, LIPA #### [facility] [address] [place] [address] Marcin Alanna ALP [Catalytic activity/Vol] 80 U/L Normal 38-126 [facility] Comment on above: Performed By: #### B MP, RAYNE, LIVER, LIPA #### [facility] [address] [place] [address] Marcin Alanna ALT [Catalytic activity/Vol] 31 U/L Normal 9-52 [facility] Comment on above: Performed By: #### B MP, RAYNE, LIVER, LIPA #### [facility] [address] [place] [address] Marcin Alanna AST [Catalytic activity/Vol] 39 U/L Critically high 14-36 [facility] Comment on above: Performed By: #### B MP, RAYNE, LIVER, LIPA #### [facility] [address] [place] [address] Marcin Alanna BILI, CONJUGATED 0.2 mg/dL Normal 0.0-0.3 [facility] Comment on above: Performed By: #### B MP, RAYNE, LIVER, LIPA #### [facility] [address] [place] [address] Marcin Alanna Bilirubin [Mass/Vol] 0.5 mg/dL Normal 0.2-1.3 [facility] Comment on above: Performed By: #### B MP, RAYNE, LIVER, LIPA #### [facility] [address] [id number] Marcin Alanna Globulin (S) [Mass/Vol] 3.8 g/dL Normal [facility] Comment on above: Performed By: #### B MP, RAYNE, LIVER, LIPA #### [facility] [address] [address] Marcin Alanna Protein [Mass/Vol] 7.3 g/dL Normal 6.1-8.2 [facility] Comment on above: Performed By: #### B MP, RAYNE, LIVER, LIPA #### [facility] [address] [address] Marcin Alanna PROF CHEM 8 (BAS METB)on Anion gap [Moles/Vol] 10.6 mmol/L Normal [facility] Comment on above: Performed By: #### C MP, LIPA, RAYNE #### [facility] [address] [place] [address] Marcin Alanna Calcium [Mass/Vol] 8.9 mg/dL Normal 8.4-10.2 [facility] Comment on above: Performed By: #### C MP, LIPA, RAYNE #### [facility] [address] [place] [address] Marcin Alanna Chloride [Moles/Vol] 105 mmol/L Normal 98-107 [facility] Comment on above: Performed By: #### C MP, LIPA, RAYNE #### [facility] [address] [place] [address] Marcin Alanna CO2 [Moles/Vol] 27.4 mmol/L Normal 22.0-30.0 [facility] Comment on above: Performed By: #### C MP, LIPA, RAYNE #### [facility] [address] [place] [address] Marcin Alanna Creatinine [Mass/Vol] 0.91 mg/dL Normal 0.52-1.04 [facility] Comment on above: Performed By: #### C MP, LIPA, RAYNE #### [facility] [address] [place] [address] Marcin Alanna EGFR-AF SCOTTISH >60 Normal >=60 [facility] Comment on above: Performed By: #### C JAVAD MOLINA, RAYNE #### [facility] [address] [place] [address] Marcin Alanna EGFR-NON AF SCOTTISH >60 Normal >=60 [facility] Comment on above: Performed By: #### C JAVAD MOLINA, RAYNE #### [facility] [address] [place] [address] Marcin Alanna Glucose [Mass/Vol] 109 mg/dL Critically high 74-106 [facility] Comment on above: Performed By: #### C JAVAD MOLINA, RAYNE #### [facility] [address] [place] [address] Marcin Alanna Potassium [Moles/Vol] 4.0 mmol/L Normal 3.4-5.0 [facility] Comment on above: Performed By: #### C JAVAD MOLINA, RAYNE #### [facility] [address] [place] [address] Marcin Alanna Sodium [Moles/Vol] 139 mmol/L Normal 137-145 [facility] Comment on above: Performed By: #### C JAVAD MOLINA, RAYNE #### [facility] [address] [place] [address] Marcin Alanna Urea nitrogen [Mass/Vol] 13.0 mg/dL Normal 7.0-17.0 [facility] Comment on above: Performed By: #### C JAVAD MOLINA, RAYNE #### [facility] [address] [place] [address] Marcin Alanna Urea nitrogen/Creatini ne [Mass ratio] 14.3 mg/mg Normal [facility] Comment on above: Performed By: #### C JAVAD MOLINA, RAYNE #### [facility] [address] [place], [place] [id number] Marcin Alanna XR CHEST 1 Von 12-09-2020 [...] HENDRICKS Date: 2020-12-09 17:05 Normal [facility] Social History Date Type Detail Facility Start: 12-29-2023 Alcohol intake Current drinke r of alcohol (finding) [facility] Start: 09-26-2023 Gender identity Identifies as female gender (finding) [facility] Start: 09-26-2023 Sexual orientation Heterosexual (fin ding) [facility] Start: 09-24-2023 Tobacco smoking status NHIS Never sm oked tobacco [facility] Start: 09-24-2023 History of Social function [facility] Start: 09-24-2023 Alcohol Use Disorder Identification Test - Consumption [AUDIT-C] [facility] Start: 08-21-2023 [facility] Start: 1990 Sex Assigned At Female [facility] How often to you hav e a drink containing alcohol? Monthly or less [facility] How many standard dr inks containing alcohol do you have on a typical day? 3 or 4 [facility] How often do you hav e 6 or more drinks on 1 occasion? Less than monthly [facility] Healthcare Vital Signs Date Time Vital Sign Value Performing Clinician Faci lity 12-29-2023 10:32-0500 Body weight 121.17 kg Jesica Baljit DO Work Phone: [facility] 12-29-2023 10:32-0500 Diastolic blood pressure 70 mm[Hg] [employer] DO Work Phone: [facility] 12-29-2023 10:32-0500 Systolic blood pressure 110 mm[Hg] JesicaAsmac[employer] Ltée DO Work Phone: [facility] History of Present illness Narrative 12-29-2023 Jesica [...] nursing note reviewed. Exam conducted with a location manager present. Vitals: There is no height or [...] Jesica Smiley DO documented in this encounter [facility] Progress note 01-02-2021 Note Date & Type Note Facility 01-02-2021 Note HNO ID: [id number] Author: Bro Yuan Service: ? Author Type: [...] Follow up PRN SIGNATURE: Jeffrey Yuan MD [facility] surgery Pager: [phone] [facility] Progress note 01-02-2021 Note Date & Type Note Facility 01-02-2021 Note HNO ID: [id number] Author: Annamaria Collins Service: ? Author Type: [...] Follow-up TEX Collins MD General Surgery Resident [facility] Evaluation note Note Date & Type [...] and content) DATE CREATED AUTHOR 10/02/2021 [facility] pital DATE CREATED AUTHOR AUTHOR'S ORGANIZ ATION 12/20/2021 [facility] DATE CREATED AUTHOR AUTHOR'S ORGANIZ ATION 04/22/2024 [facility] EPIC Reason for Visit (unrecogniz ed section and content) Reason Comments Routine Visit Care Teams (unrecognized sec tion and content) Well Puller Relationship Specialty Start Date End Date Tor Torres MD [address] [place] [address] PCP - General Internal Medicine 09/25/23 FOR [...] BE BASED ON THE PRIMARY CLINICAL RECORDS. [employer] [facility]. provides no warranty or guarantee of the accuracy or completeness of information in this document.
[2024-04-23 12:01] VITALS: BP 108/57; PULSE 96
== END 2024-04-23 12:49 | disposition home or self-care (01) ==
LOC: FBCO 07:14 → FBC 11:53
PROVIDERS: PCP Internal Medicine; Visit Provider Obstetrics & Gynecology
DX: O36.5930 Maternal care for other known or suspected poor fetal growth, third trimester, not applicable or unspecified (principal)
CPT/HCPCS: 59025

== ENCOUNTER 2024-04-26 21:01 | Outpatient (REF) | payer OTHER, SELFPAY ==
--- OUTSIDE RECORDS SUMMARY | 2024-04-26 21:05 | XMS_ITS ---
Patient Summarization (C-CDA 2.1 CCD) Created on: April 26, 2024 PRESTON GRAY Paola ISAAC Guevara~PRESTON : 1990 Sex: Female Author Organization Sample organization Care Team Providers Care Database Tester Name Role Phone DR TOR TORRES Primary [...] Tor Torres MD Primary Care Provider [phone] RAYNE JUNG Attending Unavailable BALJIT, JESICA Attending Unavailable RAYNE JUNG Attending Unavailable BALJIT, JESICA Attending Unavailable BALJIT, JESICA Attending Unavailable RAYNE JUNG Attending Unavailable BALJIT, JESICA Attending Unavailable Allergies Allergy Classification Reported Allergen(s) Allergy Type Date of Onset Reaction(s) Facility (1 source) Morphine Drug Allergy 05-18-2018 [facility] Repository Encounters Encounter Date Encounter Type [...] [place] [employer] [place] MED[place] [id number] 2020-Present [address] [place] [address] [id number] 1990 Unknown [id number] 1990 Unknown [id number] [id number] 1990 Unknown [id number] [id number] 1990 Unknown [id number] [id number] 1990 Unknown [id number] 2.16.840.1.759505.3.579.2.9 1990 Unknown [id number] 2.16.840.1.771336.3.579.2.9 1990 Unknown [id number] 2.16.840.1.505092.3.579.2.9 1990 Unknown [id number] 2.16.840.1.267949.3.579.2.9 1990 Unknown [id number] 2.16.840.1.309632.3.579.2.9 1990 Unknown [id number] 2.16.840.1.485644.3.579.2.9 1990 Unknown [id number] [id number] 1959 Unknown [id number] Problems Active Problems Problem Classification Problem Date Documented Da te Episodic/Chronic Asthma (1 source) Unspecified asthma, uncomplicated; Translations: [UNSPECIFIED ASTHMA UNCOMPLICATED] Onset: 10-02-2021 Chronic Esophageal disorders (1 source) Gastro-esophageal reflux disease without esophagitis; Translations: [GERD WITHOUT ESOPHAGITIS] Onset: 12-12-2020 Chronic Other aftercare (1 source) Other mcc (current) drug therapy; Translations: [OTH NURSING HOME CURRENT DRUG THERAPY] Onset: 10-02-2021 Episodic [...] Test Name Value Interpretation Reference Range Facility [facility] 01-02-2021 CNOV Office Visit ([facility] ) -------- ISAAC TOUSSAINT ([id number]) 1990 F Date Time Provider Department 01/02/21 10:30 AM BRO YUAN During your visit today, we recorded the following information about you: Temperature Pulse Blood pressure Weight 96.8 degrees 115/minute 130/68 140.6 kg Height 1.499 m Bhavani Han NE 01/02/2021 11:04 AM Signed What is the [...] SIGNATURE: Jeffrey Yuan MD B surgery Pager: [phone] Referring Provider: SELF [[id number]] Allergies As of [...] Status:Closed by BRO YUAN MD on 01/02/21 [facility] 12-22-2020 CNPN Telephone (PODCCP) -------- ISAAC TOUSSAINT ([id number]) 1990 F Date Time Provider Department 12/22/20 VAHE CR (STUDENT) PODCCP During your visit today, we recorded the following information about you: Vahe Cr Student 12/22/2020 10:01 AM Signed Record ID: [id number] Patient Name: [facility]: [facility]: [facility] [place] Attending: Bro Yuan Center: General Surgery INSTRUCTIONS SN to remind patient of appointment date, time, location All Clear All Clear SURVEY INFORMATION Medical/Nurse Preschool Principal: Landy Duran 1. Your discharge instructions are [...] Reason for Visit: Follow Up Phone Call [[id number]] Prescriptions as of 12/22/2020 Sig: ONDANSETRON HCL [...] Encounter Status:Closed by VAHE WADE on 12/22/20 [facility] Corey 12-21-2020 KIERSTEN Telephone (JACKSON) -------- ISAAC TOUSSAINT ([id number]) 1990 F Date Time Provider Department 12/21/20 [...] Status:Closed by FRANCISCO ABRAMS MACY on 01/22/21 [facility] OBSOLETEon 12-21-2020 OBSOLETE Refill (GENSMN) -------- ISAAC TOUSSAINT ([id number]) 1990 F Date Time Provider Department 12/21/20 ROXANA SCOTT During your visit today, we recorded the following information about you: Roxana Scott APRN.CYLINDER INSPECTOR AND TESTER 12/21/2020 2:00 PM Signed Patient called with [...] our office if symptoms persist. Roxana Scott APRN.CYLINDER INSPECTOR AND TESTER Allergies As of Date: 12/21/2020 (No Known [...] by TYLER DEJESUS.ROXANA HOUSE on 12/21/20 [facility] AMMONIAon 12-15-2020 Ammonia (P) [Mass/Vol] ug/dL Critically low 10-[address] [facility] Comment on above: Performed By: #### A MM #### [facility] [address] [place] [address] Marcin Alanna AMYLASEon 12-15-2020 Amylase [Catalytic activity/Vol] 217 U/L Critically high 31-[address] [facility] Comment on above: Performed By: #### C JAVAD MOLINA AMY #### [facility] [address] [place] [address] Marcin Alanna CBC AUTO DIFFon 12-15-2020 BASO # 0.0 103/ul Normal 0.0-0.[address] [facility] Comment on above: Performed By: #### C JAVAD MOLINA AMY #### [facility] [address] [place] [address] Marcin Alanna Basophils/100 WBC (Bld) 0.3 % Normal 0.2-2.[address] [facility] Comment on above: Performed By: #### C JAVAD MOLINA AMY #### [facility] [address] [place] [address] Marcin Alanna EO # 0.0 103/ul Normal 0.0-0.7 [facility] Comment on above: Performed By: #### C JAVAD MOLINA AMY #### [facility] [address] [place] [address] Marcin Alanna Eosinophils/100 WBC (Bld) 0.3 % Critically low 0.9-7.[address] [facility] Comment on above: Performed By: #### C JAVAD MOLINA AMY #### [facility] [address] [place] [address] Marcin Alanna Erythrocyte distribution width (RBC) [Ratio] 13.3 % Normal 11.0-15.0 [facility] Comment on above: Performed By: #### C JAVAD MOLINA AMY #### [facility] [address] [place] [address] Marcin Alanna Hematocrit (Bld) [Volume fraction] 42.9 % Normal 36.0-48.0 [facility] Comment on above: Performed By: #### C JAVAD MOLINA, RAYNE #### [facility] [address] [place] [address] Marcin Alanna Hemoglobin (Bld) [Mass/Vol] 13.8 g/dL Normal 12.0-16.[address] [facility] Comment on above: Performed By: #### C JAVAD MOLINA, RAYNE #### [facility] [address] [place] [address] Marcin Alanna IG # 0.02 10e3/ul Normal 0.00-0.03 [facility] Comment on above: Performed By: #### C JAVAD MOLINA, RAYNE #### [facility] [address] [place] [address] Marcin Alanna IG % 0.3 % Normal 0.0-0.[address] [facility] Comment on above: Performed By: #### C JAVAD MOLINA, RAYNE #### [facility] [address] [place] [address] Marcin Alanna LYMPH # 1.7 103/ul Normal 1.2-3.8 [facility] Comment on above: Performed By: #### C JAVAD MOLINA, RAYNE #### [facility] [address] [place] [address] Marcin Alanna Lymphocytes/100 WBC (Bld) 23.8 % Normal 20.5-60.0 [facility] Comment on above: Performed By: #### C JAVAD MOLINA, RAYNE #### [facility] [address] [place] [address] Marcin Alanna MANUAL DIFF REQ NO Normal [facility] Comment on above: Performed By: #### C MP, LIPA, RAYNE #### [facility] [address] [place] [address] Marcin Alanna MCH (RBC) [Entitic mass] 29.8 pg Normal 26.7-34.[address] [facility] Comment on above: Performed By: #### C TRACY LIPA, RAYNE #### [facility] [address] [place] [address] Marcin Alanna MCHC (RBC) [Mass/Vol] 32.2 g/dL Normal 29.9-35.2 [facility] Comment on above: Performed By: #### C MP LIPA, RAYNE #### [facility] [address] [place] [address] Marcin Alanna MCV (RBC) [Entitic vol] 92.7 fL Normal 81.0-99.[address] [facility] Comment on above: Performed By: #### C TRACY LIPA, RAYNE #### [facility] [address] [place] [address] Marcin Alanna MONO # 0.6 103/ul Normal 0.3-0.[address] [facility] Comment on above: Performed By: #### C TRACY LIPA, RAYNE #### [facility] [address] [place] [address] Marcin Alanna Monocytes/100 WBC (Bld) 8.5 % Normal 1.7-12.[address] [facility] Comment on above: Performed By: #### C MP LIPA, RAYNE #### [facility] [address] [place] [address] Marcin Alanna NEUT # 4.8 103/ul Normal 1.4-6.5 [facility] Comment on above: Performed By: #### C MP, LIPA, RAYNE #### [facility] [address] [place] [address] Marcin Alanna Neutrophils/100 WBC (Bld) 66.8 % Normal 43.0-75.[address] [facility] Comment on above: Performed By: #### C MP, LIPA, RAYNE #### [facility] [address] [place] [address] Marcin Alanna Platelet mean volume (Bld) [Entitic vol] 8.7 fL Critically low 9.5-13.[address] [facility] Comment on above: Performed By: #### C JAVAD MOLINA AMY #### [facility] [address] [place] [address] Marcin Mondragon PLT 253 103/ul Normal 150-450 [facility] Comment on above: Performed By: #### C JAVAD MOLINA, RAYNE #### [facility] [address] [place] [address] Marcin Mondragon RBC 4.63 106/ul Normal 4.20-5.40 [facility] Comment on above: Performed By: #### C JAVAD MOLINA AMY #### [facility] [address] [place] [address] Marcin Mondragon WBC 7.1 103/ul Normal 4.0-11.[address] [facility] Comment on above: Performed By: #### C JAVAD MOLINA AMY #### [facility] [address] [place] [address] Marcin Mondragon LIPASEon 12-15-2020 Lipase [Catalytic activity/Vol] 1205.0 U/L Critically high 23.0-300.[address] [facility] Comment on above: Result Comment: test repeated critical value verified Performed By: #### C JAVAD MOLINA AMY #### [facility] [address] [place] [address] Marcin Mondragon PREG HCG QUALon 12-15-2020 , QUAL Negative Normal NEGATIVE [facility] Comment on above: Performed By: #### P REG #### [facility] [address] [place] [address] Marcin Mondragon PROF 14(COMP METB)on 021 Albumin [Mass/Vol] 3.3 g/dL Critically low 3.5-5.[address] [facility] Comment on above: Performed By: #### C JAVAD MOLINA, RAYNE #### [facility] [address] [place] [address] Marcin Mondragon Albumin/Globulin [Mass ratio] 0.8 {ratio} Normal [facility] Comment on above: Performed By: #### C TRACY LIPA, RAYNE #### [facility] [address], [place] [address] Marcin Alanna ALP [Catalytic activity/Vol] 167 U/L Critically high 38-[address] [facility] Comment on above: Performed By: #### C TRACY LIPA, RAYNE #### [facility] [address] [place] [address] Marcin Alanna ALT [Catalytic activity/Vol] 370 U/L Critically high 9-52 [facility] Comment on above: Performed By: #### C TRACY LIPA, RAYNE #### [facility] [address] [place] [address] Marcin Alanna Anion gap [Moles/Vol] 12.5 mmol/L Normal [facility] Comment on above: Performed By: #### C TRACY LIPA, RAYNE #### [facility] [address] [place] [address] Marcin Alanna AST [Catalytic activity/Vol] 165 U/L Critically high 14-[address] [facility] Comment on above: Performed By: #### C TRACY LIPA, RAYNE #### [facility] [address] [place] [address] Marcin Alanna Bilirubin [Mass/Vol] 5.3 mg/dL Critically high 0.2-1.[address] [facility] Comment on above: Performed By: #### C TRACY LIPA, RAYNE #### [facility] [address] [place] [address] Marcin Alanna Calcium [Mass/Vol] 9.2 mg/dL Normal 8.4-10.2 [facility] Comment on above: Performed By: #### C TRACY LIPA, RAYNE #### [facility] [address] [place] [address] Marcin Alanna Chloride [Moles/Vol] 102 mmol/L Normal 98-107 [facility] Comment on above: Performed By: #### C TRACY LIPA, RAYNE #### [facility] [address] [place] [address] Marcin Alanna CO2 [Moles/Vol] 29.6 mmol/L Normal 22.0-30.0 [facility] Comment on above: Performed By: #### C MP, LIPA, RAYNE #### [facility] [address] [place] [address] Marcin Alanna Creatinine [Mass/Vol] 0.88 mg/dL Normal 0.52-1.[address] [facility] Comment on above: Performed By: #### C MP, LIPA, RAYNE #### [facility] [address] [place] [address] Marcin Alanna EGFR-AF WALLISIAN >60 Normal >=60 [facility] Comment on above: Performed By: #### C MP, LIPA, RAYNE #### [facility] [address] [place] [address] Marcin Alanna EGFR-NON AF WALLISIAN >60 Normal >=60 [facility] Comment on above: Performed By: #### C MP, LIPA, RAYNE #### [facility] [address] [place] [address] Marcin Alanna Globulin (S) [Mass/Vol] 4.1 g/dL Normal [facility] Comment on above: Performed By: #### C MP, LIPA, RAYNE #### [facility] [address] [place] [address] Marcin Alanna Glucose [Mass/Vol] 88 mg/dL Normal 74-106 [facility] Comment on above: Performed By: #### C MP, LIPA, RAYNE #### [facility] [address] [place] [address] Marcin Alanna Potassium [Moles/Vol] 3.1 mmol/L Critically low 3.4-5.[address] [facility] Comment on above: Performed By: #### C MP, LIPA, RAYNE #### [facility] [address] [place] [address] Marcin Alanna Protein [Mass/Vol] 7.4 g/dL Normal 6.1-8.2 [facility] Comment on above: Performed By: #### C MP, LIPA, RAYNE #### [facility] [address] [place] [address] Marcin Alanna Sodium [Moles/Vol] 141 mmol/L Normal 137-[address] [facility] Comment on above: Performed By: #### C JAVAD MOLINA AMY #### [facility] [address] [place] [address] Marcin Alanna Urea nitrogen [Mass/Vol] 8.0 mg/dL Normal 7.0-17.[address] [facility] Comment on above: Performed By: #### C JAVAD MOLINA AMY #### [facility] [address] [place] [address] Marcin Alanna Urea nitrogen/Creatini ne [Mass ratio] 9.1 mg/mg Normal [facility] Comment on above: Performed By: #### C JAVAD MOLINA AMY #### [facility] [address] [place] [address] Marcin Alanna PROTIMEon 12-15-2020 INR Coag (PPP) [Relative time] 1.04 {INR} Normal [facility] Comment on above: Performed By: #### C JAVAD MOLINA AMY #### [facility] [address] [place] [address] Marcin Alanna INR GUIDELINES SEE BELOW Normal [facility] Comment on above: Result Comment: NAI RED INR: 2.0 - 3.0 CONDITIONS NOT LISTED BELOW 2.5 - 3.5 FOR PROSTHETIC HEART VALVE REPLACEMENT 2.5 - 3.5 RECURRENT THROMBOSIS Performed By: #### C JAVAD MOLINA AMY #### [facility] [address] [place] [address] Marcin Alanna PT Coag (PPP) [Time] 11.3 s Normal 9.0-11.6 [facility] Comment on above: Performed By: #### C JAVAD MOLINA AMY #### [facility] [address] [place] [address] Marcin Alanna PTTon 12-15-2020 aPTT Coag (Bld) [Time] 27.8 s Normal 22.3-36.[address] [facility] Comment on above: Performed By: #### C JAVAD MOLINA AMY #### [facility] [address] [place] [address] Marcin Alanna AMYLASEon 12-09-2020 Amylase [Catalytic activity/Vol] 45 U/L Normal 31-110 [facility] Comment on above: Performed By: #### B MP, RAYNE, LIVER, LIPA #### [facility] [address] [place] [id number] Marcin Mondragon CBC AUTO DIFFon 12-09-2020 BASO # 0.0 103/ul Normal 0.0-0.1 [facility] Comment on above: Performed By: #### C BC #### [facility] [address] [place], [place] [id number] Marcinraffy Mondragon Basophils/100 WBC (Bld) 0.2 % Normal 0.2-2.0 [facility] Comment on above: Performed By: #### C BC #### [facility] [address] [place], [place] [id number] Marcinraffy Mondragon EO # 0.0 103/ul Normal 0.0-0.7 [facility] Comment on above: Performed By: #### C BC #### [facility] [address] [place], [place] [id number] Marcin Mondragon Eosinophils/100 WBC (Bld) 0.3 % Critically low 0.9-7.0 [facility] Comment on above: Performed By: #### C BC #### [facility] [address] [place], [place] [id number] Marcin Mondragon Erythrocyte distribution width (RBC) [Ratio] 12.6 % Normal 11.0-15.0 [facility] Comment on above: Performed By: #### C BC #### [facility] [address] [place], [place] [id number] Marcinraffy Mondragon Hematocrit (Bld) [Volume fraction] 45.7 % Normal 36.0-48.0 [facility] Comment on above: Performed By: #### C BC #### [facility] [address] [place], [place] [id number] Marcin Alanna Hemoglobin (Bld) [Mass/Vol] 14.6 g/dL Normal 12.0-16.0 [facility] Comment on above: Performed By: #### C BC #### [facility] [address] [place] [address] Marcin Alanna IG # 0.04 10e3/ul Critically high 0.00-0.03 [facility] Comment on above: Performed By: #### C BC #### [facility] [address] [place] [address] Marcin Alanna IG % 0.4 % Normal 0.0-0.[address] [facility] Comment on above: Performed By: #### C BC #### [facility] [address] [place] [address] Marcin Alanna LYMPH # 1.4 103/ul Normal 1.2-3.8 [facility] Comment on above: Performed By: #### C BC #### [facility] [address] [place] [address] Marcinraffy Mondragon Lymphocytes/100 WBC (Bld) 12.8 % Critically low 20.5-60.[address] [facility] Comment on above: Performed By: #### C BC #### [facility] [address] [place] [address] Marcinrfafy Mondragon MANUAL DIFF REQ NO Normal [facility] Comment on above: Performed By: #### C BC #### [facility] [address] [place] [address] Marcin Alanna MCH (RBC) [Entitic mass] 29.4 pg Normal 26.7-34.[address] [facility] Comment on above: Performed By: #### C BC #### [facility] [address] [place] [address] Marcinraffy Mondragon MCHC (RBC) [Mass/Vol] 31.9 g/dL Normal 29.9-35.2 [facility] Comment on above: Performed By: #### C BC #### [facility] [address] [place] [address] Marcin Alanna MCV (RBC) [Entitic vol] 92.1 fL Normal 81.0-99.[address] [facility] Comment on above: Performed By: #### C BC #### [facility] [address] [place] [address] Marcin Alanna MONO # 0.6 103/ul Normal 0.3-0.[address] [facility] Comment on above: Performed By: #### C BC #### [facility] [address] [place], [place] [id number] Marcin Pritcharden Monocytes/100 WBC (Bld) 5.6 % Normal 1.7-12.[address] [facility] Comment on above: Performed By: #### C BC #### [facility] [address] [place], [place] [id number] Marcinraffy Pritcharden NEUT # 9.0 103/ul Critically high 1.4-6.5 [facility] Comment on above: Performed By: #### C BC #### [facility] [address] [place], [place] [id number] Maricn Alanna Neutrophils/100 WBC (Bld) 80.7 % Critically high 43.0-75.[address] [facility] Comment on above: Performed By: #### C BC #### [facility] [address] [place], [place] [id number] Marcin Mondragon Platelet mean volume (Bld) [Entitic vol] 8.6 fL Critically low 9.5-13.5 [facility] Comment on above: Performed By: #### C BC #### [facility] [address] [place], [place] [id number] Marcin Alanna PLT 255 103/ul Normal 150-450 [facility] Comment on above: Performed By: #### C BC #### [facility] [address] [place], [place] [id number] Marcin Alanna RBC 4.96 106/ul Normal 4.20-5.40 [facility] Comment on above: Performed By: #### C BC #### [facility] [address] [place], [place] [id number] Marcin Alanna WBC 11.1 103/ul Critically high 4.0-11.0 [facility] Comment on above: Performed By: #### C BC #### [facility] [address] [place], [place] [id number] Marcin Mondragon LIPASEon 12-09-2020 Lipase [Catalytic activity/Vol] 129.0 U/L Normal 23.0-300.0 [facility] Comment on above: Performed By: #### B MP, RAYNE, LIVER, LIPA #### [facility] [address] [address] Marcin Alanna LIVER PROFILEon 12-09-2020 Albumin [Mass/Vol] 3.5 g/dL Normal 3.5-5.0 [facility] Comment on above: Performed By: #### B MP, RAYNE, LIVER, LIPA #### [facility] [address] [address] Marcin Alanna Albumin/Globulin [Mass ratio] 0.9 {ratio} Normal [facility] Comment on above: Performed By: #### B MP, RAYNE, LIVER, LIPA #### [facility] [address] [place] [address] Marcin Alanna ALP [Catalytic activity/Vol] 80 U/L Normal 38-126 [facility] Comment on above: Performed By: #### B MP, RAYNE, LIVER, LIPA #### [facility] [address] [place] [address] Marcin Alanna ALT [Catalytic activity/Vol] 31 U/L Normal 9-52 [facility] Comment on above: Performed By: #### B MP, RAYNE, LIVER, LIPA #### [facility] [address] [place] [address] Marcin Alanna AST [Catalytic activity/Vol] 39 U/L Critically high 14-36 The [facility] Comment on above: Performed By: #### B MP, RAYNE, LIVER, LIPA #### [facility] [address] [place] [address] Marcin Alanna BILI, CONJUGATED 0.2 mg/dL Normal 0.0-0.3 The [facility] Comment on above: Performed By: #### B MP, RAYNE, LIVER, LIPA #### [facility] [address] [place] [address] Marcin Alanna Bilirubin [Mass/Vol] 0.5 mg/dL Normal 0.2-1.3 The [facility] Comment on above: Performed By: #### B MP, RAYNE, LIVER, LIPA #### [facility] [address] [id number] Marcin Alanna Globulin (S) [Mass/Vol] 3.8 g/dL Normal [facility] Comment on above: Performed By: #### B MP, RAYNE, LIVER, LIPA #### [facility] [address] [address] Marcin Alanna Protein [Mass/Vol] 7.3 g/dL Normal 6.1-8.2 [facility] Comment on above: Performed By: #### B MP, RAYNE, LIVER, LIPA #### [facility] [address] [address] Marcin Alanna PROF CHEM 8 (BAS METB)on Anion gap [Moles/Vol] 10.6 mmol/L Normal [facility] Comment on above: Performed By: #### C MP, LIPA, RAYNE #### [facility] [address] [place] [address] Marcin Alanna Calcium [Mass/Vol] 8.9 mg/dL Normal 8.4-10.2 [facility] Comment on above: Performed By: #### C MP, LIPA, RAYNE #### [facility] [address] [place] [address] Marcin Alanna Chloride [Moles/Vol] 105 mmol/L Normal 98-107 [facility] Comment on above: Performed By: #### C MP, LIPA, RAYNE #### [facility] [address] [place] [address] Marcin Alanna CO2 [Moles/Vol] 27.4 mmol/L Normal 22.0-30.0 The [facility] Comment on above: Performed By: #### C MP, LIPA, RAYNE #### [facility] [address] [place] [address] Marcin Alanna Creatinine [Mass/Vol] 0.91 mg/dL Normal 0.52-1.04 [facility] Comment on above: Performed By: #### C MP, LIPA, RAYNE #### [facility] [address] [place] [address] Marcin Alanna EGFR-AF WALLISIAN >60 Normal >=60 The [facility] Comment on above: Performed By: #### C JAVAD MOLINA, RAYNE #### [facility] [address] [place] [address] Marcin Alanna EGFR-NON AF WALLISIAN >60 Normal >=60 [facility] Comment on above: Performed By: #### C JAVAD MOLINA, RAYNE #### [facility] [address] [place] [address] Marcin Alanna Glucose [Mass/Vol] 109 mg/dL Critically high 74-106 [facility] Comment on above: Performed By: #### C JAVAD MOLINA, RAYNE #### [facility] [address] [place] [address] Marcin Alanna Potassium [Moles/Vol] 4.0 mmol/L Normal 3.4-5.[address] [facility] Comment on above: Performed By: #### C JAVAD MOLINA, RAYNE #### [facility] [address] [place] [address] Marcin Alanna Sodium [Moles/Vol] 139 mmol/L Normal 137-145 [facility] Comment on above: Performed By: #### C JAVAD MOLINA, RAYNE #### [facility] [address] [place] [address] Marcin Alanna Urea nitrogen [Mass/Vol] 13.0 mg/dL Normal 7.0-17.[address] [facility] Comment on above: Performed By: #### C JAVAD MOLINA, RAYNE #### [facility] [address] [place] [address] Marcin Alanna Urea nitrogen/Creatini ne [Mass ratio] 14.3 mg/mg Normal [facility] Comment on above: Performed By: #### C JAVAD MOLINA, RAYNE #### [facility] [address] [place], [place] [id number] Marcin Alanna XR CHEST 1 Von 12-09-2020 [...] HENDRICKS Date: 2020-12-09 17:[address] [facility] Social History Date Type Detail [...] drinks on 1 occasion? Less than monthly [facility] Healthcare Vital Signs Date Time Vital Sign Value Performing Clinician Faci lity 12-29-2023 10:32-0500 Body weight 121.17 kg Jesica Baljit DO Work Phone: [facility] 12-29-2023 10:32-0500 Diastolic blood pressure 70 mm[Hg] [employer] DO Work Phone: [facility] 12-29-2023 10:32-0500 Systolic blood pressure 110 mm[Hg] [employer] DO Work Phone: [facility] History of Present illness Narrative 12-29-2023 Jesica [...] nursing note reviewed. Exam conducted with a valve repairer present. Vitals: There is no height or [...] Jesica Smiley DO documented in this encounter [facility] Progress note 01-02-2021 Note Date & Type Note Facility 01-02-2021 Note HNO ID: [id number] Author: Bro Yuan Service: ? Author Type: [...] Follow up PRN SIGNATURE: Jeffrey Yuan MD [facility] surgery Pager: [phone] [facility] Progress note 01-02-2021 Note Date & Type Note Facility 01-02-2021 Note HNO ID: [id number] Author: Annamaria Collins Service: ? Author Type: [...] Follow-up TEX Collins MD General Surgery Resident [facility] Evaluation note Note Date & Type Note [...] and content) DATE CREATED AUTHOR 10/02/2021 [facility] pital DATE CREATED AUTHOR AUTHOR'S ORGANIZ ATION 12/20/2021 [facility] DATE CREATED AUTHOR AUTHOR'S ORGANIZ ATION 04/22/2024 [facility] EPIC Reason for Visit (unrecogniz ed section and content) Reason Comments Routine Visit Care Teams (unrecognized sec tion and content) Database Tester Relationship Specialty Start Date End Date Tor Torres MD [address] [place] [id number] PCP - General Internal Medicine [...] BE BASED ON THE PRIMARY CLINICAL RECORDS. [employer] [facility]. provides no warranty or guarantee of the accuracy or completeness of information in this document.
== END 2024-04-26 21:02 | disposition home or self-care (01) ==
LOC: LAB 21:01
PROVIDERS: PCP Internal Medicine; Visit Provider Obstetrics & Gynecology
DX: Z34.93 Encounter for supervision of normal pregnancy, unspecified, third trimester (principal)
CPT/HCPCS: 87081

== ENCOUNTER 2024-04-29 18:11 | Observation (INO) | payer OTHER, SELFPAY ==
--- OUTSIDE RECORDS SUMMARY | 2024-04-29 18:19 | XMS_ITS | CCD ---
Author Organization [facility] Team Providers Care Professional Development Instructor Name Role Phone DR TOR TORRES Primary [...] Alexander Primary Care Unavail able DR GEREMIAS SATNANA Admitting Unavailable Tor Torres MD Primary Care Provider RAYNE JUNG Attending Unavailable JESICA SMILEY Attending Unavailable RAYNE JUNG Attending Unavailable JESICA SMILEY Attending Unavailable JESICA SMILEY Attending Unavailable RAYNE JUNG Attending Unavailable JESICA SMILEY Attending Unavailable JESICA SMILEY Attending Unavailable Allergies Allergy Classification Reported Allergen(s) Allergy Type Date of Onset Reaction(s) Facility (1 source) Morphine Drug Allergy 05-18-2018 [facility] Repository Medications Current Medications Medication Drug [...] 12-12-2020 Chronic Other aftercare (1 source) Other emt intermediate (current) drug therapy; Translations: [OTH ALF CURRENT DRUG THERAPY] Onset: 10-02-2021 Episodic Other [...] Office Visit (GENSMN ) -------- ISAAC TOUSSAINT ([id number]) 1990 F Date Time Provider Department 01/02/21 [...] SIGNATURE: Jeffrey Yuan MD B surgery Pager: [phone] Referring Provider: SELF [[id number]] Allergies As of [...] Status:Closed by BRO YUAN MD on 01/02/21 [facility] 12-22-2020 [facility] Telephone (PODCCP) -------- ISAAC TOUSSAINT ([id number]) 1990 F Date Time Provider Department 12/22/20 [facility] (STUDENT) PODCCP During your visit today, we recorded the following information about you: Vahe Cr Student 12/22/2020 10:01 AM Signed Record ID: [id number] Patient Name: [facility]: [facility]: [facility] Attending: Bro Yuan Center: General Surgery INSTRUCTIONS SN to remind patient of appointment date, time, location All Clear All Clear SURVEY INFORMATION Medical/Nurse Product Safety Head: Landy Duran 1. Your discharge instructions are [...] Reason for Visit: Follow Up Phone Call [[id number]] Prescriptions as of 12/22/2020 Sig: ONDANSETRON HCL [...] Encounter Status:Closed by VAHE WADE on 12/22/20 [facility] 12-21-2020 CNPN Telephone (WhitevectorN) -------- ISAAC TOUSSAINT ([id number]) 1990 F Date Time Provider Department 12/21/20 BRO YUAN During your visit today, we recorded the following information about you: Macy Arshad [facility] 12/21/2020 12:18 PM Signed Patient is calling [...] Encounter Status:Closed by MACY SALEH on 01/22/21 [facility] OBSOLETEon 12-21-2020 OBSOLETE Refill (GENSMN) -------- ISAAC TOUSSAINT ([id number]) 1990 F Date Time Provider Department 12/21/20 ROXANA SCOTT During your visit today, we recorded the following information about you: Roxana Scott APRN.FASTENER 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 Roxana Scott APRN.FASTENER SEWING MACHINE OPERATOR Allergies As of Date: 12/21/2020 [...] by TYLER DEJESUS.ROXANA HOUSE on 12/21/[address] [facility] AMMONIAon 12-15-2020 Ammonia (P) [Mass/Vol] ug/dL Critically low 10-30 [facility] Comment on above: Performed By: #### A MM #### [facility] [address], [place] [address] Marcin Mondragon AMYLASEon 12-15-2020 Amylase [Catalytic activity/Vol] 217 U/L Critically high 31-110 [facility] Comment on above: Performed By: #### C MP, LIPA, RAYNE #### [facility] [address], [place] [address] Marcin Mondragon CBC AUTO DIFFon 12-15-2020 BASO # 0.0 103/ul Normal 0.0-0.1 [facility] Comment on above: Performed By: #### C JAVAD MOLINA AMY #### [facility] [address] [place] [address] Marcin Alanna Basophils/100 WBC (Bld) 0.3 % Normal 0.2-2.0 [facility] Comment on above: Performed By: #### C JAVAD MOLINA AMY #### [facility] [address] [place] [address] Marcin Alanna EO # 0.0 103/ul Normal 0.0-0.7 [facility] Comment on above: Performed By: #### C JAVAD MOLINA AMY #### [facility] [address] [place] [address] Marcin Alanna Eosinophils/100 WBC (Bld) 0.3 % Critically low 0.9-7.0 [facility] Comment on above: Performed By: #### C JAVAD MOLINA AMY #### [facility] [address] [place] [address] Marcin Alanna Erythrocyte distribution width (RBC) [Ratio] 13.3 % Normal 11.0-15.0 [facility] Comment on above: Performed By: #### C JAVAD MOLINA AMY #### [facility] [address] [place] [address] Marcin Alanna Hematocrit (Bld) [Volume fraction] 42.9 % Normal 36.0-48.0 [facility] Comment on above: Performed By: #### C JAVAD MOLINA AMY #### [facility] [address] [place] [address] Marcin Alanna Hemoglobin (Bld) [Mass/Vol] 13.8 g/dL Normal 12.0-16.0 [facility] Comment on above: Performed By: #### C JAVAD MOLINA AMY #### [facility] [address] [place] [address] Marcin Alanna IG # 0.02 10e3/ul Normal 0.00-0.03 [facility] Comment on above: Performed By: #### C JAVAD MOLINA AMY #### [facility] [address] [place] [id number] Marcin Alanna IG % 0.3 % Normal 0.0-0.5 [facility] Comment on above: Performed By: #### C JAVAD MOLINA RAYNE #### [facility] [address] [place] [address] Marcin Alanna LYMPH # 1.7 103/ul Normal 1.2-3.8 [facility] Comment on above: Performed By: #### C JAVAD MOLINA, RAYNE #### [facility] [address] [place] [address] Marcin Alanna Lymphocytes/100 WBC (Bld) 23.8 % Normal 20.5-60.0 [facility] Comment on above: Performed By: #### C JAVAD MOLINA, RAYNE #### [facility] [address] [place] [address] Marcin Alanna MANUAL DIFF REQ NO Normal [facility] Comment on above: Performed By: #### C JAVAD MOLINA, RAYNE #### [facility] [address] [place], [place] [id number] Marcin Alanna MCH (RBC) [Entitic mass] 29.8 pg Normal 26.7-34.0 [facility] Comment on above: Performed By: #### C JAVAD MOLINA, RAYNE #### [facility] [address] [place] [address] Marcin Alanna MCHC (RBC) [Mass/Vol] 32.2 g/dL Normal 29.9-35.2 [facility] Comment on above: Performed By: #### C JAVAD MOLINA, RAYNE #### [facility] [address] [place] [address] Marcin Alanna MCV (RBC) [Entitic vol] 92.7 fL Normal 81.0-99.0 [facility] Comment on above: Performed By: #### C JAVAD MOLINA, RAYNE #### [facility] [address] [place] [address] Marcin Alanna MONO # 0.6 103/ul Normal 0.3-0.8 [facility] Comment on above: Performed By: #### C TRACY LIPA, RAYNE #### [facility] [address] [place] [address] Marcin Alanna Monocytes/100 WBC (Bld) 8.5 % Normal 1.7-12.0 [facility] Comment on above: Performed By: #### C TRACY LIPA, RAYNE #### [facility] [address] [place] [address] Marcin Alanna NEUT # 4.8 103/ul Normal 1.4-6.5 [facility] Comment on above: Performed By: #### C TRACY LIPA, RAYNE #### [facility] [address] [place] [address] Marcin Alanna Neutrophils/100 WBC (Bld) 66.8 % Normal 43.0-75.0 [facility] Comment on above: Performed By: #### C TRACY LIPA, RAYNE #### [facility] [address] [place] [address] Marcin Pritcharden Platelet mean volume (Bld) [Entitic vol] 8.7 fL Critically low 9.5-13.5 [facility] Comment on above: Performed By: #### C TRACY LIPA, RAYNE #### [facility] [address] [place] [address] Marcin Pritcharden PLT 253 103/ul Normal 150-450 [facility] Comment on above: Performed By: #### C TRACY LIPA, RAYNE #### [facility] [address] [place] [address] Marcin Alanna RBC 4.63 106/ul Normal 4.20-5.40 [facility] Comment on above: Performed By: #### C TRACY LIPA, RAYNE #### [facility] [address] [place] [address] Marcin Alanna WBC 7.1 103/ul Normal 4.0-11.0 [facility] Comment on above: Performed By: #### C TRACY LIPA, RAYNE #### [facility] [address] [place] [address] Marcin Mondragon LIPASEon 01-22-2021 Lipase [Catalytic activity/Vol] 1205.0 U/L Critically high 23.0-300.0 [facility] Comment on above: Result Comment: test repeated critical value verified Performed By: #### C JAVAD MOLINA AMY #### [facility] [address] [place], [place] [address] Marcin Alanna PREG HCG QUALon 12-15-2020 , QUAL Negative Normal NEGATIVE [facility] Comment on above: Performed By: #### P REG #### [facility] [address] [place] [address] Marcinraffy Pritcharden PROF 14(COMP METB)on 021 Albumin [Mass/Vol] 3.3 g/dL Critically low 3.5-5.0 [facility] Comment on above: Performed By: #### C JAVAD MOLINA AMY #### [facility] [address] [place] [address] Marcin Alanna Albumin/Globulin [Mass ratio] 0.8 {ratio} Normal [facility] Comment on above: Performed By: #### C JAVAD MOLINA, RAYNE #### [facility] [address] [place] [address] Marcin Alanna ALP [Catalytic activity/Vol] 167 U/L Critically high 38-126 [facility] Comment on above: Performed By: #### C JAVAD MOLINA, RAYNE #### [facility] [address] [place] [address] Marcin Alanna ALT [Catalytic activity/Vol] 370 U/L Critically high 9-52 [facility] Comment on above: Performed By: #### C JAVAD MOLINA, RAYNE #### [facility] [address] [place] [address] Marcin Alanna Anion gap [Moles/Vol] 12.5 mmol/L Normal [facility] Comment on above: Performed By: #### C JAVAD MOLINA, RAYNE #### [facility] [address] [place] [address] Marcin Alanna AST [Catalytic activity/Vol] 165 U/L Critically high 14-36 [facility] Comment on above: Performed By: #### C MP, LIPA, RAYNE #### [facility] [address] [place] [address] Marcin Alanna Bilirubin [Mass/Vol] 5.3 mg/dL Critically high 0.2-1.3 [facility] Comment on above: Performed By: #### C MP, LIPA, RAYNE #### [facility] [address] [place] [address] Marcin Alanna Calcium [Mass/Vol] 9.2 mg/dL Normal 8.4-10.2 [facility] Comment on above: Performed By: #### C MP LIPA, RAYNE #### [facility] [address] [place] [address] Marcin Alanna Chloride [Moles/Vol] 102 mmol/L Normal 98-107 [facility] Comment on above: Performed By: #### C TRACY LIPA, RAYNE #### [facility] [address] [place] [address] Marcin Alanna CO2 [Moles/Vol] 29.6 mmol/L Normal 22.0-30.0 [facility] Comment on above: Performed By: #### C TRACY LIPA, RAYNE #### [facility] [address] [place] [address] Marcin Alanna Creatinine [Mass/Vol] 0.88 mg/dL Normal 0.52-1.04 [facility] Comment on above: Performed By: #### C MP LIPA, RAYNE #### [facility] [address] [place] [address] Marcin Alanna EGFR-AF P[place]CAIRN ISLANDER >60 Normal >=60 [facility] Comment on above: Performed By: #### C MP, LIPA, RAYNE #### [facility] [address] [place] [address] Marcin Alanna EGFR-NON AF [place] ISLANDER >60 Normal >=60 [facility] Comment on above: Performed By: #### C MP, LIPA, RAYNE #### [facility] [address] [place] [address] Marcin Alanna Globulin (S) [Mass/Vol] 4.1 g/dL Normal [facility] Comment on above: Performed By: #### C JAVAD MOLINA, RAYNE #### [facility] [address] [place] [address] Marcin Alanna Glucose [Mass/Vol] 88 mg/dL Normal 74-106 [facility] Comment on above: Performed By: #### C JAVAD MOLINA, RAYNE #### [facility] [address] [place] [address] Marcin Alanna Potassium [Moles/Vol] 3.1 mmol/L Critically low 3.4-5.0 [facility] Comment on above: Performed By: #### C JAVAD MOLINA, RAYNE #### [facility] [address] [place] [address] Marcin Alanna Protein [Mass/Vol] 7.4 g/dL Normal 6.1-8.2 [facility] Comment on above: Performed By: #### C JAVAD MOLINA, RAYNE #### [facility] [address] [place] [address] Marcin Alanna Sodium [Moles/Vol] 141 mmol/L Normal 137-145 [facility] Comment on above: Performed By: #### C JAVAD MOLINA, RAYNE #### [facility] [address] [place] [address] Marcin Alanna Urea nitrogen [Mass/Vol] 8.0 mg/dL Normal 7.0-17.0 [facility] Comment on above: Performed By: #### C JAVAD MOLINA, RAYNE #### [facility] [address] [place] [address] Marcin Alanna Urea nitrogen/Creatini ne [Mass ratio] 9.1 mg/mg Normal [facility] Comment on above: Performed By: #### C JAVAD MOLINA, RAYNE #### [facility] [address] [place] [address] Marcin Alanna PROTIMEon 12-15-2020 INR Coag (PPP) [Relative time] 1.04 {INR} Normal [facility] Comment on above: Performed By: #### C JAVAD MOLINA, RAYNE #### [facility] [address] [place], [place] [address] Marcin Alanna INR GUIDELINES SEE BELOW Normal [facility] Comment on above: Result Comment: NAI RED INR: 2.0 - 3.0 CONDITIONS NOT LISTED BELOW 2.5 - 3.5 FOR PROSTHETIC HEART VALVE REPLACEMENT 2.5 - 3.5 RECURRENT THROMBOSIS Performed By: #### C MP, LIPA, RAYNE #### [facility] [address] [place] [address] Marcin Alanna PT Coag (PPP) [Time] 11.3 s Normal 9.0-11.6 [facility] Comment on above: Performed By: #### C MP, LIPA, RAYNE #### [facility] [address] [place], [place] [address] Marcin Alanna PTTon 12-15-2020 aPTT Coag (Bld) [Time] 27.8 s Normal 22.3-36.2 [facility] Comment on above: Performed By: #### C MP, LIPA, RAYNE #### [facility] [address] [place] [address] Marcin Alanna AMYLASEon 12-09-2020 Amylase [Catalytic activity/Vol] 45 U/L Normal 31-110 [facility] Comment on above: Performed By: #### B MP, RAYNE, LIVER, LIPA #### [facility] [address] [place], [place] [address] Marcin Alanna CBC AUTO DIFFon 12-09-2020 BASO # 0.0 103/ul Normal 0.0-0.1 [facility] Comment on above: Performed By: #### C BC #### [facility] [address] [place], [place] [address] Marcin Alanna Basophils/100 WBC (Bld) 0.2 % Normal 0.2-2.0 [facility] Comment on above: Performed By: #### C BC #### [facility] [address] [place], [place] [address] Marcin Alanna EO # 0.0 103/ul Normal 0.0-0.7 [facility] Comment on above: Performed By: #### C BC #### [facility] [address] [place], [place] [address] Marcin Alanna Eosinophils/100 WBC (Bld) 0.3 % Critically low 0.9-7.0 [facility] Comment on above: Performed By: #### C BC #### [facility] [address] [place], [place] [address] Marcin Mondragon Erythrocyte distribution width (RBC) [Ratio] 12.6 % Normal 11.0-15.0 [facility] Comment on above: Performed By: #### C BC #### [facility] [address] [place] [address] Marcin Alanna Hematocrit (Bld) [Volume fraction] 45.7 % Normal 36.0-48.0 [facility] Comment on above: Performed By: #### C BC #### [facility] [address] [place] [address] Marcin Mondragon Hemoglobin (Bld) [Mass/Vol] 14.6 g/dL Normal 12.0-16.0 [facility] Comment on above: Performed By: #### C BC #### [facility] [address] [place] [address] Marcin Alanna IG # 0.04 10e3/ul Critically high 0.00-0.03 [facility] Comment on above: Performed By: #### C BC #### [facility] [address] [place] [address] Marcin Alanna IG % 0.4 % Normal 0.0-0.5 [facility] Comment on above: Performed By: #### C BC #### [facility] [address] [place] [address] Marcin Alanna LYMPH # 1.4 103/ul Normal 1.2-3.8 [facility] Comment on above: Performed By: #### C BC #### [facility] [address] [place], [place] [address] Marcin Alanna Lymphocytes/100 WBC (Bld) 12.8 % Critically low 20.5-60.0 [facility] Comment on above: Performed By: #### C BC #### [facility] [address] [place] [address] Marcinraffy Pritcharden MANUAL DIFF REQ NO Normal [facility] Comment on above: Performed By: #### C BC #### [facility] [address] [place] [id number] Marcin Mondragon MCH (RBC) [Entitic mass] 29.4 pg Normal 26.7-34.0 [facility] Comment on above: Performed By: #### C BC #### [facility] [address] [place] [phone] Marcin Mondragon MCHC (RBC) [Mass/Vol] 31.9 g/dL Normal 29.9-35.2 [facility] Comment on above: Performed By: #### C BC #### [facility] [address] [place] [phone] Marcin Mondragon MCV (RBC) [Entitic vol] 92.1 fL Normal 81.0-99.0 [facility] Comment on above: Performed By: #### C BC #### [facility] [address] [place], [place] [address] Marcin Mondragon MONO # 0.6 103/ul Normal 0.3-0.8 [facility] Comment on above: Performed By: #### C BC #### [facility] [address] [place] [phone] Marcin Mondragon Monocytes/100 WBC (Bld) 5.6 % Normal 1.7-12.0 [facility] Comment on above: Performed By: #### C BC #### [facility] [address] [place] [phone] Marcin Mondragon NEUT # 9.0 103/ul Critically high 1.4-6.5 [facility] Comment on above: Performed By: #### C BC #### [facility] [address] [place] [phone] Marcin Mondragon Neutrophils/100 WBC (Bld) 80.7 % Critically high 43.0-75.0 [facility] Comment on above: Performed By: #### C BC #### [facility] [address] [place] [phone] Marcinraffy Mondragon Platelet mean volume (Bld) [Entitic vol] 8.6 fL Critically low 9.5-13.5 [facility] Comment on above: Performed By: #### C BC #### [facility] [address] [place] [phone] Marcin Alanna PLT 255 103/ul Normal 150-450 [facility] Comment on above: Performed By: #### C BC #### [facility] [address] [place] [address] Marcin Alanna RBC 4.96 106/ul Normal 4.20-5.40 [facility] Comment on above: Performed By: #### C BC #### [facility] [address] [place] [address] Marcin Alanna WBC 11.1 103/ul Critically high 4.0-11.0 [facility] Comment on above: Performed By: #### C BC #### [facility] [address] [place] [address] Marcin Alanna LIPASEon 12-09-2020 Lipase [Catalytic activity/Vol] 129.0 U/L Normal 23.0-300.0 [facility] Comment on above: Performed By: #### B MP, RAYNE, LIVER, LIPA #### [facility] [address] [place], [place] [address] Marcin Alanna LIVER PROFILEon 12-09-2020 Albumin [Mass/Vol] 3.5 g/dL Normal 3.5-5.0 [facility] Comment on above: Performed By: #### B MP, RAYNE, LIVER, LIPA #### [facility] [address] [place], [place] [address] Marcin Alanna Albumin/Globulin [Mass ratio] 0.9 {ratio} Normal [facility] Comment on above: Performed By: #### B MP, RAYNE, LIVER, LIPA #### [facility] [address] [place] [address] Marcin Alanna ALP [Catalytic activity/Vol] 80 U/L Normal 38-126 [facility] Comment on above: Performed By: #### B MP, RAYNE, LIVER, LIPA #### [facility] [address] [place] [address] Marcin Alanna ALT [Catalytic activity/Vol] 31 U/L Normal 9-52 [facility] Comment on above: Performed By: #### B MP, RAYNE, LIVER, LIPA #### [facility] [address] [place] [address] Marcin Alanna AST [Catalytic activity/Vol] 39 U/L Critically high 14-36 [facility] Comment on above: Performed By: #### B MP, RAYNE, LIVER, LIPA #### [facility] [address] [place] [address] Marcin Alanna BILI, CONJUGATED 0.2 mg/dL Normal 0.0-0.3 [facility] Comment on above: Performed By: #### B MP, RAYNE, LIVER, LIPA #### [facility] [address] [place] [address] Marcin Alanna Bilirubin [Mass/Vol] 0.5 mg/dL Normal 0.2-1.3 [facility] Comment on above: Performed By: #### B MP, RAYNE, LIVER, LIPA #### [facility] [address] [place] [address] Marcin Alanna Globulin (S) [Mass/Vol] 3.8 g/dL Normal [facility] Comment on above: Performed By: #### B MP, RAYNE, LIVER, LIPA #### [facility] [address] [place] [address] Marcin Alanna Protein [Mass/Vol] 7.3 g/dL Normal 6.1-8.2 [facility] Comment on above: Performed By: #### B MP, RAYNE, LIVER, LIPA #### [facility] [address] [place] [address] Marcin Alanna PROF CHEM 8 (BAS METB)on Anion gap [Moles/Vol] 10.6 mmol/L Normal [facility] Comment on above: Performed By: #### C MP, LIPA, RAYNE #### [facility] [address] [place] [address] Marcin Alanna Calcium [Mass/Vol] 8.9 mg/dL Normal 8.4-10.2 [facility] Comment on above: Performed By: #### C EZRA MOLINAA, RAYNE #### [facility] [address] [address] Marcin Alanna Chloride [Moles/Vol] 105 mmol/L Normal 98-107 [facility] Comment on above: Performed By: #### C TRACY LIPA, RAYNE #### [facility] [address] [address] Marcin Alanna CO2 [Moles/Vol] 27.4 mmol/L Normal 22.0-30.0 [facility] Comment on above: Performed By: #### C TRACY LIPA, RAYNE #### [facility] [address] [address] Marcin Alanna Creatinine [Mass/Vol] 0.91 mg/dL Normal 0.52-1.04 [facility] Comment on above: Performed By: #### C TRACY LIPA, RAYNE #### [facility] [address] [place] [address] Marcin Alanna EGFR-AF [place]ER >60 Normal >=60 [facility] Comment on above: Performed By: #### C TRACY LIPA, RAYNE #### [facility] [address] [place] [address] Marcin Alanna EGFR-NON AF [place]ER >60 Normal >=60 [facility] Comment on above: Performed By: #### C TRACY LIPA, RAYNE #### [facility] [address] [place] [address] Marcin Alanna Glucose [Mass/Vol] 109 mg/dL Critically high 74-106 [facility] Comment on above: Performed By: #### C TRACY LIPA, RAYNE #### [facility] [address] [place] [address] Marcin Alanna Potassium [Moles/Vol] 4.0 mmol/L Normal 3.4-5.0 [facility] Comment on above: Performed By: #### C TRACY LIPA, RAYNE #### [facility] [address] [address] Marcin Alanna Sodium [Moles/Vol] 139 mmol/L Normal 137-145 [facility] Comment on above: Performed By: #### C JAVAD MOLINA AMY #### [facility] [address], [place] [address] Marcin Mondraogn Urea nitrogen [Mass/Vol] 13.0 mg/dL Normal 7.0-17.0 [facility] Comment on above: Performed By: #### C JAVAD MOLINA, RAYNE #### [facility] [address] [place], [place] [address] Marcin Mondragon Urea nitrogen/Creatini ne [Mass ratio] 14.3 mg/mg Normal [facility] Comment on above: Performed By: #### C JAVAD MOLINA AMY #### [facility] [address] [place], [place] [address] Marcin Mondragon XR CHEST 1 Von 12-09-2020 [...] Normal [facility] Vital Signs Date Time Vital Sign Value Performing Clinician Faci lity 12-29-2023 10:32-0500 Body weight 121.17 kg Jesica Baljit DO Work Phone: [facility] 12-29-2023 10:32-0500 Diastolic blood pressure 70 mm[Hg] Jesica Baljit DO Work Phone: [facility] Healthcare 12-29-2023 10:32-0500 Systolic blood pressure 110 mm[Hg] Jesica Baljit DO Work Phone: [facility] Healthcare Encounters Encounter Date Encounter Type Care Provider Facility Start: 04-26-2024 End: 04-26-2024 ambulatory JESICA BALJIT Not Available Start: 04-12-2024 End: 04-12-2024 ambulatory RAYNE JUNG [...] gnancy Start: 12-01-2023 End: 12-01-2023 ambulatory RAYNE FABIANA Not Available Start: 10-27-2023 End: 10-27-2023 ambulatory JESICA BALJIT Not Available Start: 10-03-2023 End: 10-03-2023 ambulatory RAYNE JUNG Not Available Start: 09-28-2021 End: 09-28-[address] GEREMIAS SANTANA Facility:[facility] Start: 12-15-2020 End: 12-16-[address] TOR TORRES Facility:[facility] Start: 12-09-2020 End: 12-09-[address] TOR TORRES Facility:[facility] Payers Date Payer Category Payer Medicaid [employer] [place] [employer] [id number] 2020-Present [address] [place] [address] [id number] 1990 Unknown [id number] [id number] 1990 Unknown [id number] 2.16.840.1.882686.3.579.2.593 1990 Unknown [id number] 2.16.840.1.400631.3.579.2.593 1990 Unknown [id number] 2.16.840.1.638964.3.579.2.1259 1990 Unknown [id number] 2.16.840.1.805504.3.579.2.9 1990 Unknown [id number] 2.16.840.1.733902.3.579.2.9 1990 Unknown [id number] 2.16.840.1.642017.3.579.2.9 1990 Unknown [id number] 2.16.840.1.386259.3.579.2.9 1990 Unknown [id number] 2.16.840.1.511366.3.579.2.9 1990 Unknown [id number] 2.16.840.1.425144.3.579.2.9 1990 Unknown [id number] 2.16.840.1.663299.3.579.2.9 1990 Unknown [id number] 2.16.840.1.275140.3.579.2.9 1959 Unknown [id number] Social History Date Type Detail Facility Start: [...] nursing note reviewed. Exam conducted with a diesel service apprentice present. Vitals: There is no height or [...] Jesica Smiley DO documented in this encounter [facility] Progress note 01-02-2021 Note Date & Type Note Facility 01-02-2021 Note HNO ID: [id number] Author: Bro Yaun Service: ? Author Type: Physician Type: Progress [...] up PRN SIGNATURE: Jeffrey Yuan MD [facility] surgery Pager: [phone] [facility] Progress note 01-02-2021 Note Date & Type Note Facility 01-02-2021 Note HNO ID: [id number] Author: Annamaria Collins Service: ? Author Type: [...] Follow-up TEX Collins MD General Surgery Resident [facility] Evaluation note Note Date & [...] and content) DATE CREATED AUTHOR 10/02/2021 [facility] DATE CREATED AUTHOR AUTHOR'S ORGANIZ ATION 12/20/[address] [facility] DATE CREATED AUTHOR AUTHOR'S ORGANIZ ATION 04/26/[address] [facility] EPIC Reason for Visit (unrecogniz ed section and content) Reason Comments Routine Visit Care Teams (unrecognized sec tion and content) Professional Development Instructor Relationship Specialty Start Date End Date Tor Torres MD [address] [place] [address] PCP - General Internal Medicine [...] BE BASED ON THE PRIMARY CLINICAL RECORDS. [facility]. provides no warranty or guarantee of the accuracy or completeness of information in this document.
[2024-04-29 18:25] VITALS: BP 123/60; PULSE 100
[2024-04-29 18:43] LABS: Bilirubin Urine NEGATIVE (NEGATIVE); Blood Urine TRACE-I (NEGATIVE); Clarity Urine CLEAR (CLEAR); Color Urine LT. YELLOW (YELLOW); Glucose Urine UA NEGATIVE (NEGATIVE); Ketones Urine NEGATIVE (NEGATIVE); Leukocyte Esterase Urine SMALL (NEGATIVE); Nitrite Urine NEGATIVE (NEGATIVE); Protein Urine NEGATIVE (NEG/TRACE); Specific Gravity Urine <=1.005 (1.005-1.025)
[2024-04-29 18:44] LABS: Urine Microscopic Indicated YES
[2024-04-29 18:56] LABS: Bacteria Urine SMALL #/HPF (NONE SEEN); Cast Seen? NONE SEEN #/LPF (NONE SEEN); Crystals Seen? None Seen #/HPF (None Seen); Mucus Urine NONE SEEN (NONE SEEN); Squamous Epithelial Cell Urine MANY #/LPF (NONE/RARE); Urine Culture Indicated YES
== END 2024-04-29 19:25 | disposition home or self-care (01) ==
PROVIDERS: Admitting Provider Obstetrics & Gynecology; PCP Internal Medicine; Visit Provider Obstetrics & Gynecology
DX: O47.1 False labor at or after 37 completed weeks of gestation (principal); Z3A.38 38 weeks gestation of pregnancy
CPT/HCPCS: 59025; 81001; 87086; G0378; G0379

== ENCOUNTER 2024-04-30 07:08 | Outpatient (OUT) | payer OTHER, SELFPAY ==
--- OUTSIDE RECORDS SUMMARY | 2024-04-30 07:10 | XMS_ITS | CCD ---
Author Organization [facility] Care Team Providers Care Spring Bender Name Role Phone DR TOR TORRES Primary [...] Unavailable Tor Torres MD Primary Care Provider [phone] RAYNE JUNG Attending Unavailable JESICA SMILEY Attending Unavailable RAYNE JUNG Attending Unavailable JESICA SMILEY Attending Unavailable JESICA SMILEY Attending Unavailable RAYNE JUNG Attending Unavailable JESICA SMILEY Attending Unavailable JESICA SMILEY Attending Unavailable Allergies Allergy Classification Reported Allergen(s) Allergy Type Date of Onset Reaction(s) Facility (1 source) Morphine Drug Allergy 05-18-[address] 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; Translations: [OTH HALFWAY CURRENT DRUG THERAPY] Onset: 10-02-2021 Episodic Other [...] Office Visit (GENSMN ) -------- ISAAC TOUSSAINT ([id number]) 1990 F Date Time Provider Department 01/02/21 [...] SIGNATURE: Jeffrey Yuan MD B surgery Pager: [phone] Referring Provider: SELF [[id number]] Allergies As of [...] Status:Closed by BRO YUAN MD on 01/02/21 [facility] 12-22-2020 [facility] Telephone (PODCCP) -------- ISAAC TOUSSAINT ([id number]) 1990 F Date Time Provider Department 12/22/20 [facility] CR (STUDENT) PODCCP During your visit today, we recorded the following information about you: Vahe Cr Student 12/22/2020 10:01 AM Signed Record ID: [id number] Patient Name: [facility]: [facility] [place]: [facility] [place] Attending: Bro Yuan Center: General Surgery INSTRUCTIONS SN to remind patient of appointment date, time, location All Clear All Clear SURVEY INFORMATION Medical/Nurse Radiology Teacher: Landy Duran 1. Your discharge instructions are [...] Reason for Visit: Follow Up Phone Call [2453] Prescriptions as of 12/22/2020 Sig: ONDANSETRON HCL [...] Encounter Status:Closed by VAHE WADE on 12/22/20 [facility] Corey 12-21-2020 CNPN Telephone ([email or web address]) -------- ISAAC TOUSSAINT ([id number]) 1990 F Date Time Provider Department 12/21/20 BRO YUAN During your visit today, we recorded the following information about you: Macy Arshad [facility] 12/21/2020 12:18 PM Signed Patient is calling [...] Encounter Status:Closed by MACY SALEH on 01/22/21 [facility] OBSOLETEon 12-21-2020 OBSOLETE Refill (GENSMN) -------- ISAAC TOUSSAINT ([id number]) 1990 F Date Time Provider Department 12/21/20 ROXANA SCOTT During your visit today, we recorded the following information about you: Roxana Scott APRN.SURGICAL ORDERLY 12/21/2020 2:00 PM Signed Patient called with [...] our office if symptoms persist. Roxana Scott APRN.SURGICAL ORDERLY Allergies As of Date: 12/21/2020 (No Known [...] DEJESUS.ROXANA HOUSE on 12/21/20 Normal [facility] AMMONIAon 12-15-2020 Ammonia (P) [Mass/Vol] ug/dL Critically low 10-[address] [facility] Comment on above: Performed By: #### A MM #### [facility] [address] [place], [place] [address] Marcin Mondragon AMYLASEon 12-15-2020 Amylase [Catalytic activity/Vol] 217 U/L Critically high 31-110 [facility] Comment on above: Performed By: #### C MP, LIPA, RAYNE #### [facility] [address] [place], [place] [address] Marcin Mondragon CBC AUTO DIFFon 12-15-2020 BASO # 0.0 103/ul Normal 0.0-0.1 [facility] Comment on above: Performed By: #### C JAVAD MOLINA AMY #### [facility] [address] [place] [address] Marcin Alanna Basophils/100 WBC (Bld) 0.3 % Normal 0.2-2.0 [facility] Comment on above: Performed By: #### C JAVAD MOLINA AMY #### [facility] [address] [place] [address] Marcin Alanna EO # 0.0 103/ul Normal 0.0-0.[address] [facility] Comment on above: Performed By: #### C JAVAD MOLINA AMY #### [facility] [address] [place] [address] Marcin Alanna Eosinophils/100 WBC (Bld) 0.3 % Critically low 0.9-7.[address] [facility] Comment on above: Performed By: #### C JAVAD MOLINA AMY #### [facility] [address] [place] [address] Marcin Alanna Erythrocyte distribution width (RBC) [Ratio] 13.3 % Normal 11.0-15.[address] [facility] Comment on above: Performed By: #### C JAVAD MOLINA AMY #### [facility] [address] [place] [address] Marcin Alanna Hematocrit (Bld) [Volume fraction] 42.9 % Normal 36.0-48.[address] [facility] Comment on above: Performed By: #### C JAVAD MOLINA AMY #### [facility] [address] [place] [address] Marcin Alanna Hemoglobin (Bld) [Mass/Vol] 13.8 g/dL Normal 12.0-16.[address] [facility] Comment on above: Performed By: #### C JAVAD MOLINA AMY #### [facility] [address] [place] [address] Marcin Alanna IG # 0.02 10e3/ul Normal 0.00-0.[address] [facility] Comment on above: Performed By: #### C JAVAD MOLINA AMY #### [facility] [address] [place] [id number] Marcin Alanna IG % 0.3 % Normal 0.0-0.5 [facility] Comment on above: Performed By: #### C JAVAD MOLINA RAYNE #### [facility] [address] [place] [address] Marcin Alanna LYMPH # 1.7 103/ul Normal 1.2-3.[address] [facility] Comment on above: Performed By: #### C JAVAD MOLINA, RAYNE #### [facility] [address] [place] [address] Marcin Alanna Lymphocytes/100 WBC (Bld) 23.8 % Normal 20.5-60.[address] [facility] Comment on above: Performed By: #### C JAVAD MOLINA, RAYNE #### [facility] [address] [place] [address] Marcin Alanna MANUAL DIFF REQ NO Normal [facility] Comment on above: Performed By: #### C JAVAD MOLINA, RAYNE #### [facility] [address] [place], [place] [id number] Marcin Alanna MCH (RBC) [Entitic mass] 29.8 pg Normal 26.7-34.0 [facility] Comment on above: Performed By: #### C JAVAD MOLINA, RAYNE #### [facility] [address] [place] [address] Marcin Alanna MCHC (RBC) [Mass/Vol] 32.2 g/dL Normal 29.9-35.[address] [facility] Comment on above: Performed By: #### C JAVAD MOLINA, RAYNE #### [facility] [address] [place] [address] Marcin Alanna MCV (RBC) [Entitic vol] 92.7 fL Normal 81.0-99.0 [facility] Comment on above: Performed By: #### C JAVAD MOLINA, RAYNE #### [facility] [address] [place] [address] Marcin Alanna MONO # 0.6 103/ul Normal 0.3-0.8 [facility] Comment on above: Performed By: #### C TRACY LIPA, RAYNE #### [facility] [address] [place] [address] Marcin Alanna Monocytes/100 WBC (Bld) 8.5 % Normal 1.7-12.0 [facility] Comment on above: Performed By: #### C TRACY LIPA, RAYNE #### [facility] [address] [place] [address] Marcin Alanna NEUT # 4.8 103/ul Normal 1.4-6.5 [facility] Comment on above: Performed By: #### C TRACY LIPA, RAYNE #### [facility] [address] [place] [address] Marcin Alanna Neutrophils/100 WBC (Bld) 66.8 % Normal 43.0-75.0 [facility] Comment on above: Performed By: #### C TRACY LIPA, RAYNE #### [facility] [address] [place] [address] Marcin Pritcharden Platelet mean volume (Bld) [Entitic vol] 8.7 fL Critically low 9.5-13.5 [facility] Comment on above: Performed By: #### C TRACY LIPA, RAYNE #### [facility] [address] [place] [address] Marcin Pritcharden PLT 253 103/ul Normal 150-[address] [facility] Comment on above: Performed By: #### C TRACY LIPA, RAYNE #### [facility] [address] [place] [address] Marcin Alanna RBC 4.63 106/ul Normal 4.20-5.[address] [facility] Comment on above: Performed By: #### C TRACY LIPA, RAYNE #### [facility] [address] [place] [address] Marcin Alanna WBC 7.1 103/ul Normal 4.0-11.[address] [facility] Comment on above: Performed By: #### C TRACY LIPA, RAYNE #### [facility] [address] [place] [address] Marcin Mondragon LIPASEon 01-22-2021 Lipase [Catalytic activity/Vol] 1205.0 U/L Critically high 23.0-300.[address] [facility] Comment on above: Result Comment: test repeated critical value verified Performed By: #### C JAVAD MOLINA AMY #### [facility] [address] [place], [place] [id number] Marcin Alanna PREG HCG QUALon 12-15-2020 , QUAL Negative Normal NEGATIVE [facility] Comment on above: Performed By: #### P REG #### [facility] [address] [place] [address] Marcinraffy Pritcharden PROF 14(COMP METB)on 021 Albumin [Mass/Vol] 3.3 g/dL Critically low 3.5-5.0 [facility] Comment on above: Performed By: #### C JAVAD MOLINA AMY #### [facility] [address] [place] [address] Marcin Alanna Albumin/Globulin [Mass ratio] 0.8 {ratio} Normal [facility] Comment on above: Performed By: #### C JAVAD MOLINA, RAYNE #### [facility] [address] [place] [address] Marcin Alanna ALP [Catalytic activity/Vol] 167 U/L Critically high 38-126 [facility] Comment on above: Performed By: #### C JAVAD MOLINA, RAYNE #### [facility] [address] [place] [address] Marcin Alanna ALT [Catalytic activity/Vol] 370 U/L Critically high 9-[address] [facility] Comment on above: Performed By: #### C JAVAD MOLINA, RAYNE #### [facility] [address] [place] [address] Marcin Alanna Anion gap [Moles/Vol] 12.5 mmol/L Normal [facility] Comment on above: Performed By: #### C JAVAD MOLINA, RAYNE #### [facility] [address] [place] [address] Marcin Alanna AST [Catalytic activity/Vol] 165 U/L Critically high 14-[address] [facility] Comment on above: Performed By: #### C MP, LIPA, RAYNE #### [facility] [address] [place] [address] Marcin Alanna Bilirubin [Mass/Vol] 5.3 mg/dL Critically high 0.2-1.[address] [facility] Comment on above: Performed By: #### C MP, LIPA, RAYNE #### [facility] [address] [place] [address] Marcin Alanna Calcium [Mass/Vol] 9.2 mg/dL Normal 8.4-10.[address] [facility] Comment on above: Performed By: #### C MP LIPA, RAYNE #### [facility] [address] [place] [address] Marcin Alanna Chloride [Moles/Vol] 102 mmol/L Normal 98-[address] [facility] Comment on above: Performed By: #### C TRACY LIPA, RAYNE #### [facility] [address] [place] [address] Marcin Alanna CO2 [Moles/Vol] 29.6 mmol/L Normal 22.0-30.0 [facility] Comment on above: Performed By: #### C TRACY LIPA, RAYNE #### [facility] [address] [place] [address] Marcin Alanna Creatinine [Mass/Vol] 0.88 mg/dL Normal 0.52-1.[address] [facility] Comment on above: Performed By: #### C MP LIPA, RAYNE #### [facility] [address] [place] [address] Marcin Alanna EGFR-AF BERMUDIAN >60 Normal >=60 [facility] Comment on above: Performed By: #### C MP, LIPA, RAYNE #### [facility] [address] [place] [address] Marcin Alanna EGFR-NON AF BERMUDIAN >60 Normal >=[address] [facility] Comment on above: Performed By: #### C MP, LIPA, RAYNE #### [facility] [address] [place] [address] Marcin Alanna Globulin (S) [Mass/Vol] 4.1 g/dL Normal [facility] Comment on above: Performed By: #### C JAVAD MOLINA, RAYNE #### [facility] [address] [place] [address] Marcin Alanna Glucose [Mass/Vol] 88 mg/dL Normal 74-106 [facility] Comment on above: Performed By: #### C JAVAD MOLINA, RAYNE #### [facility] [address] [place] [address] Marcin Alanna Potassium [Moles/Vol] 3.1 mmol/L Critically low 3.4-5.0 [facility] Comment on above: Performed By: #### C JAVAD MOLINA, RAYNE #### [facility] [address] [place] [address] Marcin Alanna Protein [Mass/Vol] 7.4 g/dL Normal 6.1-8.2 [facility] Comment on above: Performed By: #### C JAVAD MOLINA, RAYNE #### [facility] [address] [place] [address] Marcin Alanna Sodium [Moles/Vol] 141 mmol/L Normal 137-145 [facility] Comment on above: Performed By: #### C JAVAD MOLINA, RAYNE #### [facility] [address] [place] [address] Marcin Alanna Urea nitrogen [Mass/Vol] 8.0 mg/dL Normal 7.0-17.0 [facility] Comment on above: Performed By: #### C JAVAD MOLINA, RAYNE #### [facility] [address] [place] [address] Marcin Alanna Urea nitrogen/Creatini ne [Mass ratio] 9.1 mg/mg Normal [facility] Comment on above: Performed By: #### C JAVAD MOLINA, RAYNE #### [facility] [address] [place] [address] Marcin Alanna PROTIMEon 12-15-2020 INR Coag (PPP) [Relative time] 1.04 {INR} Normal [facility] Comment on above: Performed By: #### C JAVAD MOLINA, RANYE #### [facility] [address] [place], [place] [address] Marcin Alanna INR GUIDELINES SEE BELOW Normal [facility] Comment on above: Result Comment: NAI RED INR: 2.0 - 3.0 CONDITIONS NOT LISTED BELOW 2.5 - 3.5 FOR PROSTHETIC HEART VALVE REPLACEMENT 2.5 - 3.5 RECURRENT THROMBOSIS Performed By: #### C MP, LIPA, RAYNE #### [facility] [address] [place] [address] Marcin Alanna PT Coag (PPP) [Time] 11.3 s Normal 9.0-11.[address] [facility] Comment on above: Performed By: #### C MP, LIPA, RAYNE #### [facility] [address] [place], [place] [id number] Marcin Alanna PTTon 12-15-2020 aPTT Coag (Bld) [Time] 27.8 s Normal 22.3-36.[address] [facility] Comment on above: Performed By: #### C MP, LIPA, RAYNE #### [facility] [address] [place] [address] Marcin Alanna AMYLASEon 12-09-2020 Amylase [Catalytic activity/Vol] 45 U/L Normal 31-[address] [facility] Comment on above: Performed By: #### B MP, RAYNE, LIVER, LIPA #### [facility] [address] [place], [place] [id number] Marcin Alanna CBC AUTO DIFFon 12-09-2020 BASO # 0.0 103/ul Normal 0.0-0.[address] [facility] Comment on above: Performed By: #### C BC #### [facility] [address] [place], [place] [id number] Marcin Alanna Basophils/100 WBC (Bld) 0.2 % Normal 0.2-2.[address] [facility] Comment on above: Performed By: #### C BC #### [facility] [address] [place], [place] [id number] Marcin Alanna EO # 0.0 103/ul Normal 0.0-0.[address] [facility] Comment on above: Performed By: #### C BC #### [facility] [address] [place], [place] [id number] Marcin Alanna Eosinophils/100 WBC (Bld) 0.3 % Critically low 0.9-7.0 [facility] Comment on above: Performed By: #### C BC #### [facility] [address] [place], [place] [id number] Marcin Mondragon Erythrocyte distribution width (RBC) [Ratio] 12.6 % Normal 11.0-15.0 [facility] Comment on above: Performed By: #### C BC #### [facility] [address] [place] [address] Marcin Alanna Hematocrit (Bld) [Volume fraction] 45.7 % Normal 36.0-48.0 [facility] Comment on above: Performed By: #### C BC #### [facility] [address] [place] [address] Marcin Mondragon Hemoglobin (Bld) [Mass/Vol] 14.6 g/dL Normal 12.0-16.0 [facility] Comment on above: Performed By: #### C BC #### [facility] [address] [place] [address] Marcin Alanna IG # 0.04 10e3/ul Critically high 0.00-0.03 [facility] [place] Comment on above: Performed By: #### C BC #### [facility] [address] [place] [address] Marcin Alanna IG % 0.4 % Normal 0.0-0.[address] [facility] Comment on above: Performed By: #### C BC #### [facility] [address] [place] [address] Marcin Alanna LYMPH # 1.4 103/ul Normal 1.2-3.[address] [facility] Comment on above: Performed By: #### C BC #### [facility] [address] [place], [place] [id number] Marcin Alanna Lymphocytes/100 WBC (Bld) 12.8 % Critically low 20.5-60.0 [facility] Comment on above: Performed By: #### C BC #### [facility] [address] [place] [address] Marcinraffy Pritcharden MANUAL DIFF REQ NO Normal [facility] Comment on above: Performed By: #### C BC #### [facility] [address] [place] [id number] Marcin Mondragon MCH (RBC) [Entitic mass] 29.4 pg Normal 26.7-34.0 [facility] Comment on above: Performed By: #### C BC #### [facility] [address] [place] [id number] Marcin Mondragon MCHC (RBC) [Mass/Vol] 31.9 g/dL Normal 29.9-35.2 [facility] Comment on above: Performed By: #### C BC #### [facility] [address] [place] [id number] Marcin Mondragon MCV (RBC) [Entitic vol] 92.1 fL Normal 81.0-99.0 [facility] Comment on above: Performed By: #### C BC #### [facility] [address] [place], [place] [id number] Marcin Mondragon MONO # 0.6 103/ul Normal 0.3-0.8 [facility] Comment on above: Performed By: #### C BC #### [facility] [address] [place] [id number] Marcin Mondragon Monocytes/100 WBC (Bld) 5.6 % Normal 1.7-12.0 [facility] Comment on above: Performed By: #### C BC #### [facility] [address] [place] [id number] Marcin Mondragon NEUT # 9.0 103/ul Critically high 1.4-6.5 [facility] Comment on above: Performed By: #### C BC #### [facility] [address] [place] [id number] Marcin Mondragon Neutrophils/100 WBC (Bld) 80.7 % Critically high 43.0-75.[address] [facility] Comment on above: Performed By: #### C BC #### [facility] [address] [place] [id number] Marcinraffy Mondragon Platelet mean volume (Bld) [Entitic vol] 8.6 fL Critically low 9.5-13.[address] [facility] Comment on above: Performed By: #### C BC #### [facility] [address] [place] [id number] Marcin Alanna PLT 255 103/ul Normal 150-[address] [facility] Comment on above: Performed By: #### C BC #### [facility] [address] [place] [address] Marcin Alanna RBC 4.96 106/ul Normal 4.20-5.[address] [facility] Comment on above: Performed By: #### C BC #### [facility] [address] [place] [address] Marcin Alanna WBC 11.1 103/ul Critically high 4.0-11.0 [facility] Comment on above: Performed By: #### C BC #### [facility] [address] [place] [address] Marcin Alanna LIPASEon 12-09-2020 Lipase [Catalytic activity/Vol] 129.0 U/L Normal 23.0-300.[address] [facility] Comment on above: Performed By: #### B MP, RAYNE, LIVER, LIPA #### [facility] [address] [place], [place] [id number] Marcin Alanna LIVER PROFILEon 12-09-2020 Albumin [Mass/Vol] 3.5 g/dL Normal 3.5-5.0 [facility] Comment on above: Performed By: #### B MP, RAYNE, LIVER, LIPA #### [facility] [address] [place], [place] [id number] Marcin Alanna Albumin/Globulin [Mass ratio] 0.9 {ratio} Normal [facility] Comment on above: Performed By: #### B MP, RAYNE, LIVER, LIPA #### [facility] [address] [place] [address] Marcin Alanna ALP [Catalytic activity/Vol] 80 U/L Normal 38-[address] [facility] Comment on above: Performed By: #### B MP, RAYNE, LIVER, LIPA #### [facility] [address] [place] [address] Marcin Alanna ALT [Catalytic activity/Vol] 31 U/L Normal 9-[address] [facility] Comment on above: Performed By: #### B MP, RAYNE, LIVER, LIPA #### [facility] [address] [place] [address] Marcin Alanna AST [Catalytic activity/Vol] 39 U/L Critically high 14-[address] [facility] Comment on above: Performed By: #### B MP, RAYNE, LIVER, LIPA #### [facility] [address] [place] [address] Marcin Alanna BILI, CONJUGATED 0.2 mg/dL Normal 0.0-0.3 [facility] Comment on above: Performed By: #### B MP, RAYNE, LIVER, LIPA #### [facility] [address] [place] [address] Marcin Alanna Bilirubin [Mass/Vol] 0.5 mg/dL Normal 0.2-1.3 [facility] Comment on above: Performed By: #### B MP, RAYNE, LIVER, LIPA #### [facility] [address] [place] [address] Marcin Alanna Globulin (S) [Mass/Vol] 3.8 g/dL Normal [facility] Comment on above: Performed By: #### B MP, RAYNE, LIVER, LIPA #### [facility] [address] [place] [address] Marcin Alanna Protein [Mass/Vol] 7.3 g/dL Normal 6.1-8.[address] [facility] Comment on above: Performed By: #### B MP, RAYNE, LIVER, LIPA #### [facility] [address] [place] [address] Marcin Alanna PROF CHEM 8 (BAS METB)on Anion gap [Moles/Vol] 10.6 mmol/L Normal [facility] Comment on above: Performed By: #### C MP, LIPA, RAYNE #### [facility] [address] [place] [address] Marcin Alanna Calcium [Mass/Vol] 8.9 mg/dL Normal 8.4-10.[address] [facility] Comment on above: Performed By: #### C EZRA MOLINAA, RAYNE #### [facility] [address] [place] [address] Marcin Alanna Chloride [Moles/Vol] 105 mmol/L Normal 98-[address] [facility] Comment on above: Performed By: #### C TRACY LIPA, RAYNE #### [facility] [address] [place] [address] Marcin Alanna CO2 [Moles/Vol] 27.4 mmol/L Normal 22.0-30.0 [facility] Comment on above: Performed By: #### C TRACY LIPA, RAYNE #### [facility] [address] [place] [address] Marcin Alanna Creatinine [Mass/Vol] 0.91 mg/dL Normal 0.52-1.[address] [facility] Comment on above: Performed By: #### C TRACY LIPA, RAYNE #### [facility] [address] [place] [address] Marcin Alanna EGFR-AF BERMUDIAN >60 Normal >=60 [facility] Comment on above: Performed By: #### C TRACY LIPA, RAYNE #### [facility] [address] [place] [address] Marcin Alanna EGFR-NON AF BERMUDIAN >60 Normal >=[address] [facility] Comment on above: Performed By: #### C TRACY LIPA, RAYNE #### [facility] [address] [place] [address] Marcin Alanna Glucose [Mass/Vol] 109 mg/dL Critically high 74-[address] [facility] Comment on above: Performed By: #### C TRACY LIPA, RAYNE #### [facility] [address] [place] [address] Marcin Alanna Potassium [Moles/Vol] 4.0 mmol/L Normal 3.4-5.[address] [facility] Comment on above: Performed By: #### C TRACY LIPA, RAYNE #### [facility] [address] [place] [address] Marcin Alanna Sodium [Moles/Vol] 139 mmol/L Normal 137-[address] [facility] Comment on above: Performed By: #### C JAVAD MOLINA AMY #### [facility] [address] [place], [place] [address] Marcin Mondragon Urea nitrogen [Mass/Vol] 13.0 mg/dL Normal 7.0-17.0 [facility] Comment on above: Performed By: #### C JAVAD MOLINA, RAYNE #### [facility] [address] [place], [place] [address] Marcin Mondragon Urea nitrogen/Creatini ne [Mass ratio] 14.3 mg/mg Normal [facility] Comment on above: Performed By: #### C JAVAD MOLINA AMY #### [facility] [address] [place], [place] [address] Marcin Mondragon XR CHEST 1 Von 12-09-2020 [...] by: BRITTANY HENDRICKS Date: 2020-12-09 17:05 Normal [facility] Vital Signs Date Time Vital Sign Value Performing Clinician Faci lity 12-29-2023 10:32-0500 Body weight 121.17 kg Jesica Baljit DO Work Phone: [facility] 12-29-2023 10:32-0500 Diastolic blood pressure 70 mm[Hg] Jesica Baljit DO Work Phone: [facility] 12-29-2023 10:32-0500 Systolic blood pressure 110 mm[Hg] Jesica Baljit DO Work Phone: [facility] Encounters Encounter Date Encounter Type Care [...] [employer] [place] [id number] 2020-Present [address] [place] [address] [id number] 1990 Unknown [id number] 2.16.840.1.490543.3.579.2.593 1990 Unknown [id number] 2.16.840.1.610273.3.579.2.593 1990 Unknown [id number] 2.16.840.1.268633.3.579.2.593 1990 Unknown [id number] 2.16.840.1.650920.3.579.2.1259 1990 Unknown [id number] 2.16.840.1.769009.3.579.2.9 1990 Unknown [id number] 2.16.840.1.146831.3.579.2.9 1990 Unknown [id number] 2.16.840.1.819041.3.579.2.9 1990 Unknown [id number] 2.16.840.1.257714.3.579.2.9 1990 Unknown [id number] 2.16.840.1.763739.3.579.2.9 1990 Unknown [id number] 2.16.840.1.236303.3.579.2.9 1990 Unknown [id number] 2.16.840.1.715279.3.579.2.9 1990 Unknown [id number] 2.16.840.1.554373.3.579.2.9 1959 Unknown [id number] Social History Date Type Detail Facility Start: [...] nursing note reviewed. Exam conducted with a k 12 school professional present. Vitals: There is no height or [...] Jesica Smiley DO documented in this encounter [facility] Progress note 01-02-2021 Note Date & Type Note Facility 01-02-2021 Note HNO ID: [id number] Author: Bro Yuan Service: ? Author Type: [...] Follow up PRN SIGNATURE: Jeffrey Yuan MD [facility] surgery Pager: [phone] [facility] Progress note 01-02-2021 Note Date & Type Note Facility 01-02-2021 Note HNO ID: [id number] Author: Annamaria Collins Service: ? Author Type: [...] Follow-up TEX Collins MD General Surgery Resident [facility] Evaluation note Note Date & [...] and content) DATE CREATED AUTHOR 10/02/2021 [facility] DATE CREATED AUTHOR AUTHOR'S ORGANIZ ATION 12/20/2021 [facility] DATE CREATED AUTHOR AUTHOR'S ORGANIZ ATION 04/26/2024 [facility] EPIC Reason for Visit (unrecogniz ed section and content) Reason Comments Routine Visit Care Teams (unrecognized sec tion and content) Spring Bender Relationship Specialty Start Date End Date Tor Torres MD [address] [place] [address] PCP - General Internal Medicine [...] BE BASED ON THE PRIMARY CLINICAL RECORDS. [employer] [facility] provides no warranty or guarantee of the accuracy or completeness of information in this document.
[2024-04-30 12:15] VITALS: BP 91/49; PULSE 88
== END 2024-04-30 12:51 | disposition home or self-care (01) ==
LOC: FBCO 07:08 → FBC 12:06
PROVIDERS: PCP Internal Medicine; Visit Provider Obstetrics & Gynecology
DX: O36.5930 Maternal care for other known or suspected poor fetal growth, third trimester, not applicable or unspecified (principal); Z3A.38 38 weeks gestation of pregnancy
CPT/HCPCS: 59025

== ENCOUNTER 2024-04-30 12:55 | Outpatient (OUT) | payer OTHER, SELFPAY ==
--- OUTSIDE RECORDS SUMMARY | 2024-04-30 13:10 | XMS_ITS | CCD ---
Author Organization [facility] Care Team Providers Care Mold Puller Name Role Phone DR TOR TORRES [...] (1 source) Morphine Drug Allergy 05-18-2018 [facility] Repository Medications Current Medications Medication Drug Class(es) [...] 12-12-2020 Chronic Other aftercare (1 source) Other terminal operations manager (current) drug therapy; Translations: [OTH NURSING HOME [...] Office Visit (GENSMN ) -------- ISAAC TOUSSAINT ([id number]) 1990 F Date Time Provider Department 01/02/21 10:30 AM BOR YUAN During your visit today, we recorded [...] SIGNATURE: Jeffrey Yuan MD B surgery Pager: [phone] Referring Provider: SELF [[id number]] Allergies As of [...] Status:Closed by BRO YUAN MD on 01/02/21 [facility] 12-22-2020 [facility] Telephone (PODCCP) -------- ISAAC TOUSSAINT ([id number]) 1990 F Date Time Provider Department 12/22/20 VAHE CR (STUDENT) PODCCP During your visit today, we recorded the following information about you: Vahe Cr Student 12/22/2020 10:01 AM Signed Record ID: [id number] Patient Name: [facility]: [facility] [place]: [facility] [place] Attending: Bro Yuan Center: General Surgery INSTRUCTIONS SN to remind patient of appointment date, time, location All Clear All Clear SURVEY INFORMATION Medical/Nurse Bleach Supervisor: Landy Duran 1. Your discharge instructions are [...] Reason for Visit: Follow Up Phone Call [[id number]] Prescriptions as of 12/22/2020 Sig: ONDANSETRON HCL [...] Encounter Status:Closed by VAHE WADE on 12/22/20 [facility] Corey 12-21-2020 CNPN Telephone (SmallknotN) -------- ISAAC TOUSSAINT ([id number]) 1990 F Date Time Provider Department 12/21/20 BRO YUAN During your visit today, we recorded the following information about you: Macy Arshad [facility] 12/21/2020 12:18 PM Signed Patient is calling [...] Encounter Status:Closed by MACY SALEH on 01/22/21 [facility] OBSOLETEon 12-21-2020 OBSOLETE Refill (GENSMN) -------- ISAAC TOUSSAINT ([id number]) 1990 F Date Time Provider Department 12/21/20 ROXANA SCOTT During your visit today, we recorded the following information about you: Roxana Scott APRN.KILN REPAIRER 12/21/2020 2:00 PM Signed Patient called with [...] our office if symptoms persist. Roxana Scott APRN.KILN REPAIRER Allergies As of Date: 12/21/2020 (No Known [...] by TYLER DEJESUS.ROXANA HOUSE on 12/21/20 Normal [facility] AMMONIAon 12-15-2020 Ammonia (P) [Mass/Vol] ug/dL Critically low 10-30 [facility] Comment on above: Performed By: #### A MM #### [facility] [address] [place], [place] [address] Marcin Mondragon AMYLASEon 12-15-2020 Amylase [Catalytic activity/Vol] 217 U/L Critically high 31-110 [facility] Comment on above: Performed By: #### C MP, LIPA, RAYNE #### [facility] [address] [place], [place] [address] Marcin Mondragon CBC AUTO DIFFon 12-15-2020 BASO # 0.0 103/ul Normal 0.0-0.1 [facility] Comment on above: Performed By: #### C JAVAD MOLINA AMY #### [facility] [address] [place] [address] Marcin Alanna Basophils/100 WBC (Bld) 0.3 % Normal 0.2-2.0 [facility] Comment on above: Performed By: #### C JAVAD MOLINA AMY #### [facility] [address] [place] [address] Marcin Alanna EO # 0.0 103/ul Normal 0.0-0.7 [facility] Comment on above: Performed By: #### C JAVAD MOLINA AMY #### [facility] [address] [place] [address] Marcin Alanna Eosinophils/100 WBC (Bld) 0.3 % Critically low 0.9-7.0 [facility] Comment on above: Performed By: #### C JAVAD MOLINA AMY #### [facility] [address] [place] [address] Marcin Alanna Erythrocyte distribution width (RBC) [Ratio] 13.3 % Normal 11.0-15.0 [facility] Comment on above: Performed By: #### C JAVAD MOLINA AMY #### [facility] [address] [place] [address] Marcin Alanna Hematocrit (Bld) [Volume fraction] 42.9 % Normal 36.0-48.0 [facility] Comment on above: Performed By: #### C JAVAD MOLINA AMY #### [facility] [address] [place] [address] Marcin Alanna Hemoglobin (Bld) [Mass/Vol] 13.8 g/dL Normal 12.0-16.0 [facility] Comment on above: Performed By: #### C JAVAD MOLINA AMY #### [facility] [address] [place] [address] Marcin Alanna IG # 0.02 10e3/ul Normal 0.00-0.03 [facility] Comment on above: Performed By: #### C JAVAD MOLINA AMY #### [facility] [address] [place] [id number] Marcin Alanna IG % 0.3 % Normal 0.0-0.5 [facility] Comment on above: Performed By: #### C JAVAD MOLINA RAYNE #### [facility] [address] [place] [address] Marcin Alanna LYMPH # 1.7 103/ul Normal 1.2-3.8 [facility] Comment on above: Performed By: #### C JAVAD MOLINA, RAYNE #### [facility] [address] [place] [address] Marcin Alanna Lymphocytes/100 WBC (Bld) 23.8 % Normal 20.5-60.0 [facility] Comment on above: Performed By: #### C JAVAD MOLINA, RAYNE #### [facility] [address] [place] [address] Marcin Alanna MANUAL DIFF REQ NO Normal [facility] Comment on above: Performed By: #### C JAVAD MOLINA, RAYNE #### [facility] [address] [place], [place] [id number] Marcin Alanna MCH (RBC) [Entitic mass] 29.8 pg Normal 26.7-34.0 [facility] Comment on above: Performed By: #### C JAVAD MOLINA, RAYNE #### [facility] [address] [place] [address] Marcin Alanna MCHC (RBC) [Mass/Vol] 32.2 g/dL Normal 29.9-35.2 [facility] Comment on above: Performed By: #### C JAVAD MOLINA, RAYNE #### [facility] [address] [place] [address] Marcin Alanna MCV (RBC) [Entitic vol] 92.7 fL Normal 81.0-99.0 [facility] Comment on above: Performed By: #### C JAVAD MOLINA, RAYNE #### [facility] [address] [place] [address] Marcin Alanna MONO # 0.6 103/ul Normal 0.3-0.8 [facility] Comment on above: Performed By: #### C TRACY LIPA, RAYNE #### [facility] [address] [place] [address] Marcin Alanna Monocytes/100 WBC (Bld) 8.5 % Normal 1.7-12.0 [facility] Comment on above: Performed By: #### C TRACY LIPA, RAYNE #### [facility] [address] [place] [address] Marcin Alanna NEUT # 4.8 103/ul Normal 1.4-6.5 [facility] Comment on above: Performed By: #### C TRACY LIPA, RAYNE #### [facility] [address] [place] [address] Marcin Alanna Neutrophils/100 WBC (Bld) 66.8 % Normal 43.0-75.0 [facility] Comment on above: Performed By: #### C TRACY LIPA, RAYNE #### [facility] [address] [place] [address] Marcin Pritcharden Platelet mean volume (Bld) [Entitic vol] 8.7 fL Critically low 9.5-13.5 [facility] Comment on above: Performed By: #### C TRACY LIPA, RAYNE #### [facility] [address] [place] [address] Marcin Pritcharden PLT 253 103/ul Normal 150-450 [facility] Comment on above: Performed By: #### C TRACY LIPA, RAYNE #### [facility] [address] [place] [address] Marcin Alanna RBC 4.63 106/ul Normal 4.20-5.40 [facility] Comment on above: Performed By: #### C TRACY LIPA, RAYNE #### [facility] [address] [place] [address] Marcin Alanna WBC 7.1 103/ul Normal 4.0-11.0 [facility] Comment on above: Performed By: #### C TRACY LIPA, RAYNE #### [facility] [address] [place] [address] Marcin Mondragon LIPASEon 01-22-2021 Lipase [Catalytic activity/Vol] 1205.0 U/L Critically high 23.0-300.0 [facility] Comment on above: Result Comment: test repeated critical value verified Performed By: #### C JAVAD MOLINA AMY #### [facility] [address] [place], [place] [phone] Marcin Alanna PREG HCG QUALon 12-15-2020 , QUAL Negative Normal NEGATIVE [facility] Comment on above: Performed By: #### P REG #### [facility] [address] [place] [address] Marcinraffy Pritcharden PROF 14(COMP METB)on 021 Albumin [Mass/Vol] 3.3 g/dL Critically low 3.5-5.0 [facility] Comment on above: Performed By: #### C JAVAD MOLINA AMY #### [facility] [address] [place] [address] Marcin Alanna Albumin/Globulin [Mass ratio] 0.8 {ratio} Normal [facility] Comment on above: Performed By: #### C JAVAD MOLINA, RAYNE #### [facility] [address] [place] [address] Marcin Alanna ALP [Catalytic activity/Vol] 167 U/L Critically high 38-126 [facility] Comment on above: Performed By: #### C JAVAD MOLINA, RAYNE #### [facility] [address] [place] [address] Marcin Alanna ALT [Catalytic activity/Vol] 370 U/L Critically high 9-52 [facility] Comment on above: Performed By: #### C JAVAD MOLINA, RAYNE #### [facility] [address] [place] [address] Marcin Alanna Anion gap [Moles/Vol] 12.5 mmol/L Normal [facility] Comment on above: Performed By: #### C JAVAD MOLINA, RAYNE #### [facility] [address] [place] [address] Marcin Alanna AST [Catalytic activity/Vol] 165 U/L Critically high 14-36 [facility] Comment on above: Performed By: #### C MP, LIPA, RAYNE #### [facility] [address] [place] [address] Marcin Alanna Bilirubin [Mass/Vol] 5.3 mg/dL Critically high 0.2-1.3 [facility] Comment on above: Performed By: #### C MP, LIPA, RAYNE #### [facility] [address] [place] [address] Marcin Alanna Calcium [Mass/Vol] 9.2 mg/dL Normal 8.4-10.2 [facility] Comment on above: Performed By: #### C MP LIPA, RAYNE #### [facility] [address] [place] [address] Marcin Alanna Chloride [Moles/Vol] 102 mmol/L Normal 98-107 [facility] Comment on above: Performed By: #### C TRACY LIPA, RAYNE #### [facility] [address] [place] [address] Marcin Alanna CO2 [Moles/Vol] 29.6 mmol/L Normal 22.0-30.0 [facility] Comment on above: Performed By: #### C TRACY LIPA, RAYNE #### [facility] [address] [place] [address] Marcin Alanna Creatinine [Mass/Vol] 0.88 mg/dL Normal 0.52-1.04 [facility] Comment on above: Performed By: #### C MP LIPA, RAYNE #### [facility] [address] [place] [address] Marcin Alanna EGFR-AF EMIRATI >60 Normal >=60 [facility] Comment on above: Performed By: #### C MP, LIPA, RAYNE #### [facility] [address] [place] [address] Marcin Alanna EGFR-NON AF EMIRATI >60 Normal >=60 [facility] Comment on above: Performed By: #### C MP, LIPA, RAYNE #### [facility] [address] [place] [address] Marcin Alanna Globulin (S) [Mass/Vol] 4.1 g/dL Normal [facility] Comment on above: Performed By: #### C JAVAD MOLINA, RAYNE #### [facility] [address] [place] [address] Marcin Alanna Glucose [Mass/Vol] 88 mg/dL Normal 74-106 [facility] Comment on above: Performed By: #### C JAVAD MOLINA, RAYNE #### [facility] [address] [place] [address] Marcin Alanna Potassium [Moles/Vol] 3.1 mmol/L Critically low 3.4-5.0 [facility] Comment on above: Performed By: #### C JAVAD MOLINA, RAYNE #### [facility] [address] [place] [address] Marcin Alanna Protein [Mass/Vol] 7.4 g/dL Normal 6.1-8.2 [facility] Comment on above: Performed By: #### C JAVAD MOLINA, RAYNE #### [facility] [address] [place] [address] Marcin Alanna Sodium [Moles/Vol] 141 mmol/L Normal 137-145 [facility] Comment on above: Performed By: #### C JAVAD MOLINA, RAYNE #### [facility] [address] [place] [address] Marcin Alanna Urea nitrogen [Mass/Vol] 8.0 mg/dL Normal 7.0-17.0 [facility] Comment on above: Performed By: #### C JAVAD MOLINA, RAYNE #### [facility] [address] [place] [address] Marcin Alanna Urea nitrogen/Creatini ne [Mass ratio] 9.1 mg/mg Normal [facility] Comment on above: Performed By: #### C JAVAD MOLINA, RAYNE #### [facility] [address] [place] [address] Marcin Alanna PROTIMEon 12-15-2020 INR Coag (PPP) [Relative time] 1.04 {INR} Normal [facility] Comment on above: Performed By: #### C JAVAD MOLINA, RAYNE #### [facility] [address] [place], [place] [address] Marcin Alanna INR GUIDELINES SEE BELOW Normal [facility] Comment on above: Result Comment: NAI RED INR: 2.0 - 3.0 CONDITIONS NOT LISTED BELOW 2.5 - 3.5 FOR PROSTHETIC HEART VALVE REPLACEMENT 2.5 - 3.5 RECURRENT THROMBOSIS Performed By: #### C MP, LIPA, RAYNE #### [facility] [address] [place] [address] Marcin Alanna PT Coag (PPP) [Time] 11.3 s Normal 9.0-11.6 [facility] Comment on above: Performed By: #### C MP, LIPA, RAYNE #### [facility] [address] [place], [place] [id number] Marcin Alanna PTTon 12-15-2020 aPTT Coag (Bld) [Time] 27.8 s Normal 22.3-36.2 [facility] Comment on above: Performed By: #### C MP, LIPA, RAYNE #### [facility] [address] [place] [address] Marcin Alanna AMYLASEon 12-09-2020 Amylase [Catalytic activity/Vol] 45 U/L Normal 31-110 [facility] Comment on above: Performed By: #### B MP, RAYNE, LIVER, LIPA #### [facility] [address] [place], [place] [id number] Marcin Alanna CBC AUTO DIFFon 12-09-2020 BASO # 0.0 103/ul Normal 0.0-0.1 [facility] Comment on above: Performed By: #### C BC #### [facility] [address] [place], [place] [id number] Marcin Alanna Basophils/100 WBC (Bld) 0.2 % Normal 0.2-2.0 [facility] Comment on above: Performed By: #### C BC #### [facility] [address] [place], [place] [address] Marcin Alanna EO # 0.0 103/ul Normal 0.0-0.7 [facility] Comment on above: Performed By: #### C BC #### [facility] [address] [place], [place] [phone] Marcin Alanna Eosinophils/100 WBC (Bld) 0.3 % Critically low 0.9-7.0 [facility] Comment on above: Performed By: #### C BC #### [facility] [address] [place], [place] [phone] Marcin Mondragon Erythrocyte distribution width (RBC) [Ratio] 12.6 % Normal 11.0-15.0 [facility] Comment on above: Performed By: #### C BC #### [facility] [address] [place] [address] Marcin Alanna Hematocrit (Bld) [Volume fraction] 45.7 % Normal 36.0-48.0 [facility] Comment on above: Performed By: #### C BC #### [facility] [address] [place] [address] Marcin Mondragon Hemoglobin (Bld) [Mass/Vol] 14.6 g/dL Normal 12.0-16.0 [facility] Comment on above: Performed By: #### C BC #### [facility] [address] [place] [address] Marcin Alanna IG # 0.04 10e3/ul Critically high 0.00-0.03 [facility] Comment on above: Performed By: #### C BC #### [facility] [address] [place] [address] Marcin Alanna IG % 0.4 % Normal 0.0-0.5 [facility] Comment on above: Performed By: #### C BC #### [facility] [address] [place] [address] Marcin Alanna LYMPH # 1.4 103/ul Normal 1.2-3.8 [facility] Comment on above: Performed By: #### C BC #### [facility] [address] [place], [place] [address] Marcin Alanna Lymphocytes/100 WBC (Bld) 12.8 % Critically low 20.5-60.0 [facility] Comment on above: Performed By: #### C BC #### [facility] [address] [place] [address] Marcinraffy Pritcharden MANUAL DIFF REQ NO Normal [facility] Comment on above: Performed By: #### C BC #### [facility] [address] [place] [id number] Marcin Mondragon MCH (RBC) [Entitic mass] 29.4 pg Normal 26.7-34.0 [facility] Comment on above: Performed By: #### C BC #### [facility] [address] [place] [id number] Marcin Mondragon MCHC (RBC) [Mass/Vol] 31.9 g/dL Normal 29.9-35.2 [facility] Comment on above: Performed By: #### C BC #### [facility] [address] [place] [id number] Marcin Mondragon MCV (RBC) [Entitic vol] 92.1 fL Normal 81.0-99.0 [facility] Comment on above: Performed By: #### C BC #### [facility] [address] [place], [place] [address] Marcin Mondragon MONO # 0.6 103/ul Normal 0.3-0.8 [facility] Comment on above: Performed By: #### C BC #### [facility] [address] [place] [id number] Marcin Mondragon Monocytes/100 WBC (Bld) 5.6 % Normal 1.7-12.0 [facility] Comment on above: Performed By: #### C BC #### [facility] [address] [place] [id number] Marcin Mondragon NEUT # 9.0 103/ul Critically high 1.4-6.5 [facility] Comment on above: Performed By: #### C BC #### [facility] [address] [place] [id number] Marcin Mondragon Neutrophils/100 WBC (Bld) 80.7 % Critically high 43.0-75.0 [facility] Comment on above: Performed By: #### C BC #### [facility] [address] [place] [id number] Marcinraffy Mondragon Platelet mean volume (Bld) [Entitic vol] 8.6 fL Critically low 9.5-13.5 [facility] Comment on above: Performed By: #### C BC #### [facility] [address] [place] [id number] Marcin Alanna PLT 255 103/ul Normal 150-450 [facility] Comment on above: Performed By: #### C BC #### [facility] [address] [place] [address] Marcin Alanna RBC 4.96 106/ul Normal 4.20-5.40 [facility] Comment on above: Performed By: #### C BC #### [facility] [address] [place] [address] Marcin Alanna WBC 11.1 103/ul Critically high 4.0-11.0 [facility] Comment on above: Performed By: #### C BC #### [facility] [address] [place] [address] Marcin Alanna LIPASEon 12-09-2020 Lipase [Catalytic activity/Vol] 129.0 U/L Normal 23.0-300.0 [facility] Comment on above: Performed By: #### B MP, RAYNE, LIVER, LIPA #### [facility] [address] [place], [place] [address] Marcin Alanna LIVER PROFILEon 12-09-2020 Albumin [Mass/Vol] 3.5 g/dL Normal 3.5-5.0 [facility] Comment on above: Performed By: #### B MP, RAYNE, LIVER, LIPA #### [facility] [address] [place], [place] [address] Marcin Alanna Albumin/Globulin [Mass ratio] 0.9 {ratio} Normal [facility] Comment on above: Performed By: #### B MP, RAYNE, LIVER, LIPA #### [facility] [address] [place] [address] Marcin Alanna ALP [Catalytic activity/Vol] 80 U/L Normal 38-126 [facility] Comment on above: Performed By: #### B MP, RAYNE, LIVER, LIPA #### [facility] [address] [place] [address] Marcin Alanna ALT [Catalytic activity/Vol] 31 U/L Normal 9-52 [facility] Comment on above: Performed By: #### B MP, RAYNE, LIVER, LIPA #### [facility] [address] [place] [address] Marcin Alanna AST [Catalytic activity/Vol] 39 U/L Critically high 14-36 [facility] Comment on above: Performed By: #### B MP, RAYNE, LIVER, LIPA #### [facility] [address] [place] [address] Marcin Alanna BILI, CONJUGATED 0.2 mg/dL Normal 0.0-0.3 [facility] Comment on above: Performed By: #### B MP, RAYNE, LIVER, LIPA #### [facility] [address] [place] [address] Marcin Alanna Bilirubin [Mass/Vol] 0.5 mg/dL Normal 0.2-1.3 [facility] Comment on above: Performed By: #### B MP, RAYNE, LIVER, LIPA #### [facility] [address] [place] [address] Marcin Alanna Globulin (S) [Mass/Vol] 3.8 g/dL Normal [facility] Comment on above: Performed By: #### B MP, RAYNE, LIVER, LIPA #### [facility] [address] [place] [address] Marcin Alanna Protein [Mass/Vol] 7.3 g/dL Normal 6.1-8.2 [facility] Comment on above: Performed By: #### B MP, RAYNE, LIVER, LIPA #### [facility] [address] [place] [address] Marcin Alanna PROF CHEM 8 (BAS METB)on Anion gap [Moles/Vol] 10.6 mmol/L Normal [facility] Comment on above: Performed By: #### C MP, LIPA, RAYNE #### [facility] [address] [place] [address] Marcin Alanna Calcium [Mass/Vol] 8.9 mg/dL Normal 8.4-10.2 [facility] Comment on above: Performed By: #### C EZRA MOLINAA, RAYNE #### [facility] [address] [place] [address] Marcin Alanna Chloride [Moles/Vol] 105 mmol/L Normal 98-107 [facility] Comment on above: Performed By: #### C TRACY LIPA, RAYNE #### [facility] [address] [place] [address] Marcin Alanna CO2 [Moles/Vol] 27.4 mmol/L Normal 22.0-30.0 [facility] Comment on above: Performed By: #### C TRACY LIPA, RAYNE #### [facility] [address] [place] [address] Marcin Alanna Creatinine [Mass/Vol] 0.91 mg/dL Normal 0.52-1.04 [facility] Comment on above: Performed By: #### C TRACY LIPA, RAYNE #### [facility] [address] [place] [address] Marcin Alanna EGFR-AF EMIRATI >60 Normal >=60 [facility] Comment on above: Performed By: #### C TRACY LIPA, RAYNE #### [facility] [address] [place] [address] Marcin Alanna EGFR-NON AF EMIRATI >60 Normal >=60 [facility] Comment on above: Performed By: #### C TRACY LIPA, RAYNE #### [facility] [address] [place] [address] Marcin Alanna Glucose [Mass/Vol] 109 mg/dL Critically high 74-106 [facility] Comment on above: Performed By: #### C TRACY LIPA, RAYNE #### [facility] [address] [place] [address] Marcin Alanna Potassium [Moles/Vol] 4.0 mmol/L Normal 3.4-5.0 [facility] Comment on above: Performed By: #### C TRACY LIPA, RAYNE #### [facility] [address] [address] Marcin Alanna Sodium [Moles/Vol] 139 mmol/L Normal 137-145 [facility] Comment on above: Performed By: #### C JAVAD MOLINA AMY #### [facility] [address] [place], [place] [address] Marcin Mondragon Urea nitrogen [Mass/Vol] 13.0 mg/dL Normal 7.0-17.0 [facility] Comment on above: Performed By: #### C JAVAD MOLINA, RAYNE #### [facility] [address] [place], [place] [address] Marcin Mondragon Urea nitrogen/Creatini ne [Mass ratio] 14.3 mg/mg Normal [facility] Comment on above: Performed By: #### C JAVAD MOLINA AMY #### [facility] [address] [place], [place] [address] Marcin Mondragon XR CHEST 1 Von 12-09-2020 [...] by: BRITTANY HENDRICKS Date: 2020-12-09 17:05 Normal [facility] Vital Signs Date Time Vital Sign Value Performing Clinician Faci lity 12-29-2023 10:32-0500 Body weight 121.17 kg Jesica Baljit DO Work Phone: [facility] 12-29-2023 10:32-0500 Diastolic blood pressure 70 mm[Hg] [...] [employer] [place] [employer] [id number] 2020-Present [address] [place] [address] [id number] 1990 Unknown [id number] 2.16.840.1.107345.3.579.2.593 1990 Unknown [id number] 2.16.840.1.597289.3.579.2.593 1990 Unknown [id number] 2.16.840.1.715165.3.579.2.593 1990 Unknown [id number] 2.16.840.1.755192.3.579.2.1259 1990 Unknown [id number] 2.16.840.1.399413.3.579.2.9 1990 Unknown [id number] 2.16.840.1.369817.3.579.2.9 1990 Unknown [id number] 2.16.840.1.833922.3.579.2.9 1990 Unknown [id number] 2.16.840.1.264259.3.579.2.9 1990 Unknown [id number] 2.16.840.1.604874.3.579.2.9 1990 Unknown [id number] 2.16.840.1.329857.3.579.2.9 1990 Unknown [id number] 2.16.840.1.705327.3.579.2.9 1990 Unknown [id number] 2.16.840.1.199577.3.579.2.9 1959 Unknown [id number] Social History Date Type Detail Facility Start: [...] nursing note reviewed. Exam conducted with a voice professor present. Vitals: There is no height or [...] Smiley DO documented in this encounter [facility] Progress note 01-02-2021 Note Date & Type Note Facility 01-02-2021 Note HNO ID: [id number] Author: Bro Yuan Service: ? Author Type: [...] Follow up PRN SIGNATURE: Jeffrey Yuan MD [facility] surgery Pager: [phone] [facility] Progress note 01-02-2021 Note Date & Type Note Facility 01-02-2021 Note HNO ID: [id number] Author: Annamaria Collins Service: ? Author Type: [...] Follow-up TEX Collins MD General Surgery Resident [facility] Evaluation note Note Date & Type [...] and content) DATE CREATED AUTHOR 10/02/2021 [facility] DATE CREATED AUTHOR AUTHOR'S ORGANIZ ATION 12/20/2021 [facility] DATE CREATED AUTHOR AUTHOR'S ORGANIZ ATION 04/26/2024 [facility] EPIC Reason for Visit (unrecogniz ed section and content) Reason Comments Routine Visit Care Teams (unrecognized sec tion and content) Mold Puller Relationship Specialty Start Date End Date Tor Torres MD [address] [place] [address] PCP - General Internal Medicine [...] BE BASED ON THE PRIMARY CLINICAL RECORDS. License [employer] [facility]. provides no warranty or guarantee of the accuracy or completeness of information in this document.
[2024-04-30 13:34] LABS: Estimated Average Glucose 97 mg/dL
== END 2024-04-30 12:56 | disposition home or self-care (01) ==
LOC: LAB 12:58
PROVIDERS: PCP Internal Medicine; Visit Provider Obstetrics & Gynecology
DX: Z34.93 Encounter for supervision of normal pregnancy, unspecified, third trimester (principal)
CPT/HCPCS: 36415; 83036

== ENCOUNTER 2024-05-01 05:49 | Observation (INO) | payer OTHER, SELFPAY ==
[2024-05-01 04:24] VITALS: BP 102/51; PULSE 97
--- OUTSIDE RECORDS SUMMARY | 2024-05-01 05:52 | XMS_ITS | CCD ---
Author Organization [facility] Care Team Providers Care Account Executive Sales Representative Name Role Phone DR TOR TORRES Primary [...] Tor Torres MD Primary Care Provider [phone] RAYNE JUNG Attending Unavailable JESICA SMILEY Attending Unavailable RAYNE JUNG Attending Unavailable JESICA SMILEY Attending Unavailable JESICA SMILEY Attending Unavailable RAYNE JUNG Attending Unavailable JESICA SMILEY Attending Unavailable JESICA SMILEY Attending Unavailable Allergies Allergy Classification Reported Allergen(s) Allergy Type Date of Onset Reaction(s) Facility (1 source) Morphine Drug Allergy 05-18-2018 [facility] Repository Medications Current Medications Medication Drug [...] Other aftercare (1 source) 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; Translations: [OTH LONGTERM CURRENT DRUG THERAPY] Onset: 10-02-2021 Episodic Other [...] Office Visit (GENSMN ) -------- ISAAC TOUSSAINT ([id number]) 1990 F Date Time Provider Department 01/02/21 [...] SIGNATURE: Jeffrey Yuan MD B surgery Pager: [phone] Referring Provider: SELF [[id number]] Allergies As of [...] Status:Closed by BRO YUAN MD on 01/02/21 [facility] 12-22-2020 [facility] Telephone (PODCCP) -------- ISAAC TOUSSAINT ([id number]) 1990 F Date Time Provider Department 12/22/20 [facility] CR (STUDENT) PODCCP During your visit today, we recorded the following information about you: Vahe Cr Student 12/22/2020 10:01 AM Signed Record ID: [id number] Patient Name: [facility]: [facility]: [facility] Attending: Bro Yuan Center: General Surgery INSTRUCTIONS SN to remind patient of appointment date, time, location All Clear All Clear SURVEY INFORMATION Medical/Nurse Medical Appliance Maker: Landy Duran 1. Your discharge instructions are [...] Reason for Visit: Follow Up Phone Call [[id number]] Prescriptions as of 12/22/2020 Sig: ONDANSETRON HCL [...] Encounter Status:Closed by VAHE WADE on 12/22/20 [facility] Corey 12-21-2020 CNPN Telephone ([employer]) -------- ISAAC TOUSSAINT ([id number]) 1990 F Date Time Provider Department 12/21/20 BRO YUAN During your visit today, we recorded the following information about you: [place]acy Arshad [facility] [place] 12:18 PM Signed [...] Encounter Status:Closed by MACY SALEH on 01/22/21 [facility] OBSOLETEon 12-21-2020 OBSOLETE Refill (GENSMN) -------- ISAAC TOUSSAINT ([id number]) 1990 F Date Time Provider Department 12/21/20 ROXANA SCOTT During your visit today, we recorded the following information about you: Roxana Scott APRN.TOE POUNDER 12/21/2020 2:00 PM Signed Patient called with [...] our office if symptoms persist. Roxana Scott APRN.TOE POUNDER Allergies As of Date: 12/21/2020 (No Known [...] by TYLER DEJESUS.ROXANA HOUSE on 12/21/20 Normal [facility] AMMONIAon 12-15-2020 Ammonia (P) [Mass/Vol] ug/dL Critically low 10-30 [facility] Comment on above: Performed By: #### A MM #### [facility] [address] [place], [place] [address] Marcin Mondragon AMYLASEon 12-15-2020 Amylase [Catalytic activity/Vol] 217 U/L Critically high 31-110 [facility] Comment on above: Performed By: #### C MP, LIPA, RAYNE #### [facility] [address] [place], [place] [address] Marcin Mondragon CBC AUTO DIFFon 12-15-2020 BASO # 0.0 103/ul Normal 0.0-0.1 [facility] Comment on above: Performed By: #### C JAVAD MOLINA AMY #### [facility] [address] [place] [address] Marcin Alanna Basophils/100 WBC (Bld) 0.3 % Normal 0.2-2.0 [facility] Comment on above: Performed By: #### C JAVAD MOLINA AMY #### [facility] [address] [place] [address] Marcin Alanna EO # 0.0 103/ul Normal 0.0-0.7 [facility] Comment on above: Performed By: #### C JAVAD MOLINA AMY #### [facility] [address] [place] [address] Marcin Alanna Eosinophils/100 WBC (Bld) 0.3 % Critically low 0.9-7.0 [facility] Comment on above: Performed By: #### C JAVAD MOLINA AMY #### [facility] [address] [place] [address] Marcin Alanna Erythrocyte distribution width (RBC) [Ratio] 13.3 % Normal 11.0-15.0 [facility] Comment on above: Performed By: #### C JAVAD MOLINA AMY #### [facility] [address] [place] [address] Marcin Alanna Hematocrit (Bld) [Volume fraction] 42.9 % Normal 36.0-48.0 [facility] Comment on above: Performed By: #### C JAVAD MOLINA AMY #### [facility] [address] [place] [address] Marcin Alanna Hemoglobin (Bld) [Mass/Vol] 13.8 g/dL Normal 12.0-16.0 [facility] Comment on above: Performed By: #### C JAVAD MOLINA AMY #### [facility] [address] [place] [address] Maricn Alanna IG # 0.02 10e3/ul Normal 0.00-0.03 [facility] Comment on above: Performed By: #### C JAVAD MOLINA AMY #### [facility] [address] [place] [id number] Marcin Alanna IG % 0.3 % Normal 0.0-0.5 [facility] Comment on above: Performed By: #### C JAVAD MOLINA RAYNE #### [facility] [address] [place] [address] Marcin Alanna LYMPH # 1.7 103/ul Normal 1.2-3.8 [facility] Comment on above: Performed By: #### C JAVAD MOLINA, RAYNE #### [facility] [address] [place] [address] Marcin Alanna Lymphocytes/100 WBC (Bld) 23.8 % Normal 20.5-60.0 [facility] Comment on above: Performed By: #### C JAVAD MOLINA, RAYNE #### [facility] [address] [place] [address] Marcin Alanna MANUAL DIFF REQ NO Normal [facility] Comment on above: Performed By: #### C JAVAD MOLINA, RAYNE #### [facility] [address] [place], [place] [id number] Marcin Alanna MCH (RBC) [Entitic mass] 29.8 pg Normal 26.7-34.0 [facility] Comment on above: Performed By: #### C JAVAD MOLINA, RAYNE #### [facility] [address] [place] [address] Marcin Alanna MCHC (RBC) [Mass/Vol] 32.2 g/dL Normal 29.9-35.2 [facility] Comment on above: Performed By: #### C JAVAD MOLINA, RAYNE #### [facility] [address] [place] [address] Marcin Alanna MCV (RBC) [Entitic vol] 92.7 fL Normal 81.0-99.0 [facility] Comment on above: Performed By: #### C JAVAD MOLINA, RAYNE #### [facility] [address] [place] [address] Marcin Alanna MONO # 0.6 103/ul Normal 0.3-0.8 [facility] Comment on above: Performed By: #### C TRACY LIPA, RAYNE #### [facility] [address] [place] [address] Marcin Alanna Monocytes/100 WBC (Bld) 8.5 % Normal 1.7-12.0 [facility] Comment on above: Performed By: #### C TRACY LIPA, RAYNE #### [facility] [address] [place] [address] Marcin Alanna NEUT # 4.8 103/ul Normal 1.4-6.5 [facility] Comment on above: Performed By: #### C TRACY LIPA, RAYNE #### [facility] [address] [place] [address] Marcin Alanna Neutrophils/100 WBC (Bld) 66.8 % Normal 43.0-75.0 [facility] Comment on above: Performed By: #### C TRACY LIPA, RAYNE #### [facility] [address] [place] [address] Marcin Pritcharden Platelet mean volume (Bld) [Entitic vol] 8.7 fL Critically low 9.5-13.5 [facility] Comment on above: Performed By: #### C TRACY LIPA, RAYNE #### [facility] [address] [place] [address] Marcin Pritcharden PLT 253 103/ul Normal 150-450 [facility] Comment on above: Performed By: #### C TRACY LIPA, RAYNE #### [facility] [address] [place] [address] Marcin Alanna RBC 4.63 106/ul Normal 4.20-5.40 [facility] Comment on above: Performed By: #### C TRACY LIPA, RAYNE #### [facility] [address] [place] [address] Marcin Alanna WBC 7.1 103/ul Normal 4.0-11.0 [facility] Comment on above: Performed By: #### C TRACY LIPA, RAYNE #### [facility] [address] [place] [address] Marcin Mondragon LIPASEon 01-22-2021 Lipase [Catalytic activity/Vol] 1205.0 U/L Critically high 23.0-300.0 [facility] Comment on above: Result Comment: test repeated critical value verified Performed By: #### C JAVAD MOLINA AMY #### [facility] [address] [place], [place] [id number] Marcin Alanna PREG HCG QUALon 12-15-2020 , QUAL Negative Normal NEGATIVE [facility] Comment on above: Performed By: #### P REG #### [facility] [address] [place] [address] Marcinraffy Pritcharden PROF 14(COMP METB)on 021 Albumin [Mass/Vol] 3.3 g/dL Critically low 3.5-5.0 [facility] Comment on above: Performed By: #### C JAVAD MOLINA AMY #### [facility] [address] [place] [address] Marcin Alanna Albumin/Globulin [Mass ratio] 0.8 {ratio} Normal [facility] Comment on above: Performed By: #### C JAVAD MOLINA, RAYNE #### [facility] [address] [place] [address] Marcin Alanna ALP [Catalytic activity/Vol] 167 U/L Critically high 38-126 [facility] Comment on above: Performed By: #### C JAVAD MOLINA, RAYNE #### [facility] [address] [place] [address] Marcin Alanna ALT [Catalytic activity/Vol] 370 U/L Critically high 9-52 [facility] Comment on above: Performed By: #### C JAVAD MOLINA, RAYNE #### [facility] [address] [place] [address] Marcin Alanna Anion gap [Moles/Vol] 12.5 mmol/L Normal [facility] Comment on above: Performed By: #### C JAVAD MOLINA, RAYNE #### [facility] [address] [place] [address] Marcin Alanna AST [Catalytic activity/Vol] 165 U/L Critically high 14-36 [facility] Comment on above: Performed By: #### C MP, LIPA, RAYNE #### [facility] [address] [place] [address] Marcin Alanna Bilirubin [Mass/Vol] 5.3 mg/dL Critically high 0.2-1.3 [facility] Comment on above: Performed By: #### C MP, LIPA, RAYNE #### [facility] [address] [place] [address] Marcin Alanna Calcium [Mass/Vol] 9.2 mg/dL Normal 8.4-10.2 [facility] Comment on above: Performed By: #### C MP LIPA, RAYNE #### [facility] [address] [place] [address] Marcin Alanna Chloride [Moles/Vol] 102 mmol/L Normal 98-107 [facility] Comment on above: Performed By: #### C TRACY LIPA, RAYNE #### [facility] [address] [place] [address] Marcin Alanna CO2 [Moles/Vol] 29.6 mmol/L Normal 22.0-30.0 [facility] Comment on above: Performed By: #### C TRACY LIPA, RAYNE #### [facility] [address] [place] [address] Marcin Alanna Creatinine [Mass/Vol] 0.88 mg/dL Normal 0.52-1.04 [facility] Comment on above: Performed By: #### C MP LIPA, RAYNE #### [facility] [address] [place] [address] Marcin Alanna EGFR-AF LIBERIAN >60 Normal >=60 [facility] Comment on above: Performed By: #### C MP, LIPA, RAYNE #### [facility] [address] [place] [address] Marcin Alanna EGFR-NON AF LIBERIAN >60 Normal >=60 [facility] Comment on above: Performed By: #### C MP, LIPA, RAYNE #### [facility] [address] [place] [address] Marcin Alanna Globulin (S) [Mass/Vol] 4.1 g/dL Normal [facility] Comment on above: Performed By: #### C JAVAD MOLINA, RAYNE #### [facility] [address] [place] [address] Marcin Alanna Glucose [Mass/Vol] 88 mg/dL Normal 74-106 [facility] Comment on above: Performed By: #### C JAVAD MOLINA, RAYNE #### [facility] [address] [place] [address] Marcin Alanna Potassium [Moles/Vol] 3.1 mmol/L Critically low 3.4-5.0 [facility] Comment on above: Performed By: #### C JAVAD MOLINA, RAYNE #### [facility] [address] [place] [address] Marcin Alanna Protein [Mass/Vol] 7.4 g/dL Normal 6.1-8.2 [facility] Comment on above: Performed By: #### C JAVAD MOLINA, RAYNE #### [facility] [address] [place] [address] Marcin Alanna Sodium [Moles/Vol] 141 mmol/L Normal 137-145 [facility] Comment on above: Performed By: #### C JAVAD MOLINA, RAYNE #### [facility] [address] [place] [address] Marcin Alanna Urea nitrogen [Mass/Vol] 8.0 mg/dL Normal 7.0-17.0 [facility] Comment on above: Performed By: #### C JAVAD MOLINA, RAYNE #### [facility] [address] [place] [address] Marcin Alanna Urea nitrogen/Creatini ne [Mass ratio] 9.1 mg/mg Normal [facility] Comment on above: Performed By: #### C JAVAD MOLINA, RAYNE #### [facility] [address] [place] [address] Marcin Alanna PROTIMEon 12-15-2020 INR Coag (PPP) [Relative time] 1.04 {INR} Normal [facility] Comment on above: Performed By: #### C JAVAD MOLINA, RAYNE #### [facility] [address] [place] [address] Marcin Alanna INR GUIDELINES SEE BELOW Normal [facility] Comment on above: Result Comment: NAI RED INR: 2.0 - 3.0 CONDITIONS NOT LISTED BELOW 2.5 - 3.5 FOR PROSTHETIC HEART VALVE REPLACEMENT 2.5 - 3.5 RECURRENT THROMBOSIS Performed By: #### C MP, LIPA, RAYNE #### [facility] [address] [place] [address] Marcin Alanna PT Coag (PPP) [Time] 11.3 s Normal 9.0-11.6 [facility] Comment on above: Performed By: #### C MP, LIPA, RAYNE #### [facility] [address] [place], [place] [address] Marcin Alanna PTTon 12-15-2020 aPTT Coag (Bld) [Time] 27.8 s Normal 22.3-36.2 [facility] Comment on above: Performed By: #### C MP, LIPA, RAYNE #### [facility] [address] [place] [address] Marcin Alanna AMYLASEon 12-09-2020 Amylase [Catalytic activity/Vol] 45 U/L Normal 31-110 [facility] Comment on above: Performed By: #### B MP, RAYNE, LIVER, LIPA #### [facility] [address] [place], [place] [address] Marcin Alanna CBC AUTO DIFFon 12-09-2020 BASO # 0.0 103/ul Normal 0.0-0.1 [facility] Comment on above: Performed By: #### C BC #### [facility] [address] [place], [place] [address] Marcin Alanna Basophils/100 WBC (Bld) 0.2 % Normal 0.2-2.0 [facility] Comment on above: Performed By: #### C BC #### [facility] [address] [place], [place] [address] Marcin Alanna EO # 0.0 103/ul Normal 0.0-0.7 [facility] Comment on above: Performed By: #### C BC #### [facility] [address] [place], [place] [address] Marcin Alanna Eosinophils/100 WBC (Bld) 0.3 % Critically low 0.9-7.0 [facility] Comment on above: Performed By: #### C BC #### [facility] [address] [place], [place] [address] Marcin Mondragon Erythrocyte distribution width (RBC) [Ratio] 12.6 % Normal 11.0-15.0 [facility] Comment on above: Performed By: #### C BC #### [facility] [address] [place] [address] Marcin Alanna Hematocrit (Bld) [Volume fraction] 45.7 % Normal 36.0-48.0 [facility] Comment on above: Performed By: #### C BC #### [facility] [address] [place] [address] Marcin Mondragon Hemoglobin (Bld) [Mass/Vol] 14.6 g/dL Normal 12.0-16.0 [facility] Comment on above: Performed By: #### C BC #### [facility] [address] [place] [address] Marcin Alanna IG # 0.04 10e3/ul Critically high 0.00-0.03 [facility] Comment on above: Performed By: #### C BC #### [facility] [address] [place] [address] Marcin Alanna IG % 0.4 % Normal 0.0-0.5 [facility] Comment on above: Performed By: #### C BC #### [facility] [address] [place] [address] Marcin Alanna LYMPH # 1.4 103/ul Normal 1.2-3.8 [facility] Comment on above: Performed By: #### C BC #### [facility] [address] [place], [place] [address] Marcin Alanna Lymphocytes/100 WBC (Bld) 12.8 % Critically low 20.5-60.0 [facility] Comment on above: Performed By: #### C BC #### [facility] [address] [place] [address] Marcinraffy Pritcharden MANUAL DIFF REQ NO Normal [facility] Comment on above: Performed By: #### C BC #### [facility] [address] [id number] Marcin Mondrgaon MCH (RBC) [Entitic mass] 29.4 pg Normal 26.7-34.0 [facility] Comment on above: Performed By: #### C BC #### [facility] [address] [place] [id number] Marcin Mondragon MCHC (RBC) [Mass/Vol] 31.9 g/dL Normal 29.9-35.2 [facility] Comment on above: Performed By: #### C BC #### [facility] [address] [id number] Marcin Mondragon MCV (RBC) [Entitic vol] 92.1 fL Normal 81.0-99.0 [facility] Comment on above: Performed By: #### C BC #### [facility] [address] [place], [place] [address] Marcin Mondragon MONO # 0.6 103/ul Normal 0.3-0.8 [facility] Comment on above: Performed By: #### C BC #### [facility] [address] [address] Marcin Mondragon Monocytes/100 WBC (Bld) 5.6 % Normal 1.7-12.0 [facility] Comment on above: Performed By: #### C BC #### [facility] [address] [address] Marcin Mondragon NEUT # 9.0 103/ul Critically high 1.4-6.5 [facility] Comment on above: Performed By: #### C BC #### [facility] [address] [address] Marcin Mondragon Neutrophils/100 WBC (Bld) 80.7 % Critically high 43.0-75.0 [facility] Comment on above: Performed By: #### C BC #### [facility] [address] [address] Marcinraffy Mondragon Platelet mean volume (Bld) [Entitic vol] 8.6 fL Critically low 9.5-13.5 [facility] Comment on above: Performed By: #### C BC #### [facility] [address] [address] Marcin Alanna PLT 255 103/ul Normal 150-450 [facility] Comment on above: Performed By: #### C BC #### [facility] [address] [place] [address] Marcin Alanna RBC 4.96 106/ul Normal 4.20-5.40 [facility] Comment on above: Performed By: #### C BC #### [facility] [address] [place] [address] Marcin Alanna WBC 11.1 103/ul Critically high 4.0-11.0 [facility] Comment on above: Performed By: #### C BC #### [facility] [address] [place] [address] Marcin Alanna LIPASEon 12-09-2020 Lipase [Catalytic activity/Vol] 129.0 U/L Normal 23.0-300.0 [facility] Comment on above: Performed By: #### B MP, RAYNE, LIVER, LIPA #### [facility] [address] [place], [place] [address] Marcin Alanna LIVER PROFILEon 12-09-2020 Albumin [Mass/Vol] 3.5 g/dL Normal 3.5-5.0 [facility] Comment on above: Performed By: #### B MP, RAYNE, LIVER, LIPA #### [facility] [address] [place], [place] [address] Marcin Alanna Albumin/Globulin [Mass ratio] 0.9 {ratio} Normal [facility] Comment on above: Performed By: #### B MP, RAYNE, LIVER, LIPA #### [facility] [address] [place] [address] Marcin Alanna ALP [Catalytic activity/Vol] 80 U/L Normal 38-126 [facility] Comment on above: Performed By: #### B MP, RAYNE, LIVER, LIPA #### [facility] [address] [place] [address] Marcin Alanna ALT [Catalytic activity/Vol] 31 U/L Normal 9-52 [facility] Comment on above: Performed By: #### B MP, RAYNE, LIVER, LIPA #### [facility] [address] [place] [address] Marcin Alanna AST [Catalytic activity/Vol] 39 U/L Critically high 14-36 [facility] Comment on above: Performed By: #### B MP, RAYNE, LIVER, LIPA #### [facility] [address] [place] [address] Marcin Alanna BILI, CONJUGATED 0.2 mg/dL Normal 0.0-0.3 [facility] Comment on above: Performed By: #### B MP, RAYNE, LIVER, LIPA #### [facility] [address] [place] [address] Marcin Alanna Bilirubin [Mass/Vol] 0.5 mg/dL Normal 0.2-1.3 [facility] Comment on above: Performed By: #### B MP, RAYNE, LIVER, LIPA #### [facility] [address] [place] [address] Marcin Alanna Globulin (S) [Mass/Vol] 3.8 g/dL Normal [facility] Comment on above: Performed By: #### B MP, RAYNE, LIVER, LIPA #### [facility] [address] [place] [address] Marcin Alanna Protein [Mass/Vol] 7.3 g/dL Normal 6.1-8.2 [facility] Comment on above: Performed By: #### B MP, RAYNE, LIVER, LIPA #### [facility] [address] [place] [address] Marcin Alanna PROF CHEM 8 (BAS METB)on Anion gap [Moles/Vol] 10.6 mmol/L Normal [facility] Comment on above: Performed By: #### C MP, LIPA, RAYNE #### [facility] [address] [place] [address] Marcin Alanna Calcium [Mass/Vol] 8.9 mg/dL Normal 8.4-10.2 [facility] Comment on above: Performed By: #### C EZRA MOLINAA, RAYNE #### [facility] [address] [place] [address] Marcin Alanna Chloride [Moles/Vol] 105 mmol/L Normal 98-107 [facility] Comment on above: Performed By: #### C TRACY LIPA, RAYNE #### [facility] [address] [address] Marcin Alanna CO2 [Moles/Vol] 27.4 mmol/L Normal 22.0-30.0 [facility] Comment on above: Performed By: #### C TRACY LIPA, RAYNE #### [facility] [address] [address] Marcin Alanna Creatinine [Mass/Vol] 0.91 mg/dL Normal 0.52-1.04 [facility] Comment on above: Performed By: #### C TRACY LIPA, RAYNE #### [facility] [address] [place] [address] Marcin Alanna EGFR-AF LIBERIAN >60 Normal >=60 [facility] Comment on above: Performed By: #### C TRACY LIPA, RAYNE #### [facility] [address] [place] [address] Marcin Alanna EGFR-NON AF LIBERIAN >60 Normal >=60 [facility] Comment on above: Performed By: #### C TRACY LIPA, RAYNE #### [facility] [address] [place] [address] Marcin Alanna Glucose [Mass/Vol] 109 mg/dL Critically high 74-106 [facility] Comment on above: Performed By: #### C TRACY LIPA, RAYNE #### [facility] [address] [place] [address] Marcin Alanna Potassium [Moles/Vol] 4.0 mmol/L Normal 3.4-5.0 [facility] Comment on above: Performed By: #### C TRACY LIPA, RAYNE #### [facility] [address] [address] Marcin Alanna Sodium [Moles/Vol] 139 mmol/L Normal 137-145 [facility] Comment on above: Performed By: #### C JAVAD MOLINA AMY #### [facility] [address] [place], [place] [address] Marcin Mondragon Urea nitrogen [Mass/Vol] 13.0 mg/dL Normal 7.0-17.0 [facility] Comment on above: Performed By: #### C JAVAD MOLINA, RAYNE #### [facility] [address] [place], [place] [address] Marcin Mondragon Urea nitrogen/Creatini ne [Mass ratio] 14.3 mg/mg Normal [facility] Comment on above: Performed By: #### C JAVAD MOLINA AMY #### [facility] [address] [place], [place] [address] Marcin Mondragon XR CHEST 1 Von 12-09-2020 [...] by: BRITTANY HENDRICKS Date: 2020-12-09 17:05 Normal [facility] Vital Signs Date Time Vital Sign Value Performing Clinician Faci lity 12-29-2023 10:32-0500 Body weight 121.17 kg Jesica Baljit DO Work Phone: [facility] 12-29-2023 10:32-0500 Diastolic blood pressure 70 mm[Hg] Jesica Baljit DO Work Phone: [facility] 12-29-2023 10:32-0500 Systolic blood pressure 110 mm[Hg] Jesica Baljit DO Work Phone: [facility] Healthcare Encounters Encounter Date Encounter [...] [employer] [place] [id number] 2020-Present [address] [place] [address] [id number] [id number] 1990 Unknown [id number] 2.16.840.1.392401.3.579.2.593 1990 Unknown [id number] 2.16.840.1.236624.3.579.2.593 1990 Unknown [id number] 2.16.840.1.380032.3.579.2.593 1990 Unknown [id number] 2.16.840.1.591078.3.579.2.1259 1990 Unknown [id number] 2.16.840.1.792952.3.579.2.9 1990 Unknown [id number] 2.16.840.1.702036.3.579.2.9 1990 Unknown [id number] 2.16.840.1.663494.3.579.2.9 1990 Unknown [id number] 2.16.840.1.687823.3.579.2.9 1990 Unknown [id number] 2.16.840.1.843582.3.579.2.9 1990 Unknown [id number] 2.16.840.1.672168.3.579.2.9 1990 Unknown [id number] 2.16.840.1.953453.3.579.2.9 1990 Unknown [id number] 2.16.840.1.171499.3.579.2.9 1959 Unknown [id number] Social History Date Type Detail Facility Start: [...] nursing note reviewed. Exam conducted with a automation qa analyst present. Vitals: There is no height or [...] Jesica Smiley DO documented in this encounter [facility] Progress note 01-02-2021 Note Date & Type Note Facility 01-02-2021 Note HNO ID: [id number] Author: Bro Yuan Service: ? Author Type: [...] Follow up PRN SIGNATURE: Jeffrey Yuan MD [facility] surgery Pager: [phone] [facility] Progress note 01-02-2021 Note Date & Type Note Facility 01-02-2021 Note HNO ID: [id number] Author: Annamaria Collins Service: ? Author Type: [...] Follow-up TEX Collins MD General Surgery Resident [facility] Evaluation note Note Date & Type [...] and content) DATE CREATED AUTHOR 10/02/2021 [facility] DATE CREATED AUTHOR AUTHOR'S ORGANIZ ATION 12/20/2021 [facility] DATE CREATED AUTHOR AUTHOR'S ORGANIZ ATION 04/26/2024 [facility] EPIC Reason for Visit (unrecogniz ed section and content) Reason Comments Routine Visit Care Teams (unrecognized sec tion and content) Account Executive Sales Representative Relationship Specialty Start Date End Date Tor Torres MD [address] [place] [address] PCP - General Internal Medicine [...] BE BASED ON THE PRIMARY CLINICAL RECORDS. [employer] [facility]. provides no warranty or guarantee of the accuracy or completeness of information in this document.
[2024-05-01 05:56] LABS: Clarity Urine CLEAR (CLEAR); Color Urine YELLOW (YELLOW); Specific Gravity Urine >=1.030 (1.005-1.025)
[2024-05-01 05:57] LABS: Bacteria Urine TRACE #/HPF (NONE SEEN); Bilirubin Urine NEGATIVE (NEGATIVE); Blood Urine NEGATIVE (NEGATIVE); Glucose Urine UA NEGATIVE (NEGATIVE); Ketones Urine NEGATIVE (NEGATIVE); Leukocyte Esterase Urine MODERATE (NEGATIVE); Nitrite Urine NEGATIVE (NEGATIVE); Protein Urine TRACE mg/dL (NEG/TRACE); RBC Urine 0-2 #/HPF (0-2); Urine Microscopic Indicated YES
[2024-05-01 05:58] LABS: Cast Seen? NONE SEEN #/LPF (NONE SEEN); Crystals Seen? None Seen #/HPF (None Seen); Mucus Urine NONE SEEN (NONE SEEN); Squamous Epithelial Cell Urine MODERATE #/LPF (NONE/RARE); Starch Urine MANY; Urine Culture Indicated YES
[2024-05-01 08:47] VITALS: TEMP 37.1
[2024-05-01 08:55] VITALS: BP 122/72; PULSE 86
== END 2024-05-01 10:04 | disposition home or self-care (01) ==
PROVIDERS: Admitting Provider Obstetrics & Gynecology; PCP Internal Medicine; Visit Provider Obstetrics & Gynecology
DX: O47.9 False labor, unspecified (principal); Z3A.00 Weeks of gestation of pregnancy not specified
CPT/HCPCS: 81001; 87086; G0378; G0379

== ENCOUNTER 2024-05-02 12:34 | Inpatient (IN) | payer OTHER, SELFPAY ==
[2024-05-02] VITALS (36 sets, daily range): BP systolic 71–137; BP diastolic 43–90; PULSE 73–101; TEMP 36.4–37.1; O2SAT 86–100
--- OUTSIDE RECORDS SUMMARY | 2024-05-02 12:37 | XMS_ITS | CCD ---
Author Organization [facility] Team Providers Care Float Operator Name Role Phone DR TOR TORRES Primary [...] Tor Torres MD Primary Care Provider [phone] RAYNE JUNG Attending Unavailable JESICA SMILEY Attending Unavailable RAYNE JUNG Attending Unavailable JESICA SMILEY Attending Unavailable EJSICA SMILEY Attending Unavailable RAYNE JUNG Attending Unavailable JESICA SMILEY Attending Unavailable JESICA SMILEY Attending Unavailable Allergies Allergy Classification Reported Allergen(s) Allergy Type Date of Onset Reaction(s) Facility (1 source) Morphine Drug Allergy 05-18-2018 [facility] Repository Medications Current Medications Medication Drug Class(es) [...] 12-12-2020 Chronic Other aftercare (1 source) Other bed bug exterminator (current) drug therapy; Translations: [OTH [facility] CURRENT DRUG THERAPY] Onset: 10-02-2021 Episodic Other [...] Office Visit (GENSMN ) -------- ISAAC TOUSSAINT ([id number]) 1990 F Date Time Provider Department 01/02/21 [...] SIGNATURE: Jeffrey Yuan MD B surgery Pager: [phone] Referring Provider: SELF [[id number]] Allergies As of [...] Status:Closed by BRO YUAN MD on 01/02/21 [facility] 12-22-[address] [facility] Telephone (PODCCP) -------- ISAAC TOUSSAINT ([id number]) 1990 F Date Time Provider Department 12/22/20 [facility] (STUDENT) PODCCP During your visit today, we recorded the following information about you: Vahe Cr Student 12/22/2020 10:01 AM Signed Record ID: [id number] Patient Name: [facility]: [facility] [place]: [facility] [place] Attending: Bro Yuan Center: General Surgery INSTRUCTIONS SN to remind patient of appointment date, time, location All Clear All Clear SURVEY INFORMATION Medical/Nurse Engineer Soils: Landy Duran 1. Your discharge instructions are [...] Reason for Visit: Follow Up Phone Call [[id number]] Prescriptions as of 12/22/2020 Sig: ONDANSETRON HCL [...] Encounter Status:Closed by VAHE WADE on 12/22/20 [facility] 12-21-2020 CNPN Telephone ([email or web address].[email or web address]) -------- ISAAC TOUSSAINT ([id number]) 1990 F Date Time Provider Department 12/21/20 BRO YUAN During your visit today, we recorded the following information about you: Macy Arshad Jackson C. [facility] 12/21/2020 12:18 PM Signed Patient is calling [...] Encounter Status:Closed by MACY SALEH on 01/22/21 [facility] OBSOLETEon 12-21-2020 OBSOLETE Refill (GENSMN) -------- ISAAC TOUSSAINT ([id number]) 1990 F Date Time Provider Department 12/21/20 ROXANA SCOTT During your visit today, we recorded the following information about you: Roxana Scott APRN.WOODWORKING MACHINE OPERATOR 12/21/2020 2:00 PM Signed Patient [...] our office if symptoms persist. Roxana Scott APRN.WOODWORKING MACHINE OPERATOR Allergies As of Date: 12/21/2020 [...] by TYLER DEJESUS.ROXANA HOUSE on 12/21/20 Normal [facility] AMMONIAon 12-15-2020 Ammonia (P) [Mass/Vol] ug/dL Critically low 10-30 [facility] Comment on above: Performed By: #### A MM #### [facility] [address] [place], [place] [address] Marcin Mondragon AMYLASEon 12-15-2020 Amylase [Catalytic activity/Vol] 217 U/L Critically high 31-110 [facility] Comment on above: Performed By: #### C MP, LIPA, RAYNE #### [facility] [address] [place], [place] [address] Marcin Mondragon CBC AUTO DIFFon 12-15-2020 BASO # 0.0 103/ul Normal 0.0-0.1 [facility] Comment on above: Performed By: #### C JAVAD MOLINA AMY #### [facility] [address] [place] [address] Marcin Alanna Basophils/100 WBC (Bld) 0.3 % Normal 0.2-2.0 [facility] Comment on above: Performed By: #### C JAVAD MOLINA AMY #### [facility] [address] [place] [address] Marcin Alanna EO # 0.0 103/ul Normal 0.0-0.7 [facility] Comment on above: Performed By: #### C JAVAD MOLINA AMY #### [facility] [address] [place] [address] Marcin Alanna Eosinophils/100 WBC (Bld) 0.3 % Critically low 0.9-7.0 [facility] Comment on above: Performed By: #### C JAVAD MOLINA AMY #### [facility] [address] [place] [address] Marcin Alanna Erythrocyte distribution width (RBC) [Ratio] 13.3 % Normal 11.0-15.0 [facility] Comment on above: Performed By: #### C JAVAD MOLINA AMY #### [facility] [address] [place] [address] Marcin Alanna Hematocrit (Bld) [Volume fraction] 42.9 % Normal 36.0-48.0 [facility] Comment on above: Performed By: #### C JAVAD MOLINA AMY #### [facility] [address] [place] [address] Marcin Alanna Hemoglobin (Bld) [Mass/Vol] 13.8 g/dL Normal 12.0-16.0 [facility] Comment on above: Performed By: #### C JAVAD MOLINA AMY #### [facility] [address] [place] [address] Marcin Alanna IG # 0.02 10e3/ul Normal 0.00-0.03 [facility] Comment on above: Performed By: #### C JAVAD MOLINA AMY #### [facility] [address] [place] [id number] Marcin Alanna IG % 0.3 % Normal 0.0-0.5 [facility] Comment on above: Performed By: #### C JAVAD MOLINA RAYNE #### [facility] [address] [place] [address] Marcin Alanna LYMPH # 1.7 103/ul Normal 1.2-3.8 [facility] Comment on above: Performed By: #### C JAVAD MOLINA, RAYNE #### [facility] [address] [place] [address] Marcin Alanna Lymphocytes/100 WBC (Bld) 23.8 % Normal 20.5-60.0 [facility] Comment on above: Performed By: #### C JAVAD MOLINA, RAYNE #### [facility] [address] [place] [address] Marcin Alanna MANUAL DIFF REQ NO Normal [facility] Comment on above: Performed By: #### C JAVAD MOLINA, RAYNE #### [facility] [address] [place], [place] [id number] Marcin Alanna MCH (RBC) [Entitic mass] 29.8 pg Normal 26.7-34.0 [facility] Comment on above: Performed By: #### C JAVAD MOLINA, RAYNE #### [facility] [address] [place] [address] Marcin Alanna MCHC (RBC) [Mass/Vol] 32.2 g/dL Normal 29.9-35.2 [facility] Comment on above: Performed By: #### C JAVAD MOLINA, RAYNE #### [facility] [address] [place] [address] Marcin Alanna MCV (RBC) [Entitic vol] 92.7 fL Normal 81.0-99.0 [facility] Comment on above: Performed By: #### C JAVAD MOLINA, RAYNE #### [facility] [address] [place] [address] Marcin Alanna MONO # 0.6 103/ul Normal 0.3-0.8 [facility] Comment on above: Performed By: #### C TRACY LIPA, RAYNE #### [facility] [address] [place] [address] Marcin Alanna Monocytes/100 WBC (Bld) 8.5 % Normal 1.7-12.0 [facility] Comment on above: Performed By: #### C TRACY LIPA, RAYNE #### [facility] [address] [place] [address] Marcin Alanna NEUT # 4.8 103/ul Normal 1.4-6.5 [facility] Comment on above: Performed By: #### C TRACY LIPA, RAYNE #### [facility] [address] [place] [address] Marcin Alanna Neutrophils/100 WBC (Bld) 66.8 % Normal 43.0-75.0 [facility] Comment on above: Performed By: #### C TRACY LIPA, RAYNE #### [facility] [address] [place] [address] Marcin Pritcharden Platelet mean volume (Bld) [Entitic vol] 8.7 fL Critically low 9.5-13.5 [facility] Comment on above: Performed By: #### C TRACY LIPA, RAYNE #### [facility] [address] [place] [address] Marcin Pritcharden PLT 253 103/ul Normal 150-450 [facility] Comment on above: Performed By: #### C TRACY LIPA, RAYNE #### [facility] [address] [place] [address] Marcin Alanna RBC 4.63 106/ul Normal 4.20-5.40 [facility] Comment on above: Performed By: #### C TRACY LIPA, RAYNE #### [facility] [address] [place] [address] Marcin Alanna WBC 7.1 103/ul Normal 4.0-11.0 [facility] Comment on above: Performed By: #### C TRACY LIPA, RAYNE #### [facility] [address] [place] [address] Marcin Mondragon LIPASEon 01-22-2021 Lipase [Catalytic activity/Vol] 1205.0 U/L Critically high 23.0-300.0 [facility] Comment on above: Result Comment: test repeated critical value verified Performed By: #### C JAVAD MOLINA AMY #### [facility] [address] [place], [place] [id number] Marcin Alanna PREG HCG QUALon 12-15-2020 , QUAL Negative Normal NEGATIVE [facility] Comment on above: Performed By: #### P REG #### [facility] [address] [place] [address] Marcinraffy Pritcharden PROF 14(COMP METB)on 021 Albumin [Mass/Vol] 3.3 g/dL Critically low 3.5-5.0 [facility] Comment on above: Performed By: #### C JAVAD MOLINA AMY #### [facility] [address] [place] [address] Marcin Alanna Albumin/Globulin [Mass ratio] 0.8 {ratio} Normal [facility] Comment on above: Performed By: #### C JAVAD MOLINA, RAYNE #### [facility] [address] [place] [address] Marcin Alanna ALP [Catalytic activity/Vol] 167 U/L Critically high 38-126 [facility] Comment on above: Performed By: #### C JAVAD MOLINA, RAYNE #### [facility] [address] [place] [address] Marcin Alanna ALT [Catalytic activity/Vol] 370 U/L Critically high 9-52 [facility] Comment on above: Performed By: #### C JAVAD MOLINA, RAYNE #### [facility] [address] [place] [address] Marcin Alanna Anion gap [Moles/Vol] 12.5 mmol/L Normal [facility] Comment on above: Performed By: #### C JAVAD MOLINA, RAYNE #### [facility] [address] [place] [address] Marcin Alanna AST [Catalytic activity/Vol] 165 U/L Critically high 14-36 [facility] Comment on above: Performed By: #### C MP, LIPA, RAYNE #### [facility] [address] [place] [address] Marcin Alanna Bilirubin [Mass/Vol] 5.3 mg/dL Critically high 0.2-1.3 [facility] Comment on above: Performed By: #### C MP, LIPA, RAYNE #### [facility] [address] [place] [address] Marcin Alanna Calcium [Mass/Vol] 9.2 mg/dL Normal 8.4-10.2 [facility] Comment on above: Performed By: #### C MP LIPA, RAYNE #### [facility] [address] [place] [address] Marcin Alanna Chloride [Moles/Vol] 102 mmol/L Normal 98-107 [facility] Comment on above: Performed By: #### C TRACY LIPA, RAYNE #### [facility] [address] [place] [address] Marcin Alanna CO2 [Moles/Vol] 29.6 mmol/L Normal 22.0-30.0 [facility] Comment on above: Performed By: #### C TRACY LIPA, RAYNE #### [facility] [address] [place] [address] Marcin Alanna Creatinine [Mass/Vol] 0.88 mg/dL Normal 0.52-1.04 [facility] Comment on above: Performed By: #### C MP LIPA, RAYNE #### [facility] [address] [place] [address] Marcin Alanna EGFR-AF MICRONESIAN >60 Normal >=60 [facility] Comment on above: Performed By: #### C MP, LIPA, RAYNE #### [facility] [address] [place] [address] Marcin Alanna EGFR-NON AF MICRONESIAN >60 Normal >=60 [facility] Comment on above: Performed By: #### C MP, LIPA, RAYNE #### [facility] [address] [place] [address] Marcin Alanna Globulin (S) [Mass/Vol] 4.1 g/dL Normal [facility] Comment on above: Performed By: #### C JAVAD MOLINA, RAYNE #### [facility] [address] [place] [address] Marcin Alanna Glucose [Mass/Vol] 88 mg/dL Normal 74-106 [facility] Comment on above: Performed By: #### C JAVAD MOLINA, RAYNE #### [facility] [address] [place] [address] Marcin Alanna Potassium [Moles/Vol] 3.1 mmol/L Critically low 3.4-5.0 [facility] Comment on above: Performed By: #### C JAVAD MOLINA, RAYNE #### [facility] [address] [place] [address] Marcin Alanna Protein [Mass/Vol] 7.4 g/dL Normal 6.1-8.2 [facility] Comment on above: Performed By: #### C JAVAD MOLINA, RAYNE #### [facility] [address] [place] [address] Marcin Alanna Sodium [Moles/Vol] 141 mmol/L Normal 137-145 [facility] Comment on above: Performed By: #### C JAVAD MOLINA, RAYNE #### [facility] [address] [place] [address] Marcin Alanna Urea nitrogen [Mass/Vol] 8.0 mg/dL Normal 7.0-17.0 [facility] Comment on above: Performed By: #### C JAVAD MOLINA, RAYNE #### [facility] [address] [place] [address] Marcin Alanna Urea nitrogen/Creatini ne [Mass ratio] 9.1 mg/mg Normal [facility] Comment on above: Performed By: #### C JAVAD MOLINA, RAYNE #### [facility] [address] [place] [address] Marcin Alanna PROTIMEon 12-15-2020 INR Coag (PPP) [Relative time] 1.04 {INR} Normal [facility] Comment on above: Performed By: #### C JAVAD MOLINA, RAYNE #### [facility] [address] [place], [place] [address] Marcin Alanna INR GUIDELINES SEE BELOW Normal [facility] Comment on above: Result Comment: NAI RED INR: 2.0 - 3.0 CONDITIONS NOT LISTED BELOW 2.5 - 3.5 FOR PROSTHETIC HEART VALVE REPLACEMENT 2.5 - 3.5 RECURRENT THROMBOSIS Performed By: #### C MP, LIPA, RAYNE #### [facility] [address] [place] [address] Marcin Alanna PT Coag (PPP) [Time] 11.3 s Normal 9.0-11.6 [facility] Comment on above: Performed By: #### C MP, LIPA, RAYNE #### [facility] [address] [place], [place] [address] Marcin Alanna PTTon 12-15-2020 aPTT Coag (Bld) [Time] 27.8 s Normal 22.3-36.2 [facility] Comment on above: Performed By: #### C MP, LIPA, RAYNE #### [facility] [address] [place] [address] Marcin Alanna AMYLASEon 12-09-2020 Amylase [Catalytic activity/Vol] 45 U/L Normal 31-110 [facility] Comment on above: Performed By: #### B MP, RAYNE, LIVER, LIPA #### [facility] [address] [place], [place] [address] Marcin Alanna CBC AUTO DIFFon 12-09-2020 BASO # 0.0 103/ul Normal 0.0-0.1 [facility] Comment on above: Performed By: #### C BC #### [facility] [address] [place], [place] [address] Marcin Alanna Basophils/100 WBC (Bld) 0.2 % Normal 0.2-2.0 [facility] Comment on above: Performed By: #### C BC #### [facility] [address] [place], [place] [id number] Marcin Alanna EO # 0.0 103/ul Normal 0.0-0.7 [facility] Comment on above: Performed By: #### C BC #### [facility] [address] [place], [place] [address] Marcin Alanna Eosinophils/100 WBC (Bld) 0.3 % Critically low 0.9-7.0 [facility] Comment on above: Performed By: #### C BC #### [facility] [address] [place], [place] [address] Marcin Mondragon Erythrocyte distribution width (RBC) [Ratio] 12.6 % Normal 11.0-15.0 [facility] Comment on above: Performed By: #### C BC #### [facility] [address] [place] [address] Marcin Alanna Hematocrit (Bld) [Volume fraction] 45.7 % Normal 36.0-48.0 [facility] Comment on above: Performed By: #### C BC #### [facility] [address] [place] [address] Marcin Mondragon Hemoglobin (Bld) [Mass/Vol] 14.6 g/dL Normal 12.0-16.0 [facility] Comment on above: Performed By: #### C BC #### [facility] [address] [place] [address] Marcin Alanna IG # 0.04 10e3/ul Critically high 0.00-0.03 [facility] Comment on above: Performed By: #### C BC #### [facility] [address] [place] [address] Marcin Alanna IG % 0.4 % Normal 0.0-0.5 [facility] Comment on above: Performed By: #### C BC #### [facility] [address] [place] [address] Marcin Alanna LYMPH # 1.4 103/ul Normal 1.2-3.8 [facility] Comment on above: Performed By: #### C BC #### [facility] [address] [place], [place] [address] Marcin Alanna Lymphocytes/100 WBC (Bld) 12.8 % Critically low 20.5-60.0 [facility] Comment on above: Performed By: #### C BC #### [facility] [address] [place] [address] Marcinraffy Pritcharden MANUAL DIFF REQ NO Normal [facility] Comment on above: Performed By: #### C BC #### [facility] [address] [place] [id number] Marcin Mondragon MCH (RBC) [Entitic mass] 29.4 pg Normal 26.7-34.0 [facility] Comment on above: Performed By: #### C BC #### [facility] [address] [place] [id number] Marcin Mondragon MCHC (RBC) [Mass/Vol] 31.9 g/dL Normal 29.9-35.2 [facility] Comment on above: Performed By: #### C BC #### [facility] [address] [place] [id number] Marcin Mondragon MCV (RBC) [Entitic vol] 92.1 fL Normal 81.0-99.0 [facility] Comment on above: Performed By: #### C BC #### [facility] [address] [place], [place] [address] Marcin Mondragon MONO # 0.6 103/ul Normal 0.3-0.8 [facility] Comment on above: Performed By: #### C BC #### [facility] [address] [place] [id number] Marcin Mondragon Monocytes/100 WBC (Bld) 5.6 % Normal 1.7-12.0 [facility] Comment on above: Performed By: #### C BC #### [facility] [address] [place] [id number] Marcin Mondragon NEUT # 9.0 103/ul Critically high 1.4-6.5 [facility] Comment on above: Performed By: #### C BC #### [facility] [address] [place] [id number] Marcin Mondragon Neutrophils/100 WBC (Bld) 80.7 % Critically high 43.0-75.0 [facility] Comment on above: Performed By: #### C BC #### [facility] [address] [place] [id number] Marcinraffy Mondragon Platelet mean volume (Bld) [Entitic vol] 8.6 fL Critically low 9.5-13.5 [facility] Comment on above: Performed By: #### C BC #### [facility] [address] [place] [id number] Marcin Alanna PLT 255 103/ul Normal 150-450 [facility] Comment on above: Performed By: #### C BC #### [facility] [address] [place] [address] Marcin Alanna RBC 4.96 106/ul Normal 4.20-5.40 [facility] Comment on above: Performed By: #### C BC #### [facility] [address] [place] [address] Marcin Alanna WBC 11.1 103/ul Critically high 4.0-11.0 [facility] Comment on above: Performed By: #### C BC #### [facility] [address] [place] [address] Marcin Alanna LIPASEon 12-09-2020 Lipase [Catalytic activity/Vol] 129.0 U/L Normal 23.0-300.0 [facility] Comment on above: Performed By: #### B MP, RAYNE, LIVER, LIPA #### [facility] [address] [place], [place] [address] Marcin Alanna LIVER PROFILEon 12-09-2020 Albumin [Mass/Vol] 3.5 g/dL Normal 3.5-5.0 [facility] Comment on above: Performed By: #### B MP, RAYNE, LIVER, LIPA #### [facility] [address] [place], [place] [address] Marcin Alanna Albumin/Globulin [Mass ratio] 0.9 {ratio} Normal [facility] Comment on above: Performed By: #### B MP, RAYNE, LIVER, LIPA #### [facility] [address] [place] [address] Marcin Alanna ALP [Catalytic activity/Vol] 80 U/L Normal 38-126 [facility] Comment on above: Performed By: #### B MP, RAYNE, LIVER, LIPA #### [facility] [address] [place] [address] Marcin Alanna ALT [Catalytic activity/Vol] 31 U/L Normal 9-52 [facility] Comment on above: Performed By: #### B MP, RAYNE, LIVER, LIPA #### [facility] [address] [place] [address] Marcin Alanna AST [Catalytic activity/Vol] 39 U/L Critically high 14-36 [facility] Comment on above: Performed By: #### B MP, RAYNE, LIVER, LIPA #### [facility] [address] [place] [address] Marcin Alanna BILI, CONJUGATED 0.2 mg/dL Normal 0.0-0.3 [facility] Comment on above: Performed By: #### B MP, RAYNE, LIVER, LIPA #### [facility] [address] [place] [address] Marcin Alanna Bilirubin [Mass/Vol] 0.5 mg/dL Normal 0.2-1.3 [facility] Comment on above: Performed By: #### B MP, RAYNE, LIVER, LIPA #### [facility] [address] [place] [address] Marcin Alanna Globulin (S) [Mass/Vol] 3.8 g/dL Normal [facility] Comment on above: Performed By: #### B MP, RAYNE, LIVER, LIPA #### [facility] [address] [place] [address] Marcin Alanna Protein [Mass/Vol] 7.3 g/dL Normal 6.1-8.2 [facility] Comment on above: Performed By: #### B MP, RAYNE, LIVER, LIPA #### [facility] [address] [place] [address] Marcin Alanna PROF CHEM 8 (BAS METB)on Anion gap [Moles/Vol] 10.6 mmol/L Normal [facility] Comment on above: Performed By: #### C MP, LIPA, RAYNE #### [facility] [address] [place] [address] Marcin Alanna Calcium [Mass/Vol] 8.9 mg/dL Normal 8.4-10.2 [facility] Comment on above: Performed By: #### C EZRA MOLINAA, RAYNE #### [facility] [address] [place] [address] Marcin Alanna Chloride [Moles/Vol] 105 mmol/L Normal 98-107 [facility] Comment on above: Performed By: #### C TRACY LIPA, RAYNE #### [facility] [address] [place] [address] Marcin Alanna CO2 [Moles/Vol] 27.4 mmol/L Normal 22.0-30.0 [facility] Comment on above: Performed By: #### C TRACY LIPA, RAYNE #### [facility] [address] [place] [address] Marcin Alanna Creatinine [Mass/Vol] 0.91 mg/dL Normal 0.52-1.04 [facility] [facility] Comment on above: Performed By: #### C TRACY LIPA, RAYNE #### [facility] [address] [place] [address] Marcin Alanna EGFR-AF MICRONESIAN >60 Normal >=60 [facility] Comment on above: Performed By: #### C TRACY LIPA, RAYNE #### [facility] [address] [place] [address] Marcin Alanna EGFR-NON AF MICRONESIAN >60 Normal >=60 [facility] Comment on above: Performed By: #### C TRACY LIPA, RAYNE #### [facility] [address] [place] [address] Marcin Alanna Glucose [Mass/Vol] 109 mg/dL Critically high 74-106 [facility] Comment on above: Performed By: #### C TRACY LIPA, RAYNE #### [facility] [address] [place] [address] Marcin Alanna Potassium [Moles/Vol] 4.0 mmol/L Normal 3.4-5.0 [facility] Comment on above: Performed By: #### C TRACY LIPA, RAYNE #### [facility] [address] [address] Marcin Alanna Sodium [Moles/Vol] 139 mmol/L Normal 137-145 [facility] Comment on above: Performed By: #### C JAVAD MOLINA AMY #### [facility] [address] [place], [place] [address] Marcin Mondragon Urea nitrogen [Mass/Vol] 13.0 mg/dL Normal 7.0-17.0 [facility] Comment on above: Performed By: #### C JAVAD MOLINA, RAYNE #### [facility] [address] [place], [place] [address] Marcin Mondragon Urea nitrogen/Creatini ne [Mass ratio] 14.3 mg/mg Normal [facility] Comment on above: Performed By: #### C JAVAD MOLINA AMY #### [facility] [address] [place], [place] [address] Marcin Mondragon XR CHEST 1 Von 12-09-2020 [...] HENDRICKS Date: 2020-12-09 17:05 Normal [facility] Vital Signs Date Time Vital Sign Value Performing Clinician Faci lity 12-29-2023 10:32-0500 Body weight 121.17 kg Jesica Baljit DO Work Phone: [facility] 12-29-2023 10:32-0500 Diastolic blood pressure 70 mm[Hg] Jesica Baljit DO Work Phone: [facility] 12-29-2023 10:32-0500 Systolic blood pressure 110 mm[Hg] Jesica Baljit DO Work Phone: [facility] Encounters Encounter Date Encounter Type [...] [facility] [employer] [place] [id number] 2020-Present [address] [place] [address] [id number] 1990 Unknown [id number] 1990 Unknown [id number] 1990 Unknown [id number] [id number]3 1990 Unknown [id number] [id number] 1990 Unknown [id number] 2.16.840.1.467701.3.579.2.9 1990 Unknown [id number] 2.16.840.1.749617.3.579.2.9 1990 Unknown [id number] 2.16.840.1.525589.3.579.2.9 1990 Unknown [id number] 2.16.840.1.973297.3.579.2.9 1990 Unknown [id number] 2.16.840.1.219753.3.579.2.9 1990 Unknown [id number] 2.16.840.1.714234.3.579.2.9 1990 Unknown [id number] 2.16.840.1.215568.3.579.2.9 1990 Unknown [id number] [id number] 1959 Unknown [id number] Social History Date Type Detail Facility Start: [...] nursing note reviewed. Exam conducted with a academic affairs vice president present. Vitals: There is no height or [...] Jesica Smiley DO documented in this encounter [facility] Progress note 01-02-2021 Note Date & Type Note Facility 01-02-2021 Note HNO ID: [id number] Author: Bro Yuan Service: ? Author Type: [...] Follow up PRN SIGNATURE: Jeffrey Yuan MD [facility] surgery Pager: [phone] [facility] Progress note 01-02-2021 Note Date & Type Note Facility 01-02-2021 Note HNO ID: [id number] Author: Annamaria Collins Service: ? Author Type: [...] non-tender, non-distended, incisions starting to scab Assessment/Plan: sIaac Toussaint is a 30 year old female with symptomatic cholelithiasis requiring a laparoscopic cholecystectomy on 12/13 (path with chronic cholecystitis, liver biopsy with portal inflammation. Her postop course was complicated by persistent elevation of LFTs but all imaging was absent for choledocholithiasis and she improved with no further interventions. - Follow-up TEX Collins MD General Surgery Resident [facility] Evaluation note Note Date & Type [...] and content) DATE CREATED AUTHOR 10/02/2021 [facility] DATE CREATED AUTHOR AUTHOR'S ORGANIZ ATION 12/20/2021 [facility] DATE CREATED AUTHOR AUTHOR'S ORGANIZ ATION 04/26/2024 [facility] EPIC Reason for Visit (unrecogniz ed section and content) Reason Comments Routine Visit Care Teams (unrecognized sec tion and content) Float Operator Relationship Specialty Start Date End Date Tor Torres MD [address] [place] [address] PCP - General Internal Medicine [...] BE BASED ON THE PRIMARY CLINICAL RECORDS. [employer] [facility]. provides no warranty or guarantee of the accuracy or completeness of information in this document.
--- NOTE | 2024-05-02 13:30 | PC.NURSE ---
1325: DR CROOKS CALLS AND INQUIRES ABOUT PATIENT- REPORT GIVEN OF CLOSED CERVIX, CRAMPING , DIARRHEA AND DECREASED MOVEMENT.
[2024-05-02] MEDS: 0.9 % SODIUM CHLORIDE 1,000 ML 1000 ML IV ×2 (14:36→15:01)
[2024-05-02 14:50] LABS: Basophils Percent Auto 0.3 % (0.2-2.0); Eosinophils Percent Auto 0.1 % (0.9-7.0); Hematocrit 33.1 % (36.0-48.0); Hemoglobin 10.1 g/dL (12.0-16.0); Immature Granulocytes Abs Auto 0.02 10^3/uL (0.00-0.03); Immature Granulocytes Pct Auto 0.3 % (0.0-0.5); Lymphocytes Absolute Auto 1.1 10^3/uL (1.2-3.8); Lymphocytes Percent Auto 14.8 % (20.5-60.0); Mean Corpuscular HGB Conc 30.5 g/dL (29.9-35.2); Mean Corpuscular Hemoglobin 23.8 pg (26.7-34.0); Mean Corpuscular Volume 77.9 fL (81.0-99.0); Mean Platelet Volume 8.7 fL (9.5-13.5); Monocytes Absolute Auto 0.5 10^3/uL (0.3-0.8); Monocytes Percent Auto 7.5 % (1.7-12.0); Neutrophils Absolute Auto 5.6 10^3/uL (1.4-6.5); Platelet Count 232 10^3/uL (150-450); Red Blood Count 4.25 10^6/uL (4.20-5.40); Red Cell Distribution Width 14.6 % (11.0-15.0); White Blood Count 7.2 10^3/uL (4.0-11.0)
[2024-05-02] MEDS: FAMOTIDINE/PF 20 MG/2 ML VIAL IV (15:00)
[2024-05-02] MEDS: CITRIC ACID/SODIUM CITRATE 30 ML SOLUTION ORACIT SHOHL'S SOLN PO (15:00)
[2024-05-02] MEDS: CEFAZOLIN SODIUM/DEXTROSE,ISO 2 GM/50 ML PIGGYBACK IV ×2 (15:00→20:33)
[2024-05-02] MEDS: METOCLOPRAMIDE HCL 10 MG/2 ML VIAL IVP (15:00)
[2024-05-02] MEDS: LACTATED RINGER'S SOLUTION 1,000 ML 50 ML IV (16:08)
--- NOTE | 2024-05-02 16:18 | P.ON_ITS ---
Brief Operative Note Date of procedure: 05/02/24 Pre-op diagnosis general: iup at 38 3/7wks, abdominal pain suspicious for uter ine rupture, decreased movement, previous c/s times 3 Post-op diagnosis: same as pre-op Procedure: NAME OF PROCEDURE: [ section ] PROCEDURE: Patient was taken back to the Operating Room where she was given a spinal anesthesia with Duramorph without difficulty. She was prepped and draped in the normal sterile fashion. A Pfannenstiel skin incision was then made 2 cm above the symphysis pubis and carried down to underlying rectus fascia using a Bovie. The fascia was incised in the midline and extended laterally using Soares scissors. Two Thony clamps were placed on the superior aspect of the fascia and dissected off the underlying rectus muscles. The same was performed on the inferior aspect as well. The muscles were then in the midline. Peritoneum was identified and entered bluntly. The peritoneum was then extended superiorly and inferiorly with good visualization of the bladder. The bladder blade was inserted. A low transverse incision was made on the patient's uterus and extended laterally digitally. The infant was then delivered atraumatically after the bladder blade was removed in the cephalic position. The cord was clamped and cut. Cord blood was obtained. The infant was handed off to awaiting team. The patient's placenta was spontaneously delivered. The uterus was then exteriorized. The uterus was cleared of all clots and debris. The bladder blade was reinserted. The patient's uterine incision was closed using #0 Vicryl in a running lock fashion. Excellent hemostasis was assured. The uterus was then returned to the patient's abdomen. The patient's abdomen was copiously irrigated using warm saline. Peritoneal gutters were cleared of all clots and debris. Again excellent hemostasis was assured. The patient's peritoneum was closed using 3-0 Vicryl in a running fashion. The patient's fascia was closed using #0 Vicryl in a running fashion. The patient's skin was closed using 4-0 Vicryl subcuticularly. The patient tolerated the procedure well. Sponge, lap, and needle counts were correct x2. The patient was taken to the Recovery Room in stable condition. Anesthesia: spinal Surgeon: Shlomo Smiley Competency Evaluated Nurse Aide: Shelley Rodriguez Estimated blood loss (mL): 575 Pathology: other (placenta) Condition: stable Disposition: floor Urinary Catheter Management Urinary Catheter Management Urethral: Cath placed during this visit: no
--- NOTE | 2024-05-02 16:19 | PM.OBPRCCS ---
Procedure Pre-op/Post-op diagnoses: Pre-Op/Post-Op Diagnoses Operation Date: 05/02/24 15:20 <No data on this case meets the specified criteria> Procedure: Procedures Operation Date: 05/02/24 15:20 Actual Procedure Side Surgeon p Repeat Not Applicable Shlomo Smiley DO Academic Support Specialist: Shelley Rodriguez Estimated blood loss (mL): 575 Disposition: floor Anesthesia type: Spinal
[2024-05-02] MEDS: OXYTOCIN/0.9 % SODIUM CHLORIDE 20 UNITS/1,000 ML PLAST..BAG 125 UNIT IV (17:00)
[2024-05-02 17:16] LABS: Amphetamine Screen Urine NEGATIVE (NEGATIVE); Barbiturates Screen Urine NEGATIVE (NEGATIVE); Benzodiazepines Screen Urine NEGATIVE (NEGATIVE); Buprenorphine Screen Urine NEGATIVE (NEGATIVE); Cannabinoid Screen Urine NEGATIVE (NEGATIVE); Cocaine Screen Urine NEGATIVE (NEGATIVE); Methadone Screen Urine NEGATIVE (NEGATIVE); Methamphetamines Screen Urine NEGATIVE (NEGATIVE); Opiate Screen Urine NEGATIVE (NEGATIVE); Oxycodone Screen Urine NEGATIVE (NEGATIVE); Phencyclidine Screen Urine NEGATIVE (NEGATIVE); Tricyclic Antidepressant Urine NEGATIVE (NEGATIVE)
[2024-05-02] MEDS: KETOROLAC TROMETHAMINE 30 MG/ML VIAL IVP (22:37)
[2024-05-03] VITALS (10 sets, daily range): BP systolic 107–138; BP diastolic 63–68; PULSE 84–89; TEMP 36.7–37.2; O2SAT 99
[2024-05-03] MEDS: KETOROLAC TROMETHAMINE 30 MG/ML VIAL IVP ×2 (04:38→11:37)
[2024-05-03] MEDS: ENOXAPARIN SODIUM 40 MG/0.4 ML SYRINGE SUBQ (04:38)
--- NOTE | 2024-05-03 05:01 | PC.NURSE ---
Lower abdominal incision with dressing noted for moderate saturation with bloody serosanguineous drainage. Dressing is removed. Incision site is well approximated with shanelle intact. No redness or active drainage is seen. New 4x4's and ABD dressing is applied and secured with tape. Pt tolerates without difficulty. Pt denies any pain. RN administers Toradol prophylactically for pain management/prevention.
[2024-05-03 06:10] LABS: Basophils Percent Auto 0.2 % (0.2-2.0); Hematocrit 25.6 % (36.0-48.0); Immature Granulocytes Abs Auto 0.05 10^3/uL (0.00-0.03); Immature Granulocytes Pct Auto 0.4 % (0.0-0.5); Lymphocytes Absolute Auto 1.8 10^3/uL (1.2-3.8); Lymphocytes Percent Auto 14.2 % (20.5-60.0); Mean Corpuscular HGB Conc 31.3 g/dL (29.9-35.2); Mean Corpuscular Volume 76.6 fL (81.0-99.0); Mean Platelet Volume 8.4 fL (9.5-13.5); Monocytes Absolute Auto 1.1 10^3/uL (0.3-0.8); Monocytes Percent Auto 8.7 % (1.7-12.0); Neutrophils Absolute Auto 9.9 10^3/uL (1.4-6.5); Neutrophils Percent Auto 76.5 % (43.0-75.0); Platelet Count 228 10^3/uL (150-450); Red Blood Count 3.34 10^6/uL (4.20-5.40); Red Cell Distribution Width 14.4 % (11.0-15.0); White Blood Count 12.9 10^3/uL (4.0-11.0)
[2024-05-03] MEDS: DOCUSATE SODIUM 100 MG CAPSULE PO ×2 (08:16→22:54)
--- NOTE | 2024-05-03 12:20 | PM.OBPN ---
OB - PN: Subj Subjective Patient comments: no complaints and pain well controlled [place] status: doing well Exam Constitutional Vital Signs, click to edit/add: Last Vital Signs Temp 98.0 F 05/03/24 08:17 Pulse 84 05/03/24 04:26 Resp 16 05/03/24 11:51 BP 121/68 05/03/24 11:43 Pulse Ox 99 05/02/24 18:50 O2 Del Method Room Air 05/03/24 11:51 Documenting provider has reviewed patient's vital signs: yes Common normals: no apparent distress Respiratory Common normals: normal respiratory effort and clear to auscultation bilaterally Cardio Common normals: regular rate and regular rhythm GI Common normals: Normal to inspection, nondistended, normoactive bowel sounds present Extremity Common normals: no clubbing, cyanosis or edema and no calf tenderness Results Labs Labs: Short CBC 05/02/24 05/03/24 Range/Units 14:40 06:04 WBC 7.2 12.9 H (4.0-11.0) 10^3/uL Hgb 10.1 L 8.0 L (12.0-16.0) g/dL Hct 33.1 L 25.6 L (36.0-48.0) % Plt Count 232 228 (150-450) 10^3/uL Urinary Catheter Management Urinary Catheter Management Urethral: Cath placed during this visit: no OB - PN: A/P Plan - day: 1 Plan: routine postop care Time Spent with Patient Time: Total time spent is greater than 50% in coordination of care (as documented) at patient's floor/unit and/or counseling patient: Total time spent with greater than 50% in coordination of care (as documented) at patient's floor/unit and/or counseling patient: less than 15 minutes
[2024-05-03] MEDS: SIMETHICONE 80 MG TAB.CHEW PO (17:46)
[2024-05-03] MEDS: IBUPROFEN 400 MG TABLET 800 MG PO (17:53)
[2024-05-03] MEDS: OXYCODONE HCL/ACETAMINOPHEN 5MG/325MG 1 TAB PO (22:54)
[2024-05-04 00:07] VITALS: BP 129/71; TEMP 36.7
[2024-05-04] MEDS: IBUPROFEN 400 MG TABLET 800 MG PO (02:56)
[2024-05-04] MEDS: SIMETHICONE 80 MG TAB.CHEW PO (02:56)
[2024-05-04] MEDS: ENOXAPARIN SODIUM 40 MG/0.4 ML SYRINGE SUBQ (04:34)
[2024-05-04] MEDS: OXYCODONE HCL/ACETAMINOPHEN 5MG/325MG 1 TAB PO ×2 (06:33→12:23)
--- NOTE | 2024-05-04 07:56 | PM.OBPN ---
OB - PN: Subj Subjective Patient comments: no complaints, pain well controlled, tolerating diet and flatus present infant status: doing well feeding status: exclusively Exam Constitutional Vital Signs, click to edit/add: Last Vital Signs Temp 98.0 F 05/04/24 00:07 Pulse 84 05/03/24 04:26 Resp 18 05/04/24 00:07 BP 129/71 05/04/24 00:07 Pulse Ox 99 05/03/24 17:56 O2 Del Method Room Air 05/03/24 17:56 Documenting provider has reviewed patient's vital signs: yes Common normals: no apparent distress, average body habitus, oriented x3, no limitations, healthy appearing, alert and well nourished Orientation/consciousness: Yes awake, Yes oriented to person, Yes oriented to place and Yes oriented to time HENMT Common normals: normocephalic Eye Common normals: EOMs intact bilaterally Neck & C-Spine Common normals: full ROM and no lymphadenopathy Lymph Lymphatic: no lymphadenopathy noted Chest Common normals: inspection of chest normal Respiratory Common normals: normal respiratory effort, no retractions, no use of accessory muscles, clear to auscultation bilaterally and percussion normal Effort & inspection: able to speak in complete sentences and symmetric chest movement Auscultation: clear to auscultation bilaterally Cardio Common normals: no JVD, regular rate, regular rhythm and no murmurs Rate: regular rate Rhythm: regular rhythm GI Common normals: Normal to inspection, nondistended, normoactive bowel sounds present Auscultation: normoactive bowel sounds Palpation: soft Common normals: no CVA tenderness Back & Pelvis Common normals: no CVA tenderness Extremity Common normals: normal to inspection Neuro Common normals: oriented x3 Sensorium/orientation: awake, alert, oriented to person, oriented to place and oriented to time Psych Common normals: mental status grossly normal, thought process normal, cooperative, affect normal, speech normal, activity/motor behavior normal, denies hallucinations, denies homicidal ideation and denies suicidal ideation Appearance: grossly normal Attitude: calm Urinary Catheter Management Urinary Catheter Management Urethral: Cath placed during this visit: no OB - PN: A/P Assessment and Plan (1) Delivery by section: Plan - day: 2 Plan: discharge home Time Spent with Patient Time: Total time spent is greater than 50% in coordination of care (as documented) at patient's floor/unit and/or counseling patient: Total time spent with greater than 50% in coordination of care (as documented) at patient's floor/unit and/or counseling patient: less than 15 minutes
--- NOTE | 2024-05-04 08:13 | PM.OBDS ---
DS: Providers Provider Date of admission: 05/02/24 13:45 Primary care physician: TOR TORRES Admitting clinician: Shlomo Smiley Attending physician on admission: Shlomo Smiley Attending physician on discharge: YI JAMISON Discharging clinician: YI JAMISON Anticipated date of discharge: 05/04/24 DS: Diagnosis Discharge Diagnosis (1) Delivery by section: OB - DS: Summary Hospital Course Time spent discussing smoking cessation with patient: more than 10 minutes Peripartum Data - Procedures: Procedures Operation Date: 05/02/24 15:20 Actual Procedure Side Surgeon p Repeat Not Applicable Shlomo Smiley DO Peripartum Data - Vaginal Delivery Procedures: Procedures Operation Date: 05/02/24 15:20 Actual Procedure Side Surgeon p Repeat Not Applicable Shlomo Smiley DO Complications complications: none Infant Delivery method: section Gender: male Discharge plan: home Time Spent with Patient Time attestation: Total time spent providing and/or coordinating discharge services: Time spent: less than 30 minutes Exam Constitutional Vital Signs, click to edit/add: Last Vital Signs Temp 98.0 F 05/04/24 00:07 Pulse 84 05/03/24 04:26 Resp 18 05/04/24 00:07 BP 129/71 05/04/24 00:07 Pulse Ox 99 05/03/24 17:56 O2 Del Method Room Air 05/03/24 17:56 Documenting provider has reviewed patient's vital signs: yes Common normals: no apparent distress, average body habitus, oriented x3, no limitations, healthy appearing, alert and well nourished [facility] Common normals: normocephalic Eye Common normals: EOMs intact bilaterally Neck & C-Spine Common normals: full ROM Lymph Lymphatic: no lymphadenopathy noted Chest Common normals: inspection of chest normal Respiratory Common normals: normal respiratory effort Cardio Common normals: no JVD, regular rate and regular rhythm Rate: regular rate Rhythm: regular rhythm GI Common normals: Normal to inspection, nondistended, normoactive bowel sounds present Inspection: normal to inspection Auscultation: normoactive bowel sounds Palpation: soft Common normals: no CVA tenderness Back & Pelvis Common normals: no CVA tenderness Thoracic spine/upper back: normal to inspection Extremity Common normals: normal to inspection Neuro Aleksandar Coma Scale: document GCS findings Common normals: oriented x3 Sensorium/orientation: awake, alert, oriented to person, oriented to place and oriented to time Psych Psychiatry clinicians, please identify where your Mental Status Exam is documented: Mental Status Exam documented in the separate MSE Common normals: mental status grossly normal Appearance: grossly normal Attitude: calm Activity/motor behavior: appropriate eye contact Discharge Plan Discharge Disposition: Home, Self-Care Condition: Good Discharge Medications: New oxycodone-acetaminophen 5-325 mg Tablet 1 tab PO Q8H PRN (Reason: Pain Scale 4-6) Qty: 20 0RF ibuprofen 400 mg Tablet 800 mg PO Q8H PRN (Reason: Pain) Qty: 60 0RF docusate sodium 100 mg Capsule 100 mg PO BID Qty: 60 2RF Discontinued cephalexin 500 mg capsule 500 mg PO Q8H Print Language: Portuguese Forms: Portal Instructions
[2024-05-04 08:37] VITALS: BP 132/61; PULSE 82; TEMP 36.7
== END 2024-05-04 13:45 | disposition home or self-care (01) | DRG 540 ==
PROVIDERS: Admitting Provider Obstetrics & Gynecology; PCP Internal Medicine; Visit Provider Obstetrics & Gynecology
PROC: 10D00Z1 Extraction of Products of Conception, Low, Open Approach (ICD-10-PCS; CPT 59514; principal; 2024-05-02 15:20)
DX: O36.8130 Decreased fetal movements, third trimester, not applicable or unspecified (principal); O34.219 Maternal care for unspecified type scar from previous cesarean delivery; Z3A.38 38 weeks gestation of pregnancy; Z37.0 Single live birth; O75.89 Other specified complications of labor and delivery; R10.9 Unspecified abdominal pain; O99.214 Obesity complicating childbirth; E66.01 Morbid (severe) obesity due to excess calories; O99.844 Bariatric surgery status complicating childbirth; Z90.49 Acquired absence of other specified parts of digestive tract
CPT/HCPCS: 36415; 59025; 80307; 81001; 83036; 85025; 86850; 86900; 86901; 87086; 88307; 94667; 94668; 96372; 96374; 96375; 96376; G0378; G0379; J0690; J1110; J1200; J1650; J1885; J2274; J2371; J2405; J2590; J2765

== ENCOUNTER 2024-05-06 08:02 | Outpatient (OUT) | payer OTHER, SELFPAY ==
--- OUTSIDE RECORDS SUMMARY | 2024-05-06 08:05 | XMS_ITS | CCD ---
Author Organization [facility] ion Partnership [facility] Care Team Providers Care Plaster Mold Maker Name Role Phone DR TOR TORRES Primary [...] Tor Torres MD Primary Care Provider [phone] RAYNE JUNG Attending Unavailable JESICA SMILEY Attending Unavailable RAYNE JUNG Attending Unavailable JESICA SMILEY Attending Unavailable JESICA SMILEY Attending Unavailable RAYNE JUNG Attending Unavailable JESICA SMILEY Attending Unavailable JESICA SMILEY Attending Unavailable Jesica Smiley Attending Provider Jesica Smiley Attending Unavailable Jesica Smiley Admitting Unavailable Allergies Allergy Classification Reported Allergen(s) Allergy Type Date of Onset Reaction(s) Facility (1 source) Morphine Drug Allergy 05-18-2018 [facility] Repository Medications Current Medications Medication Drug Class(es) Dates Sig (Normalized) Sig (Original) Albuterol (1 source) beta2-Adrenergic Agonist Start: 12-10-2020 take 90 ug by inhalation every four to six hours Albuterol Active 90 MCG INHALATION EVERY 4-6 HOURS December 10, 2020 1:00am famotidine 40 mg oral tablet (1 source) Histamine-2 Receptor Antagonist Start: 01-17-2021 take 1 tablet by mouth twice daily Famotidine (Pepcid) 40 mg Tablet Active 40 MG PO Twice daily December 10, 2020 1:00am 120 actuat fluticasone propionate 0.11 mg/actuat metered dose inhaler (1 source) Corticosteroid Start: 12-10-2020 take 1 puff(s) by inhalation twice daily Fluticasone Propionate (Flovent Hfa) 110 mcg/actuation HFA aerosol inhaler Active 1 PUFF INHALATION Twice daily December 10, 2020 1:00am Multiple Vitamin (multivitamin) tablet (2 sources) take [...] morning. 30 capsule 11 10/27/2023 10/26/2024 Active Completed/Discontinued Medications Medication Drug Class(es) Dates Sig (Normalized) Sig (Original) atenolol 25 mg oral tablet (1 source) beta-Adrenergic Lavonne Start: 12-10-2020 End: 12-10-2020 take 25 mg by mouth once daily Atenolol Discontinued 25 MG PO Daily December 10, 2020 1:00am December 10, 2020 4:14pm ketorolac tromethamine 10 mg oral tablet (1 source) Nonsteroidal Anti-inflammatory Drug, Cyclooxygenase Inhibitor Start: 12-10-2020 End: 12-10-2020 take 10 mg by mouth every six hours Ketorolac Discontinued 10 MG PO Every 6 hours December 10, 2020 1:00am December 10, 2020 4:14pm metoclopramide 10 mg oral tablet (1 source) Dopamine-2 Receptor Antagonist Start: 12-10-2020 End: 12-10-2020 take 1 tablet by mouth every six hours Metoclopramide Hcl (Reglan) 10 mg Tablet Discontinued 10 MG PO Q6H December 10, 2020 1:00am December 10, 2020 4:14pm montelukast 10 mg oral tablet (1 source) Leukotriene Receptor Antagonist Start: 12-10-2020 End: 12-10-2020 take 1 tablet by mouth once daily Montelukast (Singulair) 10 mg Tablet Discontinued 10 MG PO Daily December 10, 2020 1:00am December 10, 2020 4:14pm ondansetron 8 mg oral tablet (1 source) Serotonin-3 Receptor Antagonist Start: 12-10-2020 End: 12-10-2020 take 1 tablet by mouth every eight hours Ondansetron Hcl (Zofran) 8 mg Tablet Discontinued 8 MG PO Q8H December 10, 2020 1:00am December 10, 2020 4:14pm promethazine hydrochloride 25 mg oral tablet (1 source) Phenothiazine Start: 12-10-2020 End: 12-10-2020 take 1 tablet by mouth every four to six hours Promethazine (Phenergan) 25 mg Tablet Discontinued 25 MG PO EVERY 4-6 HOURS December 10, 2020 1:00am December 10, 2020 4:14pm Problems Active Problems Problem Classification Problem Date Documented Date Episodic/Chronic Abdominal pain (2 sources) Unspecified abdominal pain; Translations: [Abdominal pain] Onset: 12-19-2020 11-05-2023 Episodic Asthma (1 source) Unspecified asthma, uncomplicated; Translations: [UNSPECIFIED ASTHMA UNCOMPLICATED] Onset: 10-02-2021 Chronic Biliary tract disease (1 source) Cholangiectasis; Translations: [Other specified diseases of biliary tract] 11-05-2023 Chronic Biliary tract disease (2 sources) Intramural calcification of gallbladder; Translations: [Other specified diseases of gallbladder] 11-05-2023 Episodic Esophageal disorders (1 source) Gastro-esophageal reflux disease without esophagitis; Translations: [GERD WITHOUT ESOPHAGITIS] Onset: 12-12-2020 Chronic Other aftercare (1 source) Other alf (current) drug therapy; Translations: [OTH SNF CURRENT DRUG THERAPY] Onset: 10-02-2021 Episodic Other connective tissue disease (3 sources) Pain in left forearm; Translations: [PAIN IN LEFT FOREARM] Onset: 09-28-2021 Episodic Other liver diseases (1 source) Elevated liver enzymes level; Translations: [Abnormal levels of other serum enzymes] 11-05-2023 Episodic Other and delivery including normal (2 [...] (2 sources) OB Reminders Onset: 10-07-2023 10-07-2023 Urinary tract infections (1 source) Urinary tract infectious disease; Translations: [Urinary tract infection, site not specified] 11-05-2023 Episodic Past or Other Problems Problem Classification Problem Date Documented Date Episodic/Chronic Nonspecific chest pain (3 sources) Chest pain, [...] Test Name Value Interpretation Reference Range Facility [facility] 05-02-2024 L Specimen: [id number] Received: 05/03/24 Status: JOSE A Dodge Num: [id number] Spec Type: Surgical Subm Dr: Jesica Smiley Tissues: A Placenta - 3rd Trimester (Greater than 28 weeks) (PLACENTA) Procedures: HE/3, Gross/Micro L5 Age/ Patient Sex Location Account Attending Physician Isaac Toussaint 33/F LABELL [id number] Jesica Smiley SPEC NUM: [id number] RECD: 05/03/24 STATUS: JOSE A DODGE NUM: [id number] ROSLYN: 05/02/[address]: Jesica Smiley ENTERED: 05/03/24 [facility] DR: Honey,Lab SPEC TYPE: Surgical DEPT: HARIKA LAINEZ ORDERED: HE/3, Gross/Micro L5 ORDERED: HE/3, Gross/Micro L5 Pathological Diagnosis Placental removal, repeat section: -Mature third trimester placenta with three-vessel cord, small for gestational age (406 g) -No evidence of acute chorioamnionitis, umbilical funisitis, or villitis -Incidental mild nonspecific perivillous fibrinoid degeneration beneath the surface -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 REASON: History of gastric bypass. Previous section. Gross Description Received in formalin is a urrutia placental disc with attached membranes, and attached umbilical cord. The 21.4 x 1.1 cm, three-vessel, fischer umbilical cord inserts eccentrically into the chorionic plate, 5.6 cm from the placental disc margin. The cord has normal spiraling with no knots or lesions. The marginally inserted, complete membranes are fischer-pink, slippery and opaque, with the point of rupture from the disc margin that cannot be determined. Intramembranous blood vessels are absent. The chorionic plate is blanchard-blue with patent vessels that span out magistrally over the surface. The maternal surface has intact, lobulated cotyledons. No loose or adherent blood clot is attached to the placental disc or within the specimen container. The Specimen: [id number] Received: 05/03/24 Status: JOSE A Dodge Num: [id number] Spec Type: Surgical Subm Dr: Jesica Smiley Tissues: A Placenta - 3rd Trimester (Greater than 28 weeks) (PLACENTA) Procedures: /3, Gross/Micro L5 Patient: Isaac Toussaint [id number] (Continued) Specimen: [id number] Received: 05/03/24 (Continued) Gross Description (Continued) Signed (signature on file) Darrius Holden MD 05/04/241925 Specimen: [id number] Received: 05/03/24 Status: JOSE A Dodge Num: [id number] Spec Type: Surgical Subm Dr: Jesica Smiley Tissues: A Placenta - 3rd Trimester (Greater than 28 weeks) (PLACENTA) Procedures: HE/3, Gross/Micro L5 Patient: Isaac Toussaint [id number] (Continued) Specimen: [id number] Received: 05/03/24-1256 (Continued) Gross Description (Continued) parenchyma is pink-red and spongiform. The 17.9 x 16.4 x 1.5 cm placental disc, devoid of membranes and cord, has a trimmed weight of 406 grams. Summary of sections: A1: umbilical cord at end and membrane roll including possible site of rupture A2: umbilical cord at placental end and parenchyma adjacent to cord insertion site A3: random mid-zonal section TW CPT Codes 70327 Specimen: [id number] Received: 05/03/24-1255 Status: JOSE A Dodge Num: [id number] Spec Type: Surgical Subm Dr: Jesica Smiley Tissues: A Placenta - 3rd Trimester (Greater than 28 weeks) (PLACENTA) Procedures: , Gross/Micro L5 Patient: Isaac Toussaint [id number] (Continued) Signed (signature on file) Darrius Holden MD 05/04/241925 Normal [facility] CNOVon 01-02-2021 [facility] Office Visit (JACKSON ) -------- ISAAC TOUSSAINT ([id number]) 1990 F Date Time Provider Department 01/02/21 [...] SIGNATURE: Jeffrey Yuan MD HPB surgery Pager: [phone] Referring Provider: SELF [[id number]] Allergies As of [...] Status:Closed by BRO YUAN MD on 01/02/21 Normal [facility] 12-22-2020 CNPN Telephone (PODCCP) -------- ISAAC TOUSSAINT ([id number]) 1990 F Date Time Provider Department 12/22/20 VAHE CR (STUDENT) PODCCP During your visit today, we recorded the following information about you: Vahe Cr Student 12/22/2020 10:01 AM Signed Record ID: [id number] Patient Name: [facility]: [facility] [place] [place] Attending: Bro Yuan Center: General Surgery INSTRUCTIONS SN to remind patient of appointment date, time, location All Clear All Clear SURVEY INFORMATION Medical/Nurse Pan Shaker: Landy Duran 1. Your discharge instructions are [...] Reason for Visit: Follow Up Phone Call [[id number]] Prescriptions as of 12/22/2020 Sig: ONDANSETRON HCL [...] Encounter Status:Closed by VAHE WADE on 12/22/20 [facility] Corey 12-21-2020 KIERSTEN Telephone (JACKSON) -------- ISAAC TOUSSAINT ([id number]) 1990 F Date Time Provider Department 12/21/20 BRO YUAN During your visit today, we recorded the following information about you: Macy Arshad [facility] 12/21/2020 12:18 PM Signed Patient is calling [...] Encounter Status:Closed by MACY SALEH on 01/22/21 [facility] OBSOLETEon 12-21-2020 OBSOLETE Refill (GENSMN) -------- ISAAC TOUSSAINT ([id number]) 1990 F Date Time Provider Department 12/21/20 ROXANA SCOTT During your visit today, we recorded the following information about you: Roxana Scott APRN.REPAIR DEPARTMENT MANAGER 12/21/2020 2:00 PM Signed Patient called with [...] our office if symptoms persist. Roxana Scott APRN.REPAIR DEPARTMENT MANAGER Allergies As of Date: 12/21/2020 (No Known [...] days. Encounter Status:Closed by TYLER DEJESUS.ROXANA HOUSE Andrey [facility] 12/21/20 [facility] 12-15-2020 Ammonia (P) [Mass/Vol] ug/dL Critically low 10-30 [facility] Comment on above: Performed By: #### A MM #### [facility] [address] [place] [address] Marcin Alanna AMYLASEon 12-15-2020 Amylase [Catalytic activity/Vol] 217 U/L Critically high 31-110 [facility] Comment on above: Performed By: #### C JAVAD MOLINA AMY #### [facility] [address] [place] [address] Marcin Alanna CBC AUTO DIFFon 12-15-2020 BASO # 0.0 103/ul Normal 0.0-0.1 [facility] Comment on above: Performed By: #### C JAVAD MOLINA AMY #### [facility] [address] [place] [address] Marcin Alanna Basophils/100 WBC (Bld) 0.3 % Normal 0.2-2.0 [facility] Comment on above: Performed By: #### C JAVAD MOLINA AMY #### [facility] [address] [place] [address] Marcin Alanna EO # 0.0 103/ul Normal 0.0-0.7 [facility] Comment on above: Performed By: #### C JAVAD MOLINA AMY #### [facility] [address] [place] [address] Marcin Alanna Eosinophils/100 WBC (Bld) 0.3 % Critically low 0.9-7.0 [facility] Comment on above: Performed By: #### C JAVAD MOLINA AMY #### [facility] [address] [place] [address] Marcin Alanna Erythrocyte distribution width (RBC) [Ratio] 13.3 % Normal 11.0-15.0 [facility] Comment on above: Performed By: #### C JAVAD MOLINA AMY #### [facility] [address] [place] [address] Marcin Alanna Hematocrit (Bld) [Volume fraction] 42.9 % Normal 36.0-48.0 [facility] Comment on above: Performed By: #### C JAVAD MOLINA AMY #### [facility] [address] [place] [address] Marcin Alanna Hemoglobin (Bld) [Mass/Vol] 13.8 g/dL Normal 12.0-16.0 [facility] Comment on above: Performed By: #### C JAVAD MOLINA, RAYNE #### [facility] [address] [place] [address] Marcin Alanna IG # 0.02 10e3/ul Normal 0.00-0.03 [facility] Comment on above: Performed By: #### C JAVAD MOLINA AMY #### [facility] [address] [place] [address] Marcin Alanna IG % 0.3 % Normal 0.0-0.5 [facility] Comment on above: Performed By: #### C JAVAD MOLINA, RAYNE #### [facility] [address] [place] [address] Marcin Alanna LYMPH # 1.7 103/ul Normal 1.2-3.8 [facility] Comment on above: Performed By: #### C JAVAD MOLINA AMY #### [facility] [address] [place] [address] Marcin Alanna Lymphocytes/100 WBC (Bld) 23.8 % Normal 20.5-60.0 [facility] Comment on above: Performed By: #### C JAVAD MOLINA, RAYNE #### [facility] [address] [place] [address] Marcin Alanna MANUAL DIFF REQ NO Normal [facility] Comment on above: Performed By: #### C JAVAD MOLINA, RAYNE #### [facility] [address] [place] [address] Marcin Alanna MCH (RBC) [Entitic mass] 29.8 pg Normal 26.7-34.0 [facility] Comment on above: Performed By: #### C MP, LIPA, RAYNE #### [facility] [address] [place] [address] Marcin Alanna MCHC (RBC) [Mass/Vol] 32.2 g/dL Normal 29.9-35.2 [facility] Comment on above: Performed By: #### C TRACY LIPA, RAYNE #### [facility] [address] [place] [address] Marcin Alanna MCV (RBC) [Entitic vol] 92.7 fL Normal 81.0-99.0 [facility] Comment on above: Performed By: #### C MP, LIPA, RAYNE #### [facility] [address] [place] [address] Marcin Alanna MONO # 0.6 103/ul Normal 0.3-0.8 [facility] Comment on above: Performed By: #### C MP LIPA, RAYNE #### [facility] [address] [place] [address] Marcin Alanna Monocytes/100 WBC (Bld) 8.5 % Normal 1.7-12.0 [facility] Comment on above: Performed By: #### C TRACY LIPA, RAYNE #### [facility] [address] [place] [address] Marcin Alanna NEUT # 4.8 103/ul Normal 1.4-6.5 [facility] Comment on above: Performed By: #### C MP, LIPA, RAYNE #### [facility] [address] [place] [address] Marcin Alanna Neutrophils/100 WBC (Bld) 66.8 % Normal 43.0-75.0 [facility] Comment on above: Performed By: #### C MP, LIPA, RAYNE #### [facility] [address] [place] [address] Marcin Alanna Platelet mean volume (Bld) [Entitic vol] 8.7 fL Critically low 9.5-13.5 [facility] Comment on above: Performed By: #### C MP, LIPA, RAYNE #### [facility] [address] [place] [address] Marcin Alanna PLT 253 103/ul Normal 150-450 [facility] Comment on above: Performed By: #### C TRACY LIPA, RAYNE #### [facility] [address] [place], [place] [address] Marcin Mondragon RBC 4.63 106/ul Normal 4.20-5.40 [facility] Comment on above: Performed By: #### C MP LIPA, RAYNE #### [facility] [address] [place] [address] Marcin Mondragon WBC 7.1 103/ul Normal 4.0-11.0 [facility] Comment on above: Performed By: #### C TRACY LIPA, RAYNE #### [facility] [address] [place] [address] Marcin Mondragon LIPASEon 12-15-2020 Lipase [Catalytic activity/Vol] 1205.0 U/L Critically high 23.0-300.0 [facility] Comment on above: Result Comment: test repeated critical value verified Performed By: #### C TRACY LIPA, RAYNE #### [facility] [address] [place] [address] Marcin Mondragon PREG HCG QUALon 12-15-2020 , QUAL Negative Normal NEGATIVE [facility] Comment on above: Performed By: #### P REG #### [facility] [address] [place] [address] Marcin Mondragon PROF 14(COMP METB)on 021 Albumin [Mass/Vol] 3.3 g/dL Critically low 3.5-5.0 [facility] Comment on above: Performed By: #### C MP, LIPA, RAYNE #### [facility] [address] [place] [address] Marcin Mondragon Albumin/Globulin [Mass ratio] 0.8 {ratio} Normal [facility] Comment on above: Performed By: #### C MP, LIPA, RAYNE #### [facility] [address] [place], [place] [address] Marcin Mondragon ALP [Catalytic activity/Vol] 167 U/L Critically high 38-126 [facility] Comment on above: Performed By: #### C MP, LIPA, RAYNE #### [facility] [address] [place], [place] [address] Marcin Alanna ALT [Catalytic activity/Vol] 370 U/L Critically high 9-52 [facility] Comment on above: Performed By: #### C MP LIPA, RAYNE #### [facility] [address] [place] [address] Marcin Alanna Anion gap [Moles/Vol] 12.5 mmol/L Normal [facility] Comment on above: Performed By: #### C MP LIPA, RAYNE #### [facility] [address] [place] [address] Marcin Alanna AST [Catalytic activity/Vol] 165 U/L Critically high 14-36 [facility] Comment on above: Performed By: #### C TRACY LIPA, RAYNE #### [facility] [address] [place] [address] Marcin Alanna Bilirubin [Mass/Vol] 5.3 mg/dL Critically high 0.2-1.3 [facility] Comment on above: Performed By: #### C TRACY LIPA, RAYNE #### [facility] [address] [address] Marcin Alanna Calcium [Mass/Vol] 9.2 mg/dL Normal 8.4-10.2 [facility] Comment on above: Performed By: #### C TRACY LIPA, RAYNE #### [facility] [address] [address] Marcin Alanna Chloride [Moles/Vol] 102 mmol/L Normal 98-107 [facility] Comment on above: Performed By: #### C MP LIPA, RAYNE #### [facility] [address] [address] Marcin Alanna CO2 [Moles/Vol] 29.6 mmol/L Normal 22.0-30.0 [facility] Comment on above: Performed By: #### C MP LIPA, RAYNE #### [facility] [address] [address] Marcin Alanna Creatinine [Mass/Vol] 0.88 mg/dL Normal 0.52-1.04 [facility] Comment on above: Performed By: #### C TRACY LIPA, RAYNE #### [facility] [address] [place] [id number] Marcin Alanna EGFR-AF [facility] >60 Normal >=60 [facility] Comment on above: Performed By: #### C MP, LIPA, RAYNE #### [facility] [address] [place] [id number] Marcin Alanna EGFR-NON AF [facility] >60 Normal >=60 [facility] Comment on above: Performed By: #### C MP, LIPA, RAYNE #### [facility] [address] [address] Marcin Alanna Globulin (S) [Mass/Vol] 4.1 g/dL Normal [facility] Comment on above: Performed By: #### C MP, LIPA, RAYNE #### [facility] [address] [place] [address] Marcin Alanna Glucose [Mass/Vol] 88 mg/dL Normal 74-106 [facility] Comment on above: Performed By: #### C TRACY LIPA, RAYNE #### [facility] [address] [place] [address] Marcin Alanna Potassium [Moles/Vol] 3.1 mmol/L Critically low 3.4-5.0 [facility] Comment on above: Performed By: #### C MP, LIPA, RAYNE #### [facility] [address] [place] [address] Marcin Alanna Protein [Mass/Vol] 7.4 g/dL Normal 6.1-8.2 [facility] Comment on above: Performed By: #### C MP LIPA, RAYNE #### [facility] [address] [place] [address] Marcin Alanna Sodium [Moles/Vol] 141 mmol/L Normal 137-145 [facility] Comment on above: Performed By: #### C MP, LIPA, RAYNE #### [facility] [address] [address] Marcin Alanna Urea nitrogen [Mass/Vol] 8.0 mg/dL Normal 7.0-17.0 [facility] Comment on above: Performed By: #### C MP, LIPA, RAYNE #### [facility] [address] [place] [address] Alanna Urea nitrogen/Creatini ne [Mass ratio] 9.1 mg/mg Normal [facility] Comment on above: Performed By: #### C MP LIPA, RAYNE #### [facility] [address] [place] [address] Marcinraffy Mondragon PROTIMEon 12-15-2020 INR Coag (PPP) [Relative time] 1.04 {INR} Normal [facility] Comment on above: Performed By: #### C MP LIPA, RAYNE #### [facility] [address] [place] [address] INR GUIDELINES SEE BELOW Normal [facility] Comment on above: Result Comment: NAI RED INR: 2.0 - 3.0 CONDITIONS NOT LISTED BELOW 2.5 - 3.5 FOR PROSTHETIC HEART VALVE REPLACEMENT 2.5 - 3.5 RECURRENT THROMBOSIS Performed By: #### C MP, LIPA, RAYNE #### [facility] [address] [place] [address] Marcin Alanna PT Coag (PPP) [Time] 11.3 s Normal 9.0-11.6 [facility] Comment on above: Performed By: #### C MP, LIPA, RAYNE #### [facility] [address] [place] [address] Marcin Alanna PTTon 12-15-2020 aPTT Coag (Bld) [Time] 27.8 s Normal 22.3-36.2 [facility] Comment on above: Performed By: #### C MP, LIPA, RAYNE #### [facility] [address] [place] [address] Alanna AMYLASEon 12-09-2020 Amylase [Catalytic activity/Vol] 45 U/L Normal 31-110 [facility] [facility] Comment on above: Performed By: #### B MP, RAYNE, LIVER, LIPA #### [facility] [address] [place] [address] Alanna CBC AUTO DIFFon 12-09-2020 BASO # 0.0 103/ul Normal 0.0-0.1 [facility] Comment on above: Performed By: #### C BC #### [facility] [address] [id number] Marcin Alanna Basophils/100 WBC (Bld) 0.2 % Normal 0.2-2.0 [facility] Comment on above: Performed By: #### C BC #### [facility] [address] [address] Marcin Alanna EO # 0.0 103/ul Normal 0.0-0.7 [facility] Comment on above: Performed By: #### C BC #### [facility] [address] [place] [address] Marcin Alanna Eosinophils/100 WBC (Bld) 0.3 % Critically low 0.9-7.0 [facility] Comment on above: Performed By: #### C BC #### [facility] [address] [place] [address] Marcin Mondragon Erythrocyte distribution width (RBC) [Ratio] 12.6 % Normal 11.0-15.0 [facility] Comment on above: Performed By: #### C BC #### [facility] [address] [place] [address] Marcin Alanna Hematocrit (Bld) [Volume fraction] 45.7 % Normal 36.0-48.0 [facility] Comment on above: Performed By: #### C BC #### [facility] [address] [place] [address] Marcin Alanna Hemoglobin (Bld) [Mass/Vol] 14.6 g/dL Normal 12.0-16.0 [facility] Comment on above: Performed By: #### C BC #### [facility] [address] [place], [place] [address] Marcin Alanna IG # 0.04 10e3/ul Critically high 0.00-0.03 The [facility] Comment on above: Performed By: #### C BC #### [facility] [address] [place], [place] [address] Marcin Alanna IG % 0.4 % Normal 0.0-0.5 [facility] Comment on above: Performed By: #### C BC #### [facility] [address] [place] [address] Marcin Alanna LYMPH # 1.4 103/ul Normal 1.2-3.8 [facility] Comment on above: Performed By: #### C BC #### [facility] [address] [place] [address] Marcin Alanna Lymphocytes/100 WBC (Bld) 12.8 % Critically low 20.5-60.0 [facility] Comment on above: Performed By: #### C BC #### [facility] [address] [place] [address] Marcin Mondragon MANUAL DIFF REQ NO Normal [facility] Comment on above: Performed By: #### C BC #### [facility] [address] [place] [address] Marcinraffy Pritcharden MCH (RBC) [Entitic mass] 29.4 pg Normal 26.7-34.0 [facility] Comment on above: Performed By: #### C BC #### [facility] [address] [place] [address] Marcinraffy Mondragon MCHC (RBC) [Mass/Vol] 31.9 g/dL Normal 29.9-35.2 [facility] Comment on above: Performed By: #### C BC #### [facility] [address] [place] [address] Marcinraffy Mondragon MCV (RBC) [Entitic vol] 92.1 fL Normal 81.0-99.0 [facility] Comment on above: Performed By: #### C BC #### [facility] [address] [place] [address] Marcin Alanna MONO # 0.6 103/ul Normal 0.3-0.8 [facility] Comment on above: Performed By: #### C BC #### [facility] [address] [place], [place] [address] Marcin Alanna Monocytes/100 WBC (Bld) 5.6 % Normal 1.7-12.0 [facility] Comment on above: Performed By: #### C BC #### [facility] [address] [id number] Maricn Mondragon NEUT # 9.0 103/ul Critically high 1.4-6.5 [facility] Comment on above: Performed By: #### C BC #### [facility] [address] [place], [place] [address] Marcin Mondragon Neutrophils/100 WBC (Bld) 80.7 % Critically high 43.0-75.0 [facility] Comment on above: Performed By: #### C BC #### [facility] [address] [place], [place] [address] Marcin Mondragon Platelet mean volume (Bld) [Entitic vol] 8.6 fL Critically low 9.5-13.5 [facility] Comment on above: Performed By: #### C BC #### [facility] [address] [place], [place] [address] Marcin Pritcharden PLT 255 103/ul Normal 150-450 [facility] Comment on above: Performed By: #### C BC #### [facility] [address] [place], [place] [address] Marcin Mondragon RBC 4.96 106/ul Normal 4.20-5.40 [facility] Comment on above: Performed By: #### C BC #### [facility] [address] [place], [place] [address] Marcin Pritcharden WBC 11.1 103/ul Critically high 4.0-11.0 [facility] Comment on above: Performed By: #### C BC #### [facility] [address] [place], [place] [address] Marcin Mondragon LIPASEon 12-09-2020 Lipase [Catalytic activity/Vol] 129.0 U/L Normal 23.0-300.0 [facility] Comment on above: Performed By: #### B MP, RAYNE, LIVER, LIPA #### [facility] [address] [place], [place] [address] Marcin Mondragon LIVER PROFILEon 12-09-2020 Albumin [Mass/Vol] 3.5 g/dL Normal 3.5-5.0 [facility] Comment on above: Performed By: #### B MP, RAYNE, LIVER, LIPA #### [facility] [address] [place] [address] Marcin Alanna Albumin/Globulin [Mass ratio] 0.9 {ratio} Normal [facility] Comment on above: Performed By: #### B MP, RAYNE, LIVER, LIPA #### [facility] [address] [place] [address] Amrcin Alanna ALP [Catalytic activity/Vol] 80 U/L Normal 38-126 [facility] Comment on above: Performed By: #### B MP, RAYNE, LIVER, LIPA #### [facility] [address] [place] [address] Marcin Alanna ALT [Catalytic activity/Vol] 31 U/L Normal 9-52 [facility] Comment on above: Performed By: #### B MP, RAYNE, LIVER, LIPA #### [facility] [address] [place] [address] Marcin Alanna AST [Catalytic activity/Vol] 39 U/L Critically high 14-36 [facility] Comment on above: Performed By: #### B MP, RAYNE, LIVER, LIPA #### [facility] [address] [place] [address] Marcin Alanna BILI, CONJUGATED 0.2 mg/dL Normal 0.0-0.3 [facility] Comment on above: Performed By: #### B MP, RAYNE, LIVER, LIPA #### [facility] [address] [place] [address] Marcin Alanna Bilirubin [Mass/Vol] 0.5 mg/dL Normal 0.2-1.3 [facility] Comment on above: Performed By: #### B MP, RAYNE, LIVER, LIPA #### [facility] [address] [place] [address] Marcin Alanna Globulin (S) [Mass/Vol] 3.8 g/dL Normal [facility] Comment on above: Performed By: #### B MP, RAYNE, LIVER, LIPA #### [facility] [address] [place] [address] Marcin Alanna Protein [Mass/Vol] 7.3 g/dL Normal 6.1-8.2 [facility] Comment on above: Performed By: #### B MP, RAYNE, LIVER, LIPA #### [facility] [address] [place] [address] Marcin Alanna PROF CHEM 8 (BAS METB)on Anion gap [Moles/Vol] 10.6 mmol/L Normal [facility] Comment on above: Performed By: #### C MP, LIPA, RAYNE #### [facility] [address] [place] [address] Marcin Alanna Calcium [Mass/Vol] 8.9 mg/dL Normal 8.4-10.2 [facility] Comment on above: Performed By: #### C MP, LIPA, RAYNE #### [facility] [address] [place] [address] Marcin Alanna Chloride [Moles/Vol] 105 mmol/L Normal 98-107 [facility] Comment on above: Performed By: #### C MP, LIPA, RAYNE #### [facility] [address] [place] [address] Marcin Alanna CO2 [Moles/Vol] 27.4 mmol/L Normal 22.0-30.0 [facility] Comment on above: Performed By: #### C MP, LIPA, RAYNE #### [facility] [address] [place] [address] Marcin Alanna Creatinine [Mass/Vol] 0.91 mg/dL Normal 0.52-1.04 [facility] Comment on above: Performed By: #### C MP, LIPA, RAYNE #### [facility] [address] [place] [address] Marcin Alanna EGFR-AF [facility] >60 Normal >=60 [facility] Comment on above: Performed By: #### C MP, LIPA, RAYNE #### [facility] [address] [place] [address] Marcin Alanna EGFR-NON AF [facility] >60 Normal >=60 [facility] Comment on above: Performed By: #### C JAVAD MOLINA, RAYNE #### [facility] [address] [address] Marcin Alanna Glucose [Mass/Vol] 109 mg/dL Critically high 74-106 [facility] Comment on above: Performed By: #### C JAVAD MOLINA, RAYNE #### [facility] [address] [address] Marcin Alanna Potassium [Moles/Vol] 4.0 mmol/L Normal 3.4-5.0 [facility] Comment on above: Performed By: #### C JAVAD MOLINA, RAYNE #### [facility] [address] [place] [address] Marcin Alanna Sodium [Moles/Vol] 139 mmol/L Normal 137-145 [facility] Comment on above: Performed By: #### C JAVAD MOLINA, RAYNE #### [facility] [address] [address] Marcin Alanna Urea nitrogen [Mass/Vol] 13.0 mg/dL Normal 7.0-17.0 [facility] Comment on above: Performed By: #### C JAVAD MOLINA, RAYNE #### [facility] [address] [place] [address] Marcin Alanna Urea nitrogen/Creatini ne [Mass ratio] 14.3 mg/mg Normal [facility] Comment on above: Performed By: #### C JAVAD MOLINA, RAYNE #### [facility] [address] [place], [place] [address] Marcin Alanna XR CHEST 1 Von 12-09-2020 [...] by: BRITTANY HENDRICKS Date: 2020-12-09 17:05 Normal [facility] Vital Signs Date Time Vital Sign Value Performing Clinician Faci lity 12-29-2023 10:32-0500 Body weight 121.17 kg Jesica Baljit DO Work Phone: [facility] 12-29-2023 10:32-0500 Diastolic blood pressure 70 mm[Hg] Jesica Baljit DO Work Phone: [facility] 12-29-2023 10:32-0500 Systolic blood pressure 110 mm[Hg] Jesica Baljit DO Work Phone: [facility] Encounters Encounter Date Encounter Type Care Provider Facility Start: 05-02-2024 End: 05-02-2024 ambulatory Jesica Baljit [facility] Work Phone: Start: 05-02-2024 End: 05-02-2024 Departed Referred Jesica Baljit Work Phone: [facility] Start: 04-26-2024 End: 04-26-2024 ambulatory JESICA BALJIT Not Available Start: 04-12-2024 End: 04-12-2024 ambulatory RAYNE FABIANA Not Available Start: 03-22-2024 End: 03-22-2024 ambulatory JESIAC BALJIT Not Available Start: 02-19-2024 End: 02-19-2024 ambulatory JESICA BALJIT Not Available Start: 01-26-2024 End: 01-26-2024 ambulatory RAYNE FABIANA Not Available Start: 12-29-2023 End: 12-29-2023 ambulatory JESICA BALJIT Not Available Start: 12-29-2023 End: 12-29-2023 Office outpatient visit 15 minutes Jesica Baljit DO Work Phone: [facility] Comment on above: Second trimester pre gnancy Start: 12-01-2023 End: 12-01-2023 ambulatory RAYNE FABIANA Not Available Start: 10-27-2023 End: 10-27-2023 ambulatory JESICA BALJIT Not Available Start: 10-03-2023 End: 10-03-2023 ambulatory RAYNE FABIANA Not Available Start: 09-28-2021 End: 09-28-[address] GEREMIAS SANTANA Facility: Start: 12-15-2020 End: 12-16-[address] TOR TORRES Facility:[facility] Start: 12-09-2020 End: 12-09-[address] TOR TORRES Facility:[facility] Payers Date Payer Category Payer Self-pay [id number] 2020 Medicaid [employer] [place] [employer] [id number] 2020-Present [address] [place] [address] [id number] 1990 Unknown [id number] 1990 Unknown [id number] 1990 Unknown [id number] [id number] 1990 Unknown [id number] [id number] 1990 Unknown [id number] [id number] 1990 Unknown [id number] [id number] 1990 Unknown [id number] [id number] 1990 Unknown [id number] [id number] 1990 Unknown [id number] [id number] 1990 Unknown [id number] [id number] 1990 Unknown [id number] [id number] 1990 Unknown [id number] 1959 Unknown [id number] Unknown [id number] Social History Date Type Detail Facility Start: 09-24-2023 Tobacco smoking status NHIS Never smoked tobacco [facility] Start: 12-29-2023 Alcohol intake Current drinker of alcohol (finding) [facility] Start: 09-24-2023 [...] than monthly [facility] Start: 08-21-2023 [facility] Start: 1990 Sex Assigned At Female [facility] Start: 09-26-2023 Gender identity Identifies as female gender (finding) [facility] Start: 09-26-2023 Sexual orientation Heterosexual (finding) [facility] Start: 12-11-2020 Tobacco smoking status NHIS Smoker (finding) [facility] Goals Date Patient Goal Desired Activity /State [...] nursing note reviewed. Exam conducted with a web application developer present. Vitals: There is no height or [...] Jesica Smiley DO documented in this encounter [facility] Progress note 01-02-2021 Note Date & Type Note Facility 01-02-2021 Note HNO ID: [id number] Author: Bro Yuan Service: ? Author Type: [...] SIGNATURE: Jeffrey Yuan MD B surgery Pager: [phone] [facility] Progress note 01-02-2021 Note Date & Type Note Facility 01-02-2021 Note HNO ID: [id number] Author: Annamaria Collins Service: ? Author Type: [...] Follow-up TEX Collins MD General Surgery Resident [facility] Evaluation note Note Date & Type Note Facility Evaluation note Diagnosis Second trimester state, incidental documented in this encounter [facility] Evaluation note Note Date & Type Note Facility Evaluation note No assessment information availa [facility] Work Phone: Summary Purpose Family History No Family History Records Found Relationship Condition Age at Onset Recorded Date/T lorie Not Specified Congestive heart failure Unknown Advance Directives No Advanced Directives Records Found Advance Directive Response Recorded Date/ Time Advance Directives No December 10, 2020 12:39pm Additional Source Comments INFORMATION SOURCE (unrecogn ized section and content) DATE CREATED AUTHOR 10/02/2021 [facility] DATE CREATED AUTHOR AUTHOR'S ORGANIZ ATION 12/20/2021 [facility] DATE CREATED AUTHOR AUTHOR'S ORGANIZ ATION 04/26/2024 [facility] EPIC DATE CREATED AUTHOR AUTHOR'S ORGANIZ ATION 05/05/2024 [facility] Reason for Visit (unrecogniz ed section and content) Reason Comments Routine Visit Care Teams (unrecognized sec tion and content) Plaster Mold Maker Relationship Specialty Start Date End Date Tor Torres MD [address] [place] [id number] PCP - General Internal Medicine 09/25/23 Team Status: Inactive Member Role Status Dates Jesica Smiley Attending Provider Active Start: 2023 End: May 02, 2024 Goals (unrecognized section and content) Goals may be documented in a n alternate section FOR RECORDS PERTAINING TO PATIENTS WHO ARE [...] BE BASED ON THE PRIMARY CLINICAL RECORDS. [employer] [facility]. provides no warranty or guarantee of the accuracy or completeness of information in this document.
--- NOTE | 2024-05-06 14:48 | PC.NURSE ---
Keke, 7yo Herbert and 4 days old Kenny arrive for follow up visit. Keke immediately states He is not acting like he should, can't get him to eat, taking 5-7 hour stretches between feeds when he will really wake up to feed and no poop since Friday Keke continues with concerns for baby and . Keke states for herself going well, not taking Percocet as did not want to contribute to infant being sleepy. Has been taking Motrin only. Discussed using Tylenol as well on staggered pattern for better coverage. Verbalized understanding. VSS and assessment WNL. Incision clean and dry, no evidence of warmth, redness, or drainage. [place] intact. Pt will call office today for appointment for removal of shanelle and incision check. States feel my milk coming in today breast remain soft, leaking noted when baby to breast. Kenny asleep in car seat. Color pink, resp. easy. Out of seat for assessment. Baby VSS and assessment WNL. Lungs clear, HR strong and regular, resp easy, non labored. tone strong. Noted to have wet gauze and small area in diaper is wet. Color concentrated. No stool noted. Infant to scales, weight 2630 grams today. Overall weight loss is at 15.1% or total of 470 gms lost. Mom aware of excessive weight loss, tearful. Baby offered breast taking several attempts to latch, has slow sucking with 1 swallow every 3-4 sucks noted with auscultation per stethoscope. Mom has been unable to pump as hand pump got damaged when child stepped on dropped piece at home. Dr Sloan on unit and notified of assessment, wets, stools, feeding and weight loss. Orders for blood work received and feeding plan reviewed by for infant to bottle minimum of 30 ml and up to 60 ml every 2 hours after short effort at the breast. Allowed 3 hour stretches at night. Mom to pump after feeds as able to encourage increase of supply. Discussed stress of rigid triple feed schedule and pt willing to pump but aware of the stress. Keke and baby will return tomorrow 0830 05/07/2024 for repeat lab work and weight check. Keke voices relief of feeding plan, and follow up care, I knew it wasn't okay for him to go that long without feeding, I was worried Leaves ambulatory with older son and , plans to return 05/07/2024 for continued care.
[2024-05-06 14:49] VITALS: BP 114/73; PULSE 88; TEMP 36.8; O2SAT 96
== END 2024-05-06 12:10 | disposition home or self-care (01) ==
PROVIDERS: PCP Internal Medicine; Visit Provider Obstetrics & Gynecology
DX: Z39.2 Encounter for routine postpartum follow-up (principal)

== ENCOUNTER 2025-07-14 14:39 | Outpatient (REF) | payer OTHER, SELFPAY ==
--- OUTSIDE RECORDS SUMMARY | 2025-07-14 11:30 | XMS_ITS | Encounter Summary ---
Author Organization [facility] Address [address] [place] [address] Care Team Providers Care Aoc Director Combat Operations Officer Name Role Phone Yennifer Kirk MD Primary Care Provider +1- [phone] Reason for Visit * Reason Comments Well Women Visit Encounter Details Date Type Department Care Team (Latest Contact Info) Description 07/14/2025 11:30 AM EDT Procedure Visit [facility]BL[facility] [address] [facility] [place] [address] Janae Philippe PA [address] [facility] [place] [address] Well woman exam with routine gynecological exam Social History Tobacco Use Types Packs/Day Years Used Date Smoking Tobacco: Former Cigarettes 0.3 6.9 0 07/25/2016 - 04/24/2023 Smokeless Tobacco: Never Alcohol Use Standard Drinks/Week Comments Yes 0 (1 standard drink = 0.6 oz pur e alcohol) AUDIT-C Answer Date Recorded Q1: How often do you have a drink containing alc ohol? Monthly or less 09/24/2023 Q2: How many drinks containi ng alcohol do you have on a typical day when you are drinking? 3 or 4 09/24/2023 Q3: How often do you have si x or more drinks on one occasion? Less than monthly 09/24/2023 Comments No Sex and Gender Information Value Date Recorded Sex Assigned at Female 09/26/2023 11:02 AM EDT Legal Sex Female 11:08 PM EDT Gender Identity Female 09/26/2023 11:02 AM EDT Sexual Orientation Straight 09/26/2023 11 :02 AM EDT documented as of this encounter Last Filed Vital Signs Vital Sign Reading Time Taken Comments Blood Pressure 130/76 07/14/2025 11:55 AM EDT Pulse - - Temperature - - Respiratory Rate - - Oxygen Saturation - - Inhaled Oxygen Concentration - - Weight 113 kg (249 lb 1.9 oz) 07/14/2025 11:55 A M EDT Height - - Body Mass Index 50.32 05/19/2024 2:05 PM EDT documented in this encounter Progress Notes * HUSSAIN Lemus - 07/14/2025 11:30 AM EDT Reason for Appointment: Patient ID: Keke Toussaint is a 34 y.o. female who presents for Well Women Visit Patient presents today for Annual Exam. MEDICATIONS No current outpatient medications ALLERGIES No Known Allergies PROBLEMS Active Ambulatory Problems Diagnosis Date Noted No Active Ambulatory Problems Resolved Ambulatory Problems Diagnosis Date Noted No Resolved Ambulatory Problems Past Medical History: Diagnosis Date Asthma, mild intermittent (HCC) Bacterial vaginosis PCOS (polycystic ovarian syndrome) HISTORY PAST MEDICAL HISTORY SOCIAL HISTORY Past Medical History: Diagnosis Date Asthma, mild intermittent (HCC) Bacterial vaginosis PCOS (polycystic ovarian syndrome) Social History Tobacco Use Smoking status: Former Current packs/day: 0.00 Average packs/day: 0.3 packs/day for 6.9 years (1.7 ttl pk-yrs) Types: Cigarettes Start date: 07/25/2016 Quit date: 04/24/2023 Years since quittin.2 Smokeless tobacco: Never Substance Use Topics Alcohol use: Yes Drug use: Never FAMILY HISTORY Family History Problem Relation Name Age of Onset Heart failure Mother Ila Hickey Diabetes Maternal Grandmother Naz Hickey Thyroid disease Sister Samara Jacobo SURGICAL HISTORY Past Surgical History: Procedure Laterality Date ABDOMINAL SURGERY 11/2020, 01/20/2013 SECTION, LOW TRANSVERSE x3 SECTION, LOW TRANSVERSE 05/02/2024 CHOLECYSTECTOMY 11/2020 CT ANGIOGRAM HEART CORONARY 12/17/2018 CT ANGIOGRAM TAVR 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 HENT: Negative. Eyes: Negative. Respiratory: Negative. Cardiovascular: Negative. Gastrointestinal: Positive for abdominal pain. Genitourinary: Negative. Musculoskeletal: Negative. Skin: Negative. Neurological: Negative. All other systems reviewed and are negative. Hematological: Negative. Endocrine: Negative. Allergic/Immunologic: Negative. OBJECTIVE Objective: Physical Exam Constitutional: Appearance: Normal appearance. Genitourinary: Right Adnexa: not tender and no mass present. Left Adnexa: not tender and no mass present. No cervical discharge. Breasts: Breasts are soft. Right: Normal. Left: Normal. HENT: Head: Normocephalic. Nose: Nose normal. Mouth/Throat: Mouth: Mucous membranes are moist. Cardiovascular: Rate and Rhythm: Normal rate. Pulmonary: Effort: Pulmonary effort is normal. Abdominal: General: Bowel sounds are normal. Palpations: Abdomen is soft. Musculoskeletal: General: Normal range of motion. Cervical back: Normal range of motion. Neurological: General: No focal deficit present. Mental Status: She is alert. Skin: General: Skin is warm and dry. Psychiatric: Mood and Affect: Mood normal. Vitals and nursing note reviewed. Exam conducted with a account information clerk present. Vitals: Estimated body mass index is 50.32 kg/m?? as calculated from the following: Height as of 05/19/24: 4' 11 . Weight as of this encounter: 249 lb 1.9 oz. BP: 130/76 Patient's last menstrual period was 07/06/2025. ASSESSMENT & PLAN ICD-10-CM 1. Well woman exam with routine gynecological exam Z01.419 Pap Smear HPV DNA probe, amplified Annual Exam: Patient presents today for an annual exam. Patient states she is doing well and states having abdominal pain possibly due to adhesions. Pap and cultures obtained, We will set up for diagnostic lap for possible adhesion removal Orders Placed This Encounter Procedures HPV DNA probe, amplified Follow Up: Patient is to return in one year for annual unless needed otherwise. Documented by HUSSAIN Lemus on behalf of: HUSSAIN Lemus documented in this encounter Plan of Treatment Upcoming Encounters Date Type Department Care Team (Late st Contact Info) Description 08/11/2025 11:30 AM EDT Procedure Visit [facility] [address] [facility] [place] [address] Shlomo Smiley DO [address] [place] [place] [address] Scheduled Orders Name Type Priority Associated Diagnoses Orde r Schedule Pap Smear Pathology and Cytology Routine Well woman exam with routine gynecological exam Ordered: 07/14/2025 HPV DNA probe, amplified Microbiology Routine Well woman exam with routine gynecological exam Ordered: 07/14/2025 documented as of this encounter Goals Goal Patient Goal Type Associated Problems Recent Progress Patient-Stated? Author Reminders Care Plan OB Reminders No Open Scheduling, Background documented as of this encounter Visit Diagnoses Diagnosis Well woman exam with routine gynecological exam Routine gynecological examination documented in this encounter Additional Health Concerns Active Problems Noted Date Diagnosed Date OB Reminders 10/07/2023 documented as of this encounter Care Teams Aoc Director Combat Operations Officer Relationship Specialty Start Date End Date Yennifer Kirk MD [address] [place] [address] PCP - General Internal Medicine 09/25/23 documented as of this encounter
--- OUTSIDE RECORDS SUMMARY | 2025-07-14 14:44 | XMS_ITS | Encounter Summary ---
Author Organization [facility] Address [address] [place] [address] Care Team Providers Care Industrial Machine System Technician Name Role Phone Yennifer Kirk MD Primary Care Provider +1- [phone] Janae Philippe Unavailable Encounter Details Date Type Department Care Team (Late st Contact Info) Description 05/13/2024 Abstract [facility] [address] [facility] [place] [address] Shlomo Smiely DO [address] [facility] [address] [place], [place] [id number] Social History Tobacco Use Types Packs/Day Years Used Date Smoking Tobacco: Never Alcohol Use Standard Drinks/Week Comments [...] AM EDT documented as of this encounter Plan of Treatment Upcoming Encounters Date Type Department Care Team (Late st Contact Info) Description 08/11/2025 11:30 AM EDT Procedure Visit [facility] WATKINSGYN [address] [facility] [place] [address] Shlomo Smiley DO [address] [place], [place] [address] documented as of this encounter Goals Goal Patient Goal Type Associated Problems Recent Progress Patient-Stated? Author Reminders Care Plan OB Reminders No Open Scheduling, Background documented as of this encounter Visit Diagnoses Not on filedocumented in this encounter Additional Health Concerns Active Problems Noted Date Diagnosed Date OB Reminders 10/07/2023 documented as of this encounter Care Teams Industrial Machine System Technician Relationship Specialty Start Date End Date Yennifer Kirk MD [address] [place] [address] PCP - General Internal Medicine 09/25/23 Janae Philippe PA [address] [facility] [address] [place], [place] [id number] PCP - [facility] 08/24/24 documented as of this encounter
--- OUTSIDE RECORDS SUMMARY | 2025-07-14 14:44 | XMS_ITS | Encounter Summary ---
Author Organization [facility] Address [address] [place] [address] Care Team Providers Care Professor Of Music Name Role Phone Yennifer Kirk MD Primary Care Provider +1- [phone] Janae Philippe Unavailable Encounter Details Date Type Department Care Team (Late st Contact Info) Description 05/20/2024 Abstract [facility]UGER[facility] [address] [facility] [place] [address] Shlomo Smiley DO [address] [facility] [address] [place], [place] [id number] Social History Tobacco Use Types Packs/Day Years [...] 11:30 AM EDT Procedure Visit [facility] [address] [facility] [place] [address] Shlomo Smiley DO [address] [facility] [address] [place] [address] documented as of this encounter Goals Goal Patient Goal Type Associated Problems Recent Progress Patient-Stated? Author Reminders Care Plan OB Reminders No Open Scheduling, Background documented as of this encounter Visit Diagnoses Not on filedocumented in this encounter Additional Health Concerns Active Problems Noted Date Diagnosed Date OB Reminders 10/07/2023 documented as of this encounter Care Teams Professor Of Music Relationship Specialty Start Date End Date Yennifer Kirk MD [address] [place] [address] PCP - General Internal Medicine 09/25/23 Janae Philippe PA [address] [facility] [place] [address] PCP - [facility] 08/24/24 documented as of this encounter
--- OUTSIDE RECORDS SUMMARY | 2025-07-14 14:44 | XMS_ITS | Encounter Summary ---
Author Organization [employer] Address [id number] [address] [place] [address] Care Team Providers Care Patient Liaison Name Role Phone Yennifer Kirk MD Primary Care Provider + Encounter Details Date Type Department Care Team (Late st Contact Info) Description 02/05/2022 Telephone [facility] [address] [place] [phone] aN Jacinto MA Social History Tobacco Use Types Packs/Day Years Used Date Smoking Tobacco: Every Day Cigarettes 0.3 2 Smokeless Tobacco: Never Alcohol Use Standard Drinks/Week Comments Yes 0 (1 standard drink = 0.6 oz pur e alcohol) occasional Childcare Answer Date Recorded Childcare Unknown 05/05/2019 Employment Answer Date Recorded Employment Unknown 05/05/2019 Purpose - Life Answer Date Recorded Purpose and direction in life Unknown Comments No Sex and Gender Information Value Date Recorded Sex Assigned at Female 10/05/2021 4:35 AM EST Legal Sex Female 11:46 AM EDT Gender Identity Female 10/05/2021 4:35 AM EST Sexual Orientation Straight 10/05/2021 4: 35 AM EST COVID-19 Exposure Response Date Recorded In the last 10 days, have yo u been in contact with someone who was confirmed or suspected to have Coronavirus/COVID-19? No / Unsure 02/06/2022 9:27 AM EDT documented as of this encounter Miscellaneous Notes * Telephone Encounter - Na Jacinto MA - 02/05/2022 9:40 AM EDT Pt called with c/o of burning with urination and some brownish red discharge. Would you beable to send in an RX or would you like her to drop a urine sample off * Telephone Encounter - LAZ Urrutia - 02/05/2022 9:40 AM EDT RX for macrobid sent to [facility] pharmacy. Please notify patient and have her come in to do a clean catch urine prior to beginning medication. Thank you. * Telephone Encounter - Na Jacinto MA - 02/05/2022 9:40 AM EDT Pt aware and will drip urine sample off in our [place] office tomorrow documented in this encounter Plan of Treatment Not on file documented as of this encounter Visit Diagnoses Not on filedocumented in this encounter Additional Health Concerns Infection Onset Date Last Indicated Resolved Time Enteric Rule-Out 02/22/2023 02/22/2023 02/22/2023 5:55 PM EDT Assessment Noted Time A Body Mass Index follow-up plan has been documented for the patient 02/26/2021 10:30 AM EDT documented as of this encounter Care Teams Patient Liaison Relationship Specialty Start Date End Date Yennifer Kirk MD PCP - General Pediatrics 08/02/23 documented as of this encounter
--- OUTSIDE RECORDS SUMMARY | 2025-07-14 14:44 | XMS_ITS | Encounter Summary ---
Author Organization [facility] Address [address] [place] [address] Care Team Providers Care Hides Soaker Name Role Phone Yennifer Kirk MD Primary Care Provider +1- [phone] Janae Pihlippe Unavailable Encounter Details Date Type Department Care Team (Late st Contact Info) Description 06/15/2024 Abstract [facility] [address] [facility] [place] [place] [address] Shlomo Smiley DO [address] [facility] [address] [place], [place] [id number] Social History Tobacco Use Types Packs/Day Years [...] EDT Procedure Visit [facility] [address] [place] [place] [address] Shlomo Smiley DO [address] [facility] [address] [place] [address] documented as of this encounter Goals Goal Patient Goal Type Associated Problems Recent Progress Patient-Stated? Author Reminders Care Plan OB Reminders No Open Scheduling, Background documented as of this encounter Visit Diagnoses Not on filedocumented in this encounter Additional Health Concerns Active Problems Noted Date Diagnosed Date OB Reminders 10/07/2023 documented as of this encounter Care Teams Hides Soaker Relationship Specialty Start Date End Date Yennifer Kirk MD [address] [place] [address] PCP - General Internal Medicine 09/25/23 Janae Philippe PA [address] [place] [address] PCP - [facility] 08/24/24 documented as of this encounter
--- OUTSIDE RECORDS SUMMARY | 2025-07-14 14:44 | XMS_ITS | Encounter Summary ---
Author Organization [facility] Address [address] [place] [address] Care Team Providers Care Motor Coach Supervisor Name Role Phone Yennifer Kirk MD Primary Care Provider +1- [phone] Janae Philippe Unavailable Encounter Details Date Type Department Care Team (Late st Contact Info) Description 05/19/2024 Abstract [facility] [place] [facility] [address] [employer] [place] [address] Lily Paul LPN [address] [place] [address] Social History Tobacco Use Types Packs/Day Years [...] 08/11/2025 11:30 AM EDT Procedure Visit [facility] [place] [facility] [address] [facility] [address] Shlomo Smiley DO [address] [facility] [place] [address] documented as of this encounter Goals Goal Patient Goal Type Associated Problems Recent Progress Patient-Stated? Author Reminders Care Plan OB Reminders No Open Scheduling, Background documented as of this encounter Visit Diagnoses Not on filedocumented in this encounter Additional Health Concerns Active Problems Noted Date Diagnosed Date OB Reminders 10/07/2023 documented as of this encounter Care Teams Motor Coach Supervisor Relationship Specialty Start Date End Date Yennifer Kirk MD [address] [place] [address] PCP - General Internal Medicine 09/25/23 Janae Philippe PA [address] [facility] [place] [address] PCP - [facility] 08/24/24 documented as of this encounter
--- OUTSIDE RECORDS SUMMARY | 2025-07-14 14:44 | XMS_ITS | Encounter Summary ---
Author Organization [facility] Address [address] [place] [address] Care Team Providers Care Generating Plant Superintendent Name Role Phone Yennifer Kirk MD Primary Care Provider +1- [phone] Janae Philippe Unavailable Encounter Details Date Type Department Care Team (Late st Contact Info) Description 05/06/2024 Abstract [facility] [address] [facility] [place] [address] Corina Boone LPN [address] [place] [address] Social History Tobacco Use Types Packs/Day [...] one occasion? Less than monthly 09/24/2023 Comments Yes Sex and Gender Information Value Date Recorded [...] EDT Procedure Visit [facility]ATK[facility]GYN [address] [place] [address] Shlomo Smiley DO [address] [place], [place] [id number] documented as of this encounter Goals Goal Patient Goal Type Associated Problems Recent Progress Patient-Stated? Author Reminders Care Plan OB Reminders No Open Scheduling, Background documented as of this encounter Visit Diagnoses Not on filedocumented in this encounter Additional Health Concerns Active Problems Noted Date Diagnosed Date OB Reminders 10/07/2023 documented as of this encounter Care Teams Generating Plant Superintendent Relationship Specialty Start Date End Date Yennifer Kirk MD [address] [place] [address] PCP - General Internal Medicine 09/25/23 Janae Philippe PA [address] [facility] [address] [place], [place] [id number] PCP - [facility] 08/24/24 documented as of this encounter
--- OUTSIDE RECORDS SUMMARY | 2025-07-14 14:44 | XMS_ITS | Encounter Summary ---
Author Organization [facility] Address [address] [place] [address] Care Team Providers Care Teacher Hearing Impaired Name Role Phone Yennifer Kirk MD Primary Care Provider +1- [phone] Janae Philippe Unavailable Encounter Details Date Type Department Care Team (Late st Contact Info) Description 05/19/2024 Abstract [facility] [place] [facility] [address] [place] [address] Lily Paul LPN [address] [place] [address] Social History Tobacco Use Types Packs/Day [...] EDT Procedure Visit [facility] [place] [facility] [address] [place] [address] Shlomo Smiley DO [address] [facility] [place] [address] documented as of this encounter Goals Goal Patient Goal Type Associated Problems Recent Progress Patient-Stated? Author Reminders Care Plan OB Reminders No Open Scheduling, Background documented as of this encounter Visit Diagnoses Not on filedocumented in this encounter Additional Health Concerns Active Problems Noted Date Diagnosed Date OB Reminders 10/07/2023 documented as of this encounter Care Teams Teacher Hearing Impaired Relationship Specialty Start Date End Date Yennifer Kirk MD [address] [place] [address] PCP - General Internal Medicine 09/25/23 Janae Philippe PA [address] [facility] [place] [address] PCP - [facility] 08/24/24 documented as of this encounter
--- OUTSIDE RECORDS SUMMARY | 2025-07-14 14:44 | XMS_ITS | Encounter Summary ---
Author Organization [facility] Address [address] [place] [address] Care Team Providers Care Complaints Coordinator Name Role Phone Yennifer Kirk MD Primary Care Provider +1- [phone] Janae Philippe Unavailable Encounter Details Date Type Department Care Team (Late st Contact Info) Description 06/15/2024 Abstract [facility] [address] [facility] [place] [address] Shlomo Smiley DO [address] [facility] [address] [place], [place] [id number] Social History Tobacco Use Types Packs/Day Years [...] EDT Procedure Visit [facility] [address] [facility] [place] [address] Shlomo Smiley DO [address] [facility] [address] [place] [address] documented as of this encounter Goals Goal Patient Goal Type Associated Problems Recent Progress Patient-Stated? Author Reminders Care Plan OB Reminders No Open Scheduling, Background documented as of this encounter Visit Diagnoses Not on filedocumented in this encounter Additional Health Concerns Active Problems Noted Date Diagnosed Date OB Reminders 10/07/2023 documented as of this encounter Care Teams Complaints Coordinator Relationship Specialty Start Date End Date Yennifer Kirk MD [address] [place] [address] PCP - General Internal Medicine 09/25/23 Janae Philippe PA [address] [facility] [place] [address] PCP - [facility] 08/24/24 documented as of this encounter
--- OUTSIDE RECORDS SUMMARY | 2025-07-14 14:44 | XMS_ITS | Encounter Summary ---
Author Organization [facility] Address [address] [place] [address] Care Team Providers Care Gynecology Teacher Name Role Phone Tor Torres MD Primary Care Provider +1- [phone] Janae Philippe Unavailable Encounter Details Date Type Department Care Team (Late st Contact Info) Description 04/21/2024 Clinisync Result Encounter [facility] External Department Unsolicited Jesica Smiley, DO [address] [place] [place], [place] [id number] Social History Tobacco Use Types Packs/Day Years [...] EDT Procedure Visit [facility] [address] [place] [phone] Jesica Smiley DO [address] [place] [place] [address] documented as of this encounter Goals Goal Patient Goal Type Associated Problems Recent Progress Patient-Stated? Author Reminders Care Plan OB Reminders No Open Scheduling, Background documented as of this encounter Procedures Procedure Name Priority Date/Time Associated Diagnosis Comments US OB BPP W NON-STRESS 04/21/2024 7:42 AM EDT documented in this encounter Results * US OB BPP W NON-STRESS (04/21/2024 7:42 AM EDT) Anatomical Region Laterality Modality Other 04/21/2024 7:42 AM EDT Narrative 04/21/2024 7:44 AM EDT [address] [address] Ultrasound Report Signed Patient: ISAAC TOUSSAINT MR#: [id number] : 1990 Acct:[id number] Age/Sex: 33 / F ADM Date: 04/20/24 Loc: US Attending Dr: Jesica Smiley D.O. Ordering Physician: Jesica Smiley D.O. Date of Service: 04/20/24 Procedure(s): US OB BPP w non-stress Accession Number(s): [id number] cc: Jesica Smiley D.O.; TOR TORRES [address] [address] Patient Name: ISAAC TOUSSAINT MRN: [id number] date: 1990 Sex: F Assigned Patient Location: US Current Patient Location: US Accession/Order Number: [id number] Exam Date: 04/20/2024 20:55 Report Date: 04/21/2024 07:42 At the request of: JESICA SMILEY Procedure: US OB BPP w non-stress EXAMINATION: US OB BPP w non-stress HISTORY: SGA P05.10 COMPARISON: 04/16/2024 TECHNIQUE: Ultrasound biophysical profile was performed in the radiology department. FINDINGS: BREATHING MOVEMENTS: 2.0 GROSS BODY MOVEMENTS: 2.0 TONE: 2.0 QUALITATIVE AMNIOTIC FLUID VOLUME: 2.0 PRESENTATION: CEPHALIC HEART RATE: 135.0 bpm H.B./min AMNIOTIC FLUID VOLUME: 10.7 cm cm GESTATIONAL AGE: 36 weeks 5 days CONCLUSION: Total biophysical profile score: 8.0 Electronically authenticated by: HAMLET GUTIERREZ Date: 04/21/2024 07:42 Dictated By: Hamlet Gutierrez M.D. Signed By: 04/21/2444 DD/ TD/TT: Clock And Watch Assembler: Procedure Note Radiology, Radiologist, MD - 04/21/2024 [place] [address] Ultrasound Report Signed Patient: ISAAC TOUSSAINT LMR#: [id number] : 1990Acct:[id number] Age/Sex: 33 / FADM Date: 04/20/24 Loc: US Attending Dr: Jesica Smiley D.O. Ordering Physician: Jesica Smiley D.O. Date of Service: 04/20/24 Procedure(s): US OB BPP w non-stress Accession Number(s): [id number] cc: Jesica Smiley D.O.; TOR TORRES [place] [id number] Patient Name: ISAAC TOUSSAINT MRN: [id number] date: 1990 Sex: F Assigned Patient Location: US Current Patient Location: US Accession/Order Number: [id number] Exam Date: 04/20/2024 20:55 Report Date: 04/21/2024 07:42 At the request of: JESICA SMILEY Procedure: US OB BPP w non-stress EXAMINATION: US OB BPP w non-stress HISTORY: SGA P05.10 COMPARISON: 04/16/2024 TECHNIQUE: Ultrasound biophysical profile was performed in the radiology department. FINDINGS: BREATHING MOVEMENTS: 2.0 GROSS BODY MOVEMENTS: 2.0 TONE: 2.0 QUALITATIVE AMNIOTIC FLUID VOLUME: 2.0 PRESENTATION: CEPHALIC HEART RATE: 135.0 bpm H.B./min AMNIOTIC FLUID VOLUME: 10.7 cm cm GESTATIONAL AGE: 36 weeks 5 days CONCLUSION: Total biophysical profile score: 8.0 Electronically authenticated by: HAMLET GUTIERREZ Date: 04/21/2024 07:42 Dictated By: Hamlet Gutierrez M.D. Signed By:04/21/24 0744 DD/ TD/TT: Clock And Watch Assembler: us Jesica Baljit DO [facility] Final Result documented in this encounter Visit Diagnoses Not on filedocumented in this encounter Additional Health Concerns Active Problems Noted Date Diagnosed Date OB Reminders 10/07/2023 documented as of this encounter Care Teams Gynecology Teacher Relationship Specialty Start Date End Date Tor Torres MD [address] [place] [address] PCP - General Internal Medicine 09/25/23 Janae Philippe PA [address] [place] [address] [place] [address] PCP - [facility] 08/24/24 documented as of this encounter
--- OUTSIDE RECORDS SUMMARY | 2025-07-14 14:44 | XMS_ITS | Encounter Summary ---
Author Organization [facility] Address [address] [place] [address] Care Team Providers Care Disease Case Manager Rn Name Role Phone Tor Torres MD Primary Care Provider +1- [phone] Janae Philippe Unavailable Encounter Details Date Type Department Care Team (Late st Contact Info) Description 04/16/2024 Clinisync Result Encounter [facility] External Department Unsolicited Jesica Smiley, DO [address] [place] [place], [place] [phone] Social History Tobacco Use Types Packs/Day Years [...] EDT Procedure Visit [facility] [address] [place] [address] Jesica Smiley DO [address] [place] [place] [address] documented as of this encounter Goals Goal Patient Goal Type Associated Problems Recent Progress Patient-Stated? Author Reminders Care Plan OB Reminders No Open Scheduling, Background documented as of this encounter Procedures Procedure Name Priority Date/Time Associated Diagnosis Comments US OB GROWTH 04/16/2024 1:55 PM EDT documented in this encounter Results * US OB GROWTH (04/16/2024 1:55 PM EDT) Anatomical Region Laterality Modality Other 04/16/2024 1:55 PM EDT Narrative 04/16/2024 1:58 PM EDT [address] [address] Ultrasound Report Signed Patient: ISAAC TOUSSAINT MR#: [id number] : 1990 Acct:[id number] Age/Sex: 33 / F ADM Date: 04/16/24 Loc: US Attending Dr: Jesica Smiley D.O. Ordering Physician: Jesica Smiley D.O. Date of Service: 04/16/24 Procedure(s): US OB growth Accession Number(s): [id number] cc: Jesica Smiley D.O.; TOR TORRES [address] [address] Patient Name: ISAAC TOUSSAINT MRN: [id number] date: 1990 Sex: F Assigned Patient Location: [facility] Current Patient Location: US Accession/Order Number: [id number] Exam Date: 04/16/2024 12:30 Report Date: 04/16/2024 13:55 At the request of: JESICA SMILEY Procedure: US OB growth EXAMINATION: US OB growth HISTORY: HISTORY OF GASTRIC BYPASS Z98.84 COMPARISON: Ultrasound OB growth 03/05/2024 FINDINGS: Heart Rate: 145.9 bpm Number: 1.0 Position: CEPHALIC Amniotic Fluid Volume: 12.5 cm Maximum Vertical Pocket: 4.0 cm BIOMETRY: BPD: 8.6 cm cm; 34 weeks 4 days; 17% HC: 32.3 cmcm; 36 weeks 4 days ; 30% AC: 32.7 cm cm; 36 weeks 4 days; 73% FL: 6.8 cm cm; 34 weeks 6 days; 15% EFW: 2799.0 grams; 45% FL/AC: 20.7 FL/BPD: 79.0 HC/AC: 1.0 GESTATIONAL AGE: Age by EDC: 36 weeks 1 days RODERICK by EDC: 05/13/2024 Age by US: 35 weeks 5 days RODERICK by US: 05/16/2024 US/US OB growth IMPRESSION: 1. Single live intrauterine with growth detailed above. Electronically authenticated by: ANATOLIY GONZALEZ Date: 04/16/2024 13:55 Dictated By: Anatoliy Gonzalez M.D. Signed By: 04/16/24 1353 DD/ 1358 TD/TT: Flooring Sales Manager: Procedure Note Radiology, Radiologist, MD - 04/16/2024 [place] [address] Ultrasound Report Signed Patient: ISAAC TOUSSAINT LMR#: [id number] : 1990Acct:[id number] Age/Sex: 33 / FADM Date: 04/16/24 Loc: US Attending Dr: Jesica Smiley D.O. Ordering Physician: Jesica Smiley D.O. Date of Service: 04/16/24 Procedure(s): US OB growth Accession Number(s): [id number] cc: Jesica Smiley D.O.; TOR TORRES [place] [id number] Patient Name: ISAAC TOUSSAINT MRN: [id number] date: 1990 Sex: F Assigned Patient Location: [facility] Current Patient Location: US Accession/Order Number: [id number] Exam Date: 04/16/2024 12:30 Report Date: 04/16/2024 13:55 At the request of: JESICA SMILEY Procedure: US OB growth EXAMINATION: US OB growth HISTORY: HISTORY OF GASTRIC BYPASS Z98.84 COMPARISON: Ultrasound OB growth 03/05/2024 FINDINGS: Heart Rate: 145.9 bpm Number: 1.0 Position: CEPHALIC Amniotic Fluid Volume: 12.5 cm Maximum Vertical Pocket: 4.0 cm BIOMETRY: BPD: 8.6 cm cm; 34 weeks 4 days; 17% HC: 32.3 cmcm; 36 weeks 4 days ; 30% AC: 32.7 cm cm; 36 weeks 4 days; 73% FL: 6.8 cm cm; 34 weeks 6 days; 15% EFW: 2799.0 grams; 45% FL/AC: 20.7 FL/BPD: 79.0 HC/AC: 1.0 GESTATIONAL AGE: Age by EDC: 36 weeks 1 days RODERICK by EDC: 05/13/2024 Age by US: 35 weeks 5 days RODERICK by US: 05/16/2024 US/US OB growth IMPRESSION: 1. Single live intrauterine with growth detailed above. Electronically authenticated by: ANATOLIY GONZALEZ Date: 04/16/2024 13:55 Dictated By: Anatoliy Gonzalez M.D. Signed By:04/16/24 1358 DD/ 1355 TD/TT: Flooring Sales Manager: us Jesica Smiley DO [facility] Final Result documented in this encounter Visit Diagnoses Not on filedocumented in this encounter Additional Health Concerns Active Problems Noted Date Diagnosed Date OB Reminders 10/07/2023 documented as of this encounter Care Teams Disease Case Manager Rn Relationship Specialty Start Date End Date Tor Torres MD [address] [place] [address] PCP - General Internal Medicine 09/25/23 Janae Philippe PA [address] [facility] [address] [place], [facility]11 [facility] 08/24/24 documented as of this encounter
--- OUTSIDE RECORDS SUMMARY | 2025-07-14 14:44 | XMS_ITS | Encounter Summary ---
Author Organization [facility] Address [address] [place] [address] Care Team Providers Care Metal Die Finisher Name Role Phone Yennifer Kirk MD Primary Care Provider +1- [phone] Janae Philippe Unavailable Encounter Details Date Type Department Care Team (Late st Contact Info) Description 05/06/2024 Abstract [facility] [address] [facility] [place] [address] Corina Boone LPN [address] [place] [address] Social History Tobacco Use Types [...] EDT Procedure Visit [facility] [address] [place] [address] Shlomo Smiley DO [address] [place], [place] [address] documented as of this encounter Goals Goal Patient Goal Type Associated Problems Recent Progress Patient-Stated? Author Reminders Care Plan OB Reminders No Open Scheduling, Background documented as of this encounter Visit Diagnoses Not on filedocumented in this encounter Additional Health Concerns Active Problems Noted Date Diagnosed Date OB Reminders 10/07/2023 documented as of this encounter Care Teams Metal Die Finisher Relationship Specialty Start Date End Date Yennifer Kirk MD [address] [place] [address] PCP - General Internal Medicine 09/25/23 Janae Philippe PA [address] [facility] [address] [place], [place] [phone] PCP - [facility] 08/24/24 documented as of this encounter
--- OUTSIDE RECORDS SUMMARY | 2025-07-14 14:45 | XMS_ITS | Encounter Summary ---
Author Organization [employer] Address [id number] [address] [place] [address] Care Team Providers Care Leather Roller Name Role Phone Yennifer Kirk MD Primary Care Provider + Encounter Details Date Type Department Care Team (Late st Contact Info) Description 05/01/2021 Orders Only [facility] [address] [place] [phone] External, Scanning Provider Social History Tobacco Use Types Packs/Day Years [...] Orientation Straight 10/05/2021 4: 35 AM EST documented as of this encounter Plan of Treatment Not on file documented as of this encounter Procedures Procedure Name Priority Date/Time Associated Diagnosis Comments ECG 12-LEAD Routine 01/11/2021 documented in this encounter Results * ECG 12 lead (01/11/2021) us Scanning Provider External ECG ORDERABLES Final Result MANUALLY TRANSCRIBED RESULTS documented in this encounter Visit Diagnoses Not on filedocumented in this encounter Additional Health Concerns Infection Onset Date Last Indicated Resolved Time COVID-19 Rule-Out 08/30/2021 08/30/2021 08/30/2021 3:25 PM EDT Enteric Rule-Out 02/22/2023 02/22/2023 02/22/2023 5:55 PM EDT Assessment Noted Time A Body Mass Index follow-up plan has been documented for the patient 02/26/2021 10:30 AM EDT documented as of this encounter Care Teams Leather Roller Relationship Specialty Start Date End Date Yennifer Kirk MD PCP - General Pediatrics 08/02/23 documented as of this encounter
--- OUTSIDE RECORDS SUMMARY | 2025-07-14 14:45 | XMS_ITS | Encounter Summary ---
Author Organization [facility] Address [address] [place] [address] Care Team Providers Care Network Desktop Support Specialist Name Role Phone Tor Torres MD Primary Care Provider +1- [phone] Janae Philippe Unavailable Encounter Details Date Type Department Care Team (Late st Contact Info) Description 03/31/2024 Clinisync Result Encounter [facility] External Department Unsolicited Jesica Smiley, DO [address] [place] [place], [place] [phone] Social History Tobacco Use Types Packs/Day Years [...] EDT Procedure Visit [facility] [address] [place] [phone] Jesica Smiely DO [address] [place] [place] [address] documented as of this encounter Goals Goal Patient Goal Type Associated Problems Recent Progress Patient-Stated? Author Reminders Care Plan OB Reminders No Open Scheduling, Background documented as of this encounter Procedures Procedure Name Priority Date/Time Associated Diagnosis Comments US OB BPP W NON-STRESS 03/31/2024 10:42 AM EDT documented in this encounter Results * US OB BPP W NON-STRESS (03/31/2024 10:42 AM EDT) Anatomical Region Laterality Modality Other 03/31/2024 10:4 2 AM EDT Narrative 03/31/2024 10:44 AM EDT [address] [address] Ultrasound Report Signed Patient: ISAAC TOUSSAINT MR#: [id number] : 1990 Acct:[id number] Age/Sex: 33 / F ADM Date: Loc: [facility] 255-[address]: Jesica Smiley D.O. Ordering Physician: Jesica Smiley D.O. Date of Service: 03/31/24 Procedure(s): US OB BPP w non-stress Accession Number(s): [id number] cc: Jesica Smiley D.O.; TOR TORRES [address] [address] Patient Name: ISAAC TOUSSAINT MRN: [id number] date: 1990 Sex: F Assigned Patient Location: [facility] Current Patient Location: [facility] Accession/Order Number: [id number] Exam Date: 03/31/2024 10:15 Report Date: 03/31/2024 10:42 At the request of: JESICA SMILEY Procedure: US OB BPP w non-stress EXAMINATION: US OB BPP w non-stress HISTORY: cramping previous c/s x 3 COMPARISON: No relevant comparison available. TECHNIQUE: Ultrasound biophysical profile was performed in the radiology department. FINDINGS: BREATHING MOVEMENTS: 2.0 GROSS BODY MOVEMENTS: 2.0 TONE: 2.0 QUALITATIVE AMNIOTIC FLUID VOLUME: 2.0 PRESENTATION: CEPHALIC HEART RATE: 150.0 bpm H.B./min AMNIOTIC FLUID VOLUME: 12.0 cm cm GESTATIONAL AGE: 33 weeks 6 days CONCLUSION: Total biophysical profile score: 8.0 Electronically authenticated by: HAMLET GUTIERREZ Date: 03/31/2024 10:42 Dictated By: Hamlet Gutierrez M.D. Signed By: 03/31/24 1044 DD/ 1042 TD/TT: Folded Cloth Taper: Procedure Note Radiology, Radiologist, MD - 03/31/2024 [place] [address] Ultrasound Report Signed Patient: ISAAC TOUSSAINT LMR#: [id number] : 1990Acct:[id number] Age/Sex: 33 / FADM Date: Loc: [facility] 255-[address]: Jesica Smiley D.O. Ordering Physician: Jesica Smiley D.O. Date of Service: 03/31/24 Procedure(s): US OB BPP w non-stress Accession Number(s): [id number] cc: Jesica Smiley D.O.; TOR TORRES [place] [id number] Patient Name: ISAAC TOUSSAINT MRN: [id number] date: 1990 Sex: F Assigned Patient Location: [facility] Current Patient Location: [facility] Accession/Order Number: [id number] Exam Date: 03/31/2024 10:15 Report Date: 03/31/2024 10:42 At the request of: JESICA SMILEY Procedure: US OB BPP w non-stress EXAMINATION: US OB BPP w non-stress HISTORY: cramping previous c/s x 3 COMPARISON: No relevant comparison available. TECHNIQUE: Ultrasound biophysical profile was performed in the radiology department. FINDINGS: BREATHING MOVEMENTS: 2.0 GROSS BODY MOVEMENTS: 2.0 TONE: 2.0 QUALITATIVE AMNIOTIC FLUID VOLUME: 2.0 PRESENTATION: CEPHALIC HEART RATE: 150.0 bpm H.B./min AMNIOTIC FLUID VOLUME: 12.0 cm cm GESTATIONAL AGE: 33 weeks 6 days CONCLUSION: Total biophysical profile score: 8.0 Electronically authenticated by: HAMLET GUTIERREZ Date: 03/31/2024 10:42 Dictated By: Hamlet Gutierrez M.D. Signed By:03/31/24 1044 DD/ 1042 TD/TT: Folded Cloth Taper: us Jesica Baljit DO [facility] Final Result documented in this encounter Visit Diagnoses Not on filedocumented in this encounter Additional Health Concerns Active Problems Noted Date Diagnosed Date OB Reminders 10/07/2023 documented as of this encounter Care Teams Network Desktop Support Specialist Relationship Specialty Start Date End Date Tor Torres MD [address] [place] [address] PCP - General Internal Medicine 09/25/23 Janae Philippe PA [address] [place] [address] [place] [address] PCP - [facility] 08/24/24 documented as of this encounter
--- OUTSIDE RECORDS SUMMARY | 2025-07-14 14:45 | XMS_ITS | Encounter Summary ---
Author Organization [facility] Address [address] [place] [address] Care Team Providers Care Cargo Broker Name Role Phone Tor Torres MD Primary Care Provider +1- [phone] Janae Philippe Unavailable Encounter Details Date Type Department Care Team (Late st Contact Info) Description 04/14/2024 Clinisync Result Encounter [facility] External Department Unsolicited Jesica Smiley, DO [address] [place], [place] [phone] Social History Tobacco Use Types Packs/Day Years [...] EDT Procedure Visit [facility] [address] [place] [phone] Jesica Smiley DO [address] [place] [address] documented as of this encounter Goals Goal Patient Goal Type Associated Problems Recent Progress Patient-Stated? Author Reminders Care Plan OB Reminders No Open Scheduling, Background documented as of this encounter Procedures Procedure Name Priority Date/Time Associated Diagnosis Comments US OB BPP W NON-STRESS 04/14/2024 7:28 AM EDT documented in this encounter Results * US OB BPP W NON-STRESS (04/14/2024 7:28 AM EDT) Anatomical Region Laterality Modality Other 04/14/2024 7:28 AM EDT Narrative 04/14/2024 7:30 AM EDT [address] [address] Ultrasound Report Signed Patient: ISAAC TOUSSAINT MR#: [id number] : 1990 Acct:[id number] Age/Sex: 33 / F ADM Date: 04/13/24 Loc: US Attending Dr: Jesica Smiley D.O. Ordering Physician: Jesica Smiley D.O. Date of Service: 04/13/24 Procedure(s): US OB BPP w non-stress Accession Number(s): [id number] cc: Jesica Smiley D.O.; TOR TORRES [address] [address] Patient Name: ISAAC TOUSSAINT MRN: [id number] date: 1990 Sex: F Assigned Patient Location: US Current Patient Location: Accession/Order Number: [id number] Exam Date: 04/13/2024 16:09 Report Date: 04/14/2024 07:28 At the request of: JESICA SMILEY Procedure: US OB BPP w non-stress EXAMINATION: US OB BPP w non-stress HISTORY: SGA P05.10 COMPARISON: No relevant comparison available. TECHNIQUE: Ultrasound biophysical profile was performed in the radiology department. non-reactive stress testing was performed by nursing staff in the birthing center. FINDINGS: BREATHING MOVEMENTS: 0.0 GROSS BODY MOVEMENTS: 2.0 TONE: 2.0 QUALITATIVE AMNIOTIC FLUID VOLUME: 2.0 PRESENTATION: CEPHALIC HEART RATE: 147.5 bpm H.B./min AMNIOTIC FLUID VOLUME: 14.3 cm cm GESTATIONAL AGE: 35 weeks 5 days CONCLUSION: Total biophysical profile score: 6.0 Electronically authenticated by: HAMLET GUTIERREZ Date: 04/14/2024 07:28 Dictated By: Hamlet Gutierrez M.D. Signed By: 04/14/24729 DD/ 7 TD/TT: Public Speaking Instructor: Procedure Note Radiology, Radiologist, MD - 04/14/2024 [place] [address] Ultrasound Report Signed Patient: ISAAC TOUSSAINT LMR#: [id number] : 1990Acct:[id number] Age/Sex: 33 / FADM Date: 04/13/24 Loc: US Attending Dr: Jesica Smiley D.O. Ordering Physician: Jesica Smiley D.O. Date of Service: 04/13/24 Procedure(s): US OB BPP w non-stress Accession Number(s): [id number] cc: Jesica Smiley D.O.; TOR TORRES [address] [address] Patient Name: ISAAC TOUSSAINT MRN: [id number] date: 1990 Sex: F Assigned Patient Location: US Current Patient Location: Accession/Order Number: [id number] Exam Date: 04/13/2024 16:09 Report Date: 04/14/2024 07:28 At the request of: JESICA SMILEY Procedure: US OB BPP w non-stress EXAMINATION: US OB BPP w non-stress HISTORY: SGA P05.10 COMPARISON: No relevant comparison available. TECHNIQUE: Ultrasound biophysical profile was performed in the radiology department. non-reactive stress testing was performed by nursingstaff in the birthing center. FINDINGS: BREATHING MOVEMENTS: 0.0 GROSS BODY MOVEMENTS: 2.0 TONE: 2.0 QUALITATIVE AMNIOTIC FLUID VOLUME: 2.0 PRESENTATION: CEPHALIC HEART RATE: 147.5 bpm H.B./min AMNIOTIC FLUID VOLUME: 14.3 cm cm GESTATIONAL AGE: 35 weeks 5 days CONCLUSION: Total biophysical profile score: 6.0 Electronically authenticated by: HAMLET GUTIERREZ Date: 04/14/2024 07:28 Dictated By: Hamlet Gutierrez M.D. Signed By:04/14/24729 DD/ 7 TD/TT: Public Speaking Instructor: us Jesica Smiley DO [facility] Final Result documented in this encounter Visit Diagnoses Not on filedocumented in this encounter Additional Health Concerns Active Problems Noted Date Diagnosed Date OB Reminders 10/07/2023 documented as of this encounter Care Teams Cargo Broker Relationship Specialty Start Date End Date Tor Torres MD [address] [place] [address] PCP - General Internal Medicine 09/25/23 Janae Philippe PA [address] [place] [address] [place] [address] PCP - [facility] 08/24/24 documented as of this encounter
--- OUTSIDE RECORDS SUMMARY | 2025-07-14 14:45 | XMS_ITS | Encounter Summary ---
Author Organization [facility] Address [address] [place] [address] Care Team Providers Care Counter Cutter Name Role Phone Unavailable Primary Care Provider Unavailabl e Source Comments In the event this information is protected by the Federal Confidentiality of Alcohol and Drug AbusePatient Records regulations: The Federal rules restrict any use of the information to criminally investigate or prosecute any alcohol or drug abuse patient.[facility] Encounter Details Date Type Department Care Team (Late st Contact Info) Description 12/13/2020 [facility] [address] [place] [address] Tien Patterson MD [address] [place] [address] Social History Tobacco Use Types Packs/Day Years Used Date Smoking Tobacco: Never Assessed Area Deprivation Index Answer Date Conor rded National Score (1-100), lower number is lower ri sk Not on file 12/12/2020 State Score (1-10), lower number is lower risk N ot on file 12/12/2020 Data from: https://www.neighborhoodatlas.medicine.[facility].edu/. Last address used for calculation Not on file 12/12/2020 Comments Unknown Sex and Gender Information Value Date Recorded Sex Assigned at Not on file Legal Sex Female 5:12 PM EST Gender Identity Not on file Sexual Orientation Not on file COVID-19 Exposure Response Date Recorded In the last month, have you been in contact with someone who was confirmed or suspected to have Coronavirus / COVID-19? No / Unsure 12/15/2020 5:57 PM EST documented as of this encounter Plan of Treatment Not on file documented as of this encounter Visit Diagnoses Not on filedocumented in this encounter Additional Health Concerns Infection Onset Date Last Indicated Resolved Time COVID-19 Rule-Out 12/16/2020 12/16/2020 12/16/2020 7:50 AM EST documented as of this encounter
--- OUTSIDE RECORDS SUMMARY | 2025-07-14 14:45 | XMS_ITS | Clinical Summary ---
Author Organization [facility] Address [address] [place] [address] Care Team Providers Care Insurance Administrative Assistant Name Role Phone Yennifer Kirk MD Primary Care Provider +1- [phone] Allergies No known active allergies Medications MV-Min-Fe Fum-FA-DHA ( 1 PO) Take by mouth 025 Discontinued docusate sodium (Colace) 100 MG capsule Take 100 mg by mouth in the morning and 100 mg before bedtime. 05/04/20 24 025 Discontinued norethindrone (Micronor) 0.35 MG tabletIndications :Encounter for initial prescription of contraceptive pills Take 1 tablet (0.35 mg) by mouth Daily Take 1 tablet by mouth daily 28 tablet 06/14/20 24 025 Discontinued Encounters Date Type Department Care Team Description 07/14/2025 11:30 AM EDT Procedure Visit [facility] [address] [place] [address] Janae Philippe PA Well woman exam with routine gynecological exam 07/14/2025 Bamboo flowsheet [facility] [address] [place] [address] Janae Philippe PA from Last 3 Months Family History Medical History Relation Name Comments Diabetes Maternal Grandmother Naz Hickey Heart failure Mother Ila Hickey Thyroid disease Sister Persann Fleshman Relation Name Status Comments Maternal Grandmother Naz Hickey Mother Ila Hickey Other uncle Sister Samara Jacobo Social History Tobacco Use Types Packs/Day Years Used Date Smoking Tobacco: Former Cigarettes 0.3 6.9 0 07/25/2016 - 04/24/2023 Smokeless Tobacco: Never Tobacco Cessation:Counseling Given: Not Answered Alcohol Use Standard Drinks/Week Comments Yes 0 [...] Orientation Straight 09/26/2023 11 :02 AM EDT Last Filed Vital Signs Vital Sign Reading Time Taken Comments Blood Pressure 130/76 07/14/2025 11:55 AM EDT Pulse - - Temperature - - Respiratory Rate - - Oxygen Saturation - - Inhaled Oxygen Concentration - - Weight 113 kg (249 lb 1.9 oz) 07/14/2025 11:55 A M EDT Height 149.9 cm (4' 11 ) 05/19/2024 2:05 PM EDT Body Mass Index 50.32 05/19/2024 2:05 PM EDT Plan of Treatment Upcoming Encounters Date Type Department Care Team (Late st Contact Info) Description 08/11/2025 11:30 AM EDT Procedure Visit [facility] [address] [place] [phone] Shlomo Smiley DO [address] [place] [address] Goals Goal Patient Goal Type Associated Problems Recent Progress Patient-Stated? Author Reminders Care Plan OB Reminders No Open Scheduling, Background Additional Health Concerns Active Problems Noted Date Diagnosed Date OB Reminders 10/07/2023 Insurance [employer] Care Teams Insurance Administrative Assistant Relationship Specialty Start Date End Date Yennifer Kirk MD [address] [place] [phone] PCP - General Internal Medicine 09/25/23
--- OUTSIDE RECORDS SUMMARY | 2025-07-14 14:45 | XMS_ITS | Encounter Summary ---
Author Organization [facility] Address [address] [place] [address] Care Team Providers Care Dinker Name Role Phone Tor Torres MD Primary Care Provider +1- [phone] Janae Philippe Unavailable Encounter Details Date Type Department Care Team (Late st Contact Info) Description 02/16/2024 Clinisync Result Encounter [facility] External Department Unsolicited Jesica Smiley, DO [address] [place], [place] [id number] Social History Tobacco Use Types Packs/Day Years [...] EDT Procedure Visit [facility] [address] [facility] [place] [address] Jesica Smiley DO [address] [place] [place] [address] documented as of this encounter Goals Goal Patient Goal Type Associated Problems Recent Progress Patient-Stated? Author Reminders Care Plan OB Reminders No Open Scheduling, Background documented as of this encounter Procedures Procedure Name Priority Date/Time Associated Diagnosis Comments OB GROWTH 02/16/2024 7:28 AM EDT documented in this encounter Results * US OB GROWTH (02/16/2024 7:28 AM EDT) Anatomical Region Laterality Modality Other 02/16/2024 7:28 AM EDT Narrative 02/16/2024 7:31 AM EDT [address] [address] Ultrasound Report Signed Patient: ISAAC TOUSSAINT MR#: [id number] : 1990 Acct:[id number] Age/Sex: 33 / F ADM Date: 02/14/24 Loc: US Attending Dr: Jesica Smiley D.O. Ordering Physician: Jesica Smiley D.O. Date of Service: 02/14/24 Procedure(s): US OB growth Accession Number(s): [id number] cc: Jesica Smiley D.O.; OTR TORRES [address] [address] Patient Name: ISAAC TOUSSAINT MRN: [id number] date: 1990 Sex: F Assigned Patient Location: Current Patient Location: Accession/Order Number: [id number] Exam Date: 02/14/2024 08:02 Report Date: 02/16/2024 07:28 At the request of: JESICA SMILEY Procedure: US OB growth EXAMINATION: US OB growth HISTORY: size inconsistent with dates COMPARISON: No relevant comparison available. FINDINGS: Heart Rate: 149.2 bpm Amniotic Fluid Volume: 12.3 cm Number: 1.0 Position: CEPHALIC Maximum Vertical Pocket: 3.8 cm cm 3.2 cm cm 2.3 cm cm 3.0 cm cm BIOMETRY: BPD: 6.5 cm cm; 26 weeks 1 days; 10% HC: 25.2 cmcm; 27 weeks 3 days , 25% AC: 22.7 cm cm; 27 weeks 1 days, 35% FL: 4.7 cm cm; 25 weeks 6 days; 5.9 % % EFW: 960.9 grams, 2 lbs. 2 oz., 16% FL/AC: 20.9 FL/BPD: 73.2 HC/AC: 1.1 GESTATIONAL AGE: Age by EDC: 27 weeks 2 days RODERICK by EDC: 05/13/2024 Age by US: 26 weeks 5 days RODERICK by US: 05/17/2024 US/US OB growth IMPRESSION: Normal interval growth Electronically authenticated by: HAMLET GUTIERREZ Date: 02/16/2024 07:28 Dictated By: Hamlet Gutierrez M.D. Signed By: 02/16/24730 DD/ 7 TD/TT: Event Coordinator Marketing And Sales: Procedure Note Radiology, Radiologist, MD - 02/16/2024 [place] [address] Ultrasound Report Signed Patient: ISAAC TOUSSAINT LMR#: [id number] : 1990Acct:[id number] Age/Sex: 33 / FADM Date: 02/14/24 Loc: US Attending Dr: Jesica Smiley D.O. Ordering Physician: Jesica Smiley D.O. Date of Service: 02/14/24 Procedure(s): US OB growth Accession Number(s): [id number] cc: Jesica Smiley D.O.; TOR TORRES [place] [id number] Patient Name: ISAAC WALLACEN: [id number] date: 1990 Sex: F Assigned Patient Location: US Current Patient Location: Accession/Order Number: [id number] Exam Date: 02/14/2024 08:02 Report Date: 02/16/2024 07:28 At the request of: JESICA SMILEY Procedure: US OB growth EXAMINATION: US OB growth HISTORY: size inconsistent with dates COMPARISON: No relevant comparison available. FINDINGS: Heart Rate: 149.2 bpm Amniotic Fluid Volume: 12.3 cm Number: 1.0 Position: CEPHALIC Maximum Vertical Pocket: 3.8 cm cm 3.2 cm cm 2.3 cm cm 3.0 cm cm BIOMETRY: BPD: 6.5 cm cm; 26 weeks 1 days; 10% HC: 25.2 cmcm; 27 weeks 3 days , 25% AC: 22.7 cm cm; 27 weeks 1 days, 35% FL: 4.7 cm cm; 25 weeks 6 days; 5.9 % % EFW: 960.9 grams, 2 lbs. 2 oz., 16% FL/AC: 20.9 FL/BPD: 73.2 HC/AC: 1.1 GESTATIONAL AGE: Age by EDC: 27 weeks 2 days RODERICK by EDC: 05/13/2024 Age by US: 26 weeks 5 days RODERICK by US: 05/17/2024 US/US OB growth IMPRESSION: Normal interval growth Electronically authenticated by: HAMLET GUTIERREZ Date: 02/16/2024 07:28 Dictated By: Hamlet Gutierrez M.D. Signed By:02/16/2431 DD/ TD/TT: Event Coordinator Marketing And Sales: us Jesica Smiley DO [facility] Final Result documented in this encounter Visit Diagnoses Not on filedocumented in this encounter Additional Health Concerns Active Problems Noted Date Diagnosed Date OB Reminders 10/07/2023 documented as of this encounter Care Teams Dinker Relationship Specialty Start Date End Date Tor Torres MD [address] [place] [address] PCP - General Internal Medicine 09/25/23 Janae Philippe PA [address] [facility] [address] [place], [place] [address] PCP - [facility] 08/24/24 documented as of this encounter
--- OUTSIDE RECORDS SUMMARY | 2025-07-14 14:45 | XMS_ITS | Encounter Summary ---
Author Organization [facility] Address [address] [place] [address] Care Team Providers Care Mechanic'S Assistant Name Role Phone Tor Torres MD Primary Care Provider +1- [phone] Janae Philippe Unavailable Encounter Details Date Type Department Care Team (Late st Contact Info) Description 12/29/2023 Clinisync Result Encounter [facility] External Department Unsolicited Jesica Smiley, DO [address] [place], [place] [phone] Social History Tobacco Use Types Packs/Day Years [...] EDT Procedure Visit [facility] [address] [place] [phone] Jesica Smiley DO [address] [place] [place] [address] documented as of this encounter Goals Goal Patient Goal Type Associated Problems Recent Progress Patient-Stated? Author Reminders Care Plan OB Reminders No Open Scheduling, Background documented as of this encounter Procedures Procedure Name Priority Date/Time Associated Diagnosis Comments US OB ANATOMY 12/29/2023 11:01 AM EST documented in this encounter Results * US OB ANATOMY (12/29/2023 11:01 AM EST) Anatomical Region Laterality Modality Other 12/29/2023 11:0 1 AM EST Narrative 12/29/2023 11:03 AM EST [address] [address] Ultrasound Report Signed Patient: ISAAC TOUSSAINT MR#: [id number] : 1990 Acct:[id number] Age/Sex: 32 / F ADM Date: 12/29/23 Loc: [facility] Attending Dr: Jesica Smiley D.O. Ordering Physician: Jesica Smiley D.O. Date of Service: 12/29/23 Procedure(s): US OB anatomy Accession Number(s): [id number] cc: Jesica Smiley D.O.; TOR TORRES [address] [address] Patient Name: ISAAC TOUSSAINT MRN: [id number] date: 1990 Sex: F Assigned Patient Location: [facility] Current Patient Location: [facility] Accession/Order Number: [id number] Exam Date: 12/29/2023 09:11 Report Date: 12/29/2023 11:01 At the request of: JESICA SMILEY Procedure: US OB anatomy EXAMINATION: US OB anatomy, US OB cervical length HISTORY: ANATOMY COMPARISON: No relevant comparison available. TECHNIQUE: Transabdominal sonographic examination was performed for obstetrical and evaluation. FINDINGS: Suboptimal exam secondary to maternal body habitus Number: 1 Heart Rate: 150.0 bpm H.B. /min Amniotic Fluid Volume: Subjectively normal position: Variable Placental Location: ANTERIOR, placental edge is 3.6 cm from the internal os Cervix Length: 3.8 cm , closed Normal anatomy: Lateral ventricles, cerebellum, posterior fossa, orbits, four-chamber heart, diaphragm, stomach, kidneys, abdominal cord insertion, bladder, umbilical arteries, spine, extremities Nonvisualized: Nose, lips, RVOT, LVOT, three-vessel cord BIOMETRY: BPD: 4.7 cm 20 weeks 2 days , 39% HC: 18.2 cm 20 weeks 4 days, 43% AC: 15.4 cm 20 weeks 4 days, 43% FL: 3.4 cm 20 weeks 5 days , 44% EFW:363.4 grams; 13 ounces, 46% FL/AC: 22.1 FL/BPD: 71.5 HC/AC: 1.2 GESTATIONAL AGE: Age by EDC: 20 weeks 4 days Age by current US: 20 weeks 4 days RODERICK by current US: 05/13/2024 RODERICK by EDC: 05/13/2024 US/US OB anatomy IMPRESSION: Low lying placenta, the placental edge is 3.6 cm from the internal os Nonvisualization detailed above Closed cervix measuring 3.8 cm in length *Reference: [employer] Practice Guideline for the performance of Obstetric Ultrasound Examinations, August 24, 2007. Electronically authenticated by: HAMLET GUTIERREZ Date: 12/29/2023 11:01 Dictated By: Hamlet Gutierrez M.D. Signed By: 12/29/23 1103 DD/ 1101 TD/TT: Aircraft De Icer Installer: Procedure Note Radiology, Radiologist, - 12/29/2023 [place] [address] Ultrasound Report Signed Patient: ISAAC TOUSSAINT LMR#: [id number] : 1990Acct:[id number] Age/Sex: 32 / FADM Date: 12/29/23 Loc: [facility] Attending Dr: Jesica Smiley D.O. Ordering Physician: Jesica Smiley D.O. Date of Service: 12/29/23 Procedure(s): US OB anatomy Accession Number(s): [id number] cc: Jesica Smiley D.O.; TOR TORRES [place] [address] Patient Name: ISAAC TOUSSAINT MRN: [id number] date: 1990 Sex: F Assigned Patient Location: [facility] Current Patient Location: [facility] Accession/Order Number: [id number] Exam Date: 12/29/2023 09:11 Report Date: 12/29/2023 11:01 At the request of: JESICA SMILEY Procedure: US OB anatomy EXAMINATION: US OB anatomy, US OB cervical length HISTORY: ANATOMY COMPARISON: No relevant comparison available. TECHNIQUE: Transabdominal sonographic examination was performed for obstetrical and evaluation. FINDINGS: Suboptimal exam secondary to maternal body habitus Number: 1 Heart Rate: 150.0 bpm H.B. /min Amniotic Fluid Volume: Subjectively normal position: Variable Placental Location: ANTERIOR, placental edge is 3.6 cm from the internalos Cervix Length: 3.8 cm , closed Normal anatomy: Lateral ventricles, cerebellum, posterior fossa, orbits, four-chamber heart, diaphragm, stomach, kidneys, abdominal cord insertion, bladder, umbilical arteries, spine, extremities Nonvisualized: Nose, lips, RVOT, LVOT, three-vessel cord BIOMETRY: BPD: 4.7 cm 20 weeks 2 days , 39% HC: 18.2 cm 20 weeks 4 days, 43% AC: 15.4 cm 20 weeks 4 days, 43% FL: 3.4 cm 20 weeks 5 days , 44% EFW:363.4 grams; 13 ounces, 46% FL/AC: 22.1 FL/BPD: 71.5 HC/AC: 1.2 GESTATIONAL AGE: Age by EDC: 20 weeks 4 days Age by current US: 20 weeks 4 days RODERICK by current US: 05/13/2024 RODERICK by EDC: 05/13/2024 US/US OB anatomy IMPRESSION: Low lying placenta, the placental edge is 3.6 cm from the internal os Nonvisualization detailed above Closed cervix measuring 3.8 cm in length *Reference: [employer] Practice Guideline for the performance of Obstetric Ultrasound Examinations, August 24, 2007. Electronically authenticated by: HAMLET GUTIERREZ Date: 12/29/2023 11:01 Dictated By: Hamlet Gutierrez M.D. Signed By:12/29/23 1103 DD/ 1101 TD/TT: Aircraft De Icer Installer: us Jesica Baljit DO [facility] Final Result documented in this encounter Visit Diagnoses Not on filedocumented in this encounter Additional Health Concerns Active Problems Noted Date Diagnosed Date OB Reminders 10/07/2023 documented as of this encounter Care Teams Mechanic'S Assistant Relationship Specialty Start Date End Date Tor Torres MD [address] [place] [address] PCP - General Internal Medicine 09/25/23 Janae Philippe PA [address] [place] [address] [place] [address] PCP - [facility] 08/24/24 documented as of this encounter
--- OUTSIDE RECORDS SUMMARY | 2025-07-14 14:45 | XMS_ITS | Clinical Summary ---
Author Organization [facility] Address [address] [place] [address] Care Team Providers Care Html Developer Name Role Phone Unavailable Primary Care Provider Unavailabl e Allergies No known active allergies Medications albuterol HFA (PROVENTIL HFA, VENTOLIN HFA) 90 mcg/actuation inhaler Inhale 2 Puffs as instructed every 6 hours as needed. Active atenolol (TENORMIN) 25 mg tablet Take 12.5 mg by mouth once daily. 0 Active cetirizine (ZYRTEC) 10 mg tablet Take 10 mg by mouth as needed. Active famotidine (PEPCID) 20 mg tablet Take 20 mg by mouth twice daily. 1 Active FLOVENT HFA 110 mcg/actuation inhaler 2 Puffs twice daily as needed. 0 Active keTORolac (TORADOL) 10 mg tablet Take 10 mg by mouth every 6 hours as needed. 1 Active montelukast (SINGULAIR) 10 mg tablet Take 10 mg by mouth at bedtime as needed (for asthma flare ups). Active promethazine (PHENERGAN) 25 mg tablet TAKE 1 TABLET (25 MG TOTAL) BY MOUTH EVERY 6 (SIX) HOURS NEEDED FOR NAUSEA OR VOMITING. 1 Active Active Problems Problem Noted Date Diagnosed Date Obesity, Class III, BMI >= 40 12/14/2020 Assessment & Plan (12/18/2020 7:10 AM EST): Assessment: BMI 64.25 kg/m2 PLAN: -Defer management until acute illness resolved Nicotine use disorder, F17.2 12/13/2020 Resolved Problems Problem Noted Date Diagnosed Date Resolved Date DVT prophylaxis 12/18/2020 12/18/2020 Assessment & Plan (12/18/2020 7:09 AM EST): Assessment: PPX during hospital admission PLAN: -Hold SQ Heparin this morning -BL SCD Choledocholithiasis 12/12/2020 12/18/19 Assessment & Plan (12/18/2020 7:08 AM EST): Assessment: S/P laparoscopic cholecystectomy 12/13 direct admit 12/15 with worsening abdominal pain and elevated LFT (ALT 370, AST 165, total bili (5.3) 12/16: MRCP demonstrating no biliary dilation or filling defect PLAN: -NPO, mIVF -F/U GI recs for ERCP today. -Trend LFT -Protonix 40mg PO daily -Tylenol 650mg PO q6hr -Dilaudid 0.2mg IV q4hr PRN -Oxycodone 5mg PO q4hr PRN Social History Tobacco Use Types Packs/Day Years Used Date Smoking Tobacco: Every Day Cigarettes 0.2 3 Smokeless Tobacco: Never Area Deprivation Index Answer Date Conor rded National Score (1-100), lower number is lower ri sk Not on file 12/12/2020 State Score (1-10), lower number is lower risk N ot on file 12/12/2020 Data from: https://www.neighborhoodatlas.medicine.[facility].edu/. Last address used for calculation Not on file 12/12/2020 Comments Unknown Sex and Gender Information Value Date Recorded Sex Assigned at Not on file Legal Sex Female 5:12 PM EST Gender Identity Not on file Sexual Orientation Not on file Last Filed Vital Signs Vital Sign Reading Time Taken Comments Blood Pressure 130/68 01/02/2021 11:00 AM EST Pulse 115 01/02/2021 11:00 AM EST Temperature 36 C (96.8 F) 01/02/2021 11:00 AM EST Respiratory Rate 16 12/18/2020 10:54 AM EST Oxygen Saturation 100% 12/18/2020 10:54 AM EST Inhaled Oxygen Concentration - - Weight 140.6 kg (310 lb) 01/02/2021 11:00 AM EST Height 149.9 cm (4' 11 ) 01/02/2021 11:00 AM EST Body Mass Index 62.61 01/02/2021 11:00 AM EST Plan of Treatment Health Maintenance Due Date Last Done Comments Anxiety Screening 2008 Depression Screening 2008 HIV Screening 2008 Hepatitis C Screening 2008 DTaP,Tdap,Td Vaccine (1 - Tdap) 2009 Hepatitis B Vaccine (1 of 3 - 19+ 3-dose series) 12/30 Cervical Cancer Screening 2011 HPV Vaccine (1 - 3-dose SCDM series) 2017 Influenza Vaccine (#1) 2025 Insurance MEDICAID
--- OUTSIDE RECORDS SUMMARY | 2025-07-14 14:45 | XMS_ITS | Encounter Summary ---
Author Organization [facility] Address [address] [place] [address] Care Team Providers Care Director Bioinformatics Name Role Phone Tor Torres MD Primary Care Provider +1- [phone] Janae Philippe Unavailable Encounter Details Date Type Department Care Team (Late st Contact Info) Description 04/16/2024 Clinisync Result Encounter [facility] External Department Unsolicited Jesica Smiley, DO [address] [facility] [address] [place], [place] [phone] Social History Tobacco Use Types Packs/Day Years [...] EDT Procedure Visit [facility] [address] [place] [phone] Jesica Smiley DO [address] [facility] [place] [place] [address] documented as of this encounter Goals Goal Patient Goal Type Associated Problems Recent Progress Patient-Stated? Author Reminders Care Plan OB Reminders No Open Scheduling, Background documented as of this encounter Procedures Procedure Name Priority Date/Time Associated Diagnosis Comments US OB BPP W NON-STRESS 04/16/2024 1:51 PM EDT documented in this encounter Results * US OB BPP W NON-STRESS (04/16/2024 1:51 PM EDT) Anatomical Region Laterality Modality Other 04/16/2024 1:51 PM EDT Narrative 04/16/2024 1:54 PM EDT [address] [address] Ultrasound Report Signed Patient: ISAAC TOUSSAINT MR#: [id number] : 1990 Acct:[id number] Age/Sex: 33 / F ADM Date: 04/16/24 Loc: US Attending Dr: Jesica Smiley D.O. Ordering Physician: Jesica Smiley D.O. Date of Service: 04/16/24 Procedure(s): US OB BPP w non-stress Accession Number(s): [id number] cc: Jesica Smiley D.O.; TOR TORRES [address] [address] Patient Name: ISAAC TOUSSAINT MRN: [id number] date: 1990 Sex: F Assigned Patient Location: [facility] Current Patient Location: Accession/Order Number: [id number] Exam Date: 04/16/2024 12:30 Report Date: 04/16/2024 13:51 At the request of: JESICA SMILEY Procedure: US OB BPP w non-stress EXAMINATION: US OB BPP w non-stress HISTORY: SGA P05.10 COMPARISON: Ultrasound OB biophysical 04/13/2024 TECHNIQUE: Ultrasound biophysical profile was performed in the radiology department. BREATHING MOVEMENTS: 2.0 GROSS BODY MOVEMENTS: 2.0 TONE: 2.0 QUALITATIVE AMNIOTIC FLUID VOLUME: 2.0 PRESENTATION: CEPHALIC HEART RATE: 145.9 bpm bpm. AMNIOTIC FLUID VOLUME: 12.5 cm GESTATIONAL AGE: 36 weeks 1 days CONCLUSION: Total biophysical profile score 8.0. Electronically authenticated by: ANATOLIY GONZALEZ Date: 04/16/2024 13:51 Dictated By: Anatoliy Gonzalez M.D. Signed By: 04/16/24 1354 DD/ 1351 TD/TT: Director Digital Communications: Procedure Note Radiology, Radiologist, MD - 04/16/2024 [place] [address] Ultrasound Report Signed Patient: ISAAC TOUSSAINT LMR#: [id number] : 1990Acct:[id number] Age/Sex: 33 / FADM Date: 04/16/24 Loc: US Attending Dr: Jesica Smiley D.O. Ordering Physician: Jesica Smiley D.O. Date of Service: 04/16/24 Procedure(s): US OB BPP w non-stress Accession Number(s): [id number] cc: Jesica Smiley D.O.; TOR TORRES [place] [id number] Patient Name: ISAAC TOUSSAINT MRN: [facility]:[id number] date: 1990 Sex: F Assigned Patient Location: [facility] Current Patient Location: Accession/Order Number: [id number] Exam Date: 04/16/2024 12:30 Report Date: 04/16/2024 13:51 At the request of: JESICA SMILEY Procedure: US OB BPP w non-stress EXAMINATION: US OB BPP w non-stress HISTORY: SGA P05.10 COMPARISON: Ultrasound OB biophysical 04/13/2024 TECHNIQUE: Ultrasound biophysical profile was performed in the radiology department. BREATHING MOVEMENTS: 2.0 GROSS BODY MOVEMENTS: 2.0 TONE: 2.0 QUALITATIVE AMNIOTIC FLUID VOLUME: 2.0 PRESENTATION: CEPHALIC HEART RATE: 145.9 bpm bpm. AMNIOTIC FLUID VOLUME: 12.5 cm GESTATIONAL AGE: 36 weeks 1 days CONCLUSION: Total biophysical profile score 8.0. Electronically authenticated by: ANATOLIY GONZALEZ Date: 04/16/2024 13:51 Dictated By: Anatoliy Gonzalez M.D. Signed By:04/16/24 1354 DD/ 1351 TD/TT: Director Digital Communications: us Jesica Baljit DO [facility] Final Result documented in this encounter Visit Diagnoses Not on filedocumented in this encounter Additional Health Concerns Active Problems Noted Date Diagnosed Date OB Reminders 10/07/2023 documented as of this encounter Care Teams Director Bioinformatics Relationship Specialty Start Date End Date Tor Torres MD [address] [place] [address] PCP - General Internal Medicine 09/25/23 Janae Philippe PA [address] [place] [address] [place] [address] PCP - [facility] 08/24/24 documented as of this encounter
--- OUTSIDE RECORDS SUMMARY | 2025-07-14 14:45 | XMS_ITS | Encounter Summary ---
Author Organization [facility] Address [address] [place] [address] Care Team Providers Care Threader Name Role Phone Tor Torres MD Primary Care Provider +1- [phone] Janae Philippe Unavailable Encounter Details Date Type Department Care Team (Late st Contact Info) Description 01/09/2024 Clinisync Result Encounter [facility] External Department Unsolicited Jesica Smiley, DO [address] [place], [place] [id number] Social History Tobacco Use Types Packs/Day Years [...] EDT Procedure Visit [facility] [address] [place] [id number] Jesica Smiley DO [address] [place] [place] [address] documented as of this encounter Goals Goal Patient Goal Type Associated Problems Recent Progress Patient-Stated? Author Reminders Care Plan OB Reminders No Open Scheduling, Background documented as of this encounter Procedures Procedure Name Priority Date/Time Associated Diagnosis Comments US OB INCOMPLETE ANATOMY 01/09/2024 12:32 PM EST documented in this encounter Results * US OB INCOMPLETE ANATOMY (01/09/2024 12:32 PM EST) Anatomical Region Laterality Modality Other 01/09/2024 12:3 2 PM EST Narrative 01/09/2024 12:34 PM EST [address] [address] Ultrasound Report Signed Patient: ISAAC TOUSSAINT MR#: [id number] : 1990 Acct:[id number] Age/Sex: 33 / F ADM Date: 01/09/24 Loc: US Attending Dr: Jesica Smiley D.O. Ordering Physician: Jesica Smiley D.O. Date of Service: 01/09/24 Procedure(s): US OB incomplete anatomy Accession Number(s): [id number] cc: Jesica Smiley D.O.; TOR TORRES [address] [address] Patient Name: ISAAC TOUSSAINT MRN: [id number] date: 1990 Sex: F Assigned Patient Location: US Current Patient Location: US Accession/Order Number: [id number] Exam Date: 01/09/2024 11:35 Report Date: 01/09/2024 12:32 At the request of: JESICA SMILEY Procedure: US OB incomplete anatomy EXAM: US OB incomplete anatomy HISTORY: Follow Up Ultrasound Of Anatomy Z36.2 COMPARISON: Ultrasound OB anatomy to 524 TECHNIQUE: Transabdominal ultrasound FINDINGS: Heart rate: 153 bpm Presentation: Breech Amniotic fluid: Subjectively normal Anatomy: Four-chamber heart, RVOT, LVOT, hard palate, three-vessel cord adequately visualized; no appreciable abnormality. GA: 22 weeks 1 day RODERICK: 05/13/2024 US/US OB incomplete anatomy IMPRESSION: 1. Single live intrauterine . 2. No appreciable abnormality of the four-chamber heart, cardiac outflow tracts, hard palate, and three-vessel cord. Electronically authenticated by: ANATOLIY GONZALEZ Date: 01/09/2024 12:32 Dictated By: Anatoliy Gonzalez M.D. Signed By: 01/09/24 1234 DD/ 1232 TD/TT: Dry Clipper Tender: Procedure Note Radiology, Radiologist, MD - 01/09/2024 [place] [address] Ultrasound Report Signed Patient: ISAAC TOUSSAINT LMR#: [id number] : 1990Acct:[id number] Age/Sex: 33 / FADM Date: 01/09/24 Loc: US Attending Dr: Jesica Smiley D.O. Ordering Physician: Jesica Smiley D.O. Date of Service: 01/09/24 Procedure(s): US OB incomplete anatomy Accession Number(s): [id number] cc: Jesica Smiley D.O.; TOR TORRES [place] [id number] Patient Name: ISAAC TOUSSAINT MRN: [id number] date: 1990 Sex: F Assigned Patient Location: US Current Patient Location: US Accession/Order Number: [id number] Exam Date: 01/09/2024 11:35 Report Date: 01/09/2024 12:32 At the request of: JESICA SMILEY Procedure: US OB incomplete anatomy EXAM: US OB incomplete anatomy HISTORY: Follow Up Ultrasound Of Anatomy Z36.2 COMPARISON: Ultrasound OB anatomy to 524 TECHNIQUE: Transabdominal ultrasound FINDINGS: Heart rate: 153 bpm Presentation: Breech Amniotic fluid: Subjectively normal Anatomy: Four-chamber heart, RVOT, LVOT, hard palate, three-vessel cord adequately visualized; no appreciable abnormality. GA: 22 weeks 1 day RODERICK: 05/13/2024 US/US OB incomplete anatomy IMPRESSION: 1. Single live intrauterine . 2. No appreciable abnormality of the four-chamber heart, cardiac outflow tracts, hard palate, and three-vessel cord. Electronically authenticated by: ANATOLIY GONZALEZ Date: 01/09/2024 12:32 Dictated By: Anatoliy Gonzalez M.D. Signed By:01/09/24 1234 DD/ 1232 TD/TT: Dry Clipper Tender: us Jesica Baljit DO [facility] Final Result documented in this encounter Visit Diagnoses Not on filedocumented in this encounter Additional Health Concerns Active Problems Noted Date Diagnosed Date OB Reminders 10/07/2023 documented as of this encounter Care Teams Threader Relationship Specialty Start Date End Date Tor Torres MD [address] [facility] [place] [address] PCP - General Internal Medicine 09/25/23 Janae Philippe PA [address] [place] [address] [place] [address] PCP - [facility] 08/24/24 documented as of this encounter
--- OUTSIDE RECORDS SUMMARY | 2025-07-14 14:45 | XMS_ITS | Encounter Summary ---
Author Organization [facility] Address [address] [place] [address] Care Team Providers Care Statistical Reporting Analyst Name Role Phone Yennifer Kirk MD Primary Care Provider +1- [phone] Janae Philippe Unavailable Encounter Details Date Type Department Care Team (Late st Contact Info) Description 10/08/2023 Abstract [facility] [address] [facility] [place] [address] Shlomo Smiley DO [address] [facility] [address] [place], [facility] Social History Tobacco Use Types Packs/Day Years [...] Orientation Straight 09/26/2023 11 :02 AM EDT COVID-19 Exposure Response Date Recorded In the last 10 days, have yo u been in contact with someone who was confirmed or suspected to have Coronavirus/COVID-19? No / Unsure 09/26/2023 11:05 AM EDT documented as of this encounter Plan of Treatment Upcoming Encounters Date Type Department Care Team (Late st Contact Info) Description 08/11/2025 11:30 AM EDT Procedure Visit [facility] [address] [facility] [place] [address] Shlomo Smiley DO [address] [place], [place] [phone] documented as of this encounter Goals Goal Patient Goal Type Associated Problems Recent Progress Patient-Stated? Author Reminders Care Plan OB Reminders No Open Scheduling, Background documented as of this encounter Visit Diagnoses Not on filedocumented in this encounter Additional Health Concerns Active Problems Noted Date Diagnosed Date OB Reminders 10/07/2023 documented as of this encounter Care Teams Statistical Reporting Analyst Relationship Specialty Start Date End Date Yennifer Kirk MD [address] [place] [phone] PCP - General Internal Medicine 09/25/23 Janae Philippe PA [address] [place], [place] [phone] PCP - [facility] 08/24/24 documented as of this encounter
--- OUTSIDE RECORDS SUMMARY | 2025-07-14 14:45 | XMS_ITS | Clinical Summary ---
Author Organization [facility] Address [id number] [address] [place] [address] Care Team Providers Care Employee Benefits Administrator Name Role Phone Yennifer Kirk MD Primary Care Provider + Allergies No known active allergies Medications calcium carbonate (CALCIUM 600 ORAL) Take by mouth. Active multivitamin capsule Take 1 capsule by mouth in the morning. 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 BMI 50.0-59.9, adult 05/18/2021 Anemia 10/29/2017 Asthma 10/29/2017 Encounters Date Type Department Care Team Description 04/29/2025 Travel from Last 3 Months Family History Medical History Relation Name Comments Diabetes Father Diabetes Mother Skin cancer Mother Breast cancer Neg Hx Cancer Neg Hx Colon cancer Neg Hx Hypertension Neg Hx Ovarian cancer Neg Hx Stroke Neg Hx Relation Name Status Comments Father Alive Mother Alive Social History Tobacco Use Types Packs/Day Years Used Date Smoking Tobacco: Former Cigarettes 0.3 2 0 04/2021 - 04/2023 Smokeless Tobacco: Never Tobacco Cessation:Counseling Given: Not Answered Alcohol Use Standard Drinks/Week Comments Not Currently 0 (1 standard drink = 0.6 oz pur e alcohol) occasional PHQ-2 Answer Date Recorded Total Score 10 08/15/2023 Childcare Answer Date Recorded Childcare Unknown 05/05/2019 Employment Answer Date Recorded Employment Unknown 05/05/2019 Hunger Screening Answer Date Recorded Within the past 12 months we worried whether our food would run out before we got money to buy more. Never True 08/15/2023 Within the past 12 months th e food we bought just didn't last and we didn't have money to get more. Never True 08/15/2023 Purpose - Life Answer Date Recorded Purpose and direction in life Unknown Comments No Sex and Gender Information Value Date Recorded Sex Assigned at Female 10/05/2021 4:35 AM EST Legal Sex Female 11:46 AM EDT Gender Identity Female 10/05/2021 4:35 AM EST Sexual Orientation Straight 10/05/2021 4: 35 AM EST Last Filed Vital Signs Vital Sign Reading Time Taken Comments Blood Pressure 112/78 08/15/2023 10:59 AM EDT Pulse 79 08/02/2023 5:26 AM EDT Temperature 36.9 C (98.4 F) 08/02/2023 4:59 AM EDT Respiratory Rate 17 08/02/2023 5:26 AM EDT Oxygen Saturation 97% 08/02/2023 5:26 AM EDT Inhaled Oxygen Concentration - - Weight 123.1 kg (271 lb 6.4 oz) 023 10:59 AM EDT Height 149.9 cm (4' 11 ) 08/15/2023 10: 59 AM EDT Body Mass Index 54.82 08/15/2023 10:59 AM EDT Plan of Treatment Health Maintenance Due Date Last Done Comments DTaP,Tdap and Td Vaccines (1 - Tdap) 2009 Adult BMI Screening 08/15/2024 08/15/2023 Depression Screening 08/15/2024 08/15/2023 Tobacco Screening 08/15/2024 08/15/2023 Influenza Vaccine 07/25/2025 Pap Smear 12/01/2026 12/01/2023, 04/0 03/2021, 02/26/2021 Medical Devices Not on file Procedures Procedure Name Priority Date/Time Associated Diagnosis Comments VITAMIN D 25 HYDROXY Routine 04/30/2025 9:09 AM EDT Weight gain Fatigue Obesity Elevated blood sugar THYROID PROFILE INCLUDES TSH FT4 Routine 04/30/2025 9:09 AM EDT Weight gain Fatigue Obesity Elevated blood sugar HEMOGLOBIN A1C Routine 04/30/2025 9:09 AM EDT Weight gain Fatigue Obesity Elevated blood sugar CBC WITH AUTO DIFFERENTIAL Routine 04/30/2025 9:09 AM EDT Weight gain Fatigue Obesity Elevated blood sugar LIPID PROFILE Routine 04/30/2025 9:09 AM EDT Weight gain Fatigue Obesity Elevated blood sugar COMPREHENSIVE METABOLIC PANEL Routine 04/30/2025 9:09 AM EDT Weight gain Fatigue Obesity Elevated blood sugar VARICELLA-ZOSTER AB, IGM, S Routine 04/30/2025 9:09 AM EDT Weight gain Fatigue Obesity Elevated blood sugar VARICELLA ZOSTER ANTIBODY, IGG Routine 04/30/2025 9:09 AM EDT Weight gain Fatigue Obesity Elevated blood sugar HIGH RISK HPV W/CAMERON Routine 02/26/2021 10:03 AM EDT Well woman exam with routine gynecological exam from Last 3 Months or Most Recently Relevant to Health Maintenance Results * Varicella-Zoster Ab, IgM, S (04/30/2025 9:09 AM EDT) Pathologist [facility] VARICELLA-ZOSTER AB, IGM, S Negative Negative 05/03/2025 2:25 PM EDT [facility] Comment: Test Performed by: [facility] [address] [place] [id number] Hoist Mechanic: Noel Chamberlain Ph.D.; CLIA# [id number] Blood Venous blood / Unknown Venipuncture / Unknown 04/30/2025 9:09 AM EDT 04/30/2025 9:10 AM EDT us Yennifer Kirk MD LAB BLOOD ORDERABLES Fin al Result [facility] [address] [place] [address], * Thyroid profile includes TSH FT4 (04/30/2025 9:09 AM EDT) FREE T4 0.91 0.61 - 1.60 ng/dL 04/30/2025 3:55 PM EDT [facility] TSH 1.93 0.49 - 4.67 uIU/mL 04/30/2025 3:55 PM EDT [facility] Blood Venous blood / Unknown Venipuncture / Unknown 04/30/2025 9:09 AM EDT 04/30/2025 9:10 AM EDT Yennifer Kirk MD LAB BLOOD ORDERABLES Fin al Result [facility] [address] [place] [address], [place] [phone] * (ABNORMAL) CBC auto differential (04/30/2025 9:09 AM EDT) WBC 4.6 4 - 11 x10E9/L 04/30/2025 4:41 PM EDT [facility] RBC Count 4.82 3.8 - 5.2 X10E12/L 04/30/2025 4:41 PM EDT [facility] Hemoglobin 8.8(L) 11.7 - 15.5 g/dL 04/30/2025 4:41 PM EDT [facility] Hematocrit 29.3(L) 35 - 47 % 04/30/2025 4:41 PM EDT [facility] MCV 61(L) 80 - 100 fL 04/30/2025 4:41 PM EDT [facility] MCH 18.2(L) 27 - 34 pg 04/30/2025 4:41 PM EDT [facility] MCHC 29.9(L) 32 - 36 g/dL 04/30/2025 4:41 PM EDT [facility] RDW 19.2(H) 11.5 - 15 % 04/30/2025 4:41 PM EDT [facility] Platelet Count 246 150 - 450 X10E9/L 04/30/2025 4:41 PM EDT [facility] MPV 8.4 7 - 12 fL 04/30/2025 4:41 PM [facility] Neutrophils % 62 % 04/30/2025 4:41 PM [facility] Comment:This is an appended report. These results have been appended to a previously preliminary verified report. Lymphocytes % 32 % 04/30/2025 4:41 PM [facility] Comment:This is an appended report. These results have been appended to a previously preliminary verified report. Monocytes % 5 % 04/30/2025 4:41 PM [facility] Comment:This is an appended report. These results have been appended to a previously preliminary verified report. Eosinophils % 1 % 04/30/2025 4:41 PM [facility] Comment:This is an appended report. These results have been appended to a previously preliminary verified report. Neutrophils Absolute (M) 2.9 1.5 - 6.6 10*3/uL 04/30/2025 4:41 PM [facility] Comment:This is an appended report. These results have been appended to a previously preliminary verified report. Lymphocytes Absolute 1.5 1.0 - 3.5 10*3/uL 04/30/2025 4:41 PM [facility] Comment:This is an appended report. These results have been appended to a previously preliminary verified report. Monocytes Absolute 0.2 0.0 - 0.9 10*3/uL 04/30/2025 4:41 PM [facility] Comment:This is an appended report. These results have been appended to a previously preliminary verified report. Eosinophils Absolute 0.0 0.0 - 0.4 10*3/uL 04/30/2025 4:41 PM [facility] Comment:This is an appended report. These results have been appended to a previously preliminary verified report. Hypochromia 1+ 04/30/2025 4:41 PM [facility] Comment:This is an appended report. These results have been appended to a previously preliminary verified report. Polychromasia 1+ 04/30/2025 4:41 PM [facility] Comment:This is an appended report. These results have been appended to a previously preliminary verified report. Elliptocytes 1+ 04/30/2025 4:41 PM EDT [facility] Comment:This is an appended report. These results have been appended to a previously preliminary verified report. Differential Type MANUAL DIFFERENTIAL 04/30/2025 4:41 PM EDT [facility] Comment:This is an appended report. These results have been appended to a previously preliminary verified report. Blood Venous blood / Unknown Venipuncture / Unknown 04/30/2025 9:09 AM EDT 04/30/2025 9:10 AM EDT Yennifer Kirk MD LAB BLOOD ORDERABLES Fin al Result [facility] [address] [place] [address], * (ABNORMAL) Vitamin D 25 hydroxy (04/30/2025 9:09 AM EDT) VITAMIN D 25 HYD TOT 8.4(L) 30.0 - 100.0 ng/mL 04/30/2025 4:09 PM EDT [facility] Blood Venous blood / Unknown Venipuncture / Unknown 04/30/2025 9:09 AM EDT 04/30/2025 9:10 AM EDT Narrative [facility] - 04/30/2025 4:09 PM EDT Vitamin D status 25 [place] Vitamin D Deficiency <20 ng/mL Insufficiency 20-29 ng/mL Sufficiency 30-100 ng/mL Toxicity >100 ng/mL NOTE: A pediatric reference range has not been established by the as400 operator of this kit. The [place] [employer] recommends a Vitamin D level of = or >20ng/mL in infants and children. us Yennifer Kirk MD LAB BLOOD ORDERABLES Fin al Result [facility] [address] [place] [address], * Varicella zoster antibody, IgG (04/30/2025 9:09 AM EDT) VARICELLA IGG 4.7 <1.0 AI 05/02/2025 9:11 AM EDT [facility] Blood Venous blood / Unknown Venipuncture / Unknown 04/30/2025 9:09 AM EDT 04/30/2025 9:10 AM EDT Narrative [facility] - 05/02/2025 9:11 AM EDT Intepretation < 0.9 Negative 0.9 - 1.0 Equivocal > 1.0 Positive us Yennifer Kirk MD LAB BLOOD ORDERABLES Fin al Result Performing Organization Address City/[facility]/ZIP Co de Phone Number [facility] [address] [place] [address], * Hemoglobin A1c (04/30/2025 9:09 AM EDT) HEMOGLOBIN A1C 5.4 4.4 - 5.6 % 04/30/2025 5:09 PM EDT [facility] Comment: ADA Guidelines Result HgbA1c Normal : less than 5.7 % Prediabetes : 5.7 % to 6.4 % Diabetes : > 6.4 % Use with caution in patients with abnormal hemoglobin variants as the half-life of red blood cells and in vivo glycation rates are affected. EST. AVERAGE GLUCOSE 108 mg/dL 04/30/2025 5:09 PM EDT [facility] Blood Venous blood / Unknown Venipuncture / Unknown 04/30/2025 9:09 AM EDT 04/30/2025 9:10 AM EDT us Yennifer Kirk MD LAB BLOOD ORDERABLES Fin al Result Performing Organization Address City/[facility]/ZIP Co de Phone Number [facility] [address] [place] [address], * (ABNORMAL) Lipid profile (04/30/2025 9:09 AM EDT) CHOLESTEROL 131(L) 150 - 200 mg/dL 04/30/2025 3:46 PM EDT [facility] TRIGLYCERIDE 74 27 - 150 mg/dL 04/30/2025 3:46 PM EDT [facility] HDL CHOLESTEROL 55 >39 mg/dL 3:46 PM EDT [facility] Comment: HDL <40 mg/dL - High Risk HDL > or = 40mg/dL- Desirable HDL >60 mg/dL - Negative Risk LDL (CALC) 61 <130 mg/dL 04/30/2025 3:46 PM EDT [facility] Comment: LDL <100 mg/dL - Desirable LDL >160 mg/dL - High Risk CHOLESTEROL:HDL 2.4 1.0 - 5.0 3:46 PM EDT [facility] VERY LOW LIPOPROTEIN 15 0 - 30 mg/dL 04/30/2025 3:46 PM EDT [facility] Blood Venous blood / Unknown Venipuncture / Unknown 04/30/2025 9:09 AM EDT 04/30/2025 9:10 AM EDT us Yennifer Kirk MD LAB BLOOD ORDERABLES Fin al Result [facility] [address] [place] [address], * Comprehensive metabolic panel (04/30/2025 9:09 AM EDT) SODIUM 139 134 - 146 mmol/L 04/30/2025 3:46 PM [facility] POTASSIUM 4.2 3.5 - 5.0 mmol/L 04/30/2025 3:46 PM [facility] CHLORIDE 107 98 - 109 mmol/L 04/30/2025 3:46 PM [facility] CARBON DIOXIDE 26 22 - 32 mmol/L 04/30/2025 3:46 PM [facility] ANION GAP 6 5 - 15 mmol/L 04/30/2025 3:46 PM [facility] BLOOD UREA NITROGEN 14 5 - 23 mg/dL 04/30/2025 3:46 PM [facility] CREATININE 0.54 0.40 - 1.00 mg/dL 04/30/2025 3:46 PM [facility] Comment:METHOD TRACEABLE TO IDKY STANDARD GLUCOSE 88 65 - 99 mg/dL 04/30/2025 3:46 PM [facility] CALCIUM 9.0 8.5 - 10.5 mg/dL 04/30/2025 3:46 PM [facility] TOTAL PROTEIN 6.9 6.0 - 8.0 g/dL 04/30/2025 3:46 PM [facility] ALBUMIN 3.9 3.2 - 5.3 g/dL 04/30/2025 3:46 PM [facility] ALKALINE PHOSPHATASE 92 39 - 130 U/L 04/30/2025 3:46 PM [facility] AST 16 <=41 U/L 04/30/2025 3:46 PM [facility] ALT 13 <=31 U/L 04/30/2025 3:46 PM [facility] BILIRUBIN,TOTAL 1.0 0.3 - 1.2 mg/dL 04/30/2025 3:46 PM [facility] EGFR Non-Race Dependent >90 >=60 ml/min/1.7 3sq.m 04/30/2025 3:46 PM [facility] Comment: Reported eGFR is based on the CKD-EPI 2021 equation that does not use a race coefficient. Blood Venous blood / Unknown Venipuncture / Unknown 04/30/2025 9:09 AM EDT 04/30/2025 9:10 AM EDT Yennifer Kirk MD LAB BLOOD ORDERABLES Fin al Result [facility] [address] [facility] [address] [place] [address], * High risk HPV w/cameron (02/26/2021 10:03 AM EDT) Hpv specimen type ThinPrep 02/26/2021 6:00 PM EDT [facility] Hpv 16 Negative Negative^N egative 02/28/2021 1:44 PM EDT [facility] Hpv 18 Negative Negative^N egative 02/28/2021 1:44 PM EDT [facility] Other high risk hpv Negative Negative^N egative 02/28/2021 1:44 PM EDT [facility] Comment: HPV types 31,33,35,39,45,52,56,58,59,66 and 68 DNA were undetectable. THINP 02/26/2021 10:0 3 AM EDT 02/26/2021 6:02 PM EDT Felisha Naranjo PIERCING MACHINE OPERATOR-CAR AND YARD SUPERVISOR LAB BLOOD ORDERABLES Fin al Result Performing Organization Address City/[facility]/ZIP Co de Phone Number [facility] [address] [place] [address] [facility] [address] [place] [address] from Last 3 Months or Most Recently Relevant to Health Maintenance Insurance [id number] [place] [address] [employer] [employer] [employer] Care Teams Employee Benefits Administrator Relationship Specialty Start Date End Date Yennifer Kirk MD PCP - General Pediatrics 08/02/23
--- OUTSIDE RECORDS SUMMARY | 2025-07-14 14:45 | XMS_ITS | Encounter Summary ---
Author Organization [facility] Address [address] [place] [address] Care Team Providers Care General Road Supervisor Name Role Phone Tor Torres MD Primary Care Provider +1- [phone] Janae Philippe Unavailable Encounter Details Date Type Department Care Team (Late st Contact Info) Description 03/05/2024 Clinisync Result Encounter [facility] External Department Unsolicited Jesica Smiley, DO [address] [place], [place] [id number] Social History Tobacco Use Types Packs/Day Years [...] EDT Procedure Visit [facility] [place] [facility] [address] [place] [address] Jesica Smiley DO [address] [place] [address] documented as of this encounter Goals Goal Patient Goal Type Associated Problems Recent Progress Patient-Stated? Author Reminders Care Plan OB Reminders No Open Scheduling, Background documented as of this encounter Procedures Procedure Name Priority Date/Time Associated Diagnosis Comments US OB GROWTH 03/05/2024 12:54 PM EDT documented in this encounter Results * US OB GROWTH (03/05/2024 12:54 PM EDT) Anatomical Region Laterality Modality Other 03/05/2024 12:5 4 PM EDT Narrative 03/05/2024 12:56 PM EDT [address] [address] Ultrasound Report Signed Patient: ISAAC TOUSSAINT MR#: [id number] : 1990 Acct:[id number] Age/Sex: 33 / F ADM Date: 03/05/24 Loc: US Attending Dr: Jesica Smiley D.O. Ordering Physician: Jesica Smiley D.O. Date of Service: 03/05/24 Procedure(s): US OB growth Accession Number(s): [id number] cc: Jesica Smiley D.O.; TOR TORRES [address] [address] Patient Name: ISAAC TOUSSAINT MRN: [id number] date: 1990 Sex: F Assigned Patient Location: US Current Patient Location: US Accession/Order Number: [id number] Exam Date: 03/05/2024 11:40 Report Date: 03/05/2024 12:54 At the request of: JESICA SMILEY Procedure: US OB growth EXAMINATION: US OB growth HISTORY: History Of Gastric Bypass Z98.84 COMPARISON: Ultrasound OB growth 02/14/2024 FINDINGS: Heart Rate: 128.6 bpm Number: 1.0 Position: CEPHALIC Amniotic Fluid Volume: 13.6 cm Maximum Vertical Pocket: 5.1 cm BIOMETRY: BPD: 7.3 cm cm; 29 weeks 2 days; 14% HC: 28.5 cmcm; 31 weeks 2 days ; 46% AC: 26.2 cm cm; 30 weeks 2 days; 50% FL: 5.6 cm cm; 29 weeks 2 days; 15% EFW: 1491.1 grams; 32% FL/AC: 21.3 FL/BPD: 76.3 HC/AC: 1.1 GESTATIONAL AGE: Age by EDC: 30 weeks 1 days RODERICK by EDC: 05/13/2024 Age by US: 30 weeks 0 days RODERICK by US: 05/14/2024 US/US OB growth IMPRESSION: 1. Single live intrauterine with growth detailed above. Electronically authenticated by: ANATOLIY GONZALEZ Date: 03/05/2024 12:54 Dictated By: Anatoliy Gonzalez M.D. Signed By: 03/05/24 1256 DD/ 53 TD/TT: Service Person: Procedure Note Radiology, Radiologist, MD - 03/05/2024 [place] [address] Ultrasound Report Signed Patient: ISAAC TOSUSAINT LMR#: [id number] : 1990Acct:[id number] Age/Sex: 33 / FADM Date: 03/05/24 Loc: US Attending Dr: Jesica Smiley D.O. Ordering Physician: Jesica Smiley D.O. Date of Service: 03/05/24 Procedure(s): US OB growth Accession Number(s): [id number] cc: Jesica Smiley D.O.; TOR TORRES [place] [id number] Patient Name: ISAAC TOUSSAINT MRN: [id number] date: 1990 Sex: F Assigned Patient Location: US Current Patient Location: US Accession/Order Number: [id number] Exam Date: 03/05/2024 11:40 Report Date: 03/05/2024 12:54 At the request of: JESICA SMILEY Procedure: US OB growth EXAMINATION: US OB growth HISTORY: History Of Gastric Bypass Z98.84 COMPARISON: Ultrasound OB growth 02/14/2024 FINDINGS: Heart Rate: 128.6 bpm Number: 1.0 Position: CEPHALIC Amniotic Fluid Volume: 13.6 cm Maximum Vertical Pocket: 5.1 cm BIOMETRY: BPD: 7.3 cm cm; 29 weeks 2 days; 14% HC: 28.5 cmcm; 31 weeks 2 days ; 46% AC: 26.2 cm cm; 30 weeks 2 days; 50% FL: 5.6 cm cm; 29 weeks 2 days; 15% EFW: 1491.1 grams; 32% FL/AC: 21.3 FL/BPD: 76.3 HC/AC: 1.1 GESTATIONAL AGE: Age by EDC: 30 weeks 1 days RODERICK by EDC: 05/13/2024 Age by US: 30 weeks 0 days RODERICK by US: 05/14/2024 US/US OB growth IMPRESSION: 1. Single live intrauterine with growth detailed above. Electronically authenticated by: ANATOLIY GONZALEZ Date: 03/05/2024 12:54 Dictated By: Anatoliy Gonzalez M.D. Signed By:03/05/24 1256 DD/ 1254 TD/TT: Service Person: us Jesica Smiley DO [facility] Final Result documented in this encounter Visit Diagnoses Not on filedocumented in this encounter Additional Health Concerns Active Problems Noted Date Diagnosed Date OB Reminders 10/07/2023 documented as of this encounter Care Teams General Road Supervisor Relationship Specialty Start Date End Date Tor Torres MD [address] [place] [address] PCP - General Internal Medicine 09/25/23 Janae Philippe PA [address] [place] [address] Dr [place], [facility] 08/24/24 documented as of this encounter
--- OUTSIDE RECORDS SUMMARY | 2025-07-14 14:45 | XMS_ITS | Encounter Summary ---
Author Organization [facility] Address [address] [place] [address] Care Team Providers Care Photoengraving Helper Name Role Phone Tor Torres MD Primary Care Provider +1- [phone] Janae Philippe Unavailable Encounter Details Date Type Department Care Team (Late st Contact Info) Description 10/03/2023 Clinisync Result Encounter [facility] External Department Unsolicited Jesica Smiley, DO [address] [place], [place] [phone] Social History Tobacco Use Types Packs/Day Years [...] Recorded In the last 10 days, have william u been in contact with someone who was confirmed or suspected to have Coronavirus/COVID-19? No / Unsure 09/26/2023 11:05 AM EDT documented as of this encounter Plan of Treatment Upcoming Encounters Date Type Department Care Team (Late st Contact Info) Description 08/11/2025 11:30 AM EDT Procedure Visit [facility] [place] [facility] [address] [place] [phone] Jesica Smiley DO [address] [facility] [address] [place] [address] documented as of this encounter Procedures Procedure Name Priority Date/Time Associated Diagnosis Comments US OB TRANSVAGINAL 10/03/2023 8: 29 PM EST documented in this encounter Results * US OB TRANSVAGINAL (10/03/2023 8:29 PM EST) Anatomical Region Laterality Modality Other 10/03/2023 8:2 9 PM EST Narrative 06/21/2024 8:27 [place] [address] Ultrasound Report Signed with Rodney Patient: ISAAC TOUSSAINT MR#: [id number] : 1990 Acct:[id number] Age/Sex: 32 / F ADM Date: 10/03/23 Loc: US Attending Dr: Jesica Smiley D.O. Ordering Physician: Jesica Smiley D.O. Date of Service: 10/03/23 Procedure(s): US OB transvaginal Accession Number(s): [id number] cc: Jesica Smiley D.O.; TOR TORRES ADDENDUM The [address] [address] Patient Name: ISAAC TOUSSAINT MRN: [id number] date: 1990 Sex: F Assigned Patient Location: US Current Patient Location: US Accession/Order Number: [id number] Exam Date: 10/03/2023 10:18 Report Date: 10/14/2023 12:54 At the request of: JESICA SMILEY Procedure: US OB transvaginal Begin Addendum #1 Addendum Dictated By: Anatoliy Gonzalez M.D. Addendum Signed By: <Electronically signed by Anatoliy Gonzalez M.D.> 06/21/24826 Addendum Cosigned By: DD/ TD/TT: / ADDENDUM US/US OB transvaginal IMPRESSION: Single live intrauterine . Original Report EXAMINATION: US OB transvaginal HISTORY: MISSED MENSES COMPARISON: No relevant comparison available. FINDINGS: GESTATIONAL SAC: Present and normal appearing. YOLK SAC: Present and normal appearing. POLE: Present and normal appearing. CARDIAC: Present. UTERUS: Normal size and appearance. OVARIES: Right: Not seen. Left: Corpus lutein cyst. CERVIX: 4. 2 cm in length and closed. CUL-DE-SAC: Normal. OTHER: None. AGE BY LMP: 8 weeks 1 day RODERICK BY LMP: 05/13/2024 AGE BY US CRL: 7 weeks 6 days RODERICK BY US CRL: 05/15/2024 IMPRESSION: Electronically authenticated by: ANATOLIY GONZALEZ Date: 10/14/2023 12:54 Addendum Dictated By: Anatoliy Gonzalez M.D. Addendum Signed By: <Electronically signed by Anatoliy Gonzalez M.D.> 06/21/24826 Addendum Cosigned By: DD/ TD/TT: / [address] [address] Patient Name: ISAAC TOUSSAINT MRN: [id number] date: 1990 Sex: F Assigned Patient Location: Current Patient Location: US Accession/Order Number: [id number] Exam Date: 10/03/2023 10:18 Report Date: 10/03/2023 20:29 At the request of: JESICA SMILEY Procedure: US OB transvaginal EXAMINATION: US OB transvaginal HISTORY: MISSED MENSES COMPARISON: No relevant comparison available. FINDINGS: GESTATIONAL SAC: Present and normal appearing. YOLK SAC: Present and normal appearing. POLE: Present and normal appearing. CARDIAC: Present. UTERUS: Normal size and appearance. OVARIES: Right: Not seen. Left: Corpus lutein cyst. CERVIX: 4.2 cm in length and closed. CUL-DE-SAC: Normal. OTHER: None. AGE BY LMP: 8 weeks 1 day RODERICK BY LMP: 05/13/2024 AGE BY US CRL: 7 weeks 6 days RODERICK BY US CRL: 05/15/2024 US/US OB transvaginal IMPRESSION: Electronically authenticated by: ANATOLIY GONZALEZ Date: 10/03/2023 20:29 Dictated By: Anatoliy Gonzalez M.D. Signed By: 10/03/232031 DD/ 28 TD/TT: Track Watchman: Procedure Note Radiology, Radiologist, MD - 06/21/2024 [place] [address] Ultrasound Report Signed with Addenda Patient: ISAAC TOUSSAINT R#: [id number] : 1990Acct:[id number] Age/Sex: 32 / FADM Date: 10/03/23 Loc: US Attending Dr: Jesica Smiley D.O. Ordering Physician: Jesica Smiley D.O. Date of Service: 10/03/23 Procedure(s): US OB transvaginal Accession Number(s): [id number] cc: Jesica Smiley D.O.; TOR TORRES ADDENDUM The [place] [id number] Patient Name: ISAAC TOUSSAINT MRN: [id number] date: 1990 Sex: F Assigned Patient Location: US Current Patient Location: US Accession/Order Number: [id number] Exam Date: 10/03/2023 10:18 Report Date: 10/14/2023 12:54 At the request of: JESICA SMILEY Procedure: US OB transvaginal Begin Addendum #1 Addendum Dictated By: Anatoliy Gonzalez M.D. Addendum Signed By: <Electronically signed by Anatoliy Gonzalez M.D.> 06/21/24826 Addendum Cosigned By: DD/ TD/TT: / ADDENDUM US/US OB transvaginal IMPRESSION: Single live intrauterine . Original Report EXAMINATION: US OB transvaginal HISTORY: MISSED MENSES COMPARISON: No relevant comparison available. FINDINGS: GESTATIONAL SAC: Present and normal appearing. YOLK SAC: Present and normal appearing. POLE: Present and normal appearing. CARDIAC: Present. UTERUS: Normal size and appearance. OVARIES: Right: Not seen. Left: Corpus lutein cyst. CERVIX: 4. 2 cm in length and closed. CUL-DE-SAC: Normal. OTHER: None. AGE BY LMP: 8 weeks 1 day RODERICK BY LMP: 05/13/2024 AGE BY US CRL: 7 weeks 6 days RODERICK BY US CRL: 05/15/2024 IMPRESSION: Electronically authenticated by: ANATOLIY GONZALEZ Date: 10/14/2023 12:54 Addendum Dictated By: Anatoliy Gonzalez M.D. Addendum Signed By: <Electronically signed by Anatoliy Gonzalez M.D.> 06/21/24826 Addendum Cosigned By: DD/ TD/TT: / [place] [address] Patient Name: ISAAC TOUSSAINT MRN: [id number] date: 1990 Sex: F Assigned Patient Location: US Current Patient Location: US Accession/Order Number: [id number] Exam Date: 10/03/2023 10:18 Report Date: 10/03/2023 20:29 At the request of: JESICA SMILEY Procedure: US OB transvaginal EXAMINATION: US OB transvaginal HISTORY: MISSED MENSES COMPARISON: No relevant comparison available. FINDINGS: GESTATIONAL SAC: Present and normal appearing. YOLK SAC: Present and normal appearing. POLE: Present and normal appearing. CARDIAC: Present. UTERUS: Normal size and appearance. OVARIES: Right: Not seen. Left: Corpus lutein cyst. CERVIX: 4.2 cm in length and closed. CUL-DE-SAC: Normal. OTHER: None. AGE BY LMP: 8 weeks 1 day RODERICK BY LMP: 05/13/2024 AGE BY US CRL: 7 weeks 6 days RODERICK BY US CRL: 05/15/2024 US/US OB transvaginal IMPRESSION: Electronically authenticated by: ANATOLIY GONZALEZ Date: 10/03/2023 20:29 Dictated By: Anatoliy Gonzalez M.D. Signed By:10/03/232031 DD/ 28 TD/TT: Track Watchman: us Jesica Baljit DO [facility] Final Result documented in this encounter Visit Diagnoses Not on filedocumented in this encounter Care Teams Photoengraving Helper Relationship Specialty Start Date End Date Tor Torres MD [address] [place] [address] PCP - General Internal Medicine 09/25/23 Janae Philippe PA [address] [place] [address] [place] [address] PCP - [facility] 08/24/24 documented as of this encounter
--- OUTSIDE RECORDS SUMMARY | 2025-07-14 14:45 | XMS_ITS | Encounter Summary ---
Author Organization [facility] Address [address] [place] [address] Care Team Providers Care Vp Of Digital Marketing Name Role Phone Tor Torres MD Primary Care Provider +1- [phone] Janae Philippe Unavailable Encounter Details Date Type Department Care Team (Late st Contact Info) Description 10/03/2023 Clinisync Result Encounter [facility] External Department Unsolicited Jesica Smiley, DO [address] [place] [place], [place] [id number] Social History Tobacco Use Types Packs/Day Years [...] [address] [facility] [place] [address] Jesica Smiley DO [address] [facility] [place] [address] [place] [address] documented as of this encounter Procedures Procedure Name Priority Date/Time Associated Diagnosis Comments US OB TRANSVAGINAL 10/03/2023 8: 29 PM EST documented in this encounter Results * US OB TRANSVAGINAL (10/03/2023 8:29 PM EST) Anatomical Region Laterality Modality Other 10/03/2023 8:2 9 PM EST Narrative 10/03/2023 8:29 [place] [address] Ultrasound Report Signed Patient: ISAAC TOUSSAINT MR#: [id number] : 1990 Acct:[id number] Age/Sex: 32 / F ADM Date: 10/03/23 Loc: US Attending Dr: Jesica Smiley D.O. Ordering Physician: Jesica Smiley D.O. Date of Service: 10/03/23 Procedure(s): US OB transvaginal Accession Number(s): [id number] cc: Jesica Smiley D.O.; TOR TORRES [address] [address] Patient Name: ISAAC TOUSSAINT MRN: [id number] date: 1990 Sex: F Assigned Patient Location: US Current Patient Location: US Accession/Order Number: [id number] Exam Date: 10/03/2023 10:18 Report Date: 10/03/2023 [...] M.D. Signed By: 10/03/232031 DD/ 28 TD/TT: Bar Hostess: Procedure Note Radiology, Radiologist, MD - 10/03/2023 [place] [address] Ultrasound Report Signed Patient: ISAAC TOUSSAINT LMR#: [id number] : 1990Acct:[id number] Age/Sex: 32 / FADM Date: 10/03/23 Loc: US Attending Dr: Jesica Smiley D.O. Ordering Physician: Jesica Smiley D.O. Date of Service: 10/03/23 Procedure(s): US OB transvaginal Accession Number(s): [id number] cc: Jesica Smiley D.O.; TOR TORRES [place] [id number] Patient Name: ISAAC TOUSSAINT MRN: [id number] date: 1990 Sex: F Assigned Patient Location: US Current Patient Location: US Accession/Order Number: [id number] Exam Date: 10/03/2023 10:18 Report Date: 10/03/2023 [...] Gonzalez M.D. Signed By:10/03/232031 DD/ 28 TD/TT: Bar Hostess: us Jesica Smiley DO [facility] Final Result documented in this encounter Visit Diagnoses Not on filedocumented in this encounter Care Teams Vp Of Digital Marketing Relationship Specialty Start Date End Date Tor Torres MD [address] [place] [address] PCP - General Internal Medicine 09/25/23 Janae Philippe PA [address] [place] [address] [place] [address] PCP - [facility] 08/24/24 documented as of this encounter
--- OUTSIDE RECORDS SUMMARY | 2025-07-14 14:45 | XMS_ITS | Encounter Summary ---
Author Organization [facility] Address [address] [place] [address] Care Team Providers Care Adventure Education Teacher Name Role Phone Tor Torres MD Primary Care Provider +1- [phone] Janae Philippe Unavailable Encounter Details Date Type Department Care Team (Late st Contact Info) Description 12/29/2023 Clinisync Result Encounter [facility] External Department Unsolicited Jesica Smiley, DO [address] [place], [place] [phone] Social History Tobacco Use Types Packs/Day Years [...] EDT Procedure Visit [facility] [address] [facility] [place] [address] Jesica Smiley DO [address] [place] [address] documented as of this encounter Goals Goal Patient Goal Type Associated Problems Recent Progress Patient-Stated? Author Reminders Care Plan OB Reminders No Open Scheduling, Background documented as of this encounter Procedures Procedure Name Priority Date/Time Associated Diagnosis Comments US OB CERVICAL LENGTH 12/29/2023 11:01 AM EST documented in this encounter Results * US OB CERVICAL LENGTH (12/29/2023 11:01 AM EST) Anatomical Region Laterality Modality Other 12/29/2023 11:0 1 AM EST Narrative 12/29/2023 11:03 AM EST [address] [address] Ultrasound Report Signed Patient: ISAAC TOUSSAINT MR#: [id number] : 1990 Acct:[id number] Age/Sex: 32 / F ADM Date: 12/29/23 Loc: [facility] Attending Dr: Jesica Smiley D.O. Ordering Physician: Jesica Smiley D.O. Date of Service: 12/29/23 Procedure(s): US OB cervical length Accession Number(s): [id number] cc: Jesica Smiley D.O.; TOR TORRES [address] [address] Patient Name: ISAAC TOUSSAINT MRN: [id number] date: 1990 Sex: F Assigned Patient Location: [facility] Current Patient Location: [facility] Accession/Order Number: [id number] Exam Date: 12/29/2023 09:11 Report Date: 12/29/2023 11:01 At the request of: JESICA SMILEY Procedure: US OB cervical length EXAMINATION: US OB anatomy, US OB cervical [...] 05/13/2024 RODERICK by EDC: 05/13/2024 US/US OB cervical length IMPRESSION: Low lying placenta, the placental edge is 3.6 cm from the internal os Nonvisualization detailed above Closed cervix measuring 3.8 cm in length *Reference: [employer] Practice Guideline for the performance of Obstetric Ultrasound Examinations, August 24, 2007. Electronically authenticated by: HAMLET GUTIERREZ Date: 12/29/2023 11:01 Dictated By: Hamlet Gutierrez M.D. Signed By: 12/29/23 1103 DD/ 1101 TD/TT: Division Field Inspector: Procedure Note Radiology, Radiologist, - 12/29/2023 [place] [address] Ultrasound Report Signed Patient: ISAAC TOUSSAINT LMR#: [id number] : 1990Acct:[id number] Age/Sex: 32 / FADM Date: 12/29/23 Loc: [facility] Attending Dr: Jesica Smiley D.O. Ordering Physician: Jesica Smiley D.O. Date of Service: 12/29/23 Procedure(s): US OB cervical length Accession Number(s): [id number] cc: Jesica Smiley D.O.; TOR TORRES [place] [id number] Patient Name: ISAAC TOUSSAINT MRN: [id number] date: 1990 Sex: F Assigned Patient Location: [facility] Current [facility]: [facility] Accession/Order Number: [id number] Exam Date: 12/29/2023 09:11 Report Date: 12/29/2023 11:01 At the request of: JESICA SMILEY Procedure: US OB cervical length EXAMINATION: US OB anatomy, US OB cervical [...] 05/13/2024 RODERICK by EDC: 05/13/2024 US/US OB cervical length IMPRESSION: Low lying placenta, the placental edge is 3.6 cm from the internal os Nonvisualization detailed above Closed cervix measuring 3.8 cm in length *Reference: [employer] Practice Guideline for the performance of Obstetric Ultrasound Examinations, August 24, 2007. Electronically authenticated by: HAMLET GUTIERREZ Date: 12/29/2023 11:01 Dictated By: Hamlet Gutierrez M.D. Signed By:12/29/23 1103 DD/ 1101 TD/TT: Division Field Inspector: us Jesica Baljit DO [facility] Final Result documented in this encounter Visit Diagnoses Not on filedocumented in this encounter Additional Health Concerns Active Problems Noted Date Diagnosed Date OB Reminders 10/07/2023 documented as of this encounter Care Teams Adventure Education Teacher Relationship Specialty Start Date End Date Tor Torres MD [address] [place] [address] PCP - General Internal Medicine 09/25/23 Janae Philippe PA [address] [place] [address] [place] [address] PCP - [facility] 08/24/24 documented as of this encounter
[2025-07-18 10:08] LABS: Age Gdln ACOG Testing Note (.); IGP, Aptima HPV, rfx 16/18,45 Note (.)
== END 2025-07-14 14:40 | disposition home or self-care (01) ==
LOC: LAB 14:39
PROVIDERS: PCP Internal Medicine; Visit Provider Physician Assistant
DX: Z01.419 Encounter for gynecological examination (general) (routine) without abnormal findings (principal)
CPT/HCPCS: 87624; 88175